=== PATIENT | male | born 1980 | race American Indian/Alaskan Native ===

== ENCOUNTER 2017-04-28 17:48 | Emergency (ER) | payer SELFPAY ==
[2017-04-29] MEDS ORDERED: MOTRIN PO ONE (00:36)
--- NOTE | 2017-04-29 00:39 | Emergency Department Report ---
HPI - General Chief Complaint: Dental/Oral - HPI HPI: 36-year-old -[place] male comes in for complaint of sores in his mouth that his gums are swollen and very painful. He also complains of chills and hot flashes bodyaches. He currently takes no medications he has no known drug allergies has no past medical history. He does report that this is been going on for about a week and he had drunk some orange juice and cranberry juice and the next day he developed sores in his mouth. Patient reports it is difficult for him to eat or drink because of his mouth being so sore. Patient does admit to taking ibuprofen and Tylenol for his pain. ED Past Medical Hx - Past Medical History Previous Medical History?: No - Social History Smoking Status: Never Smoker Substance Use Type: None - Medications Home Medications: Home Medications Medication Instructions Recorded Confirmed Last Taken Type Nystas/Diphen/Xyl Visc/Mylanta 30 ml PO Q6H PRN 4 Days #480 ml 04/29/17 Unknown Rx [Magic Mouthwash] ED Review of Systems ROS: Stated complaint: FLU SX Other details as noted in HPI Constitutional: chills, fever, malaise Eyes: denies: eye pain, eye discharge, vision change ENT: throat pain, other (mouth pain) Respiratory: cough Cardiovascular: denies: chest pain, palpitations Endocrine: no symptoms reported Gastrointestinal: denies: abdominal pain, nausea, diarrhea Genitourinary: denies: urgency, dysuria Musculoskeletal: denies: back pain, joint swelling, arthralgia Skin: denies: rash, lesions Neurological: denies: headache, weakness, paresthesias Psychiatric: denies: anxiety, depression Hematological/Lymphatic: denies: easy bleeding, easy bruising Physical Exam - Physical Exam Vital Signs: Vital Signs 04/28/17 19:20 Temperature 100.6 F H Pulse Rate 96 H Respiratory 18 Rate Blood Pressure 144/99 O2 Sat by Pulse 100 Oximetry Physical Exam: GENERAL: Alert and oriented x3, no apparent distress, Normal Gait, atraumatic. HEAD: Head is normocephalic and a-traumatic. EYES: Extra ocular muscles are intact. Pupils are equal, round, and reactive to light and accommodation. EARS: symetrical, atraumatic, non tender, ear canal clear and moderate cerumen, tympanic membrance non inflamed. gross auditory nml bilaterally. NOSE: Nose symetrical, Nontender,Nares appeared normal. MOUTH:Mouth is well hydrated with lesions and swelling with erythmatous gums. No tonsils, Uvula midline, Tongue not elevated. Mucous membranes are moist. Posterior pharynx clear, no exudate or lesions. Patent airways. NECK: Supple. Non edematous, No carotid bruits. No lymphadenopathy or thyromegaly. LUNGS: Symetrical with respiration, No wheezing, no rales or crackles, CTAB. HEART: S1, S2 present, regular rate and rhythm without murmur, no rubs, no gallops. NEUROLOGIC: No focal Deficit, Cranial nerves II through XII are grossly intact. No loss of sensation, No facial droop, Negative rhomberg. PSYCHIATRIC: Mood is congruent with affect, denies suicidal or homicidal ideations. SKIN: Warm and dry, No lesions, No ulceration or induration present ED Course Vital Signs 04/28/17 19:20 Temperature 100.6 F H Pulse Rate 96 H Respiratory 18 Rate Blood Pressure 144/99 O2 Sat by Pulse 100 Oximetry ED Medical Decision Making - Medical Decision Making Patient has been evaluated by this provider fast track. Patient was ordered ibuprofen 800 mg to take now. I we will send patient home on Magic mouthwash and ibuprofen for pain management. I will refer the patient to a dental clinic. Patient verbalized understanding. Critical care attestation.: If time is entered above; I have spent that time in minutes in the direct care of this critically ill patient, excluding procedure time. ED Disposition Clinical Impression: Gingival swelling Disposition: - TO HOME OR SELFCARE Is pt being admited?: No Does the pt Need Aspirin: No Condition: Stable Instructions: Acetaminophen (By mouth) Additional Instructions: Please take medication as prescribed. If on a when necessary basis. Follow-up with the dentist and her primary care provider in 3-5 days. Prescriptions: Nystas/Diphen/Xyl Visc/Mylanta [Magic Mouthwash] 30 ml PO Q6H PRN 4 Days #480 ml PRN Reason: Pain Referrals: TEJAL ARAGON MD [Primary Care Provider] - 3-5 Days [facility] [Outside] - 3-5 Days [facility] [Outside] - 3-5 Days Forms: Work/School Release Form(ED)
[2017-04-29 01:33] VITALS: BP 143/91
== END 2017-04-29 01:33 | disposition home or self-care (01) ==
LOC: ED 17:48
DX: K08.89 Other specified disorders of teeth and supporting structures (principal)
CPT/HCPCS: 99282

== ENCOUNTER 2020-11-26 09:21 | Inpatient (IN) | payer OTHER, SELFPAY ==
[2020-11-26] MEDS ORDERED: ACETAMINOPHEN 325 MG TAB PO ONE (10:47)
--- NOTE | 2020-11-26 10:49 | Event Note ---
ED Screening Note ED Screening Note: Patient presents for dry cough that began 4 days ago He has associated fever, shortness of breath, chest pain, vomiting He has not been vaccinated for COVID-19 No allergies to medications Patient is hypoxic with low-grade fever Given Tylenol and placed on oxygen ER attending and charge nurse aware of patient This initial assessment/diagnostic orders/clinical plan/treatment(s) is/are subject to change based on patients health status, clinical progression and re- assessment by fellow clinical providers in the ED. Further treatment and workup at subsequent clinical providers discretion. Patient/guardian urged not to elope from the ED as their condition may be serious if not clinically assessed and managed. Initial orders include: Labs, x-ray, EKG
--- NOTE | 2020-11-26 11:11 | XRay Report ---
CHEST 2 VIEWS INDICATION / CLINICAL INFORMATION: SOB, cough, fever. COMPARISON: None available. FINDINGS: SUPPORT DEVICES: None. HEART / MEDIASTINUM: No significant abnormality. LUNGS / PLEURA: Moderate streaky bilateral parenchymal disease likely secondary to Covid pneumonia No pneumothorax. ADDITIONAL FINDINGS: No significant additional findings. IMPRESSION: 1. Probable bilateral Covid pneumonia Signer Name: Raman Arora MD Signed: 11/26/2020 11:06 AM Workstation Name: [id number]
[2020-11-26] MEDS ORDERED: AZITHROMYCIN/NS 500 MG/250 ML 500 MG/250 ML BAG IV ONE (11:20)
[2020-11-26] MEDS ORDERED: cefTRIAXone/NS 2 GM/100 ML 2 GM/100 ML BAG IV ONE (11:20)
[2020-11-26] MEDS ORDERED: ONDANSETRON 4 MG/2 ML INJ IV ONE (11:20)
[2020-11-26] MEDS ORDERED: BENZONATATE 100 MG CAP PO ONE (11:21)
[2020-11-26] MEDS ORDERED: dexAMETHasone 4 MG/ML VIAL IV ONE (11:22)
--- NOTE | 2020-11-26 11:23 | Emergency Department Report ---
ED Shortness of Breath HPI - General Chief Complaint: Dyspnea/Respdistress Stated Complaint: BREATHING ISSUES Time Seen by Provider: 11/26/20 10:47 Source: patient Mode of arrival: Ambulatory Limitations: No Limitations - History of Present Illness Initial Comments: 40-year-old male with no significant past medical history presents to the hospital complaining of shortness of breath and productive cough x1 week. Symptoms worse with exertion and talking. Positive chest pain with cough. Intermittent nausea and vomiting as well as posttussive emesis. Fever and hypoxia noted upon arrival. Not immunized for Covid. Patient still has sense of taste and smell. No known Covid exposure. - Related Data Previous Rx's Medication Instructions Recorded Last Taken Type Nystas/Diphen/Xyl Visc/Mylanta 30 ml PO Q6H PRN 4 Days #480 ml 04/29/17 Unknown Rx [Magic Mouthwash] Allergies Allergy/AdvReac Type Severity Reaction Status Date / Time No Known Allergies Allergy Verified 11/26/20 10:21 ED Review of Systems ROS: Stated complaint: BREATHING ISSUES Other details as noted in HPI Comment: All other systems reviewed and negative ED Past Medical Hx - Past Medical History Previous Medical History?: No - Surgical History Past Surgical History?: No - Social History Smoking Status: Never Smoker Substance Use Type: None - Medications Home Medications: Home Medications Medication Instructions Recorded Confirmed Last Taken Type Nystas/Diphen/Xyl Visc/Mylanta 30 ml PO Q6H PRN 4 Days #480 ml 04/29/17 Unknown Rx [Magic Mouthwash] ED Physical Exam - General Limitations: No Limitations - Other Other exam information: General: No acute distress Head: Atraumatic Eyes: normal appearance Neck: Normal appearance, no midline tenderness Chest: Bilateral crackles, tachypnea, mild accessory muscle use and breathless with speech CV: Regular rate and rhythm Abdomen: Soft, normal bowel sounds, nontender, nondistended, no rebound or guarding Back: Normal inspection Extremity: Normal inspection, full range of motion, no calf tenderness or leg edema Neuro: Alert O x 3, no facial asymmetry, speech clear, no gross motor sensory deficit Psych: Appropriate behavior Skin: No rash ED Course Vital Signs 11/26/20 11/26/20 11/26/20 10:22 13:54 14:00 Temperature 100.1 F H Pulse Rate 90 80 83 Respiratory 20 35 H 42 H Rate Blood Pressure 148/92 144/89 O2 Sat by Pulse 90 96 96 Oximetry 11/26/20 11/26/20 14:16 14:30 Temperature Pulse Rate 82 82 Respiratory 35 H 37 H Rate Blood Pressure 144/89 130/89 O2 Sat by Pulse 97 97 Oximetry - Reevaluation(s) Reevaluation #1: 11/26/20 11:23 Patient provided supplemental oxygen in acute waiting room and labs and meds initiated while awaiting available bed in acute ED 11/26/20 14:31 Patient's respiratory rate increases to the 40s with ambulation while on supplemental oxygen. ED Medical Decision Making - Lab Data Result diagrams: 11/26/20 11:17 11/26/20 11:17 Lab Results 11/26/20 11/26/20 11/26/20 Range/Units 11:17 11:17 11:17 WBC 5.5 (4.5-11.0) K/mm3 RBC 5.28 H (3.65-5.03) M/mm3 Hgb 15.8 H (11.8-15.2) gm/dl Hct 44.8 (35.5-45.6) % MCV 85 (84-94) fl MCH 30 (28-32) pg MCHC 35 H (32-34) % RDW 15.1 (13.2-15.2) % Plt Count 135 L (140-440) K/mm3 Lymph % (Auto) 22.7 (13.4-35.0) % [place] % (Auto) 4.9 (0.0-7.3) % Eos % (Auto) 0.0 (0.0-4.3) % Baso % (Auto) 0.2 (0.0-1.8) % Lymph # (Auto) 1.3 (1.2-5.4) K/mm3 [place] # (Auto) 0.3 (0.0-0.8) K/mm3 Eos # (Auto) 0.0 (0.0-0.4) K/mm3 Baso # (Auto) 0.0 (0.0-0.1) K/mm3 Seg Neutrophils % 72.2 H (40.0-70.0) % Seg Neutrophils # 4.0 (1.8-7.7) K/mm3 D-Dimer 2154.70 H (0-234) ng/mlDDU Sodium 135 L (137-145) mmol/L Potassium 4.2 (3.6-5.0) mmol/L Chloride 96.7 L (98-107) mmol/L Carbon Dioxide 27 (22-30) mmol/L Anion Gap 16 mmol/L BUN 16 (9-20) mg/dL Creatinine 1.3 (0.8-1.3) mg/dL Estimated GFR > 60 ml/min BUN/Creatinine Ratio 12 % Glucose 117 H (75-100) mg/dL Lactic Acid (0.7-2.0) mmol/L Calcium 8.7 (8.4-10.2) mg/dL Ferritin (30.0-300.0) ng/mL Total Bilirubin 0.90 (0.1-1.2) mg/dL AST 68 H (5-40) units/L ALT 44 (7-56) units/L Alkaline Phosphatase 74 (35-129) units/L Lactate Dehydrogenase (91-180) units/L Troponin T < 0.010 (0.00-0.029) ng/mL C-Reactive Protein (0.00-1.30) mg/dL NT-Pro-B Natriuret Pep 18.20 (0-450) pg/mL Total Protein 7.7 (6.3-8.2) g/dL Albumin 4.1 (3.9-5) g/dL Albumin/Globulin Ratio 1.1 % 11/26/20 11/26/20 11/26/20 Range/Units 11:17 11:17 11:42 WBC (4.5-11.0) K/mm3 RBC (3.65-5.03) M/mm3 Hgb (11.8-15.2) gm/dl Hct (35.5-45.6) % MCV (84-94) fl MCH (28-32) pg MCHC (32-34) % RDW (13.2-15.2) % Plt Count (140-440) K/mm3 Lymph % (Auto) (13.4-35.0) % [place] % (Auto) (0.0-7.3) % Eos % (Auto) (0.0-4.3) % Baso % (Auto) (0.0-1.8) % Lymph # (Auto) (1.2-5.4) K/mm3 [place] # (Auto) (0.0-0.8) K/mm3 Eos # (Auto) (0.0-0.4) K/mm3 Baso # (Auto) (0.0-0.1) K/mm3 Seg Neutrophils % (40.0-70.0) % Seg Neutrophils # (1.8-7.7) K/mm3 D-Dimer (0-234) ng/mlDDU Sodium (137-145) mmol/L Potassium (3.6-5.0) mmol/L Chloride (98-107) mmol/L Carbon Dioxide (22-30) mmol/L Anion Gap mmol/L BUN (9-20) mg/dL Creatinine (0.8-1.3) mg/dL Estimated GFR ml/min BUN/Creatinine Ratio % Glucose (75-100) mg/dL Lactic Acid 0.90 (0.7-2.0) mmol/L Calcium (8.4-10.2) mg/dL Ferritin 872.8 H (30.0-300.0) ng/mL Total Bilirubin (0.1-1.2) mg/dL AST (5-40) units/L ALT (7-56) units/L Alkaline Phosphatase (35-129) units/L Lactate Dehydrogenase 642 H (91-180) units/L Troponin T (0.00-0.029) ng/mL C-Reactive Protein 8.50 H (0.00-1.30) mg/dL NT-Pro-B Natriuret Pep (0-450) pg/mL Total Protein (6.3-8.2) g/dL Albumin (3.9-5) g/dL Albumin/Globulin Ratio % - Radiology Data Radiology results: report reviewed CHEST 2 VIEWS INDICATION / CLINICAL INFORMATION: SOB, cough, fever. COMPARISON: None available. FINDINGS: SUPPORT DEVICES: None. HEART / MEDIASTINUM: No significant abnormality. LUNGS / PLEURA: Moderate streaky bilateral parenchymal disease likely secondary to Covid pneumonia No pneumothorax. ADDITIONAL FINDINGS: No significant additional findings. IMPRESSION: 1. Probable bilateral Covid pneumonia - Medical Decision Making 40-year-old male presents to the hospital with likely Covid pneumonia. Patient is unvaccinated patient requires admission to the hospital due to acute hypoxia requiring oxygen supplementation. Patient treated with Rocephin, azithromycin, Tylenol, and IV Decadron. Covid test pending. Patient will require admission to hospital service for further treatment. Critical Care Time: No Critical care attestation.: If time is entered above; I have spent that time in minutes in the direct care of this critically ill patient, excluding procedure time. ED Disposition Clinical Impression: Suspected 2019 novel coronavirus infection, Hypoxia, Pneumonia, 2019 novel coronavirus vaccination not done Disposition: ADMITTED INPATIENT Is pt being admited?: Yes Condition: Stable Time of Disposition: 12:28 (DR Cedeño/hospitalist)
[2020-11-26 11:48] LABS: Basophils % (Auto) 0.2 % (0.0-1.8); Hematocrit 44.8 % (35.5-45.6); Hemoglobin 15.8 gm/dl (11.8-15.2); Lymphocytes # (Auto) 1.3 K/mm3 (1.2-5.4); Lymphocytes % (Auto) 22.7 % (13.4-35.0); Mean Corpuscular HGB Conc 35 % (32-34); Mean Corpuscular Volume 85 fl (84-94); Monocytes # (Auto) 0.3 K/mm3 (0.0-0.8); Monocytes % (Auto) 4.9 % (0.0-7.3); Platelet Count 135 K/mm3 (140-440); Red Blood Count 5.28 M/mm3 (3.65-5.03); Red Cell Distribution Width 15.1 % (13.2-15.2)
[2020-11-26 12:09] LABS: C-Reactive Protein 8.5 mg/dL (0.00-1.30)
[2020-11-26 12:11] LABS: Alanine Aminotransferase 44 units/L (7-56); Albumin 4.1 g/dL (3.9-5); BUN/Creatinine Ratio 12; Blood Urea Nitrogen 16 mg/dL (9-20); Calcium 8.7 mg/dL (8.4-10.2); Hemolysis Index 4
[2020-11-26] MEDS ORDERED: ACETAMINOPHEN 325 MG TAB PO PRN (22:20)
[2020-11-26] MEDS ORDERED: SODIUM CHLORIDE 0.9% 1000 ML 1,000 ML IV SCH (22:30)
[2020-11-27 05:44] LABS: Basophils % (Auto) 0.2 % (0.0-1.8); Hematocrit 44.4 % (35.5-45.6); Hemoglobin 15.3 gm/dl (11.8-15.2); Lymphocytes # (Auto) 1.5 K/mm3 (1.2-5.4); Lymphocytes % (Auto) 25.7 % (13.4-35.0); Mean Corpuscular HGB Conc 35 % (32-34); Mean Corpuscular Volume 86 fl (84-94); Monocytes # (Auto) 0.3 K/mm3 (0.0-0.8); Monocytes % (Auto) 4.5 % (0.0-7.3); Platelet Count 150 K/mm3 (140-440); Red Blood Count 5.14 M/mm3 (3.65-5.03)
[2020-11-27 06:35] LABS: Alanine Aminotransferase 41 units/L (7-56); BUN/Creatinine Ratio 12; Blood Urea Nitrogen 17 mg/dL (9-20); Calcium 8.6 mg/dL (8.4-10.2); Hemolysis Index 13
--- NOTE | 2020-11-27 06:46 | History and Physical Report ---
History of Present Illness Date of examination: 11/26/20 Date of admission: 11/26/20 12:30 Chief complaint: Shortness of breath for 1 week History of present illness: 40-year-old -[place] male with no significant past medical history unvaccinated with Covid comes in for increasing shortness of breath and cough for 2-week escalating for 1 week. Symptoms worse with exertion and talking. Positive chest pain. Episode associated with cough. Intermittent nausea vomiting as well as emesis after coughing. Fever and low oxygen levels noted upon arrival. Sats in the mid 85. No loss of taste or smell. Feels weak. No known Covid exposure. Patient now willing to take vaccine after he gets better. - Past Medical History Previous Medical History?: No - Surgical History Past Surgical History?: No - Social History Smoking Status: Never Smoker Substance Use Type: None -Family history Htn - Medications Home Medications: Home Medications Medication Instructions Recorded Confirmed Last Taken Type Nystas/Diphen/Xyl Visc/Mylanta 30 ml PO Q6H PRN 4 Days #480 ml 04/29/17 Unknown Rx [Magic Mouthwash] Review of Systems ROS: Constitutional intermittent fever and loss of appetite HEENT no sore throat no post nasal drip no diplopia Neck no neck stiffness no lymph gland enlargement Chest and lungs cough and shortness of breath for 1 week CVS no chest pain no diaphoresis no palpitations GI no nausea no vomiting no diarrhea Genitourinary system no dysuria no flank pain Musculoskeletal system no muscle pains no joint pains [employer] no syncope no seizures Skin no rash no itching Psychiatric no depression no homicidal or suicidal tendencies Hematologic no lymphedema or bruising Endocrine no polydipsia no polyuria no cold intolerance no heat intolerance Medications and Allergies Allergies Allergy/AdvReac Type Severity Reaction Status Date / Time No Known Allergies Allergy Verified 11/26/20 10:21 Home Medications Medication Instructions Recorded Confirmed Last Taken Type Nystas/Diphen/Xyl Visc/Mylanta 30 ml PO Q6H PRN 4 Days #480 ml 04/29/17 Unknown Rx [Magic Mouthwash] Active Meds: Active Medications Acetaminophen (Acetaminophen 325 Mg Tab) 650 mg PO Q4H PRN PRN Reason: Pain MILD(1-3)/Fever >100.5/DALY Dexamethasone (Dexamethasone 4 Mg/Ml Vial) 8 mg IV Q24H SANGEETHA Enoxaparin Sodium (Enoxaparin 40 Mg/0.4 Ml Inj) 40 mg SUB-Q QDAY SANGEETHA Famotidine (Famotidine 20 Mg/2 Ml Inj) 20 mg IV BID SANGEETHA Hydromorphone HCl (Hydromorphone 1 Mg/1 Ml Inj) 0.5 mg IV Q3H PRN PRN Reason: Pain , Severe (7-10) Sodium Chloride (Nacl 0.9% 1000 Ml) 1,000 mls @ 100 mls/hr IV DIRECT SANGEETHA Azithromycin (Zithromax/Ns) 500 mg in 250 mls @ 250 mls/hr IV Q24H SANGEETHA Ceftriaxone Sodium (Rocephin/Ns 2 Gm/100 Ml) 2 gm in 100 mls @ 200 mls/hr IV Q24HR SANGEETHA; Protocol Ondansetron HCl (Ondansetron 4 Mg/2 Ml Inj) 4 mg IV Q8H PRN PRN Reason: Nausea And Vomiting Oxycodone/Acetaminophen (Oxycodone /Acetaminophen 5-325mg Tab) 1 tab PO Q6H PRN PRN Reason: Pain, Moderate (4-6) Sodium Chloride (Sodium Chloride 0.9% 10 Ml Flush Syringe) 10 ml IV BID [facility] Last Admin: 11/27/20 00:20 Dose: 10 ml Documented by: Sodium Chloride (Sodium Chloride 0.9% 10 Ml Flush Syringe) 10 ml IV PRN PRN PRN Reason: LINE FLUSH Exam - Constitutional Vitals: Temp Pulse Resp BP Pulse Ox 100.1 F H 91 H 28 H 132/86 90 11/26/20 10:22 11/27/20 06:30 11/27/20 06:30 11/27/20 06:30 11/27/20 06:30 General appearance: Present: mild distress, well-nourished - EENT Eyes: Present: PERRL ENT: hearing intact, clear oral mucosa - Neck Neck: Present: supple, normal ROM - Respiratory Respiratory effort: normal Respiratory: bilateral: CTA - Cardiovascular Heart rate: 78 Rhythm: regular Heart Sounds: Present: S1 & S2. Absent: rub, click - Extremities Extremities: pulses symmetrical, No edema Peripheral Pulses: within normal limits - Abdominal General gastrointestinal: Present: soft, non-tender, non-distended, normal bowel sounds Male genitourinary: Present: normal - Integumentary Integumentary: Present: clear, warm, dry - Musculoskeletal Musculoskeletal: gait normal, strength equal bilaterally - Psychiatric Psychiatric: appropriate mood/affect, intact judgment & insight - Neurologic Neurologic: CNII-XII intact, moves all extremities - Allied Health Allied health notes reviewed: nursing, case management HEART Score - HEART Score Troponin: Troponin T < 0.010 ng/mL (0.00-0.029) 11/26/20 11:17 Results - Labs CBC & Chem 7: 11/27/20 05:15 11/26/20 11:17 Labs: Laboratory Last Values WBC 5.7 K/mm3 (4.5-11.0) 11/27/20 05:15 RBC 5.14 M/mm3 (3.65-5.03) H 11/27/20 05:15 Hgb 15.3 gm/dl (11.8-15.2) H 11/27/20 05:15 Hct 44.4 % (35.5-45.6) 11/27/20 05:15 MCV 86 fl (84-94) 11/27/20 05:15 MCH 30 pg (28-32) 11/27/20 05:15 MCHC 35 % (32-34) H 11/27/20 05:15 RDW 15.0 % (13.2-15.2) 11/27/20 05:15 Plt Count 150 K/mm3 (140-440) 11/27/20 05:15 Lymph % (Auto) 25.7 % (13.4-35.0) 11/27/20 05:15 [place] % (Auto) 4.5 % (0.0-7.3) 11/27/20 05:15 Eos % (Auto) 0.0 % (0.0-4.3) 11/27/20 05:15 Baso % (Auto) 0.2 % (0.0-1.8) 11/27/20 05:15 Lymph # (Auto) 1.5 K/mm3 (1.2-5.4) 11/27/20 05:15 [place] # (Auto) 0.3 K/mm3 (0.0-0.8) 11/27/20 05:15 Eos # (Auto) 0.0 K/mm3 (0.0-0.4) 11/27/20 05:15 Baso # (Auto) 0.0 K/mm3 (0.0-0.1) 11/27/20 05:15 Seg Neutrophils % 69.6 % (40.0-70.0) 11/27/20 05:15 Seg Neutrophils # 4.0 K/mm3 (1.8-7.7) 11/27/20 05:15 D-Dimer 2154.70 ng/mlDDU (0-234) H 11/26/20 11:17 Sodium 135 mmol/L (137-145) L 11/26/20 11:17 Potassium 4.2 mmol/L (3.6-5.0) 11/26/20 11:17 Chloride 96.7 mmol/L (98-107) L 11/26/20 11:17 Carbon Dioxide 27 mmol/L (22-30) 11/26/20 11:17 Anion Gap 16 mmol/L 11/26/20 11:17 BUN 16 mg/dL (9-20) 11/26/20 11:17 Creatinine 1.3 mg/dL (0.8-1.3) 11/26/20 11:17 Estimated GFR > 60 ml/min 11/27/20 05:15 BUN/Creatinine Ratio 12 % 11/27/20 05:15 Glucose 117 mg/dL (75-100) H 11/26/20 11:17 Lactic Acid 1.20 mmol/L (0.7-2.0) 11/26/20 23:28 Calcium 8.7 mg/dL (8.4-10.2) 11/26/20 11:17 Ferritin 872.8 ng/mL (30.0-300.0) H 11/26/20 11:17 Total Bilirubin 0.90 mg/dL (0.1-1.2) 11/26/20 11:17 AST 68 units/L (5-40) H 11/26/20 11:17 ALT 44 units/L (7-56) 11/26/20 11:17 Alkaline Phosphatase 74 units/L (35-129) 11/26/20 11:17 Lactate Dehydrogenase 642 units/L (91-180) H 11/26/20 11:17 Troponin T < 0.010 ng/mL (0.00-0.029) 11/26/20 11:17 C-Reactive Protein 8.50 mg/dL (0.00-1.30) H 11/26/20 11:17 NT-Pro-B Natriuret Pep 18.20 pg/mL (0-450) 11/26/20 11:17 Total Protein 7.7 g/dL (6.3-8.2) 11/26/20 11:17 Albumin 4.1 g/dL (3.9-5) 11/26/20 11:17 Albumin/Globulin Ratio 1.0 % 11/27/20 05:15 Microbiology: Microbiology 11/26/20 11:42 Peripheral/Venous Blood Culture - Preliminary Culture in Progress 11/26/20 11:42 Peripheral/Venous Blood Culture - Preliminary Culture in Progress - Imaging and Cardiology Chest x-ray: report reviewed Imaging and Cardiology: Chest x-ray Probable bilateral COVID-pneumonia Assessment and Plan Advance Directives: Yes (Full code) VTE prophylaxis?: Chemical Plan of care discussed with patient/family: Yes - Patient Problems (1) Acute respiratory failure with hypoxia Current Visit: Yes Status: Acute Plan to address problem: Titrate oxygen levels to keep saturations over 90 Patient now on 4 L nasal cannula oxygen Otherwise comfortable (2) Bilateral pneumonia Current Visit: Yes Status: Acute Plan to address problem: IV Zithromax and IV ceftriaxone for now Discontinue if procalcitonin is normal ID consult requested (3) Suspected 2019 novel coronavirus infection Current Visit: Yes Status: Acute Plan to address problem: Coronavirus PCR in a.m. IV Decadron 8 mg every 24 Zinc sulfate 220 twice daily along with vitamin C and vitamin D (4) Hyponatremia Current Visit: Yes Status: Acute Plan to address problem: Sodium of 135 Normal saline for 12 hours (5) DVT prophylaxis Current Visit: Yes Status: Acute Plan to address problem: On anticoagulation and GI prophylaxis
[2020-11-27] MEDS: oxyCODONE /ACETAMINOPHEN 5-325MG TAB PO PRN (06:48)
--- NOTE | 2020-11-27 08:14 | Progress Note ---
Assessment and Plan Assessment and plan: 40-year-old -Citizen Of [place] male with no significant past medical history unvaccinated with Covid comes in for increasing shortness of breath and cough for 2-week escalating for 1 week. Symptoms worse with exertion and talking. Positive chest pain. Episode associated with cough. Intermittent nausea vomiting as well as emesis after coughing. Fever and low oxygen levels noted upon arrival. Sats in the mid 85. No loss of taste or smell. Feels weak. No known Covid exposure. Patient now willing to take vaccine after he gets better. (1) Acute respiratory failure with hypoxia Current Visit: Yes Status: Acute Plan to address problem: Titrate oxygen levels to keep saturations over 90 Patient now on 4 L nasal cannula oxygen Otherwise comfortable (2) Bilateral pneumonia Current Visit: Yes Status: Acute Plan to address problem: IV Zithromax and IV ceftriaxone for now Discontinue if procalcitonin is normal ID consult requested (3) Suspected 2019 novel coronavirus infection Current Visit: Yes Status: Acute Plan to address problem: Coronavirus PCR in a.m. IV Decadron 8 mg every 24 Zinc sulfate 220 twice daily along with vitamin C and vitamin D (4) Hyponatremia Current Visit: Yes Status: Acute Plan to address problem: Sodium of 135 Normal saline for 12 hours (5) DVT prophylaxis Current Visit: Yes Status: Acute Plan to address problem: On anticoagulation and GI prophylaxis 11/27 -Patient was on 4 L of oxygen. Covid test is pending. Procalcitonin level pending. ID is following. Patient is on Decadron and will add remdesivir if Covid test is positive History Interval history: Patient was seen and evaluated this morning Patient was on 4 L of oxygen Patient was in moderate respiratory distress Hospitalist Physical - Physical exam Narrative exam: Not in cardiopulmonary distress. The patient is obese. Vital signs as documented. Head exam is unremarkable. No scleral icterus . Neck is without jugular venous distension, thyromegaly, or carotid bruits. Lungs are clear to auscultation. Cardiac exam reveals regular rate and Rhythm. Abdominal exam reveals normal bowel sounds, nontender, no organomegaly. Extremities are nonedematous and both femoral and pedal pulses are normal. 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 No focal weakness. - Constitutional Vitals: Temp Pulse Resp BP Pulse Ox 100.1 F H 91 H 20 132/86 90 11/26/20 10:22 11/27/20 06:30 11/27/20 06:48 11/27/20 06:30 11/27/20 06:30 General appearance: Present: mild distress, well-nourished HEART Score - HEART Score Troponin: Troponin T < 0.010 ng/mL (0.00-0.029) 11/26/20 11:17 Results - Labs CBC & Chem 7: 11/27/20 05:15 11/27/20 05:15 Labs: Laboratory Last Values WBC 5.7 K/mm3 (4.5-11.0) 11/27/20 05:15 RBC 5.14 M/mm3 (3.65-5.03) H 11/27/20 05:15 Hgb 15.3 gm/dl (11.8-15.2) H 11/27/20 05:15 Hct 44.4 % (35.5-45.6) 11/27/20 05:15 MCV 86 fl (84-94) 11/27/20 05:15 MCH 30 pg (28-32) 11/27/20 05:15 MCHC 35 % (32-34) H 11/27/20 05:15 RDW 15.0 % (13.2-15.2) 11/27/20 05:15 Plt Count 150 K/mm3 (140-440) 11/27/20 05:15 Lymph % (Auto) 25.7 % (13.4-35.0) 11/27/20 05:15 [place] % (Auto) 4.5 % (0.0-7.3) 11/27/20 05:15 Eos % (Auto) 0.0 % (0.0-4.3) 11/27/20 05:15 Baso % (Auto) 0.2 % (0.0-1.8) 11/27/20 05:15 Lymph # (Auto) 1.5 K/mm3 (1.2-5.4) 11/27/20 05:15 [place] # (Auto) 0.3 K/mm3 (0.0-0.8) 11/27/20 05:15 Eos # (Auto) 0.0 K/mm3 (0.0-0.4) 11/27/20 05:15 Baso # (Auto) 0.0 K/mm3 (0.0-0.1) 11/27/20 05:15 Seg Neutrophils % 69.6 % (40.0-70.0) 11/27/20 05:15 Seg Neutrophils # 4.0 K/mm3 (1.8-7.7) 11/27/20 05:15 D-Dimer 2154.70 ng/mlDDU (0-234) H 11/26/20 11:17 Sodium 137 mmol/L (137-145) 11/27/20 05:15 Potassium 4.5 mmol/L (3.6-5.0) 11/27/20 05:15 Chloride 95.1 mmol/L (98-107) L 11/27/20 05:15 Carbon Dioxide 29 mmol/L (22-30) 11/27/20 05:15 Anion Gap 17 mmol/L 11/27/20 05:15 BUN 17 mg/dL (9-20) 11/27/20 05:15 Creatinine 1.4 mg/dL (0.8-1.3) H 11/27/20 05:15 Estimated GFR > 60 ml/min 11/27/20 05:15 BUN/Creatinine Ratio 12 % 11/27/20 05:15 Glucose 110 mg/dL (75-100) H 11/27/20 05:15 Lactic Acid 1.20 mmol/L (0.7-2.0) 11/26/20 23:28 Calcium 8.6 mg/dL (8.4-10.2) 11/27/20 05:15 Ferritin 872.8 ng/mL (30.0-300.0) H 11/26/20 11:17 Total Bilirubin 0.70 mg/dL (0.1-1.2) 11/27/20 05:15 AST 51 units/L (5-40) H 11/27/20 05:15 ALT 41 units/L (7-56) 11/27/20 05:15 Alkaline Phosphatase 74 units/L (35-129) 11/27/20 05:15 Lactate Dehydrogenase 642 units/L (91-180) H 11/26/20 11:17 Troponin T < 0.010 ng/mL (0.00-0.029) 11/26/20 11:17 C-Reactive Protein 8.50 mg/dL (0.00-1.30) H 11/26/20 11:17 NT-Pro-B Natriuret Pep 18.20 pg/mL (0-450) 11/26/20 11:17 Total Protein 8.1 g/dL (6.3-8.2) 11/27/20 05:15 Albumin 4.0 g/dL (3.9-5) 11/27/20 05:15 Albumin/Globulin Ratio 1.0 % 11/27/20 05:15 Microbiology: Microbiology 11/26/20 11:42 Peripheral/Venous Blood Culture - Preliminary Culture in Progress 11/26/20 11:42 Peripheral/Venous Blood Culture - Preliminary Culture in Progress Active Medications - Current Medications Current Medications: Generic Name Dose Route Start Last Admin Trade Name Freq PRN Reason Stop Dose Admin Acetaminophen 650 mg 11/26/20 22:20 Acetaminophen 325 Mg Tab PO Q4H PRN Pain MILD(1-3)/Fever >100.5/DALY Dexamethasone 8 mg 11/27/20 10:00 Dexamethasone 4 Mg/Ml Vial IV 12/05/20 10:01 DAILY [facility] Enoxaparin Sodium 40 mg 11/27/20 10:00 Enoxaparin 40 Mg/0.4 Ml Inj SUB-Q QDAY [facility] Famotidine 20 mg 11/27/20 10:00 Famotidine 20 Mg/2 Ml Inj IV BID [facility] Hydromorphone HCl 0.5 mg 11/26/20 22:20 Hydromorphone 1 Mg/1 Ml Inj IV Q3H PRN Pain , Severe (7-10) Sodium Chloride 1,000 mls @ 100 mls/hr 11/26/20 22:30 Nacl 0.9% 1000 Ml IV DIRECT [facility] Azithromycin 500 mg in 250 mls @ 250 mls/hr 11/27/20 10:00 Zithromax/Ns IV 11/30/20 10:59 Q24H [facility] Ceftriaxone Sodium 2 gm in 100 mls @ 200 mls/hr 11/27/20 10:00 Rocephin/Ns 2 Gm/100 Ml IV 11/30/20 10:29 Q24HR [facility] Protocol Ondansetron HCl 4 mg 11/26/20 22:20 Ondansetron 4 Mg/2 Ml Inj IV Q8H PRN Nausea And Vomiting Oxycodone/Acetaminophen 1 tab 11/26/20 22:20 08/27/21 06:48 Oxycodone /Acetaminophen 5-325mg Tab PO 1 tab Q6H PRN Administration Pain, Moderate (4-6) Sodium Chloride 10 ml 11/26/20 23:00 11/27/20 00:20 Sodium Chloride 0.9% 10 Ml Flush Syringe IV 10 ml BID [facility] Administration Sodium Chloride 10 ml 11/26/20 22:20 Sodium Chloride 0.9% 10 Ml Flush Syringe IV PRN PRN LINE FLUSH
[2020-11-27] MEDS ORDERED: dexAMETHasone 4 MG/ML VIAL IV SCH ×2 (10:00→16:31)
--- NOTE | 2020-11-27 10:25 | Electrocardiograph Report ---
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
[2020-11-27] MEDS: FAMOTIDINE 20 MG/2 ML INJ IV SCH (11:56)
[2020-11-27] MEDS: ENOXAPARIN 40 MG/0.4 ML INJ SUB-Q SCH (11:56)
[2020-11-27] MEDS: cefTRIAXone/NS 2 GM/100 ML 2 GM/100 ML BAG IV SCH (11:59)
[2020-11-27] MEDS: AZITHROMYCIN/NS 500 MG/250 ML 500 MG/250 ML BAG IV SCH (12:01)
--- NOTE | 2020-11-27 13:50 | Vascular Lab Report ---
DUPLEX DOPPLER LOWER EXTREMITY VEINS, BILATERAL INDICATION / CLINICAL INFORMATION: SOB, elevated d-dimer TECHNIQUE: Duplex doppler imaging was performed through the veins of both lower extremities using cory ous compression and other maneuvers. COMPARISON: None available. FINDINGS: RIGHT COMMON FEMORAL VEIN: Negative. RIGHT FEMORAL VEIN: Negative. RIGHT POPLITEAL VEIN: Negative. RIGHT CALF VEINS: Negative. LEFT COMMON FEMORAL VEIN: Negative. LEFT FEMORAL VEIN: Negative. LEFT POPLITEAL VEIN: Negative. LEFT CALF VEINS: Negative. ADDITIONAL FINDINGS: None. IMPRESSION: No sonographic evidence for DVT in either lower extremity. Signer Name: Emigdio Trammell MD Signed: 11/27/2020 1:45 PM Workstation Name: [id number]
--- NOTE | 2020-11-27 13:55 | Cat Scan Report ---
CTA CHEST WITH IV CONTRAST INDICATION: SOB, elevated d-dimer OMNI 350 100 ML CONTRAST: 100 cc Omnipaque 350 IV COMPARISON: Chest x-ray 11/26/2020 Three-plane MIP reconstructions were produced. All CT scans at this location are performed using CT d ose reduction for ALARA by means of automated exposure control. NOTE: Resolution is decreased and artifact is introduced by the patient's size. FINDINGS: No significant axillary or chest wall lesions are seen. No mediastinal or hilar masses are noted. No pleural effusions are seen. Visualized portions of the upper abdomen show moderate fatty in filtration of the liver. No obvious endobronchial lesions are seen. No pneumothorax or pneumomediasti num are noted. Prominent bilateral patchy interstitial mostly groundglass type pulmonary infiltrates are seen in a p attern highly suggesting viral pneumonitis. Aorta shows no aneurysmal dilatation or evidence of dissection. Borderline opacification of the pulmonary arterial system was achieved. Together with artifact in the patient's size, this makes evaluation of smaller arteries much more difficult. I do not see obvious evidence of pulmonary thromboembolism, particularly in the larger arteries. IMPRESSION: 1. Difficult study but no obvious evidence of pulmonary thromboembolism as above 2. Prominent bilateral pulmonary infiltrates of significant concern for viral pneumonitis Signer Name: Emigdio Trammell MD Signed: 11/27/2020 1:51 PM Workstation Name: [id number]
[2020-11-27] MEDS ORDERED: REMDESIVIR 200 MG in SODIUM CHLORIDE 0.9% 250ML 250 ML IV ONE (16:28)
--- NOTE | 2020-11-27 16:30 | Consultation ---
History of Present Illness - Reason for Consult Consult date: 11/27/20 COVID pneumonia Requesting physician: CHARLOTTE KING - History of Present Illness The patient is a 40-year-old male with no past medical history, Covid unvaccinated admitted with COVID-19 pneumonia, acute hypoxic respiratory failure. Labs revealed normal WBC, D-dimer 2154, ferritin 872, CRP 8.5, mild transaminitis and mild creatinine elevation Review of Systems: reviewed in the chart, unable to obtain, minimize risk of transmission Medications and Allergies Allergies Allergy/AdvReac Type Severity Reaction Status Date / Time No Known Allergies Allergy Verified 11/26/20 10:21 Home Medications Medication Instructions Recorded Confirmed Last Taken Type Nystas/Diphen/Xyl Visc/Mylanta 30 ml PO Q6H PRN 4 Days #480 ml 04/29/17 Unknown Rx [Magic Mouthwash] Active Meds: Active Medications Acetaminophen (Acetaminophen 325 Mg Tab) 650 mg PO Q4H PRN PRN Reason: Pain MILD(1-3)/Fever >100.5/DALY Dexamethasone (Dexamethasone 4 Mg/Ml Vial) 8 mg IV DAILY [facility] Stop: 12/05/20 10:01 Last Admin: 11/27/20 11:55 Dose: 8 mg Documented by: Enoxaparin Sodium (Enoxaparin 40 Mg/0.4 Ml Inj) 40 mg SUB-Q QDAY [facility] Last Admin: 11/27/20 11:56 Dose: 40 mg Documented by: Famotidine (Famotidine 20 Mg/2 Ml Inj) 20 mg IV BID [facility] Last Admin: 11/27/20 11:56 Dose: 20 mg Documented by: Hydromorphone HCl (Hydromorphone 1 Mg/1 Ml Inj) 0.5 mg IV Q3H PRN PRN Reason: Pain , Severe (7-10) Sodium Chloride (Nacl 0.9% 1000 Ml) 1,000 mls @ 100 mls/hr IV DIRECT [facility] Azithromycin (Zithromax/Ns) 500 mg in 250 mls @ 250 mls/hr IV Q24H [facility] Stop: 11/30/20 10:59 Last Admin: 11/27/20 12:01 Dose: 250 mls/hr Documented by: Ceftriaxone Sodium (Rocephin/Ns 2 Gm/100 Ml) 2 gm in 100 mls @ 200 mls/hr IV Q24HR [facility]; Protocol Stop: 11/30/20 10:29 Last Admin: 11/27/20 11:59 Dose: 200 mls/hr Documented by: REMDESIVIR 200 mg/ Sodium (Chloride) 250 mls @ 500 mls/hr IV ONCE ONE Stop: 11/27/20 16:57 REMDESIVIR 100 mg/ Sodium (Chloride) 250 mls @ 500 mls/hr IV Q24HR@2100 [facility] Stop: 12/01/20 21:29 Ondansetron HCl (Ondansetron 4 Mg/2 Ml Inj) 4 mg IV Q8H PRN PRN Reason: Nausea And Vomiting Oxycodone/Acetaminophen (Oxycodone /Acetaminophen 5-325mg Tab) 1 tab PO Q6H PRN PRN Reason: Pain, Moderate (4-6) Last Admin: 11/27/20 06:48 Dose: 1 tab Documented by: Sodium Chloride (Sodium Chloride 0.9% 10 Ml Flush Syringe) 10 ml IV BID [facility] Last Admin: 11/27/20 11:58 Dose: 10 ml Documented by: Sodium Chloride (Sodium Chloride 0.9% 10 Ml Flush Syringe) 10 ml IV PRN PRN PRN Reason: LINE FLUSH Sodium Chloride (Sodium Chloride 0.9% 50 Ml Ivpb) 50 ml IV Q24HR@2100 [facility] Stop: 12/01/20 21:01 Physical Examination - Physical Exam Narrative exam: Physical Exam (reviewed in chart to minimize risk of transmission) Constitutional: deferred Head, Ears, Nose: deferred Eyes: deferred Neck: deferred Oral: deferred Cardiovascular: deferred Respiratory: deferred GI: deferred Musculoskeletal: deferred Skin: deferred Hem/Lymphatic: deferred Psych: deferred Neurological: deferred - Constitutional Vitals: Vital Signs Temp Pulse Resp BP Pulse Ox 100.1 F H 85 36 H 118/75 91 11/26/20 10:22 11/27/20 08:00 11/27/20 08:00 11/27/20 08:00 11/27/20 14:08 Results - Labs CBC & Chem 7: 11/27/20 05:15 11/27/20 05:15 Labs: Abnormal lab results 11/27/20 11/27/20 11/27/20 Range/Units 05:15 05:15 Unknown RBC 5.14 H (3.65-5.03) M/mm3 Hgb 15.3 H (11.8-15.2) gm/dl MCHC 35 H (32-34) % Chloride 95.1 L (98-107) mmol/L Creatinine 1.4 H (0.8-1.3) mg/dL Glucose 110 H (75-100) mg/dL AST 51 H (5-40) units/L Coronavirus (PCR) Positive A (Negative) Assessment and Plan Cultures: SARS CoV2 PCR: Positive 11/26/2020 blood culture no growth A/P: 40-year-old male unvaccinated admitted with: #Bilateral pneumonia: Secondary to COVID-19 #Acute hypoxic respiratory failure: On NRB at 15 L/min. #Morbid obesity Recs: IV/PO Dexamethasone x 10 days ordered IV remdesivir x 5 days if requiring HFNC >30 L/min, since his CRP >7.5, candidate for Actemra (depending on availability) prophylactic anticoagulation based on d-dimer per hospital protocol if procalcitonin is low, abx not needed trend ferritin, d-dimer, CRP every 2-3 days ID will sign off. Please reconsult as needed. Delia Umanzor MD, FACP [facility] ([facility] O: [phone] F: [phone]
[2020-11-27 18:16] LABS: Alanine Aminotransferase 38 units/L (7-56); BUN/Creatinine Ratio 17; Blood Urea Nitrogen 17 mg/dL (9-20); Calcium 8.5 mg/dL (8.4-10.2)
[2020-11-27 18:17] LABS: Albumin 3.4 g/dL (3.9-5)
[2020-11-28] MEDS: FAMOTIDINE 20 MG/2 ML INJ IV SCH ×3 (00:02→21:39)
[2020-11-28] MEDS: HYDROmorphone 1 MG/1 ML INJ IV PRN (00:46)
[2020-11-28] MEDS: SODIUM CHLORIDE 0.9% 50 ML IVPB IV SCH ×2 (00:47→21:53)
--- NOTE | 2020-11-28 07:59 | Progress Note ---
Assessment and Plan Assessment and plan: 40-year-old -[place] male with no significant past medical history unvaccinated with Covid comes in for increasing shortness of breath and cough for 2-week escalating for 1 week. Symptoms worse with exertion and talking. Positive chest pain. Episode associated with cough. Intermittent nausea vomiting as well as emesis after coughing. Fever and low oxygen levels noted upon arrival. Sats in the mid 85. No loss of taste or smell. Feels weak. No known Covid exposure. Patient now willing to take vaccine after he gets better. (1) Acute respiratory failure with hypoxia Current Visit: Yes Status: Acute Plan to address problem: Titrate oxygen levels to keep saturations over 90 Patient now on 4 L nasal cannula oxygen Otherwise comfortable (2) Bilateral pneumonia Current Visit: Yes Status: Acute Plan to address problem: IV Zithromax and IV ceftriaxone for now Discontinue if procalcitonin is normal ID consult requested (3) Suspected 2019 novel coronavirus infection Current Visit: Yes Status: Acute Plan to address problem: Coronavirus PCR in a.m. IV Decadron 8 mg every 24 Zinc sulfate 220 twice daily along with vitamin C and vitamin D (4) Hyponatremia Current Visit: Yes Status: Acute Plan to address problem: Sodium of 135 Normal saline for 12 hours (5) DVT prophylaxis Current Visit: Yes Status: Acute Plan to address problem: On anticoagulation and GI prophylaxis 11/27 -Patient was on 4 L of oxygen. Covid test is pending. Procalcitonin level pending. ID is following. Patient is on Decadron and will add remdesivir if Covid test is positive 11/28 -Covid test was positive. Patient started on Decadron and remdesivir. ID consult appreciated. Patient's oxygen requirement was 30 L yesterday and CRP was 7.5 and ID recommend Actemra based on his availability. Pulmonary consulted. History Interval history: Patient was seen and evaluated this morning Patient was on 15 L of oxygen via high flow intranasal cannula Hospitalist Physical - Physical exam Narrative exam: Not in cardiopulmonary distress. The patient is obese. Vital signs as documented. Head exam is unremarkable. No scleral icterus . Neck is without jugular venous distension, thyromegaly, or carotid bruits. Lungs are clear to auscultation. Cardiac exam reveals regular rate and Rhythm. Abdominal exam reveals normal bowel sounds, nontender, no organomegaly. Extremities are nonedematous and both femoral and pedal pulses are normal. 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 - Constitutional Vitals: Temp Pulse Resp BP Pulse Ox 100.1 F H 79 36 H 103/53 97 11/26/20 10:22 11/28/20 07:01 11/28/20 07:01 11/28/20 07:01 11/28/20 07:01 General appearance: Present: mild distress, well-nourished HEART Score - HEART Score Troponin: Troponin T < 0.010 ng/mL (0.00-0.029) 11/26/20 11:17 Results - Labs CBC & Chem 7: 11/27/20 05:15 11/28/20 07:14 Labs: Laboratory Last Values WBC 5.7 K/mm3 (4.5-11.0) 11/27/20 05:15 RBC 5.14 M/mm3 (3.65-5.03) H 11/27/20 05:15 Hgb 15.3 gm/dl (11.8-15.2) H 11/27/20 05:15 Hct 44.4 % (35.5-45.6) 11/27/20 05:15 MCV 86 fl (84-94) 11/27/20 05:15 MCH 30 pg (28-32) 11/27/20 05:15 MCHC 35 % (32-34) H 11/27/20 05:15 RDW 15.0 % (13.2-15.2) 11/27/20 05:15 Plt Count 150 K/mm3 (140-440) 11/27/20 05:15 Lymph % (Auto) 25.7 % (13.4-35.0) 11/27/20 05:15 [place] % (Auto) 4.5 % (0.0-7.3) 11/27/20 05:15 Eos % (Auto) 0.0 % (0.0-4.3) 11/27/20 05:15 Baso % (Auto) 0.2 % (0.0-1.8) 11/27/20 05:15 Lymph # (Auto) 1.5 K/mm3 (1.2-5.4) 11/27/20 05:15 [place] # (Auto) 0.3 K/mm3 (0.0-0.8) 11/27/20 05:15 Eos # (Auto) 0.0 K/mm3 (0.0-0.4) 11/27/20 05:15 Baso # (Auto) 0.0 K/mm3 (0.0-0.1) 11/27/20 05:15 Seg Neutrophils % 69.6 % (40.0-70.0) 11/27/20 05:15 Seg Neutrophils # 4.0 K/mm3 (1.8-7.7) 11/27/20 05:15 D-Dimer 2154.70 ng/mlDDU (0-234) H 11/26/20 11:17 Sodium 134 mmol/L (137-145) L 11/27/20 17:12 Potassium 5.0 mmol/L (3.6-5.0) 11/27/20 17:12 Chloride 98.6 mmol/L (98-107) 11/27/20 17:12 Carbon Dioxide 24 mmol/L (22-30) 11/27/20 17:12 Anion Gap 16 mmol/L 11/27/20 17:12 BUN 17 mg/dL (9-20) 11/27/20 17:12 Creatinine 1.0 mg/dL (0.8-1.3) 11/27/20 17:12 Estimated GFR > 60 ml/min 11/27/20 17:12 BUN/Creatinine Ratio 17 % 11/27/20 17:12 Glucose 130 mg/dL (75-100) H 11/27/20 17:12 Lactic Acid 1.20 mmol/L (0.7-2.0) 11/26/20 23:28 Calcium 8.5 mg/dL (8.4-10.2) 11/27/20 17:12 Ferritin 872.8 ng/mL (30.0-300.0) H 11/26/20 11:17 Total Bilirubin 0.60 mg/dL (0.1-1.2) 11/27/20 17:12 AST 53 units/L (5-40) H 11/27/20 17:12 ALT 38 units/L (7-56) 11/27/20 17:12 Alkaline Phosphatase 70 units/L (35-129) 11/27/20 17:12 Lactate Dehydrogenase 642 units/L (91-180) H 11/26/20 11:17 Troponin T < 0.010 ng/mL (0.00-0.029) 11/26/20 11:17 C-Reactive Protein 8.50 mg/dL (0.00-1.30) H 11/26/20 11:17 NT-Pro-B Natriuret Pep 18.20 pg/mL (0-450) 11/26/20 11:17 Total Protein 7.8 g/dL (6.3-8.2) 11/27/20 17:12 Albumin 3.4 g/dL (3.9-5) L 11/27/20 17:12 Albumin/Globulin Ratio 0.8 % 11/27/20 17:12 Coronavirus (PCR) Positive (Negative) A 11/27/20 Unknown Microbiology: Microbiology 11/26/20 11:42 Peripheral/Venous Blood Culture - Preliminary NO GROWTH AFTER 24 HOURS 11/26/20 11:42 Peripheral/Venous Blood Culture - Preliminary NO GROWTH AFTER 24 HOURS Active Medications - Current Medications Current Medications: Generic Name Dose Route Start Last Admin Trade Name Freq PRN Reason Stop Dose Admin Acetaminophen 650 mg 11/26/20 22:20 Acetaminophen 325 Mg Tab PO Q4H PRN Pain MILD(1-3)/Fever >100.5/DALY Dexamethasone 10 mg 11/27/20 16:31 Dexamethasone 4 Mg/Ml Vial IV 12/05/20 10:01 DAILY [facility] Enoxaparin Sodium 40 mg 11/27/20 10:00 11/27/20 11:56 Enoxaparin 40 Mg/0.4 Ml Inj SUB-Q 40 mg QDAY [facility] Administration Famotidine 20 mg 11/27/20 10:00 11/28/20 00:02 Famotidine 20 Mg/2 Ml Inj IV 20 mg BID [facility] Administration Hydromorphone HCl 0.5 mg 11/26/20 22:20 11/28/20 00:46 Hydromorphone 1 Mg/1 Ml Inj IV 0.5 mg Q3H PRN Administration Pain , Severe (7-10) Sodium Chloride 1,000 mls @ 100 mls/hr 11/26/20 22:30 Nacl 0.9% 1000 Ml IV DIRECT [facility] Azithromycin 500 mg in 250 mls @ 250 mls/hr 11/27/20 10:00 11/27/20 12:01 Zithromax/Ns IV 11/30/20 10:59 250 mls/hr Q24H [facility] Administration Ceftriaxone Sodium 2 gm in 100 mls @ 200 mls/hr 11/27/20 10:00 11/27/20 11:59 Rocephin/Ns 2 Gm/100 Ml IV 11/30/20 10:29 200 mls/hr Q24HR [facility] Administration Protocol REMDESIVIR 100 mg/ Sodium 250 mls @ 500 mls/hr 11/28/20 21:00 Chloride IV 12/01/20 21:29 Q24HR@2100 [facility] Ondansetron HCl 4 mg 11/26/20 22:20 Ondansetron 4 Mg/2 Ml Inj IV Q8H PRN Nausea And Vomiting Oxycodone/Acetaminophen 1 tab 11/26/20 22:20 11/27/20 06:48 Oxycodone /Acetaminophen 5-325mg Tab PO 1 tab Q6H PRN Administration Pain, Moderate (4-6) Sodium Chloride 10 ml 11/26/20 23:00 11/27/20 22:15 Sodium Chloride 0.9% 10 Ml Flush Syringe IV 10 ml BID [facility] Administration Sodium Chloride 10 ml 11/26/20 22:20 Sodium Chloride 0.9% 10 Ml Flush Syringe IV PRN PRN LINE FLUSH Sodium Chloride 50 ml 11/27/20 21:00 11/28/20 00:47 Sodium Chloride 0.9% 50 Ml Ivpb IV 12/01/20 21:01 Not Given Q24HR@2100 [facility]
[2020-11-28 08:14] LABS: Alanine Aminotransferase 40 units/L (7-56); Albumin 3.6 g/dL (3.9-5); BUN/Creatinine Ratio 16; Blood Urea Nitrogen 18 mg/dL (9-20); Calcium 8.9 mg/dL (8.4-10.2); Hemolysis Index 95
[2020-11-28] MEDS: ENOXAPARIN 40 MG/0.4 ML INJ SUB-Q SCH (10:22)
[2020-11-28] MEDS: cefTRIAXone/NS 2 GM/100 ML 2 GM/100 ML BAG IV SCH (10:22)
[2020-11-28] MEDS: AZITHROMYCIN/NS 500 MG/250 ML 500 MG/250 ML BAG IV SCH (10:23)
--- NOTE | 2020-11-28 12:23 | Progress Note ---
Assessment and Plan 40 y/o obese male with acute respiratory failure secondary to COVID pneumonia. 1. Increase steroids to BID dosing given weight 2. Remdesivir 3. Actemra 4. Proning and net negative fluid balance Guarded prognosis Subjective Date of service: 11/28/20 Interval history: 40 y/o male, unvaccinated admitted with acute respiratory failure secondary to the COVID pneumonia. Patient is also obese. Objective Vital Signs - 12hr 11/28/20 11/28/20 11/28/20 01:00 01:01 02:01 Pulse Rate 76 78 Respiratory 29 H 42 H Rate Blood Pressure 114/68 129/87 O2 Sat by Pulse 92 92 88 Oximetry 11/28/20 11/28/20 11/28/20 03:01 04:01 05:01 Pulse Rate 82 79 81 Respiratory 25 H 42 H Rate Blood Pressure 124/83 110/77 110/18 O2 Sat by Pulse 90 90 93 Oximetry 11/28/20 11/28/20 11/28/20 06:01 07:01 08:04 Pulse Rate 82 79 Respiratory 36 H Rate Blood Pressure 119/54 103/53 O2 Sat by Pulse 96 97 97 Oximetry CBC and BMP: 11/27/20 05:15 11/28/20 07:14 ABG, PT/INR, D-dimer: PT/INR, D-dimer D-Dimer 2154.70 ng/mlDDU (0-234) H 11/26/20 11:17 Abnormal lab findings: Abnormal Labs 11/26/20 11/26/20 11/26/20 11:17 11:17 11:17 RBC 5.28 H Hgb 15.8 H MCHC 35 H Plt Count 135 L Seg Neutrophils % 72.2 H D-Dimer 2154.70 H Sodium 135 L Chloride 96.7 L Creatinine Glucose 117 H Ferritin AST 68 H Lactate Dehydrogenase C-Reactive Protein Albumin Coronavirus (PCR) 11/26/20 11/26/20 11/27/20 11:17 11:17 05:15 RBC 5.14 H Hgb 15.3 H MCHC 35 H Plt Count Seg Neutrophils % D-Dimer Sodium Chloride Creatinine Glucose Ferritin 872.8 H AST Lactate Dehydrogenase 642 H C-Reactive Protein 8.50 H Albumin Coronavirus (PCR) 11/27/20 11/27/20 11/27/20 05:15 17:12 Unknown RBC Hgb MCHC Plt Count Seg Neutrophils % D-Dimer Sodium 134 L Chloride 95.1 L Creatinine 1.4 H Glucose 110 H 130 H Ferritin AST 51 H 53 H Lactate Dehydrogenase C-Reactive Protein Albumin 3.4 L Coronavirus (PCR) Positive A 11/28/20 07:14 RBC Hgb MCHC Plt Count Seg Neutrophils % D-Dimer Sodium Chloride 97.0 L Creatinine Glucose 117 H Ferritin AST 54 H Lactate Dehydrogenase C-Reactive Protein Albumin 3.6 L Coronavirus (PCR)
[2020-11-28] MEDS: dexAMETHasone 20 MG/5 ML VIAL IV SCH (13:10)
[2020-11-28] MEDS: REMDESIVIR 100 MG in SODIUM CHLORIDE 0.9% 250ML 250 ML IV SCH (20:46)
[2020-11-29] MEDS: HYDROmorphone 1 MG/1 ML INJ IV PRN (00:50)
[2020-11-29] MEDS: dexAMETHasone 20 MG/5 ML VIAL IV SCH ×2 (01:56→14:22)
--- NOTE | 2020-11-29 09:57 | Progress Note ---
Assessment and Plan 40 y/o obese male with acute respiratory failure secondary to COVID pneumonia. 11/29/20: No new recs for today. Needs to prone as much as tolerated. i/O not accurate so will hold on lasix for today. 1. Increase steroids to BID dosing given weight 2. Remdesivir 3. Actemra 4. Proning and net negative fluid balance Guarded prognosis Subjective Date of service: 11/29/20 Interval history: Still holding in ED. Objective Vital Signs - 12hr 11/28/20 11/29/20 11/29/20 22:01 00:01 01:01 Pulse Rate Respiratory Rate Blood Pressure 122/37 122/37 122/37 Blood Pressure [Left] O2 Sat by Pulse 92 92 93 Oximetry 11/29/20 11/29/20 11/29/20 02:01 03:01 04:40 Pulse Rate 84 Respiratory 21 Rate Blood Pressure 122/37 122/37 Blood Pressure 122/62 [Left] O2 Sat by Pulse 91 91 94 Oximetry 11/29/20 11/29/20 11/29/20 06:01 07:08 09:30 Pulse Rate 71 Respiratory 20 Rate Blood Pressure 122/37 Blood Pressure 123/71 [Left] O2 Sat by Pulse 95 91 90 Oximetry CBC and BMP: 11/27/20 05:15 11/28/20 07:14 ABG, PT/INR, D-dimer: PT/INR, D-dimer D-Dimer 2154.70 ng/mlDDU (0-234) H 11/26/20 11:17 Abnormal lab findings: Abnormal Labs 11/26/20 11/26/20 11/26/20 11:17 11:17 11:17 RBC 5.28 H Hgb 15.8 H MCHC 35 H Plt Count 135 L Seg Neutrophils % 72.2 H D-Dimer 2154.70 H Sodium 135 L Chloride 96.7 L Creatinine Glucose 117 H Ferritin AST 68 H Lactate Dehydrogenase C-Reactive Protein Albumin Coronavirus (PCR) 11/26/20 11/26/20 11/27/20 11:17 11:17 05:15 RBC 5.14 H Hgb 15.3 H MCHC 35 H Plt Count Seg Neutrophils % D-Dimer Sodium Chloride Creatinine Glucose Ferritin 872.8 H AST Lactate Dehydrogenase 642 H C-Reactive Protein 8.50 H Albumin Coronavirus (PCR) 11/27/20 11/27/20 11/27/20 05:15 17:12 Unknown RBC Hgb MCHC Plt Count Seg Neutrophils % D-Dimer Sodium 134 L Chloride 95.1 L Creatinine 1.4 H Glucose 110 H 130 H Ferritin AST 51 H 53 H Lactate Dehydrogenase C-Reactive Protein Albumin 3.4 L Coronavirus (PCR) Positive A 11/28/20 07:14 RBC Hgb MCHC Plt Count Seg Neutrophils % D-Dimer Sodium Chloride 97.0 L Creatinine Glucose 117 H Ferritin AST 54 H Lactate Dehydrogenase C-Reactive Protein Albumin 3.6 L Coronavirus (PCR)
[2020-11-29] MEDS: cefTRIAXone/NS 2 GM/100 ML 2 GM/100 ML BAG IV SCH (10:23)
[2020-11-29] MEDS: AZITHROMYCIN/NS 500 MG/250 ML 500 MG/250 ML BAG IV SCH (10:23)
[2020-11-29] MEDS: FAMOTIDINE 20 MG TAB PO SCH ×2 (10:23→21:33)
[2020-11-29] MEDS: ENOXAPARIN 40 MG/0.4 ML INJ SUB-Q SCH (10:24)
[2020-11-29 10:59] LABS: Alanine Aminotransferase 46 units/L (7-56); BUN/Creatinine Ratio 23; Blood Urea Nitrogen 23 mg/dL (9-20); Calcium 9.2 mg/dL (8.4-10.2); Hemolysis Index 12
--- NOTE | 2020-11-29 13:58 | Progress Note ---
Subjective Date of service: 11/29/20 Interval history: 40-year-old -[place] male with no significant past medical history unvaccinated with Covid comes in for increasing shortness of breath and cough for 2-week escalating for 1 week. Symptoms worse with exertion and talking. Positive chest pain. Episode associated with cough. Intermittent nausea vomiting as well as emesis after coughing. Fever and low oxygen levels noted upon arrival. Sats in the mid 85. No loss of taste or smell. Feels weak. No known Covid exposure. Patient now willing to take vaccine after he gets better. 11/27 -Patient was on 4 L of oxygen. Covid test is pending. Procalcitonin level pending. ID is following. Patient is on Decadron and will add remdesivir if Covid test is positive 11/28 -Covid test was positive. Patient started on Decadron and remdesivir. ID consult appreciated. Patient's oxygen requirement was 30 L yesterday and CRP was 7.5 and ID recommend Actemra based on his availability. Pulmonary consult ed. 11/29 patient is awake and alert and he is on 100% FiO2 via nonrebreather mask. Complains of cough with mucoid sputum and states chest hurts when he is coughing. He denies any fever or chills. Denies nausea or abdominal pain. Lab results reviewed. ID and pulmonary notes reviewed and appreciated 12 point review of systems essentially unremarkable except as stated above in the history of present illness Assessment and plan Acute hypoxic respiratory failure Secondary to COVID-19 pneumonia Patient is on 100% FiO2 via nonrebreather mask Discussed with RN to monitor him closely as O2 sats sats sometimes are dropping less than 90% Pulmonary note reviewed and appreciated IV Decadron dose increased Actemra if available COVID-19 pneumonia Continue remdesivir day three Continue Decadron day three We will discontinue IV antibiotics as procalcitonin is normal Prognosis guarded due to severe hypoxia Hyponatremia Improved Obesity class II Counseling when he is more stable Hyperglycemia Mild , secondary to steroids Patient denies history of diabetes Objective - Constitutional Vitals: Vital Signs - 12hr 11/29/20 11/29/20 11/29/20 02:01 03:01 04:40 Pulse Rate 84 Respiratory 21 Rate Blood Pressure 122/37 122/37 Blood Pressure 122/62 [Left] O2 Sat by Pulse 91 91 94 Oximetry 11/29/20 11/29/20 11/29/20 06:01 07:08 09:30 Pulse Rate 71 Respiratory 20 Rate Blood Pressure 122/37 Blood Pressure 123/71 [Left] O2 Sat by Pulse 95 91 90 Oximetry 11/29/20 11:17 Pulse Rate 80 Respiratory 16 Rate Blood Pressure Blood Pressure 120/68 [Left] O2 Sat by Pulse 90 Oximetry General appearance: Present: mild distress - EENT Eyes: PERRL, EOM intact ENT: hearing intact - Neck Neck: supple, normal ROM - Respiratory Respiratory effort: normal Respiratory: bilateral: CTA, rhonchi, wheezing - Cardiovascular Rhythm: regular Heart Sounds: Present: S1 & S2 Extremities: No edema - Gastrointestinal General gastrointestinal: Present: soft, non-tender Rectal Exam: deferred - Genitourinary Male genitourinary: deferred - Integumentary Integumentary: clear - Musculoskeletal Musculoskeletal: strength equal bilaterally - Neurologic Neurologic: no focal deficits, moves all extremities - Psychiatric Psychiatric: appropriate mood/affect - Labs CBC & Chem 7: 11/27/20 05:15 11/29/20 10:14 Labs: Abnormal lab results 11/29/20 Range/Units 10:14 Chloride 97.2 L (98-107) mmol/L BUN 23 H (9-20) mg/dL Glucose 140 H (75-100) mg/dL AST 45 H (5-40) units/L HEART Score - HEART Score Troponin: Troponin T < 0.010 ng/mL (0.00-0.029) 11/26/20 11:17
[2020-11-29] MEDS: ENOXAPARIN 60 MG/0.6 ML INJ SUB-Q SCH ×2 (14:22→21:01)
[2020-11-29] MEDS: REMDESIVIR 100 MG in SODIUM CHLORIDE 0.9% 250ML 250 ML IV SCH (21:32)
[2020-11-29] MEDS: SODIUM CHLORIDE 0.9% 50 ML IVPB IV SCH (21:33)
[2020-11-29] MEDS ORDERED: ENOXAPARIN 80 MG/0.8 ML INJ SUB-Q SCH (22:00)
[2020-11-30] MEDS: dexAMETHasone 20 MG/5 ML VIAL IV SCH ×2 (00:17→14:28)
[2020-11-30 04:30] LABS: Alanine Aminotransferase 65 units/L (7-56); Albumin 3.8 g/dL (3.9-5); BUN/Creatinine Ratio 29; Blood Urea Nitrogen 26 mg/dL (9-20); Calcium 9.1 mg/dL (8.4-10.2); Hemolysis Index 1
[2020-11-30] MEDS: FAMOTIDINE 20 MG TAB PO SCH ×2 (09:14→22:08)
[2020-11-30] MEDS: ENOXAPARIN 60 MG/0.6 ML INJ SUB-Q SCH (09:14)
[2020-11-30] MEDS ORDERED: ENOXAPARIN 60 MG/0.6 ML INJ SUB-Q SCH (09:39)
--- NOTE | 2020-11-30 09:50 | Progress Note ---
Subjective Date of service: 11/30/20 Interval history: 40-year-old -[place] male with no significant past medical history unvaccinated with Covid comes in for increasing shortness of breath and cough for 2-week escalating for 1 week. Symptoms worse with exertion and talking. Positive chest pain. Episode associated with cough. Intermittent nausea vomiting as well as emesis after coughing. Fever and low oxygen levels noted upon arrival. Sats in the mid 85. No loss of taste or smell. Feels weak. No known Covid exposure. Patient now willing to take vaccine after he gets better. 11/27 -Patient was on 4 L of oxygen. Covid test is pending. Procalcitonin level pending. ID is following. Patient is on Decadron and will add remdesivir if Covid test is positive 11/28 -Covid test was positive. Patient started on Decadron and remdesivir. ID consult appreciated. Patient's oxygen requirement was 30 L yesterday and CRP was 7.5 and ID recommend Actemra based on his availability. Pulmonary consult ed. 11/29 patient is awake and alert and he is on 100% FiO2 via nonrebreather mask. Complains of cough with mucoid sputum and states chest hurts when he is coughing. He denies any fever or chills. Denies nausea or abdominal pain. Lab results reviewed. ID and pulmonary notes reviewed and appreciated 11/30 NAD, complains of occasional cough with mucoid sputum and feels mildly short of breath, he denies any fever or chills. lab results reviewed pulmonary note reviewed 12 point review of systems essentially unremarkable except as stated above in the history of present illness Assessment and plan Acute hypoxic respiratory failure Secondary to COVID-19 pneumonia Patient is now on high flow at 40 L and 100% FiO2 Pulmonary note reviewed and appreciated IV Decadron dose increased by pulmonary due to worsening hypoxia Actemra if available COVID-19 pneumonia Continue remdesivir day 4 Continue Decadron day 4 IV antibiotics discontinued as procalcitonin is normal Prognosis guarded due to severe hypoxia Inflammatory markers reviewed LFTs mildly increased D-dimer increased to 10,000 from 2154 on 11/27 Lovenox increased to 80 mg every 812 hours subcu CTA chest negative for PE Lower extremity venous Doppler negative for DVT Hyponatremia Improved Obesity class II Counseling when he is more stable Hyperglycemia Mild , secondary to steroids Patient denies history of diabetes Start on Accu-Cheks with insulin sliding scale coverage Objective - Constitutional Vitals: Vital Signs - 12hr 11/29/20 11/29/20 11/30/20 23:00 23:03 00:00 Temperature 98.0 F Pulse Rate 78 Respiratory 18 22 Rate Blood Pressure 124/85 O2 Sat by Pulse 96 89 96 Oximetry 11/30/20 11/30/20 03:49 04:24 Temperature 98.3 F Pulse Rate 62 Respiratory 18 Rate Blood Pressure 126/84 O2 Sat by Pulse 94 93 Oximetry General appearance: Present: mild distress - EENT Eyes: PERRL, EOM intact ENT: hearing intact - Neck Neck: supple, normal ROM - Respiratory Respiratory effort: normal Respiratory: bilateral: CTA, rhonchi, wheezing - Cardiovascular Rhythm: regular Heart Sounds: Present: S1 & S2 Extremities: No edema - Gastrointestinal General gastrointestinal: Present: soft, non-tender Rectal Exam: deferred - Genitourinary Male genitourinary: deferred - Integumentary Integumentary: clear - Musculoskeletal Musculoskeletal: strength equal bilaterally - Neurologic Neurologic: no focal deficits - Psychiatric Psychiatric: appropriate mood/affect - Labs CBC & Chem 7: 11/27/20 05:15 11/30/20 03:21 Labs: Abnormal lab results 11/29/20 11/30/20 11/30/20 Range/Units 10:14 03:21 03:21 D-Dimer > 42769 H (0-234) ng/mlDDU Chloride 97.2 L (98-107) mmol/L BUN 23 H 26 H (9-20) mg/dL Glucose 140 H 158 H (75-100) mg/dL Ferritin (30.0-300.0) ng/mL AST 45 H 50 H (5-40) units/L ALT 65 H (7-56) units/L Lactate Dehydrogenase 739 H (91-180) units/L C-Reactive Protein 8.50 H (0.00-1.30) mg/dL Albumin 3.8 L (3.9-5) g/dL 11/30/20 Range/Units 03:21 D-Dimer (0-234) ng/mlDDU Chloride (98-107) mmol/L BUN (9-20) mg/dL Glucose (75-100) mg/dL Ferritin 1885.0 H (30.0-300.0) ng/mL AST (5-40) units/L ALT (7-56) units/L Lactate Dehydrogenase (91-180) units/L C-Reactive Protein (0.00-1.30) mg/dL Albumin (3.9-5) g/dL HEART Score - HEART Score Troponin: Troponin T < 0.010 ng/mL (0.00-0.029) 11/26/20 11:17
[2020-11-30] MEDS: ENOXAPARIN 100 MG/1 ML INJ SUB-Q SCH ×2 (10:38→23:19)
[2020-11-30] MEDS: INSULIN LISPRO 100 UNIT/ML SUB-Q SCH ×3 (13:19→22:09)
--- NOTE | 2020-11-30 14:11 | Progress Note ---
Assessment and Plan 40 y/o obese male with acute respiratory failure secondary to COVID pneumonia. 11/30/20: Patient is attempting to prone which is good for him. Continue to prone as much as tolerated. Hold on lasix again today. 11/29/20: No new recs for today. Needs to prone as much as tolerated. i/O not accurate so will hold on lasix for today. 1. Increase steroids to BID dosing given weight 2. Remdesivir 3. Actemra 4. Proning and net negative fluid balance Guarded prognosis Subjective Date of service: 11/30/20 Interval history: No acute events. Remains on HFNC. Sats in the 90's. Objective Vital Signs - 12hr 11/30/20 11/30/20 11/30/20 03:49 04:24 11:23 Temperature 98.3 F 99.8 F H Pulse Rate 62 94 H Respiratory 18 36 H Rate Blood Pressure 126/84 128/86 O2 Sat by Pulse 94 93 83 L Oximetry 11/30/20 12:53 Temperature Pulse Rate Respiratory Rate Blood Pressure O2 Sat by Pulse 96 Oximetry CBC and BMP: 11/27/20 05:15 11/30/20 03:21 ABG, PT/INR, D-dimer: PT/INR, D-dimer D-Dimer > 03892 ng/mlDDU (0-234) H 11/30/20 03:21 Abnormal lab findings: Abnormal Labs 11/26/20 11/26/20 11/26/20 11:17 11:17 11:17 RBC 5.28 H Hgb 15.8 H MCHC 35 H Plt Count 135 L Seg Neutrophils % 72.2 H D-Dimer 2154.70 H Sodium 135 L Chloride 96.7 L BUN Creatinine Glucose 117 H POC Glucose Ferritin AST 68 H ALT Lactate Dehydrogenase C-Reactive Protein Albumin Coronavirus (PCR) 11/26/20 11/26/20 11/27/20 11:17 11:17 05:15 RBC 5.14 H Hgb 15.3 H MCHC 35 H Plt Count Seg Neutrophils % D-Dimer Sodium Chloride BUN Creatinine Glucose POC Glucose Ferritin 872.8 H AST ALT Lactate Dehydrogenase 642 H C-Reactive Protein 8.50 H Albumin Coronavirus (PCR) 11/27/20 11/27/20 11/27/20 05:15 17:12 Unknown RBC Hgb MCHC Plt Count Seg Neutrophils % D-Dimer Sodium 134 L Chloride 95.1 L BUN Creatinine 1.4 H Glucose 110 H 130 H POC Glucose Ferritin AST 51 H 53 H ALT Lactate Dehydrogenase C-Reactive Protein Albumin 3.4 L Coronavirus (PCR) Positive A 11/28/20 11/29/20 11/30/20 07:14 10:14 03:21 RBC Hgb MCHC Plt Count Seg Neutrophils % D-Dimer Sodium Chloride 97.0 L 97.2 L BUN 23 H 26 H Creatinine Glucose 117 H 140 H 158 H POC Glucose Ferritin AST 54 H 45 H 50 H ALT 65 H Lactate Dehydrogenase 739 H C-Reactive Protein 8.50 H Albumin 3.6 L 3.8 L Coronavirus (PCR) 11/30/20 11/30/20 11/30/20 03:21 03:21 13:05 RBC Hgb MCHC Plt Count Seg Neutrophils % D-Dimer > 56832 H Sodium Chloride BUN Creatinine Glucose POC Glucose 138 H Ferritin 1885.0 H AST ALT Lactate Dehydrogenase C-Reactive Protein Albumin Coronavirus (PCR)
[2020-11-30 19:53] LABS: Chol/HDL Ratio 7.55 %
[2020-11-30] MEDS: SODIUM CHLORIDE 0.9% 50 ML IVPB IV SCH (22:08)
[2020-11-30] MEDS: REMDESIVIR 100 MG in SODIUM CHLORIDE 0.9% 250ML 250 ML IV SCH (22:08)
[2020-12-01] MEDS: dexAMETHasone 20 MG/5 ML VIAL IV SCH ×2 (00:09→14:00)
--- NOTE | 2020-12-01 06:07 | Consultation ---
DATE OF CONSULTATION: 11/30/2020 HISTORY OF PRESENT ILLNESS: The patient is a 40-year-old male with no significant past medical history, who presented with 1-week history of pulmonary complaints including shortness of breath and cough. He described some chest discomfort. It was associated with coughing. Nausea and vomiting occurred at times. In the Emergency Room, he was noted to have fever and hypoxia. There is no rash, swollen joints, blood loss, sore throat or earache described. There is no sputum or neurologic symptoms described. Laboratories were positive for COVID. Chest x-ray showed bilateral infiltrates. PAST MEDICAL HISTORY: Operations: None. SOCIAL HISTORY: Smoking: None. Alcohol, no heavy use described. FAMILY HISTORY: Positive for hypertension. PREVIOUS HOSPITALIZATIONS: None described. ALLERGIES: None. MEDICATIONS: He was taking Magic mouthwash as needed for 4 days. REVIEW OF SYSTEMS: There was no description of cardiovascular or psychiatric issues. There is no history of hypertension, hyperlipidemia, or diabetes. PHYSICAL EXAMINATION: Physical exam was deferred because of COVID infection. The chart describes increased respiratory rate. Rales on exam. Use of accessory muscles and breathlessness with speaking. IMPRESSION: 1. COVID pneumonia with hypoxia. Pulmonary embolus was ruled out. 2. Hyperlipidemia, with marked elevation of the LDL. 3. History of chest pain, nonspecific ST-T changes on EKG and poor R-wave progression. Troponin was noted to be slightly elevated this evening. Consider underlying coronary artery disease and consider a COVID-related cardiac illness such as cardiomyopathy. PLAN: Consider anticoagulation, low-dose aspirin, statin therapy. An echocardiogram will be performed to check LV function. Would recommend serial troponins. Thank you for this consultation. We will follow the patient. TID: [id number] RECEIPT: [id number] FLAKITA/OPHELIA
[2020-12-01 06:16] LABS: Hematocrit 51.6 % (35.5-45.6); Hemoglobin 17.3 gm/dl (11.8-15.2); Mean Corpuscular HGB Conc 34 % (32-34); Mean Corpuscular Volume 88 fl (84-94); Platelet Count 263 K/mm3 (140-440); Red Blood Count 5.86 M/mm3 (3.65-5.03); Red Cell Distribution Width 15.3 % (13.2-15.2)
[2020-12-01 06:35] LABS: Alanine Aminotransferase 91 units/L (7-56); Albumin 3.5 g/dL (3.9-5); BUN/Creatinine Ratio 28; Blood Urea Nitrogen 28 mg/dL (9-20); Calcium 9.2 mg/dL (8.4-10.2); Hemolysis Index 2
--- NOTE | 2020-12-01 08:57 | Progress Note ---
<VINNY PALOMARES - Last Filed: 12/01/20 11:00> Assessment and Plan COVID 19 pneumonia CTA chest negative for PE Lower extremity venous Doppler negative for DVT Elevated troponin, nonspecific Hyperlipidemia Will order an echocardiogram for LVEF assessment. Subjective Date of service: 12/01/20 Interval history: On high flow oxygen. No cardiac events. Objective Vital Signs Temp Pulse Resp BP Pulse Ox 12/01/20 05:01 99.1 F 83 26 H 114/79 95 12/01/20 04:21 98 11/30/20 20:54 98.8 F 94 H 22 133/91 94 11/30/20 20:43 92 11/30/20 19:37 90 11/30/20 16:28 92 11/30/20 15:06 97.7 F 90 32 H 131/95 96 11/30/20 12:53 96 11/30/20 11:23 99.8 F H 94 H 36 H 128/86 83 L - Physical Examination Narrative exam: Deferred due to isolation protocol. Cardiac: Positive: Reg Rate and Rhythm - Labs and Meds Cardiac Enzymes 12/01/20 Range/Units 05:32 AST 51 H (5-40) units/L Lipids 11/30/20 Range/Units 18:10 Triglycerides 228 H (2-149) mg/dL Cholesterol 287 H (50-199) mg/dL HDL Cholesterol 38 L (40-59) mg/dL Cholesterol/HDL Ratio 7.55 % CBC 12/01/20 Range/Units 05:32 WBC 15.5 H (4.5-11.0) K/mm3 RBC 5.86 H (3.65-5.03) M/mm3 Hgb 17.3 H (11.8-15.2) gm/dl Hct 51.6 H (35.5-45.6) % Plt Count 263 (140-440) K/mm3 Comprehensive Metabolic Panel 12/01/20 Range/Units 05:32 Sodium 139 (137-145) mmol/L Potassium 5.1 H (3.6-5.0) mmol/L Chloride 100.3 (98-107) mmol/L Carbon Dioxide 28 (22-30) mmol/L BUN 28 H (9-20) mg/dL Creatinine 1.0 (0.8-1.3) mg/dL Glucose 147 H (75-100) mg/dL Calcium 9.2 (8.4-10.2) mg/dL AST 51 H (5-40) units/L ALT 91 H (7-56) units/L Alkaline Phosphatase 80 (35-129) units/L Total Protein 7.7 (6.3-8.2) g/dL Albumin 3.5 L (3.9-5) g/dL <ILEANA AYOUB Last Filed: 12/03/20 11:40> Subjective Interval history: I SAW THIS PT & AGREE WITH THE Dx & Tx PLAN. Objective Vital Signs Temp Pulse Resp BP Pulse Ox 12/03/20 09:00 91 12/03/20 04:47 98.0 F 90 26 H 132/63 92 12/03/20 03:00 91 12/03/20 01:37 92 12/02/20 21:26 99.1 F 93 H 28 H 107/70 88 12/02/20 21:00 91 12/02/20 18:00 36 H 95 12/02/20 16:14 98.0 F 93 H 26 H 106/68 92 12/02/20 15:39 92
--- NOTE | 2020-12-01 09:00 | Progress Note ---
Assessment and Plan Assessment and plan: 40-year-old -[place] male with no significant past medical history unvaccinated with Covid comes in for increasing shortness of breath and cough for 2-week escalating for 1 week. Symptoms worse with exertion and talking. Positive chest pain. Episode associated with cough. Intermittent nausea vomiting as well as emesis after coughing. Fever and low oxygen levels noted upon arrival. Sats in the mid 85. No loss of taste or smell. Feels weak. No known Covid exposure. Patient now willing to take vaccine after he gets better. 11/27 -Patient was on 4 L of oxygen. Covid test is pending. Procalcitonin level pending. ID is following. Patient is on Decadron and will add remdesivir if Covid test is positive 11/28 -Covid test was positive. Patient started on Decadron and remdesivir. ID consult appreciated. Patient's oxygen requirement was 30 L yesterday and CRP was 7.5 and ID recommend Actemra based on his availability. Pulmonary consulted. 11/29 patient is awake and alert and he is on 100% FiO2 via nonrebreather mask. Complains of cough with mucoid sputum and states chest hurts when he is coughing. He denies any fever or chills. Denies nausea or abdominal pain. Lab results reviewed. ID and pulmonary notes reviewed and appreciated 11/30 NAD, complains of occasional cough with mucoid sputum and feels mildly short of breath, he denies any fever or chills. lab results reviewed pulmonary note reviewed 12/01: Patient remains on high flow and nonrebreather to maintain a decent saturation. Continue steroids as prescribed by commercial lines manager on high dose. Mild hyperkalemia we will give a dose of Kayexalate and repeat studies in a.m. Lasix per pulm. Monitor renal function Although 12 point system reviewed and otherwise negative except as mentioned in the note 35 minutes critical care time Assessment and plan Acute hypoxic respiratory failure Secondary to COVID-19 pneumonia Patient is now on high flow at 40 L and 100% FiO2 Pulmonary note reviewed and appreciated IV Decadron dose increased by pulmonary due to worsening hypoxia Actemra if available COVID-19 pneumonia Continue remdesivir Continue Decadron IV antibiotics discontinued as procalcitonin is normal Prognosis guarded due to severe hypoxia Inflammatory markers reviewed LFTs mildly increased D-dimer increased to 10,000 from 2154 on 11/27 Lovenox increased to 80 mg every 812 hours subcu CTA chest negative for PE Lower extremity venous Doppler negative for DVT Hyponatremia Improved Obesity class II Counseling when he is more stable Hyperglycemia Mild , secondary to steroids Patient denies history of diabetes Start on Accu-Cheks with insulin sliding scale coverage Hyperkalemia History Interval history: Patient seen and examined, still with shortness of breath on NRB AND High flow. Hospitalist Physical - Physical exam Narrative exam: General appearance: Present: mild distress, on high flow and NRBM - EENT Eyes: PERRL, EOM intact ENT: hearing intact - Neck Neck: supple, normal ROM - Respiratory Respiratory effort: normal Respiratory: bilateral: CTA, rhonchi, wheezing - Cardiovascular Rhythm: regular Heart Sounds: Present: S1 & S2 Extremities: No edema - Gastrointestinal General gastrointestinal: Present: soft, non-tender Rectal Exam: deferred - Genitourinary Male genitourinary: deferred - Integumentary Integumentary: clear - Musculoskeletal Musculoskeletal: strength equal bilaterally - Neurologic Neurologic: no focal deficits - Psychiatric Psychiatric: appropriate mood/affect - Constitutional Vitals: Temp Pulse Resp BP Pulse Ox 99.1 F 83 26 H 114/79 95 12/01/20 05:01 12/01/20 05:01 12/01/20 05:01 12/01/20 05:01 12/01/20 05:01 General appearance: Present: mild distress HEART Score - HEART Score Troponin: Troponin T 0.076 ng/mL (0.00-0.029) H 11/30/20 23:03 Results - Labs CBC & Chem 7: 12/01/20 05:32 12/01/20 05:32 Labs: Laboratory Last Values WBC 15.5 K/mm3 (4.5-11.0) H 12/01/20 05:32 RBC 5.86 M/mm3 (3.65-5.03) H 12/01/20 05:32 Hgb 17.3 gm/dl (11.8-15.2) H 12/01/20 05:32 Hct 51.6 % (35.5-45.6) H 12/01/20 05:32 MCV 88 fl (84-94) 12/01/20 05:32 MCH 29 pg (28-32) 12/01/20 05:32 MCHC 34 % (32-34) 12/01/20 05:32 RDW 15.3 % (13.2-15.2) H 12/01/20 05:32 Plt Count 263 K/mm3 (140-440) 12/01/20 05:32 Lymph % (Auto) 25.7 % (13.4-35.0) 11/27/20 05:15 [place] % (Auto) 4.5 % (0.0-7.3) 11/27/20 05:15 Eos % (Auto) 0.0 % (0.0-4.3) 11/27/20 05:15 Baso % (Auto) 0.2 % (0.0-1.8) 11/27/20 05:15 Lymph # (Auto) 1.5 K/mm3 (1.2-5.4) 11/27/20 05:15 [place] # (Auto) 0.3 K/mm3 (0.0-0.8) 11/27/20 05:15 Eos # (Auto) 0.0 K/mm3 (0.0-0.4) 11/27/20 05:15 Baso # (Auto) 0.0 K/mm3 (0.0-0.1) 11/27/20 05:15 Seg Neutrophils % 69.6 % (40.0-70.0) 11/27/20 05:15 Seg Neutrophils # 4.0 K/mm3 (1.8-7.7) 11/27/20 05:15 D-Dimer > 86645 ng/mlDDU (0-234) H 11/30/20 03:21 Sodium 139 mmol/L (137-145) 12/01/20 05:32 Potassium 5.1 mmol/L (3.6-5.0) H 12/01/20 05:32 Chloride 100.3 mmol/L (98-107) 12/01/20 05:32 Carbon Dioxide 28 mmol/L (22-30) 12/01/20 05:32 Anion Gap 16 mmol/L 12/01/20 05:32 BUN 28 mg/dL (9-20) H 12/01/20 05:32 Creatinine 1.0 mg/dL (0.8-1.3) 12/01/20 05:32 Estimated GFR > 60 ml/min 12/01/20 05:32 BUN/Creatinine Ratio 28 % 12/01/20 05:32 Glucose 147 mg/dL (75-100) H 12/01/20 05:32 POC Glucose 143 mg/dL (70-105) H 12/01/20 08:06 Lactic Acid 1.20 mmol/L (0.7-2.0) 11/26/20 23:28 Calcium 9.2 mg/dL (8.4-10.2) 12/01/20 05:32 Ferritin 1885.0 ng/mL (30.0-300.0) H 11/30/20 03:21 Total Bilirubin 1.20 mg/dL (0.1-1.2) 12/01/20 05:32 AST 51 units/L (5-40) H 12/01/20 05:32 ALT 91 units/L (7-56) H 12/01/20 05:32 Alkaline Phosphatase 80 units/L (35-129) 12/01/20 05:32 Lactate Dehydrogenase 739 units/L (91-180) H 11/30/20 03:21 Troponin T 0.076 ng/mL (0.00-0.029) H 11/30/20 23:03 C-Reactive Protein 8.50 mg/dL (0.00-1.30) H 11/30/20 03:21 NT-Pro-B Natriuret Pep 18.20 pg/mL (0-450) 11/26/20 11:17 Total Protein 7.7 g/dL (6.3-8.2) 12/01/20 05:32 Albumin 3.5 g/dL (3.9-5) L 12/01/20 05:32 Albumin/Globulin Ratio 0.8 % 12/01/20 05:32 Triglycerides 228 mg/dL (2-149) H 11/30/20 18:10 Cholesterol 287 mg/dL (50-199) H 11/30/20 18:10 LDL Cholesterol Direct 210 mg/dL (50-130) H 11/30/20 18:10 HDL Cholesterol 38 mg/dL (40-59) L 11/30/20 18:10 Cholesterol/HDL Ratio 7.55 % 11/30/20 18:10 Procalcitonin 0.23 ng/mL (<0.15) 11/26/20 11:17 Coronavirus (PCR) Positive (Negative) A 11/27/20 Unknown Microbiology: Microbiology 11/26/20 11:42 Peripheral/Venous Blood Culture - Preliminary NO GROWTH AFTER 4 DAYS 11/26/20 11:42 Peripheral/Venous Blood Culture - Preliminary NO GROWTH AFTER 4 DAYS Smith/IV: Voiding Method Urinal Active Medications - Current Medications Current Medications: Generic Name Dose Route Start Last Admin Trade Name Freq PRN Reason Stop Dose Admin Acetaminophen 650 mg 11/26/20 22:20 Acetaminophen 325 Mg Tab PO Q4H PRN Pain MILD(1-3)/Fever >100.5/DALY Dexamethasone 10 mg 11/28/20 13:00 12/01/20 00:09 Dexamethasone 20 Mg/5 Ml Vial IV 12/04/20 01:01 10 mg Q12H SANGEETHA Administration Enoxaparin Sodium 100 mg 11/30/20 10:00 11/30/20 23:19 Enoxaparin 100 Mg/1 Ml Inj SUB-Q 100 mg Q12HR SANGEETHA Administration Famotidine 20 mg 11/29/20 10:00 11/30/20 22:08 Famotidine 20 Mg Tab PO 20 mg BID SANGEETHA Administration Hydromorphone HCl 0.5 mg 11/26/20 22:20 11/29/20 00:50 Hydromorphone 1 Mg/1 Ml Inj IV 0.5 mg Q3H PRN Administration Pain , Severe (7-10) Sodium Chloride 1,000 mls @ 100 mls/hr 11/26/20 22:30 Nacl 0.9% 1000 Ml IV DIRECT SANGEETHA REMDESIVIR 100 mg/ Sodium 250 mls @ 500 mls/hr 11/28/20 21:00 11/30/20 22:08 Chloride IV 12/01/20 21:29 500 mls/hr Q24HR@2100 SANGEETHA Administration Insulin Human Lispro 0 unit 11/30/20 11:30 11/30/20 22:09 Insulin Lispro 100 Unit/Ml SUB-Q 2 unit ACHS SANGEETHA Administration Protocol Ondansetron HCl 4 mg 11/26/20 22:20 Ondansetron 4 Mg/2 Ml Inj IV Q8H PRN Nausea And Vomiting Oxycodone/Acetaminophen 1 tab 11/26/20 22:20 11/27/20 06:48 Oxycodone /Acetaminophen 5-325mg Tab PO 1 tab Q6H PRN Administration Pain, Moderate (4-6) Sodium Chloride 10 ml 11/26/20 23:00 11/30/20 22:09 Sodium Chloride 0.9% 10 Ml Flush Syringe IV 10 ml BID SANGEETHA Administration Sodium Chloride 10 ml 11/26/20 22:20 Sodium Chloride 0.9% 10 Ml Flush Syringe IV PRN PRN LINE FLUSH Sodium Chloride 50 ml 11/27/20 21:00 11/30/20 22:08 Sodium Chloride 0.9% 50 Ml Ivpb IV 12/01/20 21:01 50 ml Q24HR@2100 SANGEETHA Administration
[2020-12-01] MEDS: FAMOTIDINE 20 MG TAB PO SCH ×2 (09:22→23:23)
[2020-12-01] MEDS: INSULIN LISPRO 100 UNIT/ML SUB-Q SCH ×4 (09:23→23:24)
[2020-12-01] MEDS ORDERED: SODIUM POLYSTYRENE 15 GM/60 ML ORAL LIQD PO NR (09:30)
--- NOTE | 2020-12-01 09:44 | Electrocardiograph Report ---
[facility] Test Date: 2020-11-30 Test Time: 13:32:49 Pat Name: DON BAKER Department: Room: A351 1 Gender: M Health Care Specialist: CARINA : 1980 Requested By: WAYLON BYRNE Order Number: [id number] Reading MD: Anderson Alvarado Measurements Intervals [place] Rate: 91 P: 59 WI: 132 QRS: 40 QRSD: 82 T: -22 QT: 347 QTc: 428 Interpretive Statements Sinus rhythm T inversions inferiorly-consider ischemia Compared to ECG 11/26/2020 10:39:36 T-wave abnormality now present Electronically Signed On 12-01-2020 9:43:49 EDT by Anderson Alvarado
--- NOTE | 2020-12-01 10:57 | Progress Note ---
Assessment and Plan 40 y/o obese male with acute respiratory failure secondary to COVID pneumonia. 12/01/20: Wean as tolerated. Proning should continue. Will give 20 of lasix today. 11/30/20: Patient is attempting to prone which is good for him. Continue to prone as much as tolerated. Hold on lasix again today. 11/29/20: No new recs for today. Needs to prone as much as tolerated. i/O not accurate so will hold on lasix for today. 1. Increase steroids to BID dosing given weight 2. Remdesivir 3. Actemra 4. Proning and net negative fluid balance Guarded prognosis Subjective Date of service: 12/01/20 Interval history: Still on combo oxygen therapy. Objective Vital Signs - 12hr 12/01/20 12/01/20 12/01/20 04:21 05:01 10:08 Temperature 99.1 F Pulse Rate 83 Respiratory 26 H Rate Blood Pressure 114/79 O2 Sat by Pulse 98 95 93 Oximetry CBC and BMP: 12/01/20 05:32 12/01/20 05:32 ABG, PT/INR, D-dimer: PT/INR, D-dimer D-Dimer > 93594 ng/mlDDU (0-234) H 11/30/20 03:21 Abnormal lab findings: Abnormal Labs 11/26/20 11/26/20 11/26/20 11:17 11:17 11:17 WBC RBC 5.28 H Hgb 15.8 H Hct MCHC 35 H RDW Plt Count 135 L Seg Neutrophils % 72.2 H D-Dimer 2154.70 H Sodium 135 L Potassium Chloride 96.7 L BUN Creatinine Glucose 117 H POC Glucose Ferritin AST 68 H ALT Lactate Dehydrogenase Troponin T C-Reactive Protein Albumin Triglycerides Cholesterol LDL Cholesterol Direct HDL Cholesterol Coronavirus (PCR) 11/26/20 11/26/20 11/27/20 11:17 11:17 05:15 WBC RBC 5.14 H Hgb 15.3 H Hct MCHC 35 H RDW Plt Count Seg Neutrophils % D-Dimer Sodium Potassium Chloride BUN Creatinine Glucose POC Glucose Ferritin 872.8 H AST ALT Lactate Dehydrogenase 642 H Troponin T C-Reactive Protein 8.50 H Albumin Triglycerides Cholesterol LDL Cholesterol Direct HDL Cholesterol Coronavirus (PCR) 11/27/20 11/27/20 11/27/20 05:15 17:12 Unknown WBC RBC Hgb Hct MCHC RDW Plt Count Seg Neutrophils % D-Dimer Sodium 134 L Potassium Chloride 95.1 L BUN Creatinine 1.4 H Glucose 110 H 130 H POC Glucose Ferritin AST 51 H 53 H ALT Lactate Dehydrogenase Troponin T C-Reactive Protein Albumin 3.4 L Triglycerides Cholesterol LDL Cholesterol Direct HDL Cholesterol Coronavirus (PCR) Positive A 11/28/20 11/29/20 11/30/20 07:14 10:14 03:21 WBC RBC Hgb Hct MCHC RDW Plt Count Seg Neutrophils % D-Dimer Sodium Potassium Chloride 97.0 L 97.2 L BUN 23 H 26 H Creatinine Glucose 117 H 140 H 158 H POC Glucose Ferritin AST 54 H 45 H 50 H ALT 65 H Lactate Dehydrogenase 739 H Troponin T C-Reactive Protein 8.50 H Albumin 3.6 L 3.8 L Triglycerides Cholesterol LDL Cholesterol Direct HDL Cholesterol Coronavirus (PCR) 11/30/20 11/30/20 11/30/20 03:21 03:21 13:05 WBC RBC Hgb Hct MCHC RDW Plt Count Seg Neutrophils % D-Dimer > 16562 H Sodium Potassium Chloride BUN Creatinine Glucose POC Glucose 138 H Ferritin 1885.0 H AST ALT Lactate Dehydrogenase Troponin T C-Reactive Protein Albumin Triglycerides Cholesterol LDL Cholesterol Direct HDL Cholesterol Coronavirus (PCR) 11/30/20 11/30/20 11/30/20 16:41 18:10 21:18 WBC RBC Hgb Hct MCHC RDW Plt Count Seg Neutrophils % D-Dimer Sodium Potassium Chloride BUN Creatinine Glucose POC Glucose 145 H 157 H Ferritin AST ALT Lactate Dehydrogenase Troponin T 0.080 H D C-Reactive Protein Albumin Triglycerides 228 H Cholesterol 287 H LDL Cholesterol Direct 210 H HDL Cholesterol 38 L Coronavirus (PCR) 11/30/20 12/01/20 12/01/20 23:03 05:32 05:32 WBC 15.5 H RBC 5.86 H Hgb 17.3 H Hct 51.6 H MCHC RDW 15.3 H Plt Count Seg Neutrophils % D-Dimer Sodium Potassium 5.1 H Chloride BUN 28 H Creatinine Glucose 147 H POC Glucose Ferritin AST 51 H ALT 91 H Lactate Dehydrogenase Troponin T 0.076 H C-Reactive Protein Albumin 3.5 L Triglycerides Cholesterol LDL Cholesterol Direct HDL Cholesterol Coronavirus (PCR) 12/01/20 08:06 WBC RBC Hgb Hct MCHC RDW Plt Count Seg Neutrophils % D-Dimer Sodium Potassium Chloride BUN Creatinine Glucose POC Glucose 143 H Ferritin AST ALT Lactate Dehydrogenase Troponin T C-Reactive Protein Albumin Triglycerides Cholesterol LDL Cholesterol Direct HDL Cholesterol Coronavirus (PCR)
[2020-12-01] MEDS ORDERED: FUROSEMIDE 20 MG/2 ML INJ IV NR (11:30)
[2020-12-01] MEDS ORDERED: TOCILIZUMAB 810 MG in SODIUM CHLORIDE 0.9% 100 ML IV ONE (12:00)
[2020-12-01] MEDS: oxyCODONE /ACETAMINOPHEN 5-325MG TAB PO PRN (12:04)
[2020-12-01] MEDS: ENOXAPARIN 100 MG/1 ML INJ SUB-Q SCH ×2 (14:01→23:00)
[2020-12-01] MEDS: REMDESIVIR 100 MG in SODIUM CHLORIDE 0.9% 250ML 250 ML IV SCH (23:23)
[2020-12-01] MEDS: SODIUM CHLORIDE 0.9% 50 ML IVPB IV SCH (23:23)
[2020-12-02] MEDS: dexAMETHasone 20 MG/5 ML VIAL IV SCH ×2 (01:50→14:05)
[2020-12-02 05:09] LABS: Hematocrit 54.5 % (35.5-45.6); Hemoglobin 18.5 gm/dl (11.8-15.2); Mean Corpuscular HGB Conc 34 % (32-34); Mean Corpuscular Volume 87 fl (84-94); Platelet Count 285 K/mm3 (140-440); Red Blood Count 6.26 M/mm3 (3.65-5.03); Red Cell Distribution Width 14.9 % (13.2-15.2)
[2020-12-02 05:23] LABS: Alanine Aminotransferase 128 units/L (7-56); Albumin 3.3 g/dL (3.9-5); BUN/Creatinine Ratio 41; Blood Urea Nitrogen 33 mg/dL (9-20); Calcium 8.9 mg/dL (8.4-10.2); Hemolysis Index 49
[2020-12-02] MEDS: INSULIN LISPRO 100 UNIT/ML SUB-Q SCH ×4 (08:16→21:56)
--- NOTE | 2020-12-02 08:52 | Progress Note ---
<VINNY PALOMARES - Last Filed: 12/02/20 08:50> Assessment and Plan COVID 19 pneumonia CTA chest negative for PE Lower extremity venous Doppler negative for DVT Elevated troponin, nonspecific Hyperlipidemia Will order an echocardiogram for LVEF assessment. Subjective Date of service: 12/02/20 Interval history: Patient is short of breath and cough continues. Denies chest pain. No cardiac events. Objective Vital Signs Temp Pulse Resp BP Pulse Ox 12/02/20 04:48 98.4 F 83 24 118/74 93 12/02/20 02:30 91 12/02/20 01:05 92 12/01/20 22:00 94 12/01/20 21:03 98.4 F 88 28 H 93/65 94 12/01/20 17:22 99.0 F 76 22 128/89 93 12/01/20 16:40 97 12/01/20 13:23 94 12/01/20 12:03 98.0 F 103 H 24 129/86 97 12/01/20 10:08 93 - Physical Examination Narrative exam: Deferred due to isolation protocol. General: No Apparent Distress Cardiac: Positive: Reg Rate and Rhythm - Labs and Meds Cardiac Enzymes 12/02/20 Range/Units 03:17 AST 48 H (5-40) units/L CBC 12/02/20 Range/Units 03:17 WBC 17.2 H (4.5-11.0) K/mm3 RBC 6.26 H (3.65-5.03) M/mm3 Hgb 18.5 H (11.8-15.2) gm/dl Hct 54.5 H (35.5-45.6) % Plt Count 285 (140-440) K/mm3 Comprehensive Metabolic Panel 12/02/20 Range/Units 03:17 Sodium 138 (137-145) mmol/L Potassium 4.7 (3.6-5.0) mmol/L Chloride 99.8 (98-107) mmol/L Carbon Dioxide 25 (22-30) mmol/L BUN 33 H (9-20) mg/dL Creatinine 0.8 (0.8-1.3) mg/dL Glucose 131 H (75-100) mg/dL Calcium 8.9 (8.4-10.2) mg/dL AST 48 H (5-40) units/L ALT 128 H (7-56) units/L Alkaline Phosphatase 84 (35-129) units/L Total Protein 7.6 (6.3-8.2) g/dL Albumin 3.3 L (3.9-5) g/dL <ILEANA AYOUB Last Filed: 12/03/20 11:32> Subjective Interval history: I SAW THIS PT & AGREE WITH THE Dx & Tx PLAN. Objective Vital Signs Temp Pulse Resp BP Pulse Ox 12/03/20 09:00 91 12/03/20 04:47 98.0 F 90 26 H 132/63 92 12/03/20 03:00 91 12/03/20 01:37 92 12/02/20 21:26 99.1 F 93 H 28 H 107/70 88 12/02/20 21:00 91 12/02/20 18:00 36 H 95 12/02/20 16:14 98.0 F 93 H 26 H 106/68 92 12/02/20 15:39 92
[2020-12-02] MEDS: FAMOTIDINE 20 MG TAB PO SCH (09:31)
[2020-12-02] MEDS: ENOXAPARIN 100 MG/1 ML INJ SUB-Q SCH (09:31)
[2020-12-02] MEDS: ASPIRIN 81 MG TAB CHEW PO SCH (09:31)
[2020-12-02] MEDS: SUCRALFATE 1 GM TAB PO SCH ×3 (12:00→21:55)
--- NOTE | 2020-12-02 12:24 | Progress Note ---
Assessment and Plan Assessment and plan: 40-year-old -[place]og[place] male with no significant past medical history unvaccinated with Covid comes in for increasing shortness of breath and cough for 2-week escalating for 1 week. Symptoms worse with exertion and talking. Positive chest pain. Episode associated with cough. Intermittent nausea vomiting as well as emesis after coughing. Fever and low oxygen levels noted upon arrival. Sats in the mid 85. No loss of taste or smell. Feels weak. No known Covid exposure. Patient now willing to take vaccine after he gets better. 11/27 -Patient was on 4 L of oxygen. Covid test is pending. Procalcitonin level pending. ID is following. Patient is on Decadron and will add remdesivir if Covid test is positive 11/28 -Covid test was positive. Patient started on Decadron and remdesivir. ID consult appreciated. Patient's oxygen requirement was 30 L yesterday and CRP was 7.5 and ID recommend Actemra based on his availability. Pulmonary consulted. 11/29 patient is awake and alert and he is on 100% FiO2 via nonrebreather mask. Complains of cough with mucoid sputum and states chest hurts when he is coughing. He denies any fever or chills. Denies nausea or abdominal pain. Lab results reviewed. ID and pulmonary notes reviewed and appreciated 11/30 NAD, complains of occasional cough with mucoid sputum and feels mildly short of breath, he denies any fever or chills. lab results reviewed pulmonary note reviewed 12/01: Patient remains on high flow and nonrebreather to maintain a decent saturation. Continue steroids as prescribed by tuyere fitter on high dose. Mild hyperkalemia we will give a dose of Kayexalate and repeat studies in a.m. Lasix per pulm. Monitor renal function 12/02: Patient seen and examined anxious this morning. Complained of discomfort with swallowing burning sensation. Discussed with cardiac team echocardiogram pending. Continue conservative management otherwise patient is on full dose enoxaparin and also high-dose steroids. Encourage prone positioning. Prognosis is guarded. Plan discussed with the patient. Although 12 point system reviewed and otherwise negative except as mentioned in the note 35 minutes critical care time Assessment and plan Acute hypoxic respiratory failure Secondary to COVID-19 pneumonia Patient is now on high flow at 40 L and 100% FiO2 Pulmonary note reviewed and appreciated IV Decadron dose increased by pulmonary due to worsening hypoxia Actemra if available COVID-19 pneumonia Continue remdesivir Continue Decadron IV antibiotics discontinued as procalcitonin is normal Prognosis guarded due to severe hypoxia Inflammatory markers reviewed LFTs mildly increased D-dimer increased to 10,000 from 2154 on 11/27 Lovenox increased to 80 mg every 812 hours subcu CTA chest negative for PE Lower extremity venous Doppler negative for DVT Hyponatremia Improved Obesity class II Counseling when he is more stable Hyperglycemia Mild , secondary to steroids Patient denies history of diabetes Start on Accu-Cheks with insulin sliding scale coverage Hyperkalemia History Interval history: Patient seen and examined, still with shortness of breath on NRB AND High flow. This morning complained of discomfort with cough on the chest area denies chest pain. Also states that he has some burning sensation with food. Hospitalist Physical - Physical exam Narrative exam: General appearance: Present: mild distress, on high flow and NRBM, appears uncomfortable - EENT Eyes: PERRL, EOM intact ENT: hearing intact - Neck Neck: supple, normal ROM - Respiratory Respiratory effort: normal Respiratory: bilateral: CTA, rhonchi, wheezing - Cardiovascular Rhythm: regular Heart Sounds: Present: S1 & S2 Extremities: No edema - Gastrointestinal General gastrointestinal: Present: soft, non-tender Rectal Exam: deferred - Genitourinary Male genitourinary: deferred - Integumentary Integumentary: clear - Musculoskeletal Musculoskeletal: strength equal bilaterally - Neurologic Neurologic: no focal deficits - Psychiatric Psychiatric: Anxious - Constitutional Vitals: Temp Pulse Resp BP Pulse Ox 98.4 F 83 24 118/74 93 12/02/20 04:48 12/02/20 04:48 12/02/20 04:48 12/02/20 04:48 12/02/20 04:48 General appearance: Present: mild distress HEART Score - HEART Score Troponin: Troponin T 0.076 ng/mL (0.00-0.029) H 11/30/20 23:03 Results - Labs CBC & Chem 7: 12/02/20 03:17 12/02/20 03:17 Labs: Laboratory Last Values WBC 17.2 K/mm3 (4.5-11.0) H 12/02/20 03:17 RBC 6.26 M/mm3 (3.65-5.03) H 12/02/20 03:17 Hgb 18.5 gm/dl (11.8-15.2) H 12/02/20 03:17 Hct 54.5 % (35.5-45.6) H 12/02/20 03:17 MCV 87 fl (84-94) 12/02/20 03:17 MCH 30 pg (28-32) 12/02/20 03:17 MCHC 34 % (32-34) 12/02/20 03:17 RDW 14.9 % (13.2-15.2) 12/02/20 03:17 Plt Count 285 K/mm3 (140-440) 12/02/20 03:17 Lymph % (Auto) 25.7 % (13.4-35.0) 11/27/20 05:15 [place] % (Auto) 4.5 % (0.0-7.3) 11/27/20 05:15 Eos % (Auto) 0.0 % (0.0-4.3) 11/27/20 05:15 Baso % (Auto) 0.2 % (0.0-1.8) 11/27/20 05:15 Lymph # (Auto) 1.5 K/mm3 (1.2-5.4) 11/27/20 05:15 [place] # (Auto) 0.3 K/mm3 (0.0-0.8) 11/27/20 05:15 Eos # (Auto) 0.0 K/mm3 (0.0-0.4) 11/27/20 05:15 Baso # (Auto) 0.0 K/mm3 (0.0-0.1) 11/27/20 05:15 Seg Neutrophils % 69.6 % (40.0-70.0) 11/27/20 05:15 Seg Neutrophils # 4.0 K/mm3 (1.8-7.7) 11/27/20 05:15 D-Dimer > 23477 ng/mlDDU (0-234) H 11/30/20 03:21 Sodium 138 mmol/L (137-145) 12/02/20 03:17 Potassium 4.7 mmol/L (3.6-5.0) 12/02/20 03:17 Chloride 99.8 mmol/L (98-107) 12/02/20 03:17 Carbon Dioxide 25 mmol/L (22-30) 12/02/20 03:17 Anion Gap 18 mmol/L 12/02/20 03:17 BUN 33 mg/dL (9-20) H 12/02/20 03:17 Creatinine 0.8 mg/dL (0.8-1.3) 12/02/20 03:17 Estimated GFR > 60 ml/min 12/02/20 03:17 BUN/Creatinine Ratio 41 % 12/02/20 03:17 Glucose 131 mg/dL (75-100) H 12/02/20 03:17 POC Glucose 117 mg/dL (70-105) H 12/02/20 10:58 Lactic Acid 1.20 mmol/L (0.7-2.0) 11/26/20 23:28 Calcium 8.9 mg/dL (8.4-10.2) 12/02/20 03:17 Ferritin 1885.0 ng/mL (30.0-300.0) H 11/30/20 03:21 Total Bilirubin 1.40 mg/dL (0.1-1.2) H 12/02/20 03:17 AST 48 units/L (5-40) H 12/02/20 03:17 ALT 128 units/L (7-56) H 12/02/20 03:17 Alkaline Phosphatase 84 units/L (35-129) 12/02/20 03:17 Lactate Dehydrogenase 739 units/L (91-180) H 11/30/20 03:21 Troponin T 0.076 ng/mL (0.00-0.029) H 11/30/20 23:03 C-Reactive Protein 8.50 mg/dL (0.00-1.30) H 11/30/20 03:21 NT-Pro-B Natriuret Pep 18.20 pg/mL (0-450) 11/26/20 11:17 Total Protein 7.6 g/dL (6.3-8.2) 12/02/20 03:17 Albumin 3.3 g/dL (3.9-5) L 12/02/20 03:17 Albumin/Globulin Ratio 0.8 % 12/02/20 03:17 Triglycerides 228 mg/dL (2-149) H 11/30/20 18:10 Cholesterol 287 mg/dL (50-199) H 11/30/20 18:10 LDL Cholesterol Direct 210 mg/dL (50-130) H 11/30/20 18:10 HDL Cholesterol 38 mg/dL (40-59) L 11/30/20 18:10 Cholesterol/HDL Ratio 7.55 % 11/30/20 18:10 Procalcitonin 0.23 ng/mL (<0.15) 11/26/20 11:17 Coronavirus (PCR) Positive (Negative) A 11/27/20 Unknown Microbiology: Microbiology 11/26/20 11:42 Peripheral/Venous Blood Culture - Final NO GROWTH AFTER 5 DAYS 11/26/20 11:42 Peripheral/Venous Blood Culture - Final NO GROWTH AFTER 5 DAYS Smith/IV: Voiding Method Urinal Active Medications - Current Medications Current Medications: Generic Name Dose Route Start Last Admin Trade Name Freq PRN Reason Stop Dose Admin Acetaminophen 650 mg 11/26/20 22:20 Acetaminophen 325 Mg Tab PO Q4H PRN Pain MILD(1-3)/Fever >100.5/DALY Aspirin 81 mg 12/02/20 10:00 12/02/20 09:31 Aspirin 81 Mg Tab Chew PO 81 mg QDAY SANGEETHA Administration Atorvastatin Calcium 40 mg 12/01/20 22:00 12/01/20 23:23 Atorvastatin 40 Mg Tab PO 40 mg QHS SANGEETHA Administration Dexamethasone 10 mg 11/28/20 13:00 12/02/20 01:50 Dexamethasone 20 Mg/5 Ml Vial IV 12/04/20 01:01 10 mg Q12H SANGEETHA Administration Enoxaparin Sodium 110 mg 12/02/20 22:00 Enoxaparin 120 Mg/0.8 Ml Inj SUB-Q Q12HR SANGEETHA Hydromorphone HCl 0.5 mg 11/26/20 22:20 11/29/20 00:50 Hydromorphone 1 Mg/1 Ml Inj IV 0.5 mg Q3H PRN Administration Pain , Severe (7-10) Sodium Chloride 1,000 mls @ 100 mls/hr 11/26/20 22:30 Nacl 0.9% 1000 Ml IV DIRECT SANGEETHA Insulin Human Lispro 0 unit 11/30/20 11:30 12/02/20 08:16 Insulin Lispro 100 Unit/Ml SUB-Q Not Given ACHS [facility] Protocol Ondansetron HCl 4 mg 11/26/20 22:20 Ondansetron 4 Mg/2 Ml Inj IV Q8H PRN Nausea And Vomiting Oxycodone/Acetaminophen 1 tab 11/26/20 22:20 12/01/20 12:04 Oxycodone /Acetaminophen 5-325mg Tab PO 1 tab Q6H PRN Administration Pain, Moderate (4-6) Pantoprazole Sodium 40 mg 12/02/20 10:00 Pantoprazole 40 Mg Inj IV QDAY SANGEETHA Sodium Chloride 10 ml 11/26/20 23:00 12/02/20 09:32 Sodium Chloride 0.9% 10 Ml Flush Syringe IV 10 ml BID SANGEETHA Administration Sodium Chloride 10 ml 11/26/20 22:20 Sodium Chloride 0.9% 10 Ml Flush Syringe IV PRN PRN LINE FLUSH Sucralfate 1 gm 12/02/20 10:00 Sucralfate 1 Gm Tab PO Q8HR SANGEETHA
[2020-12-02] MEDS: PANTOPRAZOLE 40 MG INJ IV SCH (14:06)
--- NOTE | 2020-12-02 14:34 | Progress Note ---
Assessment and Plan 40 y/o obese male with acute respiratory failure secondary to COVID pneumonia. 12/02/20: Lasix again today (20), continue to prone. continue steroids. Guarded prognosis. 12/01/20: Wean as tolerated. Proning should continue. Will give 20 of lasix today. 11/30/20: Patient is attempting to prone which is good for him. Continue to prone as much as tolerated. Hold on lasix again today. 11/29/20: No new recs for today. Needs to prone as much as tolerated. i/O not accurate so will hold on lasix for today. 1. Increase steroids to BID dosing given weight 2. Remdesivir 3. Actemra 4. Proning and net negative fluid balance Guarded prognosis Subjective Date of service: 12/02/20 Interval history: No acute events. Still on HFNC, but not much improvement. Per charting negative fluid balance on yesterday after lasix given. Labs stable Objective Vital Signs - 12hr 12/02/20 12/02/20 12/02/20 02:30 04:48 11:00 Temperature 98.4 F 97.7 F Pulse Rate 83 82 Respiratory 24 26 H Rate Blood Pressure 118/74 Blood Pressure 105/78 [Left] O2 Sat by Pulse 91 93 92 Oximetry CBC and BMP: 12/02/20 03:17 12/02/20 03:17 ABG, PT/INR, D-dimer: PT/INR, D-dimer D-Dimer > 65689 ng/mlDDU (0-234) H 11/30/20 03:21 Abnormal lab findings: Abnormal Labs 11/26/20 11/26/20 11/26/20 11:17 11:17 11:17 WBC RBC 5.28 H Hgb 15.8 H Hct MCHC 35 H RDW Plt Count 135 L Seg Neutrophils % 72.2 H D-Dimer 2154.70 H Sodium 135 L Potassium Chloride 96.7 L BUN Creatinine Glucose 117 H POC Glucose Ferritin Total Bilirubin AST 68 H ALT Lactate Dehydrogenase Troponin T C-Reactive Protein Albumin Triglycerides Cholesterol LDL Cholesterol Direct HDL Cholesterol Coronavirus (PCR) 11/26/20 11/26/20 11/27/20 11:17 11:17 05:15 WBC RBC 5.14 H Hgb 15.3 H Hct MCHC 35 H RDW Plt Count Seg Neutrophils % D-Dimer Sodium Potassium Chloride BUN Creatinine Glucose POC Glucose Ferritin 872.8 H Total Bilirubin AST ALT Lactate Dehydrogenase 642 H Troponin T C-Reactive Protein 8.50 H Albumin Triglycerides Cholesterol LDL Cholesterol Direct HDL Cholesterol Coronavirus (PCR) 11/27/20 11/27/20 11/27/20 05:15 17:12 Unknown WBC RBC Hgb Hct MCHC RDW Plt Count Seg Neutrophils % D-Dimer Sodium 134 L Potassium Chloride 95.1 L BUN Creatinine 1.4 H Glucose 110 H 130 H POC Glucose Ferritin Total Bilirubin AST 51 H 53 H ALT Lactate Dehydrogenase Troponin T C-Reactive Protein Albumin 3.4 L Triglycerides Cholesterol LDL Cholesterol Direct HDL Cholesterol Coronavirus (PCR) Positive A 11/28/20 11/29/20 11/30/20 07:14 10:14 03:21 WBC RBC Hgb Hct MCHC RDW Plt Count Seg Neutrophils % D-Dimer Sodium Potassium Chloride 97.0 L 97.2 L BUN 23 H 26 H Creatinine Glucose 117 H 140 H 158 H POC Glucose Ferritin Total Bilirubin AST 54 H 45 H 50 H ALT 65 H Lactate Dehydrogenase 739 H Troponin T C-Reactive Protein 8.50 H Albumin 3.6 L 3.8 L Triglycerides Cholesterol LDL Cholesterol Direct HDL Cholesterol Coronavirus (PCR) 11/30/20 11/30/20 11/30/20 03:21 03:21 13:05 WBC RBC Hgb Hct MCHC RDW Plt Count Seg Neutrophils % D-Dimer > 67490 H Sodium Potassium Chloride BUN Creatinine Glucose POC Glucose 138 H Ferritin 1885.0 H Total Bilirubin AST ALT Lactate Dehydrogenase Troponin T C-Reactive Protein Albumin Triglycerides Cholesterol LDL Cholesterol Direct HDL Cholesterol Coronavirus (PCR) 11/30/20 11/30/20 11/30/20 16:41 18:10 21:18 WBC RBC Hgb Hct MCHC RDW Plt Count Seg Neutrophils % D-Dimer Sodium Potassium Chloride BUN Creatinine Glucose POC Glucose 145 H 157 H Ferritin Total Bilirubin AST ALT Lactate Dehydrogenase Troponin T 0.080 H D C-Reactive Protein Albumin Triglycerides 228 H Cholesterol 287 H LDL Cholesterol Direct 210 H HDL Cholesterol 38 L Coronavirus (PCR) 11/30/20 12/01/20 12/01/20 23:03 05:32 05:32 WBC 15.5 H RBC 5.86 H Hgb 17.3 H Hct 51.6 H MCHC RDW 15.3 H Plt Count Seg Neutrophils % D-Dimer Sodium Potassium 5.1 H Chloride BUN 28 H Creatinine Glucose 147 H POC Glucose Ferritin Total Bilirubin AST 51 H ALT 91 H Lactate Dehydrogenase Troponin T 0.076 H C-Reactive Protein Albumin 3.5 L Triglycerides Cholesterol LDL Cholesterol Direct HDL Cholesterol Coronavirus (PCR) 12/01/20 12/01/20 12/01/20 08:06 12:04 16:07 WBC RBC Hgb Hct MCHC RDW Plt Count Seg Neutrophils % D-Dimer Sodium Potassium Chloride BUN Creatinine Glucose POC Glucose 143 H 156 H 196 H Ferritin Total Bilirubin AST ALT Lactate Dehydrogenase Troponin T C-Reactive Protein Albumin Triglycerides Cholesterol LDL Cholesterol Direct HDL Cholesterol Coronavirus (PCR) 12/01/20 12/02/20 12/02/20 21:34 03:17 03:17 WBC 17.2 H RBC 6.26 H Hgb 18.5 H Hct 54.5 H MCHC RDW Plt Count Seg Neutrophils % D-Dimer Sodium Potassium Chloride BUN 33 H Creatinine Glucose 131 H POC Glucose 174 H Ferritin Total Bilirubin 1.40 H AST 48 H ALT 128 H Lactate Dehydrogenase Troponin T C-Reactive Protein Albumin 3.3 L Triglycerides Cholesterol LDL Cholesterol Direct HDL Cholesterol Coronavirus (PCR) 12/02/20 12/02/20 07:50 10:58 WBC RBC Hgb Hct MCHC RDW Plt Count Seg Neutrophils % D-Dimer Sodium Potassium Chloride BUN Creatinine Glucose POC Glucose 127 H 117 H Ferritin Total Bilirubin AST ALT Lactate Dehydrogenase Troponin T C-Reactive Protein Albumin Triglycerides Cholesterol LDL Cholesterol Direct HDL Cholesterol Coronavirus (PCR)
[2020-12-02] MEDS: ENOXAPARIN 120 MG/0.8 ML INJ SUB-Q SCH (21:55)
[2020-12-03] MEDS: dexAMETHasone 20 MG/5 ML VIAL IV SCH (04:00)
[2020-12-03] MEDS: SUCRALFATE 1 GM TAB PO SCH ×3 (06:35→22:38)
--- NOTE | 2020-12-03 08:57 | Progress Note ---
Assessment and Plan 40 y/o obese male with acute respiratory failure secondary to COVID pneumonia. 12/03/20: Hold on lasix today. Encourage to prone. Will increase steroids to 125q8. Guarded prognosis. 12/02/20: Lasix again today (20), continue to prone. continue steroids. Guarded prognosis. 12/01/20: Wean as tolerated. Proning should continue. Will give 20 of lasix today. 11/30/20: Patient is attempting to prone which is good for him. Continue to prone as much as tolerated. Hold on lasix again today. 11/29/20: No new recs for today. Needs to prone as much as tolerated. i/O not accurate so will hold on lasix for today. 1. Increase steroids to BID dosing given weight 2. Remdesivir 3. Actemra 4. Proning and net negative fluid balance Guarded prognosis Subjective Date of service: 12/03/20 Interval history: Sats are holding at 91-92 despite lasix therapy. Still on Combo oxygen therapy. No documentation of proning. Objective Vital Signs - 12hr 12/02/20 12/02/20 12/03/20 21:00 21:26 01:37 Temperature 99.1 F Pulse Rate 93 H Respiratory 28 H Rate Blood Pressure 107/70 O2 Sat by Pulse 91 88 92 Oximetry 12/03/20 12/03/20 03:00 04:47 Temperature 98.0 F Pulse Rate 90 Respiratory 26 H Rate Blood Pressure 132/63 O2 Sat by Pulse 91 92 Oximetry CBC and BMP: 12/02/20 03:17 12/02/20 03:17 ABG, PT/INR, D-dimer: PT/INR, D-dimer D-Dimer > 43009 ng/mlDDU (0-234) H 11/30/20 03:21 Abnormal lab findings: Abnormal Labs 11/26/20 11/26/20 11/26/20 11:17 11:17 11:17 WBC RBC 5.28 H Hgb 15.8 H Hct MCHC 35 H RDW Plt Count 135 L Seg Neutrophils % 72.2 H D-Dimer 2154.70 H Sodium 135 L Potassium Chloride 96.7 L BUN Creatinine Glucose 117 H POC Glucose Ferritin Total Bilirubin AST 68 H ALT Lactate Dehydrogenase Troponin T C-Reactive Protein Albumin Triglycerides Cholesterol LDL Cholesterol Direct HDL Cholesterol Coronavirus (PCR) 11/26/20 11/26/20 11/27/20 11:17 11:17 05:15 WBC RBC 5.14 H Hgb 15.3 H Hct MCHC 35 H RDW Plt Count Seg Neutrophils % D-Dimer Sodium Potassium Chloride BUN Creatinine Glucose POC Glucose Ferritin 872.8 H Total Bilirubin AST ALT Lactate Dehydrogenase 642 H Troponin T C-Reactive Protein 8.50 H Albumin Triglycerides Cholesterol LDL Cholesterol Direct HDL Cholesterol Coronavirus (PCR) 11/27/20 11/27/20 11/27/20 05:15 17:12 Unknown WBC RBC Hgb Hct MCHC RDW Plt Count Seg Neutrophils % D-Dimer Sodium 134 L Potassium Chloride 95.1 L BUN Creatinine 1.4 H Glucose 110 H 130 H POC Glucose Ferritin Total Bilirubin AST 51 H 53 H ALT Lactate Dehydrogenase Troponin T C-Reactive Protein Albumin 3.4 L Triglycerides Cholesterol LDL Cholesterol Direct HDL Cholesterol Coronavirus (PCR) Positive A 11/28/20 11/29/20 11/30/20 07:14 10:14 03:21 WBC RBC Hgb Hct MCHC RDW Plt Count Seg Neutrophils % D-Dimer Sodium Potassium Chloride 97.0 L 97.2 L BUN 23 H 26 H Creatinine Glucose 117 H 140 H 158 H POC Glucose Ferritin Total Bilirubin AST 54 H 45 H 50 H ALT 65 H Lactate Dehydrogenase 739 H Troponin T C-Reactive Protein 8.50 H Albumin 3.6 L 3.8 L Triglycerides Cholesterol LDL Cholesterol Direct HDL Cholesterol Coronavirus (PCR) 11/30/20 11/30/20 11/30/20 03:21 03:21 13:05 WBC RBC Hgb Hct MCHC RDW Plt Count Seg Neutrophils % D-Dimer > 52956 H Sodium Potassium Chloride BUN Creatinine Glucose POC Glucose 138 H Ferritin 1885.0 H Total Bilirubin AST ALT Lactate Dehydrogenase Troponin T C-Reactive Protein Albumin Triglycerides Cholesterol LDL Cholesterol Direct HDL Cholesterol Coronavirus (PCR) 11/30/20 11/30/20 11/30/20 16:41 18:10 21:18 WBC RBC Hgb Hct MCHC RDW Plt Count Seg Neutrophils % D-Dimer Sodium Potassium Chloride BUN Creatinine Glucose POC Glucose 145 H 157 H Ferritin Total Bilirubin AST ALT Lactate Dehydrogenase Troponin T 0.080 H D C-Reactive Protein Albumin Triglycerides 228 H Cholesterol 287 H LDL Cholesterol Direct 210 H HDL Cholesterol 38 L Coronavirus (PCR) 11/30/20 12/01/20 12/01/20 23:03 05:32 05:32 WBC 15.5 H RBC 5.86 H Hgb 17.3 H Hct 51.6 H MCHC RDW 15.3 H Plt Count Seg Neutrophils % D-Dimer Sodium Potassium 5.1 H Chloride BUN 28 H Creatinine Glucose 147 H POC Glucose Ferritin Total Bilirubin AST 51 H ALT 91 H Lactate Dehydrogenase Troponin T 0.076 H C-Reactive Protein Albumin 3.5 L Triglycerides Cholesterol LDL Cholesterol Direct HDL Cholesterol Coronavirus (PCR) 12/01/20 12/01/20 12/01/20 08:06 12:04 16:07 WBC RBC Hgb Hct MCHC RDW Plt Count Seg Neutrophils % D-Dimer Sodium Potassium Chloride BUN Creatinine Glucose POC Glucose 143 H 156 H 196 H Ferritin Total Bilirubin AST ALT Lactate Dehydrogenase Troponin T C-Reactive Protein Albumin Triglycerides Cholesterol LDL Cholesterol Direct HDL Cholesterol Coronavirus (PCR) 12/01/20 12/02/20 12/02/20 21:34 03:17 03:17 WBC 17.2 H RBC 6.26 H Hgb 18.5 H Hct 54.5 H MCHC RDW Plt Count Seg Neutrophils % D-Dimer Sodium Potassium Chloride BUN 33 H Creatinine Glucose 131 H POC Glucose 174 H Ferritin Total Bilirubin 1.40 H AST 48 H ALT 128 H Lactate Dehydrogenase Troponin T C-Reactive Protein Albumin 3.3 L Triglycerides Cholesterol LDL Cholesterol Direct HDL Cholesterol Coronavirus (PCR) 12/02/20 12/02/20 12/02/20 07:50 10:58 16:17 WBC RBC Hgb Hct MCHC RDW Plt Count Seg Neutrophils % D-Dimer Sodium Potassium Chloride BUN Creatinine Glucose POC Glucose 127 H 117 H 138 H Ferritin Total Bilirubin AST ALT Lactate Dehydrogenase Troponin T C-Reactive Protein Albumin Triglycerides Cholesterol LDL Cholesterol Direct HDL Cholesterol Coronavirus (PCR) 12/02/20 12/03/20 21:23 08:13 WBC RBC Hgb Hct MCHC RDW Plt Count Seg Neutrophils % D-Dimer Sodium Potassium Chloride BUN Creatinine Glucose POC Glucose 187 H 160 H Ferritin Total Bilirubin AST ALT Lactate Dehydrogenase Troponin T C-Reactive Protein Albumin Triglycerides Cholesterol LDL Cholesterol Direct HDL Cholesterol Coronavirus (PCR)
[2020-12-03] MEDS ORDERED: methylPREDNISolone Sod Succinate 40 MG/1 ML INJ IV SCH (09:00)
[2020-12-03] MEDS: ASPIRIN 81 MG TAB CHEW PO SCH (09:24)
[2020-12-03] MEDS: ENOXAPARIN 120 MG/0.8 ML INJ SUB-Q SCH ×2 (09:25→22:38)
[2020-12-03] MEDS: PANTOPRAZOLE 40 MG INJ IV SCH (09:25)
[2020-12-03] MEDS: INSULIN LISPRO 100 UNIT/ML SUB-Q SCH ×4 (09:26→22:39)
[2020-12-03] MEDS: methylPREDNISolone Sod Succinate 125 MG/2 ML INJ IV SCH ×2 (09:49→17:44)
--- NOTE | 2020-12-03 09:56 | Progress Note ---
<VINNY PALOMARES - Last Filed: 12/03/20 09:52> Assessment and Plan COVID 19 pneumonia CTA chest negative for PE Lower extremity venous Doppler negative for DVT Elevated troponin, nonspecific Hyperlipidemia An echocardiogram reveals dilated right heart chambers. Normal left ventricular systolic function, EF 55-60%. Conservative cardiac management. Subjective Date of service: 12/03/20 Interval history: No cardiac events reported. Objective Vital Signs Temp Pulse Resp BP BP Pulse Ox 12/03/20 04:47 98.0 F 90 26 H 132/63 92 12/03/20 03:00 91 12/03/20 01:37 92 12/02/20 21:26 99.1 F 93 H 28 H 107/70 88 12/02/20 21:00 91 12/02/20 18:00 36 H 95 12/02/20 16:14 98.0 F 93 H 26 H 106/68 92 12/02/20 15:39 92 12/02/20 11:00 97.7 F 82 26 H 105/78 92 - Physical Examination Narrative exam: Deferred due to isolation protocol. General: No Apparent Distress Cardiac: Positive: Reg Rate and Rhythm <ILEANA AYOUB - Last Filed: 12/03/20 11:24> Subjective Interval history: I SAW THIS PT & AGREE WITH THE Dx & Tx PLAN. Objective Vital Signs Temp Pulse Resp BP Pulse Ox 12/03/20 09:00 91 12/03/20 04:47 98.0 F 90 26 H 132/63 92 12/03/20 03:00 91 12/03/20 01:37 92 12/02/20 21:26 99.1 F 93 H 28 H 107/70 88 12/02/20 21:00 91 12/02/20 18:00 36 H 95 12/02/20 16:14 98.0 F 93 H 26 H 106/68 92 12/02/20 15:39 92
--- NOTE | 2020-12-03 13:58 | Progress Note ---
Assessment and Plan Assessment and plan: 40-year-old -[place] male with no significant past medical history unvaccinated with Covid comes in for increasing shortness of breath and cough for 2-week escalating for 1 week. Symptoms worse with exertion and talking. Positive chest pain. Episode associated with cough. Intermittent nausea vomiting as well as emesis after coughing. Fever and low oxygen levels noted upon arrival. Sats in the mid 85. No loss of taste or smell. Feels weak. No known Covid exposure. Patient now willing to take vaccine after he gets better. 11/27 -Patient was on 4 L of oxygen. Covid test is pending. Procalcitonin level pending. ID is following. Patient is on Decadron and will add remdesivir if Covid test is positive 11/28 -Covid test was positive. Patient started on Decadron and remdesivir. ID consult appreciated. Patient's oxygen requirement was 30 L yesterday and CRP was 7.5 and ID recommend Actemra based on his availability. Pulmonary consulted. 11/29 patient is awake and alert and he is on 100% FiO2 via nonrebreather mask. Complains of cough with mucoid sputum and states chest hurts when he is coughing. He denies any fever or chills. Denies nausea or abdominal pain. Lab results reviewed. ID and pulmonary notes reviewed and appreciated 11/30 NAD, complains of occasional cough with mucoid sputum and feels mildly short of breath, he denies any fever or chills. lab results reviewed pulmonary note reviewed 12/01: Patient remains on high flow and nonrebreather to maintain a decent saturation. Continue steroids as prescribed by intermission coordinator on high dose. Mild hyperkalemia we will give a dose of Kayexalate and repeat studies in a.m. Lasix per pulm. Monitor renal function 12/02: Patient seen and examined anxious this morning. Complained of discomfort with swallowing burning sensation. Discussed with cardiac team echocardiogram pending. Continue conservative management otherwise patient is on full dose enoxaparin and also high-dose steroids. Encourage prone positioning. Prognosis is guarded. Plan discussed with the patient. Although 12 point system reviewed and otherwise negative except as mentioned in the note 12/03: Continue high dose steroids, continue supportive care, proned. Unfortunately not improving. Will continue to monitor. 35 minutes critical care time Assessment and plan Acute hypoxic respiratory failure Secondary to COVID-19 pneumonia Patient is now on high flow at 40 L and 100% FiO2 Pulmonary note reviewed and appreciated IV Decadron dose increased by pulmonary due to worsening hypoxia Actemra if available COVID-19 pneumonia Continue remdesivir Continue Decadron IV antibiotics discontinued as procalcitonin is normal Prognosis guarded due to severe hypoxia Inflammatory markers reviewed LFTs mildly increased D-dimer increased to 10,000 from 2154 on 11/27 Lovenox increased to 80 mg every 812 hours subcu CTA chest negative for PE Lower extremity venous Doppler negative for DVT Hyponatremia Improved Obesity class II Counseling when he is more stable Hyperglycemia Mild , secondary to steroids Patient denies history of diabetes Start on Accu-Cheks with insulin sliding scale coverage Hyperkalemia History Interval history: Patient seen and examined, still with shortness of breath on NRB AND High flow. Proned Hospitalist Physical - Physical exam Narrative exam: General appearance: Present: mild distress, on high flow and NRBM, appears uncomfortable, proned - EENT Eyes: PERRL, EOM intact ENT: hearing intact - Neck Neck: supple, normal ROM - Respiratory Respiratory effort: normal Respiratory: bilateral: CTA, rhonchi, wheezing - Cardiovascular Rhythm: regular Heart Sounds: Present: S1 & S2 Extremities: No edema - Gastrointestinal General gastrointestinal: Present: soft, non-tender Rectal Exam: deferred - Genitourinary Male genitourinary: deferred - Integumentary Integumentary: clear - Musculoskeletal Musculoskeletal: strength equal bilaterally - Neurologic Neurologic: no focal deficits - Psychiatric Psychiatric: Anxious - Constitutional Vitals: Temp Pulse Resp BP Pulse Ox 98.1 F 106 H 26 H 146/107 91 12/03/20 11:35 12/03/20 11:35 12/03/20 11:35 12/03/20 11:35 12/03/20 11:35 General appearance: Present: mild distress HEART Score - HEART Score Troponin: Troponin T 0.076 ng/mL (0.00-0.029) H 11/30/20 23:03 Results - Labs CBC & Chem 7: 12/02/20 03:17 12/02/20 03:17 Labs: Laboratory Last Values WBC 17.2 K/mm3 (4.5-11.0) H 12/02/20 03:17 RBC 6.26 M/mm3 (3.65-5.03) H 12/02/20 03:17 Hgb 18.5 gm/dl (11.8-15.2) H 12/02/20 03:17 Hct 54.5 % (35.5-45.6) H 12/02/20 03:17 MCV 87 fl (84-94) 12/02/20 03:17 MCH 30 pg (28-32) 12/02/20 03:17 MCHC 34 % (32-34) 12/02/20 03:17 RDW 14.9 % (13.2-15.2) 12/02/20 03:17 Plt Count 285 K/mm3 (140-440) 12/02/20 03:17 Lymph % (Auto) 25.7 % (13.4-35.0) 11/27/20 05:15 Divide % (Auto) 4.5 % (0.0-7.3) 11/27/20 05:15 Eos % (Auto) 0.0 % (0.0-4.3) 11/27/20 05:15 Baso % (Auto) 0.2 % (0.0-1.8) 11/27/20 05:15 Lymph # (Auto) 1.5 K/mm3 (1.2-5.4) 11/27/20 05:15 Divide # (Auto) 0.3 K/mm3 (0.0-0.8) 11/27/20 05:15 Eos # (Auto) 0.0 K/mm3 (0.0-0.4) 11/27/20 05:15 Baso # (Auto) 0.0 K/mm3 (0.0-0.1) 11/27/20 05:15 Seg Neutrophils % 69.6 % (40.0-70.0) 11/27/20 05:15 Seg Neutrophils # 4.0 K/mm3 (1.8-7.7) 11/27/20 05:15 D-Dimer > 01647 ng/mlDDU (0-234) H 11/30/20 03:21 Sodium 138 mmol/L (137-145) 12/02/20 03:17 Potassium 4.7 mmol/L (3.6-5.0) 12/02/20 03:17 Chloride 99.8 mmol/L (98-107) 12/02/20 03:17 Carbon Dioxide 25 mmol/L (22-30) 12/02/20 03:17 Anion Gap 18 mmol/L 12/02/20 03:17 BUN 33 mg/dL (9-20) H 12/02/20 03:17 Creatinine 0.8 mg/dL (0.8-1.3) 12/02/20 03:17 Estimated GFR > 60 ml/min 12/02/20 03:17 BUN/Creatinine Ratio 41 % 12/02/20 03:17 Glucose 131 mg/dL (75-100) H 12/02/20 03:17 POC Glucose 154 mg/dL (70-105) H 12/03/20 11:32 Lactic Acid 1.20 mmol/L (0.7-2.0) 11/26/20 23:28 Calcium 8.9 mg/dL (8.4-10.2) 12/02/20 03:17 Ferritin 1885.0 ng/mL (30.0-300.0) H 11/30/20 03:21 Total Bilirubin 1.40 mg/dL (0.1-1.2) H 12/02/20 03:17 AST 48 units/L (5-40) H 12/02/20 03:17 ALT 128 units/L (7-56) H 12/02/20 03:17 Alkaline Phosphatase 84 units/L (35-129) 12/02/20 03:17 Lactate Dehydrogenase 739 units/L (91-180) H 11/30/20 03:21 Troponin T 0.076 ng/mL (0.00-0.029) H 11/30/20 23:03 C-Reactive Protein 8.50 mg/dL (0.00-1.30) H 11/30/20 03:21 NT-Pro-B Natriuret Pep 18.20 pg/mL (0-450) 11/26/20 11:17 Total Protein 7.6 g/dL (6.3-8.2) 12/02/20 03:17 Albumin 3.3 g/dL (3.9-5) L 12/02/20 03:17 Albumin/Globulin Ratio 0.8 % 12/02/20 03:17 Triglycerides 228 mg/dL (2-149) H 11/30/20 18:10 Cholesterol 287 mg/dL (50-199) H 11/30/20 18:10 LDL Cholesterol Direct 210 mg/dL (50-130) H 11/30/20 18:10 HDL Cholesterol 38 mg/dL (40-59) L 11/30/20 18:10 Cholesterol/HDL Ratio 7.55 % 11/30/20 18:10 Procalcitonin 0.23 ng/mL (<0.15) 11/26/20 11:17 Coronavirus (PCR) Positive (Negative) A 11/27/20 Unknown Smith/IV: Voiding Method Urinal Active Medications - Current Medications Current Medications: Generic Name Dose Route Start Last Admin Trade Name Freq PRN Reason Stop Dose Admin Acetaminophen 650 mg 11/26/20 22:20 Acetaminophen 325 Mg Tab PO Q4H PRN Pain MILD(1-3)/Fever >100.5/DALY Aspirin 81 mg 12/02/20 10:00 12/03/20 09:24 Aspirin 81 Mg Tab Chew PO 81 mg QDAY SANGEETHA Administration Atorvastatin Calcium 40 mg 12/01/20 22:00 12/02/20 21:55 Atorvastatin 40 Mg Tab PO 40 mg QHS SANGEETHA Administration Enoxaparin Sodium 110 mg 12/02/20 22:00 12/03/20 09:25 Enoxaparin 120 Mg/0.8 Ml Inj SUB-Q 110 mg Q12HR SANGEETHA Administration Hydromorphone HCl 0.5 mg 11/26/20 22:20 11/29/20 00:50 Hydromorphone 1 Mg/1 Ml Inj IV 0.5 mg Q3H PRN Administration Pain , Severe (7-10) Sodium Chloride 1,000 mls @ 100 mls/hr 11/26/20 22:30 Nacl 0.9% 1000 Ml IV DIRECT SANGEETHA Insulin Human Lispro 0 unit 11/30/20 11:30 12/03/20 13:40 Insulin Lispro 100 Unit/Ml SUB-Q 2 unit ACHS SANGEETHA Administration Protocol Methylprednisolone Sodium Succinate 125 mg 12/03/20 10:00 12/03/20 09:49 Methylprednisolone Sod Succinate 125 Mg/2 Ml Inj IV 125 mg Q8H SANGEETHA Administration Ondansetron HCl 4 mg 11/26/20 22:20 Ondansetron 4 Mg/2 Ml Inj IV Q8H PRN Nausea And Vomiting Oxycodone/Acetaminophen 1 tab 11/26/20 22:20 12/01/20 12:04 Oxycodone /Acetaminophen 5-325mg Tab PO 1 tab Q6H PRN Administration Pain, Moderate (4-6) Pantoprazole Sodium 40 mg 12/04/20 07:30 Pantoprazole 40 Mg Tab PO QDAC SANGEETHA Sodium Chloride 10 ml 11/26/20 23:00 12/03/20 09:25 Sodium Chloride 0.9% 10 Ml Flush Syringe IV 10 ml BID SANGEETHA Administration Sodium Chloride 10 ml 11/26/20 22:20 Sodium Chloride 0.9% 10 Ml Flush Syringe IV PRN PRN LINE FLUSH Sucralfate 1 gm 12/02/20 10:00 12/03/20 13:40 Sucralfate 1 Gm Tab PO 1 gm Q8HR SANGEETHA Administration Nutrition/Malnutrition Assess - Dietary Evaluation Nutrition/Malnutrition Findings: Nutrition Notes Start: 12/03/20 12:47 Freq: Status: Active Protocol: Document 12/03/20 12:47 (Rec: 12/03/20 12:53 [id number]) Nutrition Notes Need for Assessment generated from: LOS Initial or Follow up Assessment Current Diagnosis Respiratory Failure, Hyperlipidemia Other Pertinent Diagnosis COVID-19, pneu Current Diet regular Labs/Tests POC BG 117-187 Pertinent Medications Solu Medrol Humalog Height 5 ft 11 in Weight 109.5 kg Means Body Weight (kg) 78.18 BMI 33.6 Weight Status Obese Subjective/Other Information Screen for LOS. Pt reports eating 0-25% of meals for past few days due to feeling ill. No weight loss. Burn Absent Trauma Absent Current % PO Negligible Minimum of two criteria No #1 Nutrition Diagnosis Inadequate oral intake Etiology COVID-19 As Evidenced by Signs and Symptoms pt eating <25% of meals Is patient on ventilator? No Is Patient Ambulatory and/or Out of Bed No REE-([facility]-confined to bed) 2440.980 Kcal/Kg value to use for calculation 16 Approximate Energy Requirements Using 1752 kcal/Kg Calculation Used for Recommendations Kcal/kg Additional Notes Protein: (0.8-1g/kg AdjBW: 94kg) 75-94g Fluid: 1 ml/kcal or per MD Nutrition Intervention Change Diet Order: add consistent CHO Add Supplement/Snack (indicate name/kcal Glucerna TID /protein ) Provides kCal: 660 Provides Protein (gm) 30 Goal #1 Meet at least 75% of protein and kcal needs via PO and ONS intakes Anticipated Discharge Needs: regular Follow-Up By: 12/08/20 Additional Comments F/u: intakes and ONS tolerance
[2020-12-03] MEDS: ONDANSETRON 4 MG/2 ML INJ IV PRN (20:29)
[2020-12-04] MEDS: methylPREDNISolone Sod Succinate 125 MG/2 ML INJ IV SCH ×3 (01:53→17:08)
[2020-12-04 04:45] LABS: Hematocrit 58.2 % (35.5-45.6); Hemoglobin 19.7 gm/dl (11.8-15.2); Mean Corpuscular HGB Conc 34 % (32-34); Mean Corpuscular Volume 88 fl (84-94); Platelet Count 368 K/mm3 (140-440); Red Blood Count 6.65 M/mm3 (3.65-5.03); Red Cell Distribution Width 14.9 % (13.2-15.2)
[2020-12-04 04:46] LABS: Alanine Aminotransferase 124 units/L (7-56); Albumin 3.7 g/dL (3.9-5); BUN/Creatinine Ratio 36; Blood Urea Nitrogen 36 mg/dL (9-20); Calcium 9.1 mg/dL (8.4-10.2); Hemolysis Index 44
[2020-12-04] MEDS: SUCRALFATE 1 GM TAB PO SCH ×3 (05:32→22:24)
[2020-12-04] MEDS: INSULIN LISPRO 100 UNIT/ML SUB-Q SCH ×5 (09:41→22:25)
[2020-12-04] MEDS: ENOXAPARIN 120 MG/0.8 ML INJ SUB-Q SCH ×2 (09:41→22:25)
[2020-12-04] MEDS: PANTOPRAZOLE 40 MG TAB PO SCH (09:42)
[2020-12-04] MEDS: ASPIRIN 81 MG TAB CHEW PO SCH (09:42)
--- NOTE | 2020-12-04 10:27 | Progress Note ---
<VINNY PALOMARES - Last Filed: 12/04/20 10:27> Assessment and Plan COVID 19 pneumonia CTA chest negative for PE Lower extremity venous Doppler negative for DVT Elevated troponin, nonspecific Hyperlipidemia An echocardiogram reveals dilated right heart chambers. Normal left ventricular systolic function, EF 55-60%. Conservative cardiac management. Will follow intermittently. Subjective Date of service: 12/04/20 Interval history: No cardiac events reported. Objective Vital Signs Temp Pulse Resp BP Pulse Ox 12/04/20 08:00 18 96 12/04/20 07:55 91 12/04/20 05:28 95 12/04/20 04:50 98.6 F 92 H 16 105/62 73 L 12/04/20 03:00 93 12/03/20 22:00 94 12/03/20 21:35 97.7 F 110 H 20 110/80 87 12/03/20 21:00 88 12/03/20 16:53 98.4 F 90 26 H 112/67 91 12/03/20 16:00 30 H 95 12/03/20 15:35 92 12/03/20 11:35 98.1 F 106 H 26 H 146/107 91 - Physical Examination Narrative exam: Deferred due to isolation protocol. General: No Apparent Distress Cardiac: Positive: Reg Rate and Rhythm - Labs and Meds Cardiac Enzymes 12/04/20 Range/Units 03:02 AST 84 H (5-40) units/L CBC 12/04/20 Range/Units 03:02 WBC 25.4 H (4.5-11.0) K/mm3 RBC 6.65 H (3.65-5.03) M/mm3 Hgb 19.7 H (11.8-15.2) gm/dl Hct 58.2 H (35.5-45.6) % Plt Count 368 (140-440) K/mm3 Comprehensive Metabolic Panel 12/04/20 Range/Units 03:02 Sodium 138 (137-145) mmol/L Potassium 5.6 H (3.6-5.0) mmol/L Chloride 98.6 (98-107) mmol/L Carbon Dioxide 29 (22-30) mmol/L BUN 36 H (9-20) mg/dL Creatinine 1.0 (0.8-1.3) mg/dL Glucose 152 H (75-100) mg/dL Calcium 9.1 (8.4-10.2) mg/dL AST 84 H (5-40) units/L ALT 124 H (7-56) units/L Alkaline Phosphatase 126 (35-129) units/L Total Protein 7.6 (6.3-8.2) g/dL Albumin 3.7 L (3.9-5) g/dL <ILEANA AYOUB - Last Filed: 12/12/20 23:10> Assessment and Plan - Patient Problems (1) Bradycardia Status: Acute Subjective Interval history: I SAW THIS PT & AGREE WITH THE Dx & Tx PLAN. Objective Vital Signs Temp Pulse Pulse Resp BP Pulse Ox 12/12/20 10:22 0 L 12/12/20 09:15 65 L 12/12/20 08:30 88 12/12/20 08:00 97.7 F 115 H 115 H 33 H 110/86 88 12/12/20 07:00 112 H 30 H 101/77 90 12/12/20 06:00 108 H 24 119/79 93 12/12/20 05:37 106 H 113/75 12/12/20 05:00 113/75 93 12/12/20 04:00 97.3 F L 114 H 116 H 33 H 107/73 91 12/12/20 03:19 92 12/12/20 03:01 115 H 34 H 117/72 91 12/12/20 02:01 109 H 34 H 89 12/12/20 01:56 88 12/12/20 01:00 104 H 25 H 117/72 86 12/12/20 00:00 97.9 F 106 H 103 H 24 118/74 98 - Labs and Meds Cardiac Enzymes 12/12/20 Range/Units 04:37 Lactate Dehydrogenase 1306 H (91-180) units/L Comprehensive Metabolic Panel 12/12/20 12/12/20 Range/Units 04:38 06:47 Sodium 127 L 128 L (137-145) mmol/L Potassium 4.7 4.7 (3.6-5.0) mmol/L Chloride 87.3 L 88.0 L (98-107) mmol/L Carbon Dioxide 24 23 (22-30) mmol/L BUN 49 H 52 H (9-20) mg/dL Creatinine 1.1 1.2 (0.8-1.3) mg/dL Glucose 194 H 181 H (75-100) mg/dL Calcium 8.2 L 8.2 L (8.4-10.2) mg/dL
--- NOTE | 2020-12-04 11:39 | Progress Note ---
Assessment and Plan 40 y/o obese male with acute respiratory failure secondary to COVID pneumonia. 12/04/20: Steroids at 125 Q8. Prone. Hold on lasix today given marginal blood pressures but please reassess over the weekend, guarded prognosis. 12/03/20: Hold on lasix today. Encourage to prone. Will increase steroids to 125q8. Guarded prognosis. 12/02/20: Lasix again today (20), continue to prone. continue steroids. Guarded prognosis. 12/01/20: Wean as tolerated. Proning should continue. Will give 20 of lasix today. 11/30/20: Patient is attempting to prone which is good for him. Continue to prone as much as tolerated. Hold on lasix again today. 11/29/20: No new recs for today. Needs to prone as much as tolerated. i/O not accurate so will hold on lasix for today. 1. Increase steroids to BID dosing given weight 2. Remdesivir 3. Actemra 4. Proning and net negative fluid balance Guarded prognosis Subjective Date of service: 12/04/20 Interval history: Clinically no change, no improvement. Objective Vital Signs - 12hr 12/04/20 12/04/20 12/04/20 03:00 04:50 05:28 Temperature 98.6 F Pulse Rate 92 H Respiratory 16 Rate Blood Pressure 105/62 O2 Sat by Pulse 93 73 L 95 Oximetry 12/04/20 12/04/20 07:55 08:00 Temperature Pulse Rate Respiratory 18 Rate Blood Pressure O2 Sat by Pulse 91 96 Oximetry CBC and BMP: 12/04/20 03:02 12/04/20 03:02 ABG, PT/INR, D-dimer: PT/INR, D-dimer D-Dimer > 17480 ng/mlDDU (0-234) H 11/30/20 03:21 Abnormal lab findings: Abnormal Labs 11/26/20 11/26/20 11/26/20 11:17 11:17 11:17 WBC RBC 5.28 H Hgb 15.8 H Hct MCHC 35 H RDW Plt Count 135 L Seg Neutrophils % 72.2 H D-Dimer 2154.70 H Sodium 135 L Potassium Chloride 96.7 L BUN Creatinine Glucose 117 H POC Glucose Ferritin Total Bilirubin AST 68 H ALT Lactate Dehydrogenase Troponin T C-Reactive Protein Albumin Triglycerides Cholesterol LDL Cholesterol Direct HDL Cholesterol Coronavirus (PCR) 11/26/20 11/26/20 11/27/20 11:17 11:17 05:15 WBC RBC 5.14 H Hgb 15.3 H Hct MCHC 35 H RDW Plt Count Seg Neutrophils % D-Dimer Sodium Potassium Chloride BUN Creatinine Glucose POC Glucose Ferritin 872.8 H Total Bilirubin AST ALT Lactate Dehydrogenase 642 H Troponin T C-Reactive Protein 8.50 H Albumin Triglycerides Cholesterol LDL Cholesterol Direct HDL Cholesterol Coronavirus (PCR) 11/27/20 11/27/20 11/27/20 05:15 17:12 Unknown WBC RBC Hgb Hct MCHC RDW Plt Count Seg Neutrophils % D-Dimer Sodium 134 L Potassium Chloride 95.1 L BUN Creatinine 1.4 H Glucose 110 H 130 H POC Glucose Ferritin Total Bilirubin AST 51 H 53 H ALT Lactate Dehydrogenase Troponin T C-Reactive Protein Albumin 3.4 L Triglycerides Cholesterol LDL Cholesterol Direct HDL Cholesterol Coronavirus (PCR) Positive A 11/28/20 11/29/20 11/30/20 07:14 10:14 03:21 WBC RBC Hgb Hct MCHC RDW Plt Count Seg Neutrophils % D-Dimer Sodium Potassium Chloride 97.0 L 97.2 L BUN 23 H 26 H Creatinine Glucose 117 H 140 H 158 H POC Glucose Ferritin Total Bilirubin AST 54 H 45 H 50 H ALT 65 H Lactate Dehydrogenase 739 H Troponin T C-Reactive Protein 8.50 H Albumin 3.6 L 3.8 L Triglycerides Cholesterol LDL Cholesterol Direct HDL Cholesterol Coronavirus (PCR) 11/30/20 11/30/20 11/30/20 03:21 03:21 13:05 WBC RBC Hgb Hct MCHC RDW Plt Count Seg Neutrophils % D-Dimer > 42008 H Sodium Potassium Chloride BUN Creatinine Glucose POC Glucose 138 H Ferritin 1885.0 H Total Bilirubin AST ALT Lactate Dehydrogenase Troponin T C-Reactive Protein Albumin Triglycerides Cholesterol LDL Cholesterol Direct HDL Cholesterol Coronavirus (PCR) 11/30/20 11/30/20 11/30/20 16:41 18:10 21:18 WBC RBC Hgb Hct MCHC RDW Plt Count Seg Neutrophils % D-Dimer Sodium Potassium Chloride BUN Creatinine Glucose POC Glucose 145 H 157 H Ferritin Total Bilirubin AST ALT Lactate Dehydrogenase Troponin T 0.080 H D C-Reactive Protein Albumin Triglycerides 228 H Cholesterol 287 H LDL Cholesterol Direct 210 H HDL Cholesterol 38 L Coronavirus (PCR) 0812/01/20 12/01/20 23:03 05:32 05:32 WBC 15.5 H RBC 5.86 H Hgb 17.3 H Hct 51.6 H MCHC RDW 15.3 H Plt Count Seg Neutrophils % D-Dimer Sodium Potassium 5.1 H Chloride BUN 28 H Creatinine Glucose 147 H POC Glucose Ferritin Total Bilirubin AST 51 H ALT 91 H Lactate Dehydrogenase Troponin T 0.076 H C-Reactive Protein Albumin 3.5 L Triglycerides Cholesterol LDL Cholesterol Direct HDL Cholesterol Coronavirus (PCR) 12/01/20 12/01/20 12/01/20 08:06 12:04 16:07 WBC RBC Hgb Hct MCHC RDW Plt Count Seg Neutrophils % D-Dimer Sodium Potassium Chloride BUN Creatinine Glucose POC Glucose 143 H 156 H 196 H Ferritin Total Bilirubin AST ALT Lactate Dehydrogenase Troponin T C-Reactive Protein Albumin Triglycerides Cholesterol LDL Cholesterol Direct HDL Cholesterol Coronavirus (PCR) 12/01/20 12/02/20 12/02/20 21:34 03:17 03:17 WBC 17.2 H RBC 6.26 H Hgb 18.5 H Hct 54.5 H MCHC RDW Plt Count Seg Neutrophils % D-Dimer Sodium Potassium Chloride BUN 33 H Creatinine Glucose 131 H POC Glucose 174 H Ferritin Total Bilirubin 1.40 H AST 48 H ALT 128 H Lactate Dehydrogenase Troponin T C-Reactive Protein Albumin 3.3 L Triglycerides Cholesterol LDL Cholesterol Direct HDL Cholesterol Coronavirus (PCR) 12/02/20 12/02/20 12/02/20 07:50 10:58 16:17 WBC RBC Hgb Hct MCHC RDW Plt Count Seg Neutrophils % D-Dimer Sodium Potassium Chloride BUN Creatinine Glucose POC Glucose 127 H 117 H 138 H Ferritin Total Bilirubin AST ALT Lactate Dehydrogenase Troponin T C-Reactive Protein Albumin Triglycerides Cholesterol LDL Cholesterol Direct HDL Cholesterol Coronavirus (PCR) 12/02/20 12/03/20 12/03/20 21:23 08:13 11:32 WBC RBC Hgb Hct MCHC RDW Plt Count Seg Neutrophils % D-Dimer Sodium Potassium Chloride BUN Creatinine Glucose POC Glucose 187 H 160 H 154 H Ferritin Total Bilirubin AST ALT Lactate Dehydrogenase Troponin T C-Reactive Protein Albumin Triglycerides Cholesterol LDL Cholesterol Direct HDL Cholesterol Coronavirus (PCR) 12/03/20 12/03/20 12/04/20 16:54 21:56 03:02 WBC 25.4 H RBC 6.65 H Hgb 19.7 H Hct 58.2 H MCHC RDW Plt Count Seg Neutrophils % D-Dimer Sodium Potassium Chloride BUN Creatinine Glucose POC Glucose 186 H 156 H Ferritin Total Bilirubin AST ALT Lactate Dehydrogenase Troponin T C-Reactive Protein Albumin Triglycerides Cholesterol LDL Cholesterol Direct HDL Cholesterol Coronavirus (PCR) 12/04/20 12/04/20 12/04/20 03:02 07:35 10:54 WBC RBC Hgb Hct MCHC RDW Plt Count Seg Neutrophils % D-Dimer Sodium Potassium 5.6 H Chloride BUN 36 H Creatinine Glucose 152 H POC Glucose 171 H 256 H Ferritin Total Bilirubin 1.30 H AST 84 H ALT 124 H Lactate Dehydrogenase Troponin T C-Reactive Protein Albumin 3.7 L Triglycerides Cholesterol LDL Cholesterol Direct HDL Cholesterol Coronavirus (PCR)
--- NOTE | 2020-12-04 13:29 | Progress Note ---
Assessment and Plan Assessment and plan: 40-year-old -[place] male with no significant past medical history unvaccinated with Covid comes in for increasing shortness of breath and cough for 2-week escalating for 1 week. Symptoms worse with exertion and talking. Positive chest pain. Episode associated with cough. Intermittent nausea vomiting as well as emesis after coughing. Fever and low oxygen levels noted upon arrival. Sats in the mid 85. No loss of taste or smell. Feels weak. No known Covid exposure. Patient now willing to take vaccine after he gets better. 11/27 -Patient was on 4 L of oxygen. Covid test is pending. Procalcitonin level pending. ID is following. Patient is on Decadron and will add remdesivir if Covid test is positive 11/28 -Covid test was positive. Patient started on Decadron and remdesivir. ID consult appreciated. Patient's oxygen requirement was 30 L yesterday and CRP was 7.5 and ID recommend Actemra based on his availability. Pulmonary consulted. 11/29 patient is awake and alert and he is on 100% FiO2 via nonrebreather mask. Complains of cough with mucoid sputum and states chest hurts when he is coughing. He denies any fever or chills. Denies nausea or abdominal pain. Lab results reviewed. ID and pulmonary notes reviewed and appreciated 11/30 NAD, complains of occasional cough with mucoid sputum and feels mildly short of breath, he denies any fever or chills. lab results reviewed pulmonary note reviewed 12/01: Patient remains on high flow and nonrebreather to maintain a decent saturation. Continue steroids as prescribed by tailercpa on high dose. Mild hyperkalemia we will give a dose of Kayexalate and repeat studies in a.m. Lasix per pulm. Monitor renal function 12/02: Patient seen and examined anxious this morning. Complained of discomfort with swallowing burning sensation. Discussed with cardiac team echocardiogram pending. Continue conservative management otherwise patient is on full dose enoxaparin and also high-dose steroids. Encourage prone positioning. Prognosis is guarded. Plan discussed with the patient. Although 12 point system reviewed and otherwise negative except as mentioned in the note 12/03: Continue high dose steroids, continue supportive care, proned. Unfortunately not improving. Will continue to monitor. 12/04: Patient unfortunately not showing any clinical improvement continues on nonrebreather on high flow. Lasix held today due to marginal blood pressure. Will transfer to [facility] for closer monitoring although he may not be able to go due to staffing shortage which is a national crisis at this time.. Plan discussed with the patient 35 minutes critical care time Assessment and plan Acute hypoxic respiratory failure Secondary to COVID-19 pneumonia Patient is now on high flow at 40 L and 100% FiO2 Pulmonary note reviewed and appreciated IV Decadron dose increased by pulmonary due to worsening hypoxia Actemra if available COVID-19 pneumonia Continue remdesivir Continue Decadron IV antibiotics discontinued as procalcitonin is normal Prognosis guarded due to severe hypoxia Inflammatory markers reviewed LFTs mildly increased D-dimer increased to 10,000 from 2154 on 11/27 Lovenox increased to 80 mg every 812 hours subcu CTA chest negative for PE Lower extremity venous Doppler negative for DVT Hyponatremia Improved Obesity class II Counseling when he is more stable Hyperglycemia Mild , secondary to steroids Patient denies history of diabetes Start on Accu-Cheks with insulin sliding scale coverage Hyperkalemia Gastroenteritis with nausea vomiting History Interval history: Patient seen and examined, still with shortness of breath on NRB AND High flow. Reported nausea with vomiting yesterday now resolved Hospitalist Physical - Physical exam Narrative exam: General appearance: Present: mild distress, on high flow and NRBM, appears uncomfortable, - EENT Eyes: PERRL, EOM intact ENT: hearing intact - Neck Neck: supple, normal ROM - Respiratory Respiratory effort: normal Respiratory: bilateral: CTA, rhonchi, wheezing - Cardiovascular Rhythm: regular Heart Sounds: Present: S1 & S2 Extremities: No edema - Gastrointestinal General gastrointestinal: Present: soft, non-tender Rectal Exam: deferred - Genitourinary Male genitourinary: deferred - Integumentary Integumentary: clear - Musculoskeletal Musculoskeletal: strength equal bilaterally - Neurologic Neurologic: no focal deficits - Psychiatric Psychiatric: Anxious - Constitutional Vitals: Temp Pulse Resp BP Pulse Ox 98.6 F 92 H 18 105/62 96 12/04/20 04:50 12/04/20 04:50 12/04/20 08:00 12/04/20 04:50 12/04/20 08:00 General appearance: Present: mild distress HEART Score - HEART Score Troponin: Troponin T 0.076 ng/mL (0.00-0.029) H 11/30/20 23:03 Results - Labs CBC & Chem 7: 12/04/20 03:02 12/04/20 03:02 Labs: Laboratory Last Values WBC 25.4 K/mm3 (4.5-11.0) H 12/04/20 03:02 RBC 6.65 M/mm3 (3.65-5.03) H 12/04/20 03:02 Hgb 19.7 gm/dl (11.8-15.2) H 12/04/20 03:02 Hct 58.2 % (35.5-45.6) H 12/04/20 03:02 MCV 88 fl (84-94) 12/04/20 03:02 MCH 30 pg (28-32) 12/04/20 03:02 MCHC 34 % (32-34) 12/04/20 03:02 RDW 14.9 % (13.2-15.2) 12/04/20 03:02 Plt Count 368 K/mm3 (140-440) 12/04/20 03:02 Lymph % (Auto) 25.7 % (13.4-35.0) 11/27/20 05:15 [place] % (Auto) 4.5 % (0.0-7.3) 11/27/20 05:15 Eos % (Auto) 0.0 % (0.0-4.3) 11/27/20 05:15 Baso % (Auto) 0.2 % (0.0-1.8) 11/27/20 05:15 Lymph # (Auto) 1.5 K/mm3 (1.2-5.4) 11/27/20 05:15 [place] # (Auto) 0.3 K/mm3 (0.0-0.8) 11/27/20 05:15 Eos # (Auto) 0.0 K/mm3 (0.0-0.4) 11/27/20 05:15 Baso # (Auto) 0.0 K/mm3 (0.0-0.1) 11/27/20 05:15 Seg Neutrophils % 69.6 % (40.0-70.0) 11/27/20 05:15 Seg Neutrophils # 4.0 K/mm3 (1.8-7.7) 11/27/20 05:15 D-Dimer > 55309 ng/mlDDU (0-234) H 11/30/20 03:21 Sodium 138 mmol/L (137-145) 12/04/20 03:02 Potassium 5.6 mmol/L (3.6-5.0) H 12/04/20 03:02 Chloride 98.6 mmol/L (98-107) 12/04/20 03:02 Carbon Dioxide 29 mmol/L (22-30) 12/04/20 03:02 Anion Gap 16 mmol/L 12/04/20 03:02 BUN 36 mg/dL (9-20) H 12/04/20 03:02 Creatinine 1.0 mg/dL (0.8-1.3) 12/04/20 03:02 Estimated GFR > 60 ml/min 12/04/20 03:02 BUN/Creatinine Ratio 36 % 12/04/20 03:02 Glucose 152 mg/dL (75-100) H 12/04/20 03:02 POC Glucose 256 mg/dL (70-105) H 12/04/20 10:54 Lactic Acid 1.20 mmol/L (0.7-2.0) 11/26/20 23:28 Calcium 9.1 mg/dL (8.4-10.2) 12/04/20 03:02 Ferritin 1885.0 ng/mL (30.0-300.0) H 11/30/20 03:21 Total Bilirubin 1.30 mg/dL (0.1-1.2) H 12/04/20 03:02 AST 84 units/L (5-40) H 12/04/20 03:02 ALT 124 units/L (7-56) H 12/04/20 03:02 Alkaline Phosphatase 126 units/L (35-129) 12/04/20 03:02 Lactate Dehydrogenase 739 units/L (91-180) H 11/30/20 03:21 Troponin T 0.076 ng/mL (0.00-0.029) H 11/30/20 23:03 C-Reactive Protein 8.50 mg/dL (0.00-1.30) H 11/30/20 03:21 NT-Pro-B Natriuret Pep 18.20 pg/mL (0-450) 11/26/20 11:17 Total Protein 7.6 g/dL (6.3-8.2) 12/04/20 03:02 Albumin 3.7 g/dL (3.9-5) L 12/04/20 03:02 Albumin/Globulin Ratio 0.9 % 12/04/20 03:02 Triglycerides 228 mg/dL (2-149) H 11/30/20 18:10 Cholesterol 287 mg/dL (50-199) H 11/30/20 18:10 LDL Cholesterol Direct 210 mg/dL (50-130) H 11/30/20 18:10 HDL Cholesterol 38 mg/dL (40-59) L 11/30/20 18:10 Cholesterol/HDL Ratio 7.55 % 11/30/20 18:10 Procalcitonin 0.23 ng/mL (<0.15) 11/26/20 11:17 Coronavirus (PCR) Positive (Negative) A 11/27/20 Unknown Smith/IV: Voiding Method Urinal Active Medications - Current Medications Current Medications: Generic Name Dose Route Start Last Admin Trade Name Freq PRN Reason Stop Dose Admin Acetaminophen 650 mg 11/26/20 22:20 Acetaminophen 325 Mg Tab PO Q4H PRN Pain MILD(1-3)/Fever >100.5/DALY Aspirin 81 mg 12/02/20 10:00 12/04/20 09:42 Aspirin 81 Mg Tab Chew PO 81 mg QDAY SANGEETHA Administration Atorvastatin Calcium 40 mg 12/01/20 22:00 12/03/20 22:38 Atorvastatin 40 Mg Tab PO 40 mg QHS SANGEETHA Administration Enoxaparin Sodium 110 mg 12/02/20 22:00 12/04/20 09:41 Enoxaparin 120 Mg/0.8 Ml Inj SUB-Q 110 mg Q12HR SANGEETHA Administration Hydromorphone HCl 0.5 mg 11/26/20 22:20 11/29/20 00:50 Hydromorphone 1 Mg/1 Ml Inj IV 0.5 mg Q3H PRN Administration Pain , Severe (7-10) Sodium Chloride 1,000 mls @ 100 mls/hr 11/26/20 22:30 Nacl 0.9% 1000 Ml IV DIRECT SANGEETHA Insulin Human Lispro 0 unit 11/30/20 11:30 12/04/20 13:08 Insulin Lispro 100 Unit/Ml SUB-Q 4 unit ACHS SANGEETHA Administration Protocol Methylprednisolone Sodium Succinate 125 mg 12/03/20 10:00 12/04/20 09:43 Methylprednisolone Sod Succinate 125 Mg/2 Ml Inj IV 125 mg Q8H SANGEETHA Administration Ondansetron HCl 4 mg 11/26/20 22:20 12/03/20 20:29 Ondansetron 4 Mg/2 Ml Inj IV 4 mg Q8H PRN Administration Nausea And Vomiting Oxycodone/Acetaminophen 1 tab 11/26/20 22:20 12/01/20 12:04 Oxycodone /Acetaminophen 5-325mg Tab PO 1 tab Q6H PRN Administration Pain, Moderate (4-6) Pantoprazole Sodium 40 mg 12/04/20 07:30 12/04/20 09:42 Pantoprazole 40 Mg Tab PO 40 mg QDAC SANGEETHA Administration Sodium Chloride 10 ml 11/26/20 23:00 12/04/20 09:43 Sodium Chloride 0.9% 10 Ml Flush Syringe IV 10 ml BID SANGEETHA Administration Sodium Chloride 10 ml 11/26/20 22:20 Sodium Chloride 0.9% 10 Ml Flush Syringe IV PRN PRN LINE FLUSH Sucralfate 1 gm 12/02/20 10:00 12/04/20 13:09 Sucralfate 1 Gm Tab PO 1 gm Q8HR SANGEETHA Administration Nutrition/Malnutrition Assess - Dietary Evaluation Nutrition/Malnutrition Findings: Nutrition Notes Start: 12/03/20 12:47 Freq: Status: Active Protocol: Document 12/03/20 12:47 (Rec: 12/03/20 12:53 MK [id number]) Nutrition Notes Need for Assessment generated from: LOS Initial or Follow up Assessment Current Diagnosis Respiratory Failure, Hyperlipidemia Other Pertinent Diagnosis COVID-19, pneu Current Diet regular Labs/Tests POC BG 117-187 Pertinent Medications Solu Medrol Humalog Height 5 ft 11 in Weight 109.5 kg Breeding Body Weight (kg) 78.18 BMI 33.6 Weight Status Obese Subjective/Other Information Screen for LOS. Pt reports eating 0-25% of meals for past few days due to feeling ill. No weight loss. Burn Absent Trauma Absent Current % PO Negligible Minimum of two criteria No #1 Nutrition Diagnosis Inadequate oral intake Etiology COVID-19 As Evidenced by Signs and Symptoms pt eating <25% of meals Is patient on ventilator? No Is Patient Ambulatory and/or Out of Bed No REE-([place]-confined to bed) 2440.980 Kcal/Kg value to use for calculation 16 Approximate Energy Requirements Using 1752 kcal/Kg Calculation Used for Recommendations Kcal/kg Additional Notes Protein: (0.8-1g/kg AdjBW: 94kg) 75-94g Fluid: 1 ml/kcal or per MD Nutrition Intervention Change Diet Order: add consistent CHO Add Supplement/Snack (indicate name/kcal Glucerna TID /protein ) Provides kCal: 660 Provides Protein (gm) 30 Goal #1 Meet at least 75% of protein and kcal needs via PO and ONS intakes Anticipated Discharge Needs: regular Follow-Up By: 12/08/20 Additional Comments F/u: intakes and ONS tolerance
[2020-12-05] MEDS: methylPREDNISolone Sod Succinate 125 MG/2 ML INJ IV SCH ×3 (02:17→17:55)
[2020-12-05] MEDS: SUCRALFATE 1 GM TAB PO SCH ×3 (05:12→21:59)
[2020-12-05 06:31] LABS: Hematocrit 54.4 % (35.5-45.6); Hemoglobin 18.3 gm/dl (11.8-15.2); Mean Corpuscular HGB Conc 34 % (32-34); Mean Corpuscular Volume 86 fl (84-94); Platelet Count 361 K/mm3 (140-440); Red Blood Count 6.29 M/mm3 (3.65-5.03); Red Cell Distribution Width 15.3 % (13.2-15.2)
[2020-12-05 06:49] LABS: BUN/Creatinine Ratio 28; Blood Urea Nitrogen 33 mg/dL (9-20); Calcium 8.5 mg/dL (8.4-10.2); Hemolysis Index 7
[2020-12-05] MEDS: PANTOPRAZOLE 40 MG TAB PO SCH (09:39)
[2020-12-05] MEDS: INSULIN LISPRO 100 UNIT/ML SUB-Q SCH ×4 (09:40→22:01)
[2020-12-05] MEDS: ASPIRIN 81 MG TAB CHEW PO SCH (09:40)
[2020-12-05] MEDS: ENOXAPARIN 120 MG/0.8 ML INJ SUB-Q SCH ×2 (09:40→22:00)
--- NOTE | 2020-12-05 10:48 | Progress Note ---
Assessment and Plan Assessment and plan: 40-year-old -[place] male with no significant past medical history unvaccinated with Covid comes in for increasing shortness of breath and cough for 2-week escalating for 1 week. Symptoms worse with exertion and talking. Positive chest pain. Episode associated with cough. Intermittent nausea vomiting as well as emesis after coughing. Fever and low oxygen levels noted upon arrival. Sats in the mid 85. No loss of taste or smell. Feels weak. No known Covid exposure. Patient now willing to take vaccine after he gets better. 11/27 -Patient was on 4 L of oxygen. Covid test is pending. Procalcitonin level pending. ID is following. Patient is on Decadron and will add remdesivir if Covid test is positive 11/28 -Covid test was positive. Patient started on Decadron and remdesivir. ID consult appreciated. Patient's oxygen requirement was 30 L yesterday and CRP was 7.5 and ID recommend Actemra based on his availability. Pulmonary consulted. 11/29 patient is awake and alert and he is on 100% FiO2 via nonrebreather mask. Complains of cough with mucoid sputum and states chest hurts when he is coughing. He denies any fever or chills. Denies nausea or abdominal pain. Lab results reviewed. ID and pulmonary notes reviewed and appreciated 11/30 NAD, complains of occasional cough with mucoid sputum and feels mildly short of breath, he denies any fever or chills. lab results reviewed pulmonary note reviewed 12/01: Patient remains on high flow and nonrebreather to maintain a decent saturation. Continue steroids as prescribed by envelope addresser on high dose. Mild hyperkalemia we will give a dose of Kayexalate and repeat studies in a.m. Lasix per pulm. Monitor renal function 12/02: Patient seen and examined anxious this morning. Complained of discomfort with swallowing burning sensation. Discussed with cardiac team echocardiogram pending. Continue conservative management otherwise patient is on full dose enoxaparin and also high-dose steroids. Encourage prone positioning. Prognosis is guarded. Plan discussed with the patient. Although 12 point system reviewed and otherwise negative except as mentioned in the note 12/03: Continue high dose steroids, continue supportive care, proned. Unfortunately not improving. Will continue to monitor. 12/04: Patient unfortunately not showing any clinical improvement continues on nonrebreather on high flow. Lasix held today due to marginal blood pressure. Will transfer to [facility] for closer monitoring although he may not be able to go due to staffing shortage which is a national crisis at this time.. Plan discussed with the patient. 12/05: Patient seen and examined, Continue supportive care, wean as tolerated, still poor prognosis due to no significant improvement despite treatment. Encouraged to prone through out the day 35 minutes critical care time Assessment and plan Acute hypoxic respiratory failure Secondary to COVID-19 pneumonia Patient is now on high flow at 40 L and 100% FiO2 Pulmonary note reviewed and appreciated IV Decadron dose increased by pulmonary due to worsening hypoxia Actemra if available COVID-19 pneumonia Continue remdesivir Continue Decadron IV antibiotics discontinued as procalcitonin is normal Prognosis guarded due to severe hypoxia Inflammatory markers reviewed LFTs mildly increased D-dimer increased to 10,000 from 2154 on 11/27 Lovenox increased to 80 mg every 812 hours subcu CTA chest negative for PE Lower extremity venous Doppler negative for DVT Hyponatremia Improved Obesity class II Counseling when he is more stable Hyperglycemia Mild , secondary to steroids Patient denies history of diabetes Start on Accu-Cheks with insulin sliding scale coverage Hyperkalemia Gastroenteritis with nausea vomiting History Interval history: Patient seen and examined, still with shortness of breath on NRB AND High flow. Hospitalist Physical - Physical exam Narrative exam: General appearance: Present: mild distress, on high flow and NRBM, sitting up - EENT Eyes: PERRL, EOM intact ENT: hearing intact - Neck Neck: supple, normal ROM - Respiratory Respiratory effort: normal Respiratory: bilateral: CTA, rhonchi, wheezing - Cardiovascular Rhythm: regular Heart Sounds: Present: S1 & S2 Extremities: No edema - Gastrointestinal General gastrointestinal: Present: soft, non-tender Rectal Exam: deferred - Genitourinary Male genitourinary: deferred - Integumentary Integumentary: clear - Musculoskeletal Musculoskeletal: strength equal bilaterally - Neurologic Neurologic: no focal deficits - Psychiatric Psychiatric: Anxious - Constitutional Vitals: Temp Pulse Resp BP Pulse Ox 98.9 F 92 H 20 114/54 92 12/05/20 05:07 12/05/20 05:07 12/05/20 05:07 12/05/20 05:07 12/05/20 07:50 General appearance: Present: mild distress HEART Score - HEART Score Troponin: Troponin T 0.076 ng/mL (0.00-0.029) H 11/30/20 23:03 Results - Labs CBC & Chem 7: 12/05/20 06:00 12/05/20 06:00 Labs: Laboratory Last Values WBC 26.4 K/mm3 (4.5-11.0) H 12/05/20 06:00 RBC 6.29 M/mm3 (3.65-5.03) H 12/05/20 06:00 Hgb 18.3 gm/dl (11.8-15.2) H 12/05/20 06:00 Hct 54.4 % (35.5-45.6) H 12/05/20 06:00 MCV 86 fl (84-94) 12/05/20 06:00 MCH 29 pg (28-32) 12/05/20 06:00 MCHC 34 % (32-34) 12/05/20 06:00 RDW 15.3 % (13.2-15.2) H 12/05/20 06:00 Plt Count 361 K/mm3 (140-440) 12/05/20 06:00 Lymph % (Auto) 25.7 % (13.4-35.0) 11/27/20 05:15 J[place]uld % (Auto) 4.5 % (0.0-7.3) 11/27/20 05:15 Eos % (Auto) 0.0 % (0.0-4.3) 11/27/20 05:15 Baso % (Auto) 0.2 % (0.0-1.8) 11/27/20 05:15 Lymph # (Auto) 1.5 K/mm3 (1.2-5.4) 11/27/20 05:15 Jerauld # (Auto) 0.3 K/mm3 (0.0-0.8) 11/27/20 05:15 Eos # (Auto) 0.0 K/mm3 (0.0-0.4) 11/27/20 05:15 Baso # (Auto) 0.0 K/mm3 (0.0-0.1) 11/27/20 05:15 Seg Neutrophils % 69.6 % (40.0-70.0) 11/27/20 05:15 Seg Neutrophils # 4.0 K/mm3 (1.8-7.7) 11/27/20 05:15 D-Dimer > 70540 ng/mlDDU (0-234) H 11/30/20 03:21 Sodium 137 mmol/L (137-145) 12/05/20 06:00 Potassium 5.1 mmol/L (3.6-5.0) H 12/05/20 06:00 Chloride 98.4 mmol/L (98-107) 12/05/20 06:00 Carbon Dioxide 27 mmol/L (22-30) 12/05/20 06:00 Anion Gap 17 mmol/L 12/05/20 06:00 BUN 33 mg/dL (9-20) H 12/05/20 06:00 Creatinine 1.2 mg/dL (0.8-1.3) 12/05/20 06:00 Estimated GFR > 60 ml/min 12/05/20 06:00 BUN/Creatinine Ratio 28 % 12/05/20 06:00 Glucose 183 mg/dL (75-100) H 12/05/20 06:00 POC Glucose 182 mg/dL (70-105) H 12/05/20 08:12 Lactic Acid 1.20 mmol/L (0.7-2.0) 11/26/20 23:28 Calcium 8.5 mg/dL (8.4-10.2) 12/05/20 06:00 Ferritin 1885.0 ng/mL (30.0-300.0) H 11/30/20 03:21 Total Bilirubin 1.30 mg/dL (0.1-1.2) H 12/04/20 03:02 AST 84 units/L (5-40) H 12/04/20 03:02 ALT 124 units/L (7-56) H 12/04/20 03:02 Alkaline Phosphatase 126 units/L (35-129) 12/04/20 03:02 Lactate Dehydrogenase 739 units/L (91-180) H 11/30/20 03:21 Troponin T 0.076 ng/mL (0.00-0.029) H 11/30/20 23:03 C-Reactive Protein 8.50 mg/dL (0.00-1.30) H 11/30/20 03:21 NT-Pro-B Natriuret Pep 18.20 pg/mL (0-450) 11/26/20 11:17 Total Protein 7.6 g/dL (6.3-8.2) 12/04/20 03:02 Albumin 3.7 g/dL (3.9-5) L 12/04/20 03:02 Albumin/Globulin Ratio 0.9 % 12/04/20 03:02 Triglycerides 228 mg/dL (2-149) H 11/30/20 18:10 Cholesterol 287 mg/dL (50-199) H 11/30/20 18:10 LDL Cholesterol Direct 210 mg/dL (50-130) H 11/30/20 18:10 HDL Cholesterol 38 mg/dL (40-59) L 11/30/20 18:10 Cholesterol/HDL Ratio 7.55 % 11/30/20 18:10 Procalcitonin 0.23 ng/mL (<0.15) 11/26/20 11:17 Coronavirus (PCR) Positive (Negative) A 11/27/20 Unknown Smith/IV: Voiding Method Urinal Active Medications - Current Medications Current Medications: Generic Name Dose Route Start Last Admin Trade Name Freq PRN Reason Stop Dose Admin Acetaminophen 650 mg 11/26/20 22:20 Acetaminophen 325 Mg Tab PO Q4H PRN Pain MILD(1-3)/Fever >100.5/DALY Aspirin 81 mg 12/02/20 10:00 12/05/20 09:40 Aspirin 81 Mg Tab Chew PO 81 mg QDAY SANGEETHA Administration Atorvastatin Calcium 40 mg 12/01/20 22:00 12/04/20 22:24 Atorvastatin 40 Mg Tab PO 40 mg QHS SANGEETHA Administration Enoxaparin Sodium 110 mg 12/02/20 22:00 12/05/20 09:40 Enoxaparin 120 Mg/0.8 Ml Inj SUB-Q 110 mg Q12HR SANGEETHA Administration Hydromorphone HCl 0.5 mg 11/26/20 22:20 11/29/20 00:50 Hydromorphone 1 Mg/1 Ml Inj IV 0.5 mg Q3H PRN Administration Pain , Severe (7-10) Sodium Chloride 1,000 mls @ 100 mls/hr 11/26/20 22:30 Nacl 0.9% 1000 Ml IV DIRECT REPLACED BY [facility] Insulin Human Lispro 0 unit 11/30/20 11:30 12/05/20 09:40 Insulin Lispro 100 Unit/Ml SUB-Q 2 unit ACHS SANGEETHA Administration Protocol Methylprednisolone Sodium Succinate 125 mg 12/03/20 10:00 12/05/20 09:40 Methylprednisolone Sod Succinate 125 Mg/2 Ml Inj IV 125 mg Q8H SANGEETHA Administration Ondansetron HCl 4 mg 11/26/20 22:20 12/03/20 20:29 Ondansetron 4 Mg/2 Ml Inj IV 4 mg Q8H PRN Administration Nausea And Vomiting Oxycodone/Acetaminophen 1 tab 11/26/20 22:20 12/01/20 12:04 Oxycodone /Acetaminophen 5-325mg Tab PO 1 tab Q6H PRN Administration Pain, Moderate (4-6) Pantoprazole Sodium 40 mg 12/04/20 07:30 12/05/20 09:39 Pantoprazole 40 Mg Tab PO 40 mg QDAC SANGEETHA Administration Sodium Chloride 10 ml 11/26/20 23:00 12/05/20 09:41 Sodium Chloride 0.9% 10 Ml Flush Syringe IV 10 ml BID SANGEETHA Administration Sodium Chloride 10 ml 11/26/20 22:20 Sodium Chloride 0.9% 10 Ml Flush Syringe IV PRN PRN LINE FLUSH Sucralfate 1 gm 12/02/20 10:00 12/05/20 05:12 Sucralfate 1 Gm Tab PO 1 gm Q8HR SANGEETHA Administration Nutrition/Malnutrition Assess - Dietary Evaluation Nutrition/Malnutrition Findings: Nutrition Notes Start: 12/03/20 12:47 Freq: Status: Active Protocol: Document 12/03/20 12:47 (Rec: 12/03/20 12:53 [email or web address]) Nutrition Notes Need for Assessment generated from: LOS Initial or Follow up Assessment Current Diagnosis Respiratory Failure, Hyperlipidemia Other Pertinent Diagnosis COVID-19, pneu Current Diet regular Labs/Tests POC BG 117-187 Pertinent Medications Solu Medrol Humalog Height 5 ft 11 in Weight 109.5 kg Pierz Body Weight (kg) 78.18 BMI 33.6 Weight Status Obese Subjective/Other Information Screen for LOS. Pt reports eating 0-25% of meals for past few days due to feeling ill. No weight loss. Burn Absent Trauma Absent Current % PO Negligible Minimum of two criteria No #1 Nutrition Diagnosis Inadequate oral intake Etiology COVID-19 As Evidenced by Signs and Symptoms pt eating <25% of meals Is patient on ventilator? No Is Patient Ambulatory and/or Out of Bed No REE-([place]-confined to bed) 2440.980 Kcal/Kg value to use for calculation 16 Approximate Energy Requirements Using 1752 kcal/Kg Calculation Used for Recommendations Kcal/kg Additional Notes Protein: (0.8-1g/kg AdjBW: 94kg) 75-94g Fluid: 1 ml/kcal or per MD Nutrition Intervention Change Diet Order: add consistent CHO Add Supplement/Snack (indicate name/kcal Glucerna TID /protein ) Provides kCal: 660 Provides Protein (gm) 30 Goal #1 Meet at least 75% of protein and kcal needs via PO and ONS intakes Anticipated Discharge Needs: regular Follow-Up By: 12/08/20 Additional Comments F/u: intakes and ONS tolerance
--- NOTE | 2020-12-05 12:58 | Progress Note ---
Assessment and Plan 40 y/o obese male with acute respiratory failure secondary to COVID pneumonia. 12/05/2020: Continue with current therapy. Wean FiO2 as tolerated currently on 100% 12/04/20: Steroids at 125 Q8. Prone. Hold on lasix today given marginal blood pressures but please reassess over the weekend, guarded prognosis. 12/03/20: Hold on lasix today. Encourage to prone. Will increase steroids to 125q8. Guarded prognosis. 12/02/20: Lasix again today (20), continue to prone. continue steroids. Guarded prognosis. 12/01/20: Wean as tolerated. Proning should continue. Will give 20 of lasix today. 11/30/20: Patient is attempting to prone which is good for him. Continue to prone as much as tolerated. Hold on lasix again today. 11/29/20: No new recs for today. Needs to prone as much as tolerated. i/O not accurate so will hold on lasix for today. 1. Increase steroids to BID dosing given weight 2. Remdesivir 3. Actemra 4. Proning and net negative fluid balance Guarded prognosis Subjective Date of service: 12/05/20 Interval history: No new complaints remains short of breath on high flow nasal cannula at 100% Objective - Exam Narrative Exam: General appearance: Present: mild distress, on high flow and NRBM, sitting up - EENT Eyes: PERRL, EOM intact ENT: hearing intact - Neck Neck: supple, normal ROM - Respiratory Respiratory effort: normal Respiratory: bilateral: CTA, rhonchi, wheezing - Cardiovascular Rhythm: regular Heart Sounds: Present: S1 & S2 Extremities: No edema - Gastrointestinal General gastrointestinal: Present: soft, non-tender Rectal Exam: deferred - Genitourinary Male genitourinary: deferred - Integumentary Integumentary: clear - Musculoskeletal Musculoskeletal: strength equal bilaterally - Neurologic Neurologic: no focal deficits - Psychiatric Psychiatric: Anxious Vital Signs - 12hr 12/05/20 12/05/20 12/05/20 04:00 04:11 05:07 Temperature 98.9 F Pulse Rate 92 H Respiratory 18 20 Rate Blood Pressure 114/54 O2 Sat by Pulse 89 90 87 Oximetry 12/05/20 07:50 Temperature Pulse Rate Respiratory Rate Blood Pressure O2 Sat by Pulse 92 Oximetry CBC and BMP: 12/05/20 06:00 12/05/20 06:00 ABG, PT/INR, D-dimer: PT/INR, D-dimer D-Dimer > 06607 ng/mlDDU (0-234) H 11/30/20 03:21 Abnormal lab findings: Abnormal Labs 11/26/20 11/26/20 11/26/20 11:17 11:17 11:17 WBC RBC 5.28 H Hgb 15.8 H Hct MCHC 35 H RDW Plt Count 135 L Seg Neutrophils % 72.2 H D-Dimer 2154.70 H Sodium 135 L Potassium Chloride 96.7 L BUN Creatinine Glucose 117 H POC Glucose Ferritin Total Bilirubin AST 68 H ALT Lactate Dehydrogenase Troponin T C-Reactive Protein Albumin Triglycerides Cholesterol LDL Cholesterol Direct HDL Cholesterol Coronavirus (PCR) 11/26/20 11/26/20 11/27/20 11:17 11:17 05:15 WBC RBC 5.14 H Hgb 15.3 H Hct MCHC 35 H RDW Plt Count Seg Neutrophils % D-Dimer Sodium Potassium Chloride BUN Creatinine Glucose POC Glucose Ferritin 872.8 H Total Bilirubin AST ALT Lactate Dehydrogenase 642 H Troponin T C-Reactive Protein 8.50 H Albumin Triglycerides Cholesterol LDL Cholesterol Direct HDL Cholesterol Coronavirus (PCR) 11/27/20 11/27/20 11/27/20 05:15 17:12 Unknown WBC RBC Hgb Hct MCHC RDW Plt Count Seg Neutrophils % D-Dimer Sodium 134 L Potassium Chloride 95.1 L BUN Creatinine 1.4 H Glucose 110 H 130 H POC Glucose Ferritin Total Bilirubin AST 51 H 53 H ALT Lactate Dehydrogenase Troponin T C-Reactive Protein Albumin 3.4 L Triglycerides Cholesterol LDL Cholesterol Direct HDL Cholesterol Coronavirus (PCR) Positive A 11/28/20 11/29/20 11/30/20 07:14 10:14 03:21 WBC RBC Hgb Hct MCHC RDW Plt Count Seg Neutrophils % D-Dimer Sodium Potassium Chloride 97.0 L 97.2 L BUN 23 H 26 H Creatinine Glucose 117 H 140 H 158 H POC Glucose Ferritin Total Bilirubin AST 54 H 45 H 50 H ALT 65 H Lactate Dehydrogenase 739 H Troponin T C-Reactive Protein 8.50 H Albumin 3.6 L 3.8 L Triglycerides Cholesterol LDL Cholesterol Direct HDL Cholesterol Coronavirus (PCR) 11/30/20 11/30/20 11/30/20 03:21 03:21 13:05 WBC RBC Hgb Hct MCHC RDW Plt Count Seg Neutrophils % D-Dimer > 28456 H Sodium Potassium Chloride BUN Creatinine Glucose POC Glucose 138 H Ferritin 1885.0 H Total Bilirubin AST ALT Lactate Dehydrogenase Troponin T C-Reactive Protein Albumin Triglycerides Cholesterol LDL Cholesterol Direct HDL Cholesterol Coronavirus (PCR) 11/30/20 11/30/20 11/30/20 16:41 18:10 21:18 WBC RBC Hgb Hct MCHC RDW Plt Count Seg Neutrophils % D-Dimer Sodium Potassium Chloride BUN Creatinine Glucose POC Glucose 145 H 157 H Ferritin Total Bilirubin AST ALT Lactate Dehydrogenase Troponin T 0.080 H D C-Reactive Protein Albumin Triglycerides 228 H Cholesterol 287 H LDL Cholesterol Direct 210 H HDL Cholesterol 38 L Coronavirus (PCR) 11/30/20 12/01/20 12/01/20 23:03 05:32 05:32 WBC 15.5 H RBC 5.86 H Hgb 17.3 H Hct 51.6 H MCHC RDW 15.3 H Plt Count Seg Neutrophils % D-Dimer Sodium Potassium 5.1 H Chloride BUN 28 H Creatinine Glucose 147 H POC Glucose Ferritin Total Bilirubin AST 51 H ALT 91 H Lactate Dehydrogenase Troponin T 0.076 H C-Reactive Protein Albumin 3.5 L Triglycerides Cholesterol LDL Cholesterol Direct HDL Cholesterol Coronavirus (PCR) 12/01/20 12/01/20 12/01/20 08:06 12:04 16:07 WBC RBC Hgb Hct MCHC RDW Plt Count Seg Neutrophils % D-Dimer Sodium Potassium Chloride BUN Creatinine Glucose POC Glucose 143 H 156 H 196 H Ferritin Total Bilirubin AST ALT Lactate Dehydrogenase Troponin T C-Reactive Protein Albumin Triglycerides Cholesterol LDL Cholesterol Direct HDL Cholesterol Coronavirus (PCR) 12/01/20 12/02/20 12/02/20 21:34 03:17 03:17 WBC 17.2 H RBC 6.26 H Hgb 18.5 H Hct 54.5 H MCHC RDW Plt Count Seg Neutrophils % D-Dimer Sodium Potassium Chloride BUN 33 H Creatinine Glucose 131 H POC Glucose 174 H Ferritin Total Bilirubin 1.40 H AST 48 H ALT 128 H Lactate Dehydrogenase Troponin T C-Reactive Protein Albumin 3.3 L Triglycerides Cholesterol LDL Cholesterol Direct HDL Cholesterol Coronavirus (PCR) 12/02/20 12/02/20 12/02/20 07:50 10:58 16:17 WBC RBC Hgb Hct MCHC RDW Plt Count Seg Neutrophils % D-Dimer Sodium Potassium Chloride BUN Creatinine Glucose POC Glucose 127 H 117 H 138 H Ferritin Total Bilirubin AST ALT Lactate Dehydrogenase Troponin T C-Reactive Protein Albumin Triglycerides Cholesterol LDL Cholesterol Direct HDL Cholesterol Coronavirus (PCR) 12/02/20 12/03/20 12/03/20 21:23 08:13 11:32 WBC RBC Hgb Hct MCHC RDW Plt Count Seg Neutrophils % D-Dimer Sodium Potassium Chloride BUN Creatinine Glucose POC Glucose 187 H 160 H 154 H Ferritin Total Bilirubin AST ALT Lactate Dehydrogenase Troponin T C-Reactive Protein Albumin Triglycerides Cholesterol LDL Cholesterol Direct HDL Cholesterol Coronavirus (PCR) 12/03/20 12/03/20 12/04/20 16:54 21:56 03:02 WBC 25.4 H RBC 6.65 H Hgb 19.7 H Hct 58.2 H MCHC RDW Plt Count Seg Neutrophils % D-Dimer Sodium Potassium Chloride BUN Creatinine Glucose POC Glucose 186 H 156 H Ferritin Total Bilirubin AST ALT Lactate Dehydrogenase Troponin T C-Reactive Protein Albumin Triglycerides Cholesterol LDL Cholesterol Direct HDL Cholesterol Coronavirus (PCR) 12/04/20 12/04/20 12/04/20 03:02 07:35 10:54 WBC RBC Hgb Hct MCHC RDW Plt Count Seg Neutrophils % D-Dimer Sodium Potassium 5.6 H Chloride BUN 36 H Creatinine Glucose 152 H POC Glucose 171 H 256 H Ferritin Total Bilirubin 1.30 H AST 84 H ALT 124 H Lactate Dehydrogenase Troponin T C-Reactive Protein Albumin 3.7 L Triglycerides Cholesterol LDL Cholesterol Direct HDL Cholesterol Coronavirus (PCR) 12/04/20 12/04/20 12/05/20 16:43 21:40 06:00 WBC 26.4 H RBC 6.29 H Hgb 18.3 H Hct 54.4 H MCHC RDW 15.3 H Plt Count Seg Neutrophils % D-Dimer Sodium Potassium Chloride BUN Creatinine Glucose POC Glucose 175 H 193 H Ferritin Total Bilirubin AST ALT Lactate Dehydrogenase Troponin T C-Reactive Protein Albumin Triglycerides Cholesterol LDL Cholesterol Direct HDL Cholesterol Coronavirus (PCR) 12/05/20 12/05/20 12/05/20 06:00 08:12 12:09 WBC RBC Hgb Hct MCHC RDW Plt Count Seg Neutrophils % D-Dimer Sodium Potassium 5.1 H Chloride BUN 33 H Creatinine Glucose 183 H POC Glucose 182 H 185 H Ferritin Total Bilirubin AST ALT Lactate Dehydrogenase Troponin T C-Reactive Protein Albumin Triglycerides Cholesterol LDL Cholesterol Direct HDL Cholesterol Coronavirus (PCR)
[2020-12-05] MEDS: hydrALAZINE 25 MG TAB PO SCH ×2 (17:54→21:59)
[2020-12-06] MEDS: methylPREDNISolone Sod Succinate 125 MG/2 ML INJ IV SCH ×4 (02:13→21:08)
[2020-12-06] MEDS: hydrALAZINE 25 MG TAB PO SCH ×3 (05:04→21:13)
[2020-12-06] MEDS: SUCRALFATE 1 GM TAB PO SCH ×3 (05:05→21:08)
[2020-12-06] MEDS: ENOXAPARIN 120 MG/0.8 ML INJ SUB-Q SCH ×2 (09:24→21:07)
[2020-12-06] MEDS: ASPIRIN 81 MG TAB CHEW PO SCH (09:24)
[2020-12-06] MEDS: PANTOPRAZOLE 40 MG TAB PO SCH (09:24)
[2020-12-06] MEDS: INSULIN LISPRO 100 UNIT/ML SUB-Q SCH ×4 (09:25→21:21)
--- NOTE | 2020-12-06 10:13 | Progress Note ---
Assessment and Plan Assessment and plan: 40-year-old -[place] male with no significant past medical history unvaccinated with Covid comes in for increasing shortness of breath and cough for 2-week escalating for 1 week. Symptoms worse with exertion and talking. Positive chest pain. Episode associated with cough. Intermittent nausea vomiting as well as emesis after coughing. Fever and low oxygen levels noted upon arrival. Sats in the mid 85. No loss of taste or smell. Feels weak. No known Covid exposure. Patient now willing to take vaccine after he gets better. 11/27 -Patient was on 4 L of oxygen. Covid test is pending. Procalcitonin level pending. ID is following. Patient is on Decadron and will add remdesivir if Covid test is positive 11/28 -Covid test was positive. Patient started on Decadron and remdesivir. ID consult appreciated. Patient's oxygen requirement was 30 L yesterday and CRP was 7.5 and ID recommend Actemra based on his availability. Pulmonary consulted. 11/29 patient is awake and alert and he is on 100% FiO2 via nonrebreather mask. Complains of cough with mucoid sputum and states chest hurts when he is coughing. He denies any fever or chills. Denies nausea or abdominal pain. Lab results reviewed. ID and pulmonary notes reviewed and appreciated 11/30 NAD, complains of occasional cough with mucoid sputum and feels mildly short of breath, he denies any fever or chills. lab results reviewed pulmonary note reviewed 12/01: Patient remains on high flow and nonrebreather to maintain a decent saturation. Continue steroids as prescribed by web content editor on high dose. Mild hyperkalemia we will give a dose of Kayexalate and repeat studies in a.m. Lasix per pulm. Monitor renal function 12/02: Patient seen and examined anxious this morning. Complained of discomfort with swallowing burning sensation. Discussed with cardiac team echocardiogram pending. Continue conservative management otherwise patient is on full dose enoxaparin and also high-dose steroids. Encourage prone positioning. Prognosis is guarded. Plan discussed with the patient. Although 12 point system reviewed and otherwise negative except as mentioned in the note 12/03: Continue high dose steroids, continue supportive care, proned. Unfortunately not improving. Will continue to monitor. 12/04: Patient unfortunately not showing any clinical improvement continues on nonrebreather on high flow. Lasix held today due to marginal blood pressure. Will transfer to [facility] for closer monitoring although he may not be able to go due to staffing shortage which is a national crisis at this time.. Plan discussed with the patient. 12/05: Patient seen and examined, Continue supportive care, wean as tolerated, still poor prognosis due to no significant improvement despite treatment. Encouraged to prone through out the day. 12/06: Patient seen and examined remains significantly hypoxic. Encourage prone positioning. We will trial a dose of Lasix today. We will taper steroids slightly due to markedly inflammation noted leukocytosis. Will check renal function test in a.m. Guarded prognosis discussed with the patient still awaiting [facility] bed 35 minutes critical care time Assessment and plan Acute hypoxic respiratory failure Secondary to COVID-19 pneumonia Patient is now on high flow at 40 L and 100% FiO2 Pulmonary note reviewed and appreciated IV Decadron dose increased by pulmonary due to worsening hypoxia Actemra if available COVID-19 pneumonia Continue remdesivir Continue Decadron IV antibiotics discontinued as procalcitonin is normal Prognosis guarded due to severe hypoxia Inflammatory markers reviewed LFTs mildly increased D-dimer increased to 10,000 from 2154 on 11/27 Lovenox increased to 80 mg every 812 hours subcu CTA chest negative for PE Lower extremity venous Doppler negative for DVT Hyponatremia Improved Obesity class II Counseling when he is more stable Hyperglycemia Mild , secondary to steroids Patient denies history of diabetes Start on Accu-Cheks with insulin sliding scale coverage Hyperkalemia Gastroenteritis with nausea vomiting History Interval history: Patient seen and examined, still with shortness of breath on NRB AND High flow. Still lethargic despite high flow and nonrebreather saturations of 89 to 92% Hospitalist Physical - Physical exam Narrative exam: General appearance: Present: mild distress, on high flow and NRBM, sitting up - EENT Eyes: PERRL, EOM intact ENT: hearing intact - Neck Neck: supple, normal ROM - Respiratory Respiratory effort: normal Respiratory: bilateral: CTA, rhonchi, wheezing - Cardiovascular Rhythm: regular Heart Sounds: Present: S1 & S2 Extremities: No edema - Gastrointestinal General gastrointestinal: Present: soft, non-tender Rectal Exam: deferred - Genitourinary Male genitourinary: deferred - Integumentary Integumentary: clear - Musculoskeletal Musculoskeletal: strength equal bilaterally - Neurologic Neurologic: no focal deficits - Psychiatric Psychiatric: Anxious - Constitutional Vitals: Temp Pulse Resp BP Pulse Ox 97.6 F 80 20 147/87 92 12/06/20 04:36 12/06/20 05:04 12/06/20 04:36 12/06/20 05:04 12/06/20 08:00 General appearance: Present: mild distress HEART Score - HEART Score Troponin: Troponin T 0.076 ng/mL (0.00-0.029) H 11/30/20 23:03 Results - Labs CBC & Chem 7: 12/05/20 06:00 12/05/20 06:00 Labs: Laboratory Last Values WBC 26.4 K/mm3 (4.5-11.0) H 12/05/20 06:00 RBC 6.29 M/mm3 (3.65-5.03) H 12/05/20 06:00 Hgb 18.3 gm/dl (11.8-15.2) H 12/05/20 06:00 Hct 54.4 % (35.5-45.6) H 12/05/20 06:00 MCV 86 fl (84-94) 12/05/20 06:00 MCH 29 pg (28-32) 12/05/20 06:00 MCHC 34 % (32-34) 12/05/20 06:00 RDW 15.3 % (13.2-15.2) H 12/05/20 06:00 Plt Count 361 K/mm3 (140-440) 12/05/20 06:00 Lymph % (Auto) 25.7 % (13.4-35.0) 11/27/20 05:15 Hardee % (Auto) 4.5 % (0.0-7.3) 11/27/20 05:15 Eos % (Auto) 0.0 % (0.0-4.3) 11/27/20 05:15 Baso % (Auto) 0.2 % (0.0-1.8) 11/27/20 05:15 Lymph # (Auto) 1.5 K/mm3 (1.2-5.4) 11/27/20 05:15 Hardee # (Auto) 0.3 K/mm3 (0.0-0.8) 11/27/20 05:15 Eos # (Auto) 0.0 K/mm3 (0.0-0.4) 11/27/20 05:15 Baso # (Auto) 0.0 K/mm3 (0.0-0.1) 11/27/20 05:15 Seg Neutrophils % 69.6 % (40.0-70.0) 11/27/20 05:15 Seg Neutrophils # 4.0 K/mm3 (1.8-7.7) 11/27/20 05:15 D-Dimer > 60293 ng/mlDDU (0-234) H 11/30/20 03:21 Sodium 137 mmol/L (137-145) 12/05/20 06:00 Potassium 5.1 mmol/L (3.6-5.0) H 12/05/20 06:00 Chloride 98.4 mmol/L (98-107) 12/05/20 06:00 Carbon Dioxide 27 mmol/L (22-30) 12/05/20 06:00 Anion Gap 17 mmol/L 12/05/20 06:00 BUN 33 mg/dL (9-20) H 12/05/20 06:00 Creatinine 1.2 mg/dL (0.8-1.3) 12/05/20 06:00 Estimated GFR > 60 ml/min 12/05/20 06:00 BUN/Creatinine Ratio 28 % 12/05/20 06:00 Glucose 183 mg/dL (75-100) H 12/05/20 06:00 POC Glucose 169 mg/dL (70-105) H 12/06/20 08:28 Lactic Acid 1.20 mmol/L (0.7-2.0) 11/26/20 23:28 Calcium 8.5 mg/dL (8.4-10.2) 12/05/20 06:00 Ferritin 1885.0 ng/mL (30.0-300.0) H 11/30/20 03:21 Total Bilirubin 1.30 mg/dL (0.1-1.2) H 12/04/20 03:02 AST 84 units/L (5-40) H 12/04/20 03:02 ALT 124 units/L (7-56) H 12/04/20 03:02 Alkaline Phosphatase 126 units/L (35-129) 12/04/20 03:02 Lactate Dehydrogenase 739 units/L (91-180) H 11/30/20 03:21 Troponin T 0.076 ng/mL (0.00-0.029) H 11/30/20 23:03 C-Reactive Protein 8.50 mg/dL (0.00-1.30) H 11/30/20 03:21 NT-Pro-B Natriuret Pep 18.20 pg/mL (0-450) 11/26/20 11:17 Total Protein 7.6 g/dL (6.3-8.2) 12/04/20 03:02 Albumin 3.7 g/dL (3.9-5) L 12/04/20 03:02 Albumin/Globulin Ratio 0.9 % 12/04/20 03:02 Triglycerides 228 mg/dL (2-149) H 11/30/20 18:10 Cholesterol 287 mg/dL (50-199) H 11/30/20 18:10 LDL Cholesterol Direct 210 mg/dL (50-130) H 11/30/20 18:10 HDL Cholesterol 38 mg/dL (40-59) L 11/30/20 18:10 Cholesterol/HDL Ratio 7.55 % 11/30/20 18:10 Procalcitonin 0.23 ng/mL (<0.15) 11/26/20 11:17 Coronavirus (PCR) Positive (Negative) A 11/27/20 Unknown Smith/IV: Voiding Method Urinal Active Medications - Current Medications Current Medications: Generic Name Dose Route Start Last Admin Trade Name Freq PRN Reason Stop Dose Admin Acetaminophen 650 mg 11/26/20 22:20 Acetaminophen 325 Mg Tab PO Q4H PRN Pain MILD(1-3)/Fever >100.5/DALY Aspirin 81 mg 12/02/20 10:00 12/06/20 09:24 Aspirin 81 Mg Tab Chew PO 81 mg QDAY SANGEETHA Administration Atorvastatin Calcium 40 mg 12/01/20 22:00 12/05/20 22:01 Atorvastatin 40 Mg Tab PO 40 mg QHS SANGEETHA Administration Enoxaparin Sodium 110 mg 12/02/20 22:00 12/06/20 09:24 Enoxaparin 120 Mg/0.8 Ml Inj SUB-Q 110 mg Q12HR SANGEETHA Administration Hydralazine HCl 50 mg 12/05/20 16:00 12/06/20 05:04 Hydralazine 25 Mg Tab PO 50 mg Q8HR SANGEETHA Administration Hydromorphone HCl 0.5 mg 11/26/20 22:20 11/29/20 00:50 Hydromorphone 1 Mg/1 Ml Inj IV 0.5 mg Q3H PRN Administration Pain , Severe (7-10) Insulin Human Lispro 0 unit 11/30/20 11:30 12/06/20 09:25 Insulin Lispro 100 Unit/Ml SUB-Q 2 unit ACHS SANGEETHA Administration Protocol Methylprednisolone Sodium Succinate 80 mg 12/06/20 14:00 Methylprednisolone Sod Succinate 125 Mg/2 Ml Inj IV Q8HR SANGEETHA Ondansetron HCl 4 mg 11/26/20 22:20 12/03/20 20:29 Ondansetron 4 Mg/2 Ml Inj IV 4 mg Q8H PRN Administration Nausea And Vomiting Oxycodone/Acetaminophen 1 tab 11/26/20 22:20 12/01/20 12:04 Oxycodone /Acetaminophen 5-325mg Tab PO 1 tab Q6H PRN Administration Pain, Moderate (4-6) Pantoprazole Sodium 40 mg 12/04/20 07:30 12/06/20 09:24 Pantoprazole 40 Mg Tab PO 40 mg QDAC SANGEETHA Administration Sodium Chloride 10 ml 11/26/20 23:00 12/06/20 09:25 Sodium Chloride 0.9% 10 Ml Flush Syringe IV 10 ml BID SANGEETHA Administration Sodium Chloride 10 ml 11/26/20 22:20 Sodium Chloride 0.9% 10 Ml Flush Syringe IV PRN PRN LINE FLUSH Sucralfate 1 gm 12/02/20 10:00 12/06/20 05:05 Sucralfate 1 Gm Tab PO 1 gm Q8HR SANGEETHA Administration Nutrition/Malnutrition Assess - Dietary Evaluation Nutrition/Malnutrition Findings: Nutrition Notes Start: 12/03/20 12:47 Freq: Status: Active Protocol: Document 12/03/20 12:47 KALYN (Rec: 12/03/20 12:53 KALYN [id number]) Nutrition Notes Need for Assessment generated from: LOS Initial or Follow up Assessment Current Diagnosis Respiratory Failure, Hyperlipidemia Other Pertinent Diagnosis COVID-19, pneu Current Diet regular Labs/Tests POC BG 117-187 Pertinent Medications Solu Medrol Humalog Height 5 ft 11 in Weight 109.5 kg Trosper Body Weight (kg) 78.18 BMI 33.6 Weight Status Obese Subjective/Other Information Screen for LOS. Pt reports eating 0-25% of meals for past few days due to feeling ill. No weight loss. Burn Absent Trauma Absent Current % PO Negligible Minimum of two criteria No #1 Nutrition Diagnosis Inadequate oral intake Etiology COVID-19 As Evidenced by Signs and Symptoms pt eating <25% of meals Is patient on ventilator? No Is Patient Ambulatory and/or Out of Bed No REE-([facility]-confined to bed) 2440.980 Kcal/Kg value to use for calculation 16 Approximate Energy Requirements Using 1752 kcal/Kg Calculation Used for Recommendations Kcal/kg Additional Notes Protein: (0.8-1g/kg AdjBW: 94kg) 75-94g Fluid: 1 ml/kcal or per MD Nutrition Intervention Change Diet Order: add consistent CHO Add Supplement/Snack (indicate name/kcal Glucerna TID /protein ) Provides kCal: 660 Provides Protein (gm) 30 Goal #1 Meet at least 75% of protein and kcal needs via PO and ONS intakes Anticipated Discharge Needs: regular Follow-Up By: 12/08/20 Additional Comments F/u: intakes and ONS tolerance
[2020-12-06 16:22] LABS: C-Reactive Protein 0.3 mg/dL (0.00-1.30)
[2020-12-07] MEDS ORDERED: FUROSEMIDE 40 MG/4 ML INJ IV ONE (01:23)
[2020-12-07] MEDS ORDERED: SODIUM POLYSTYRENE 15 GM/60 ML ORAL LIQD PO ONE (01:23)
[2020-12-07] MEDS: ONDANSETRON 4 MG/2 ML INJ IV PRN (04:44)
[2020-12-07] MEDS: HYDROmorphone 1 MG/1 ML INJ IV PRN (04:47)
[2020-12-07] MEDS: methylPREDNISolone Sod Succinate 125 MG/2 ML INJ IV SCH ×3 (05:04→22:12)
[2020-12-07 06:01] LABS: Hematocrit 38.3 % (35.5-45.6); Hemoglobin 12.2 gm/dl (11.8-15.2); Mean Corpuscular HGB Conc 32 % (32-34); Mean Corpuscular Volume 91 fl (84-94); Platelet Count 255 K/mm3 (140-440); Red Cell Distribution Width 14.9 % (13.2-15.2)
[2020-12-07 06:36] LABS: Alanine Aminotransferase 27 units/L (7-56); Albumin 2.7 g/dL (3.9-5); BUN/Creatinine Ratio 52; Blood Urea Nitrogen 78 mg/dL (9-20); Calcium 7.9 mg/dL (8.4-10.2); Hemolysis Index 60
[2020-12-07] MEDS: SUCRALFATE 1 GM TAB PO SCH ×3 (06:58→22:09)
[2020-12-07] MEDS: PANTOPRAZOLE 40 MG TAB PO SCH (06:58)
[2020-12-07] MEDS: hydrALAZINE 25 MG TAB PO SCH ×3 (06:58→22:08)
[2020-12-07] MEDS: INSULIN LISPRO 100 UNIT/ML SUB-Q SCH ×4 (08:34→22:10)
--- NOTE | 2020-12-07 09:29 | Progress Note ---
Assessment and Plan COVID 19 pneumonia CTA chest negative for PE Lower extremity venous Doppler negative for DVT Elevated troponin, nonspecific Hyperlipidemia An echocardiogram reveals dilated right heart chambers. Normal left ventricular systolic function, EF 55-60%. Telemetry reviewed - I was not able to locate any cardiac pauses or evidence of high degree AV block Continue to monitor on tele No new cardiac recommendations Subjective Date of service: 12/07/20 Principal diagnosis: Covid pneumonia Interval history: Patient is lying in bed, no distress. Patient is sleeping with very loud snoring. Patient denies chest pain. Objective Vital Signs Temp Pulse Pulse Pulse Resp BP Pulse Ox 12/07/20 08:31 106 H 22 129/99 91 12/07/20 08:00 98.4 F 94 H 21 129/99 12/07/20 07:31 94 H 21 140/107 91 12/07/20 07:01 96 H 9 L 131/96 90 12/07/20 06:58 96 H 131/96 12/07/20 06:31 100 H 30 H 134/84 92 12/07/20 06:00 107 H 13 131/96 93 12/07/20 05:35 112 H 19 134/84 92 12/07/20 05:31 104 H 26 H 134/84 80 L 12/07/20 05:00 110 H 134/84 89 12/07/20 04:47 36 H 12/07/20 04:31 104 H 16 125/91 89 12/07/20 04:00 98.8 F 113 H 33 H 125/91 88 12/07/20 03:31 109 H 35 H 131/95 12/07/20 03:00 92 H 25 H 145/102 12/07/20 02:31 102 H 34 H 131/95 93 12/07/20 02:30 102 H 34 H 93 12/07/20 02:00 81 32 H 131/95 89 12/07/20 01:50 88 37 H 88 12/07/20 00:30 91 12/07/20 00:00 97.9 F 12/06/20 23:00 91 H 35 H 136/91 91 12/06/20 22:37 91 12/06/20 22:30 95 H 12/06/20 22:10 93 H 32 H 131/92 82 L 12/06/20 21:13 97.9 F 107 H 24 150/100 89 12/06/20 16:44 98.9 F 89 26 H 139/79 90 12/06/20 14:00 90 12/06/20 13:57 22 90 12/06/20 12:07 97.9 F 72 26 H 137/92 89 - Physical Examination General: No Apparent Distress Cardiac: Positive: Reg Rate and Rhythm Lungs: Positive: Decreased Breath Sounds - Labs and Meds Cardiac Enzymes 12/06/20 12/07/20 Range/Units 14:58 05:30 AST 29 (5-40) units/L Lactate Dehydrogenase 1421 H (91-180) units/L CBC 12/07/20 Range/Units 05:30 WBC 23.5 H (4.5-11.0) K/mm3 RBC 4.20 (3.65-5.03) M/mm3 Hgb 12.2 D (11.8-15.2) gm/dl Hct 38.3 D (35.5-45.6) % Plt Count 255 (140-440) K/mm3 Comprehensive Metabolic Panel 12/06/20 12/07/20 Range/Units 14:58 05:30 Sodium 146 H D (137-145) mmol/L Potassium 5.1 H (3.6-5.0) mmol/L Chloride 113.3 H (98-107) mmol/L Carbon Dioxide 23 (22-30) mmol/L BUN 78 H (9-20) mg/dL Creatinine 1.5 H (0.8-1.3) mg/dL Glucose 151 H 109 H (75-100) mg/dL Calcium 7.9 L (8.4-10.2) mg/dL AST 29 (5-40) units/L ALT 27 (7-56) units/L Alkaline Phosphatase 103 (35-129) units/L Total Protein 5.4 L D (6.3-8.2) g/dL Albumin 2.7 L (3.9-5) g/dL
[2020-12-07] MEDS: ENOXAPARIN 120 MG/0.8 ML INJ SUB-Q SCH ×2 (10:22→22:20)
[2020-12-07] MEDS: ASPIRIN 81 MG TAB CHEW PO SCH (10:24)
--- NOTE | 2020-12-07 10:33 | Progress Note ---
Assessment and Plan 40 y/o obese male with acute respiratory failure secondary to COVID pneumonia. 12/07/20: Steroids at 80q8, changed over the weekend. Lasix given today. Prone as tolerated. IMS spoke with father over the phone. Guarded prognosis. 12/04/20: Steroids at 125 Q8. Prone. Hold on lasix today given marginal blood pressures but please reassess over the weekend, guarded prognosis. 12/03/20: Hold on lasix today. Encourage to prone. Will increase steroids to 125q8. Guarded prognosis. 12/02/20: Lasix again today (20), continue to prone. continue steroids. Guarded prognosis. 12/01/20: Wean as tolerated. Proning should continue. Will give 20 of lasix today. 11/30/20: Patient is attempting to prone which is good for him. Continue to prone as much as tolerated. Hold on lasix again today. 11/29/20: No new recs for today. Needs to prone as much as tolerated. i/O not accurate so will hold on lasix for today. 1. Increase steroids to BID dosing given weight 2. Remdesivir 3. Actemra 4. Proning and net negative fluid balance Guarded prognosis Subjective Date of service: 12/07/20 Principal diagnosis: Covid pneumonia Interval history: Transferred to [facility] last night. Now on bipap lying on side, sat is 97% Objective Vital Signs - 12hr 12/06/20 12/06/20 12/07/20 22:37 23:00 00:00 Temperature 97.9 F Pulse Rate Pulse Rate [ From Monitor] Pulse Rate [ 91 H Right] Respiratory 35 H Rate Blood Pressure 136/91 O2 Sat by Pulse 91 91 Oximetry 12/07/20 12/07/20 12/07/20 00:30 01:50 02:00 Temperature Pulse Rate 88 81 Pulse Rate [ From Monitor] Pulse Rate [ Right] Respiratory 37 H 32 H Rate Blood Pressure 131/95 O2 Sat by Pulse 91 88 89 Oximetry 12/07/20 12/07/20 12/07/20 02:30 02:31 03:00 Temperature Pulse Rate 102 H 92 H Pulse Rate [ 102 H From Monitor] Pulse Rate [ Right] Respiratory 34 H 34 H 25 H Rate Blood Pressure 131/95 145/102 O2 Sat by Pulse 93 93 Oximetry 0912/07/20 12/07/20 03:31 04:00 04:31 Temperature 98.8 F Pulse Rate 109 H 113 H 104 H Pulse Rate [ From Monitor] Pulse Rate [ Right] Respiratory 35 H 33 H 16 Rate Blood Pressure 131/95 125/91 125/91 O2 Sat by Pulse 88 89 Oximetry 12/07/20 12/07/20 12/07/20 04:47 05:00 05:31 Temperature Pulse Rate 110 H 104 H Pulse Rate [ From Monitor] Pulse Rate [ Right] Respiratory 36 H 26 H Rate Blood Pressure 134/84 134/84 O2 Sat by Pulse 89 80 L Oximetry 12/07/20 12/07/20 12/07/20 05:35 06:00 06:31 Temperature Pulse Rate 112 H 107 H 100 H Pulse Rate [ From Monitor] Pulse Rate [ Right] Respiratory 19 13 30 H Rate Blood Pressure 134/84 131/96 134/84 O2 Sat by Pulse 92 93 92 Oximetry 12/07/20 12/07/20 12/07/20 06:58 07:01 07:31 Temperature Pulse Rate 96 H 96 H 94 H Pulse Rate [ From Monitor] Pulse Rate [ Right] Respiratory 9 L 21 Rate Blood Pressure 131/96 131/96 140/107 O2 Sat by Pulse 90 91 Oximetry 12/07/20 12/07/20 12/07/20 08:00 08:31 09:47 Temperature 98.4 F Pulse Rate 94 H 106 H 94 H Pulse Rate [ From Monitor] Pulse Rate [ Right] Respiratory 21 22 42 H Rate Blood Pressure 129/99 129/99 120/83 O2 Sat by Pulse 96 91 96 Oximetry CBC and BMP: 12/07/20 05:30 12/07/20 05:30 ABG, PT/INR, D-dimer: ABG ABG pH 7.414 (7.320-7.450) 12/07/20 05:24 POC ABG pCO2 38.9 mmHg (32.0-48.0) 12/07/20 05:24 POC ABG pO2 46.8 mmHg (83-108) L 12/07/20 05:24 POC ABG HCO3 24.3 12/07/20 05:24 ABG O2 Saturation 77.8 (0-100) 12/07/20 05:24 PT/INR, D-dimer D-Dimer 6110.26 ng/mlDDU (0-234) H 12/06/20 14:58 Abnormal lab findings: Abnormal Labs 11/26/20 11/26/20 11/26/20 11:17 11:17 11:17 WBC RBC 5.28 H Hgb 15.8 H Hct MCHC 35 H RDW Plt Count 135 L Seg Neutrophils % 72.2 H D-Dimer 2154.70 H POC ABG pO2 ABG Hemoglobin ABG Oxyhemoglobin ABG Sodium ABG Chloride ABG Glucose Sodium 135 L Potassium Chloride 96.7 L BUN Creatinine Glucose 117 H POC Glucose Calcium Ferritin Total Bilirubin AST 68 H ALT Lactate Dehydrogenase Troponin T C-Reactive Protein Total Protein Albumin Triglycerides Cholesterol LDL Cholesterol Direct HDL Cholesterol Arterial Blood Glucose Arterial Blood Ionized Calcium Coronavirus (PCR) 11/26/20 11/26/20 11/27/20 11:17 11:17 05:15 WBC RBC 5.14 H Hgb 15.3 H Hct MCHC 35 H RDW Plt Count Seg Neutrophils % D-Dimer POC ABG pO2 ABG Hemoglobin ABG Oxyhemoglobin ABG Sodium ABG Chloride ABG Glucose Sodium Potassium Chloride BUN Creatinine Glucose POC Glucose Calcium Ferritin 872.8 H Total Bilirubin AST ALT Lactate Dehydrogenase 642 H Troponin T C-Reactive Protein 8.50 H Total Protein Albumin Triglycerides Cholesterol LDL Cholesterol Direct HDL Cholesterol Arterial Blood Glucose Arterial Blood Ionized Calcium Coronavirus (PCR) 11/27/20 11/27/20 11/27/20 05:15 17:12 Unknown WBC RBC Hgb Hct MCHC RDW Plt Count Seg Neutrophils % D-Dimer POC ABG pO2 ABG Hemoglobin ABG Oxyhemoglobin ABG Sodium ABG Chloride ABG Glucose Sodium 134 L Potassium Chloride 95.1 L BUN Creatinine 1.4 H Glucose 110 H 130 H POC Glucose Calcium Ferritin Total Bilirubin AST 51 H 53 H ALT Lactate Dehydrogenase Troponin T C-Reactive Protein Total Protein Albumin 3.4 L Triglycerides Cholesterol LDL Cholesterol Direct HDL Cholesterol Arterial Blood Glucose Arterial Blood Ionized Calcium Coronavirus (PCR) Positive A 11/28/20 11/29/20 11/30/20 07:14 10:14 03:21 WBC RBC Hgb Hct MCHC RDW Plt Count Seg Neutrophils % D-Dimer POC ABG pO2 ABG Hemoglobin ABG Oxyhemoglobin ABG Sodium ABG Chloride ABG Glucose Sodium Potassium Chloride 97.0 L 97.2 L BUN 23 H 26 H Creatinine Glucose 117 H 140 H 158 H POC Glucose Calcium Ferritin Total Bilirubin AST 54 H 45 H 50 H ALT 65 H Lactate Dehydrogenase 739 H Troponin T C-Reactive Protein 8.50 H Total Protein Albumin 3.6 L 3.8 L Triglycerides Cholesterol LDL Cholesterol Direct HDL Cholesterol Arterial Blood Glucose Arterial Blood Ionized Calcium Coronavirus (PCR) 11/30/20 11/30/20 11/30/20 03:21 03:21 13:05 WBC RBC Hgb Hct MCHC RDW Plt Count Seg Neutrophils % D-Dimer > 49791 H POC ABG pO2 ABG Hemoglobin ABG Oxyhemoglobin ABG Sodium ABG Chloride ABG Glucose Sodium Potassium Chloride BUN Creatinine Glucose POC Glucose 138 H Calcium Ferritin 1885.0 H Total Bilirubin AST ALT Lactate Dehydrogenase Troponin T C-Reactive Protein Total Protein Albumin Triglycerides Cholesterol LDL Cholesterol Direct HDL Cholesterol Arterial Blood Glucose Arterial Blood Ionized Calcium Coronavirus (PCR) 11/30/20 11/30/20 11/30/20 16:41 18:10 21:18 WBC RBC Hgb Hct MCHC RDW Plt Count Seg Neutrophils % D-Dimer POC ABG pO2 ABG Hemoglobin ABG Oxyhemoglobin ABG Sodium ABG Chloride ABG Glucose Sodium Potassium Chloride BUN Creatinine Glucose POC Glucose 145 H 157 H Calcium Ferritin Total Bilirubin AST ALT Lactate Dehydrogenase Troponin T 0.080 H D C-Reactive Protein Total Protein Albumin Triglycerides 228 H Cholesterol 287 H LDL Cholesterol Direct 210 H HDL Cholesterol 38 L Arterial Blood Glucose Arterial Blood Ionized Calcium Coronavirus (PCR) 11/30/20 12/01/20 12/01/20 23:03 05:32 05:32 WBC 15.5 H RBC 5.86 H Hgb 17.3 H Hct 51.6 H MCHC RDW 15.3 H Plt Count Seg Neutrophils % D-Dimer POC ABG pO2 ABG Hemoglobin ABG Oxyhemoglobin ABG Sodium ABG Chloride ABG Glucose Sodium Potassium 5.1 H Chloride BUN 28 H Creatinine Glucose 147 H POC Glucose Calcium Ferritin Total Bilirubin AST 51 H ALT 91 H Lactate Dehydrogenase Troponin T 0.076 H C-Reactive Protein Total Protein Albumin 3.5 L Triglycerides Cholesterol LDL Cholesterol Direct HDL Cholesterol Arterial Blood Glucose Arterial Blood Ionized Calcium Coronavirus (PCR) 12/01/20 12/01/20 12/01/20 08:06 12:04 16:07 WBC RBC Hgb Hct MCHC RDW Plt Count Seg Neutrophils % D-Dimer POC ABG pO2 ABG Hemoglobin ABG Oxyhemoglobin ABG Sodium ABG Chloride ABG Glucose Sodium Potassium Chloride BUN Creatinine Glucose POC Glucose 143 H 156 H 196 H Calcium Ferritin Total Bilirubin AST ALT Lactate Dehydrogenase Troponin T C-Reactive Protein Total Protein Albumin Triglycerides Cholesterol LDL Cholesterol Direct HDL Cholesterol Arterial Blood Glucose Arterial Blood Ionized Calcium Coronavirus (PCR) 12/01/20 12/02/20 12/02/20 21:34 03:17 03:17 WBC 17.2 H RBC 6.26 H Hgb 18.5 H Hct 54.5 H MCHC RDW Plt Count Seg Neutrophils % D-Dimer POC ABG pO2 ABG Hemoglobin ABG Oxyhemoglobin ABG Sodium ABG Chloride ABG Glucose Sodium Potassium Chloride BUN 33 H Creatinine Glucose 131 H POC Glucose 174 H Calcium Ferritin Total Bilirubin 1.40 H AST 48 H ALT 128 H Lactate Dehydrogenase Troponin T C-Reactive Protein Total Protein Albumin 3.3 L Triglycerides Cholesterol LDL Cholesterol Direct HDL Cholesterol Arterial Blood Glucose Arterial Blood Ionized Calcium Coronavirus (PCR) 12/02/20 12/02/20 12/02/20 07:50 10:58 16:17 WBC RBC Hgb Hct MCHC RDW Plt Count Seg Neutrophils % D-Dimer POC ABG pO2 ABG Hemoglobin ABG Oxyhemoglobin ABG Sodium ABG Chloride ABG Glucose Sodium Potassium Chloride BUN Creatinine Glucose POC Glucose 127 H 117 H 138 H Calcium Ferritin Total Bilirubin AST ALT Lactate Dehydrogenase Troponin T C-Reactive Protein Total Protein Albumin Triglycerides Cholesterol LDL Cholesterol Direct HDL Cholesterol Arterial Blood Glucose Arterial Blood Ionized Calcium Coronavirus (PCR) 12/02/20 12/03/20 12/03/20 21:23 08:13 11:32 WBC RBC Hgb Hct MCHC RDW Plt Count Seg Neutrophils % D-Dimer POC ABG pO2 ABG Hemoglobin ABG Oxyhemoglobin ABG Sodium ABG Chloride ABG Glucose Sodium Potassium Chloride BUN Creatinine Glucose POC Glucose 187 H 160 H 154 H Calcium Ferritin Total Bilirubin AST ALT Lactate Dehydrogenase Troponin T C-Reactive Protein Total Protein Albumin Triglycerides Cholesterol LDL Cholesterol Direct HDL Cholesterol Arterial Blood Glucose Arterial Blood Ionized Calcium Coronavirus (PCR) 12/03/20 12/03/20 12/04/20 16:54 21:56 03:02 WBC 25.4 H RBC 6.65 H Hgb 19.7 H Hct 58.2 H MCHC RDW Plt Count Seg Neutrophils % D-Dimer POC ABG pO2 ABG Hemoglobin ABG Oxyhemoglobin ABG Sodium ABG Chloride ABG Glucose Sodium Potassium Chloride BUN Creatinine Glucose POC Glucose 186 H 156 H Calcium Ferritin Total Bilirubin AST ALT Lactate Dehydrogenase Troponin T C-Reactive Protein Total Protein Albumin Triglycerides Cholesterol LDL Cholesterol Direct HDL Cholesterol Arterial Blood Glucose Arterial Blood Ionized Calcium Coronavirus (PCR) 12/04/20 12/04/20 12/04/20 03:02 07:35 10:54 WBC RBC Hgb Hct MCHC RDW Plt Count Seg Neutrophils % D-Dimer POC ABG pO2 ABG Hemoglobin ABG Oxyhemoglobin ABG Sodium ABG Chloride ABG Glucose Sodium Potassium 5.6 H Chloride BUN 36 H Creatinine Glucose 152 H POC Glucose 171 H 256 H Calcium Ferritin Total Bilirubin 1.30 H AST 84 H ALT 124 H Lactate Dehydrogenase Troponin T C-Reactive Protein Total Protein Albumin 3.7 L Triglycerides Cholesterol LDL Cholesterol Direct HDL Cholesterol Arterial Blood Glucose Arterial Blood Ionized Calcium Coronavirus (PCR) 12/04/20 12/04/20 12/05/20 16:43 21:40 06:00 WBC 26.4 H RBC 6.29 H Hgb 18.3 H Hct 54.4 H MCHC RDW 15.3 H Plt Count Seg Neutrophils % D-Dimer POC ABG pO2 ABG Hemoglobin ABG Oxyhemoglobin ABG Sodium ABG Chloride ABG Glucose Sodium Potassium Chloride BUN Creatinine Glucose POC Glucose 175 H 193 H Calcium Ferritin Total Bilirubin AST ALT Lactate Dehydrogenase Troponin T C-Reactive Protein Total Protein Albumin Triglycerides Cholesterol LDL Cholesterol Direct HDL Cholesterol Arterial Blood Glucose Arterial Blood Ionized Calcium Coronavirus (PCR) 12/05/20 12/05/20 12/05/20 06:00 08:12 12:09 WBC RBC Hgb Hct MCHC RDW Plt Count Seg Neutrophils % D-Dimer POC ABG pO2 ABG Hemoglobin ABG Oxyhemoglobin ABG Sodium ABG Chloride ABG Glucose Sodium Potassium 5.1 H Chloride BUN 33 H Creatinine Glucose 183 H POC Glucose 182 H 185 H Calcium Ferritin Total Bilirubin AST ALT Lactate Dehydrogenase Troponin T C-Reactive Protein Total Protein Albumin Triglycerides Cholesterol LDL Cholesterol Direct HDL Cholesterol Arterial Blood Glucose Arterial Blood Ionized Calcium Coronavirus (PCR) 12/05/20 12/05/20 12/06/20 17:10 21:27 08:28 WBC RBC Hgb Hct MCHC RDW Plt Count Seg Neutrophils % D-Dimer POC ABG pO2 ABG Hemoglobin ABG Oxyhemoglobin ABG Sodium ABG Chloride ABG Glucose Sodium Potassium Chloride BUN Creatinine Glucose POC Glucose 173 H 165 H 169 H Calcium Ferritin Total Bilirubin AST ALT Lactate Dehydrogenase Troponin T C-Reactive Protein Total Protein Albumin Triglycerides Cholesterol LDL Cholesterol Direct HDL Cholesterol Arterial Blood Glucose Arterial Blood Ionized Calcium Coronavirus (PCR) 12/06/20 12/06/20 12/06/20 12:04 14:58 14:58 WBC RBC Hgb Hct MCHC RDW Plt Count Seg Neutrophils % D-Dimer 6110.26 H POC ABG pO2 ABG Hemoglobin ABG Oxyhemoglobin ABG Sodium ABG Chloride ABG Glucose Sodium Potassium Chloride BUN Creatinine Glucose 151 H POC Glucose 172 H Calcium Ferritin Total Bilirubin AST ALT Lactate Dehydrogenase 1421 H Troponin T C-Reactive Protein Total Protein Albumin Triglycerides Cholesterol LDL Cholesterol Direct HDL Cholesterol Arterial Blood Glucose Arterial Blood Ionized Calcium Coronavirus (PCR) 12/06/20 12/06/20 12/06/20 14:58 16:42 21:13 WBC RBC Hgb Hct MCHC RDW Plt Count Seg Neutrophils % D-Dimer POC ABG pO2 ABG Hemoglobin ABG Oxyhemoglobin ABG Sodium ABG Chloride ABG Glucose Sodium Potassium Chloride BUN Creatinine Glucose POC Glucose 165 H 229 H Calcium Ferritin 1785.0 H Total Bilirubin AST ALT Lactate Dehydrogenase Troponin T C-Reactive Protein Total Protein Albumin Triglycerides Cholesterol LDL Cholesterol Direct HDL Cholesterol Arterial Blood Glucose Arterial Blood Ionized Calcium Coronavirus (PCR) 12/07/20 12/07/20 12/07/20 05:24 05:30 05:30 WBC 23.5 H RBC Hgb Hct MCHC RDW Plt Count Seg Neutrophils % D-Dimer POC ABG pO2 46.8 L ABG Hemoglobin 22.0 H ABG Oxyhemoglobin 77.2 L ABG Sodium 133.9 L ABG Chloride 97.0 L ABG Glucose 186 H Sodium 146 H D Potassium 5.1 H Chloride 113.3 H BUN 78 H Creatinine 1.5 H Glucose 109 H POC Glucose Calcium 7.9 L Ferritin Total Bilirubin AST ALT Lactate Dehydrogenase Troponin T C-Reactive Protein Total Protein 5.4 L D Albumin 2.7 L Triglycerides Cholesterol LDL Cholesterol Direct HDL Cholesterol Arterial Blood Glucose 186 H Arterial Blood Ionized Calcium 4.5 L Coronavirus (PCR) 12/07/20 08:06 WBC RBC Hgb Hct MCHC RDW Plt Count Seg Neutrophils % D-Dimer POC ABG pO2 ABG Hemoglobin ABG Oxyhemoglobin ABG Sodium ABG Chloride ABG Glucose Sodium Potassium Chloride BUN Creatinine Glucose POC Glucose 219 H Calcium Ferritin Total Bilirubin AST ALT Lactate Dehydrogenase Troponin T C-Reactive Protein Total Protein Albumin Triglycerides Cholesterol LDL Cholesterol Direct HDL Cholesterol Arterial Blood Glucose Arterial Blood Ionized Calcium Coronavirus (PCR)
--- NOTE | 2020-12-07 13:47 | Progress Note ---
Assessment and Plan Assessment and plan: 40-year-old -[place]i male with no significant past medical history unvaccinated with Covid comes in for increasing shortness of breath and cough for 2-week escalating for 1 week. Symptoms worse with exertion and talking. Positive chest pain. Episode associated with cough. Intermittent nausea vomiting as well as emesis after coughing. Fever and low oxygen levels noted upon arrival. Sats in the mid 85. No loss of taste or smell. Feels weak. No known Covid exposure. Patient now willing to take vaccine after he gets better. 11/27 -Patient was on 4 L of oxygen. Covid test is pending. Procalcitonin level pending. ID is following. Patient is on Decadron and will add remdesivir if Covid test is positive 11/28 -Covid test was positive. Patient started on Decadron and remdesivir. ID consult appreciated. Patient's oxygen requirement was 30 L yesterday and CRP was 7.5 and ID recommend Actemra based on his availability. Pulmonary consulted. 11/29 patient is awake and alert and he is on 100% FiO2 via nonrebreather mask. Complains of cough with mucoid sputum and states chest hurts when he is coughing. He denies any fever or chills. Denies nausea or abdominal pain. Lab results reviewed. ID and pulmonary notes reviewed and appreciated 11/30 NAD, complains of occasional cough with mucoid sputum and feels mildly short of breath, he denies any fever or chills. lab results reviewed pulmonary note reviewed 12/01: Patient remains on high flow and nonrebreather to maintain a decent saturation. Continue steroids as prescribed by career consultant on high dose. Mild hyperkalemia we will give a dose of Kayexalate and repeat studies in a.m. Lasix per pulm. Monitor renal function 12/02: Patient seen and examined anxious this morning. Complained of discomfort with swallowing burning sensation. Discussed with cardiac team echocardiogram pending. Continue conservative management otherwise patient is on full dose enoxaparin and also high-dose steroids. Encourage prone positioning. Prognosis is guarded. Plan discussed with the patient. Although 12 point system reviewed and otherwise negative except as mentioned in the note 12/03: Continue high dose steroids, continue supportive care, proned. Unfortunately not improving. Will continue to monitor. 12/04: Patient unfortunately not showing any clinical improvement continues on nonrebreather on high flow. Lasix held today due to marginal blood pressure. Will transfer to [facility] for closer monitoring although he may not be able to go due to staffing shortage which is a national crisis at this time.. Plan discussed with the patient. 12/05: Patient seen and examined, Continue supportive care, wean as tolerated, still poor prognosis due to no significant improvement despite treatment. Encouraged to prone through out the day. 12/06: Patient seen and examined remains significantly hypoxic. Encourage prone positioning. We will trial a dose of Lasix today. We will taper steroids slightly due to markedly inflammation noted leukocytosis. Will check renal function test in a.m. Guarded prognosis discussed with the patient still awaiting IMCU bed 12/07: Continue supportive care continue BiPAP encourage prone position continue steroids. I did speak with the father his phone number is [phone] his name is Chan Grimaldo and updated him on the clinical condition. He verbalized understanding. Recommend that we give him updates periodically. Pulmonary input is appreciated. Continue to wean oxygen as tolerated. Continue Lovenox at this time. Case discussed with career consultant 35 minutes critical care time Assessment and plan Acute hypoxic respiratory failure Secondary to COVID-19 pneumonia Patient is now on high flow at 40 L and 100% FiO2 Pulmonary note reviewed and appreciated IV Decadron dose increased by pulmonary due to worsening hypoxia Actemra if available COVID-19 pneumonia Continue remdesivir Continue Decadron IV antibiotics discontinued as procalcitonin is normal Prognosis guarded due to severe hypoxia Inflammatory markers reviewed LFTs mildly increased D-dimer increased to 10,000 from 2154 on 11/27 Lovenox increased to 80 mg every 12 hours subcu CTA chest negative for PE Lower extremity venous Doppler negative for DVT Hyponatremia Improved Obesity class II Counseling when he is more stable Hyperglycemia Mild , secondary to steroids Patient denies history of diabetes Start on Accu-Cheks with insulin sliding scale coverage Hyperkalemia Gastroenteritis with nausea vomiting History Interval history: Patient seen and examined, still with shortness of breath on NRB AND High flow. Was transferred to the [facility] due to severe hypoxia. Placed on BiPAP Hospitalist Physical - Physical exam Narrative exam: General appearance: Present: mild distress, on BiPAP - EENT Eyes: PERRL, EOM intact ENT: hearing intact - Neck Neck: supple, normal ROM - Respiratory Respiratory effort: normal Respiratory: bilateral: CTA, rhonchi, wheezing - Cardiovascular Rhythm: regular Heart Sounds: Present: S1 & S2 Extremities: No edema - Gastrointestinal General gastrointestinal: Present: soft, non-tender Rectal Exam: deferred - Genitourinary Male genitourinary: deferred - Integumentary Integumentary: clear - Musculoskeletal Musculoskeletal: strength equal bilaterally - Neurologic Neurologic: no focal deficits - Psychiatric Psychiatric: Anxious - Constitutional Vitals: Temp Pulse Resp BP Pulse Ox 98.5 F 111 H 30 H 118/82 92 12/07/20 12:00 12/07/20 10:31 12/07/20 10:31 12/07/20 10:31 12/07/20 10:31 General appearance: Present: mild distress HEART Score - HEART Score Troponin: Troponin T 0.076 ng/mL (0.00-0.029) H 11/30/20 23:03 Results - Labs CBC & Chem 7: 12/07/20 05:30 12/07/20 05:30 Labs: Laboratory Last Values WBC 23.5 K/mm3 (4.5-11.0) H 12/07/20 05:30 RBC 4.20 M/mm3 (3.65-5.03) 12/07/20 05:30 Hgb 12.2 gm/dl (11.8-15.2) D 12/07/20 05:30 Hct 38.3 % (35.5-45.6) D 12/07/20 05:30 MCV 91 fl (84-94) 12/07/20 05:30 MCH 29 pg (28-32) 12/07/20 05:30 MCHC 32 % (32-34) 12/07/20 05:30 RDW 14.9 % (13.2-15.2) 12/07/20 05:30 Plt Count 255 K/mm3 (140-440) 12/07/20 05:30 Lymph % (Auto) 25.7 % (13.4-35.0) 11/27/20 05:15 Rowan % (Auto) 4.5 % (0.0-7.3) 11/27/20 05:15 Eos % (Auto) 0.0 % (0.0-4.3) 11/27/20 05:15 Baso % (Auto) 0.2 % (0.0-1.8) 11/27/20 05:15 Lymph # (Auto) 1.5 K/mm3 (1.2-5.4) 11/27/20 05:15 Rowan # (Auto) 0.3 K/mm3 (0.0-0.8) 11/27/20 05:15 Eos # (Auto) 0.0 K/mm3 (0.0-0.4) 11/27/20 05:15 Baso # (Auto) 0.0 K/mm3 (0.0-0.1) 11/27/20 05:15 Seg Neutrophils % 69.6 % (40.0-70.0) 11/27/20 05:15 Seg Neutrophils # 4.0 K/mm3 (1.8-7.7) 11/27/20 05:15 D-Dimer 6110.26 ng/mlDDU (0-234) H 12/06/20 14:58 ABG pH 7.414 (7.320-7.450) 12/07/20 05:24 POC ABG pCO2 38.9 mmHg (32.0-48.0) 12/07/20 05:24 POC ABG pO2 46.8 mmHg (83-108) L 12/07/20 05:24 POC ABG HCO3 24.3 12/07/20 05:24 ABG O2 Saturation 77.8 (0-100) 12/07/20 05:24 POC ABG Base Excess 0.1 12/07/20 05:24 ABG Hemoglobin 22.0 (12.0-17.5) H 12/07/20 05:24 ABG Oxyhemoglobin 77.2 (94-98) L 12/07/20 05:24 ABG Methemoglobin 0.3 (0.0-1.5) 12/07/20 05:24 ABG Sodium 133.9 mmol/L (136.0-145.0) L 12/07/20 05:24 ABG Potassium 4.4 mmol/L (3.40-4.50) 12/07/20 05:24 ABG Chloride 97.0 mmol/L (98-107) L 12/07/20 05:24 ABG Glucose 186 mg/dL (65-95) H 12/07/20 05:24 Carboxyhemoglobin 0.5 (0.5-1.5) 12/07/20 05:24 FiO2 % 100.0 12/07/20 05:24 Sodium 146 mmol/L (137-145) H D 12/07/20 05:30 Potassium 5.1 mmol/L (3.6-5.0) H 12/07/20 05:30 Chloride 113.3 mmol/L (98-107) H 12/07/20 05:30 Carbon Dioxide 23 mmol/L (22-30) 12/07/20 05:30 Anion Gap 15 mmol/L 12/07/20 05:30 BUN 78 mg/dL (9-20) H 12/07/20 05:30 Creatinine 1.5 mg/dL (0.8-1.3) H 12/07/20 05:30 Estimated GFR > 60 ml/min 12/07/20 05:30 BUN/Creatinine Ratio 52 % 12/07/20 05:30 Glucose 109 mg/dL (75-100) H 12/07/20 05:30 POC Glucose 159 mg/dL (70-105) H 12/07/20 11:52 Lactic Acid 1.20 mmol/L (0.7-2.0) 11/26/20 23:28 Calcium 7.9 mg/dL (8.4-10.2) L 12/07/20 05:30 Ferritin 1785.0 ng/mL (30.0-300.0) H 12/06/20 14:58 Total Bilirubin 0.20 mg/dL (0.1-1.2) 12/07/20 05:30 AST 29 units/L (5-40) 12/07/20 05:30 ALT 27 units/L (7-56) 12/07/20 05:30 Alkaline Phosphatase 103 units/L (35-129) 12/07/20 05:30 Lactate Dehydrogenase 1421 units/L (91-180) H 12/06/20 14:58 Troponin T 0.076 ng/mL (0.00-0.029) H 11/30/20 23:03 C-Reactive Protein 0.30 mg/dL (0.00-1.30) 12/06/20 14:58 NT-Pro-B Natriuret Pep 18.20 pg/mL (0-450) 11/26/20 11:17 Total Protein 5.4 g/dL (6.3-8.2) L D 12/07/20 05:30 Albumin 2.7 g/dL (3.9-5) L 12/07/20 05:30 Albumin/Globulin Ratio 1.0 % 12/07/20 05:30 Triglycerides 228 mg/dL (2-149) H 11/30/20 18:10 Cholesterol 287 mg/dL (50-199) H 11/30/20 18:10 LDL Cholesterol Direct 210 mg/dL (50-130) H 11/30/20 18:10 HDL Cholesterol 38 mg/dL (40-59) L 11/30/20 18:10 Cholesterol/HDL Ratio 7.55 % 11/30/20 18:10 Procalcitonin 0.23 ng/mL (<0.15) 11/26/20 11:17 Arterial Blood Glucose 186 mg/dL (65-95) H 12/07/20 05:24 Arterial Blood Ionized Calcium 4.5 mg/dL (4.6-5.3) L 12/07/20 05:24 Coronavirus (PCR) Positive (Negative) A 11/27/20 Unknown Smith/IV: Voiding Method Urinal Active Medications - Current Medications Current Medications: Generic Name Dose Route Start Last Admin Trade Name Freq PRN Reason Stop Dose Admin Acetaminophen 650 mg 11/26/20 22:20 Acetaminophen 325 Mg Tab PO Q4H PRN Pain MILD(1-3)/Fever >100.5/DALY Aspirin 81 mg 12/02/20 10:00 12/07/20 10:24 Aspirin 81 Mg Tab Chew PO 81 mg QDAY SANGEETHA Administration Atorvastatin Calcium 40 mg 12/01/20 22:00 12/06/20 21:07 Atorvastatin 40 Mg Tab PO 40 mg QHS SANGEETHA Administration Enoxaparin Sodium 110 mg 12/02/20 22:00 12/07/20 10:22 Enoxaparin 120 Mg/0.8 Ml Inj SUB-Q 110 mg Q12HR SANGEETHA Administration Hydralazine HCl 50 mg 12/05/20 16:00 12/07/20 06:58 Hydralazine 25 Mg Tab PO 50 mg Q8HR SANGEETHA Administration Hydromorphone HCl 0.5 mg 11/26/20 22:20 12/07/20 04:47 Hydromorphone 1 Mg/1 Ml Inj IV 0.5 mg Q3H PRN Administration Pain , Severe (7-10) Insulin Human Lispro 0 unit 11/30/20 11:30 12/07/20 08:34 Insulin Lispro 100 Unit/Ml SUB-Q 3 unit ACHS SANGEETHA Administration Protocol Methylprednisolone Sodium Succinate 80 mg 12/06/20 14:00 12/07/20 05:04 Methylprednisolone Sod Succinate 125 Mg/2 Ml Inj IV 80 mg Q8HR SANGEETHA Administration Ondansetron HCl 4 mg 11/26/20 22:20 12/07/20 04:44 Ondansetron 4 Mg/2 Ml Inj IV 4 mg Q8H PRN Administration Nausea And Vomiting Oxycodone/Acetaminophen 1 tab 11/26/20 22:20 12/01/20 12:04 Oxycodone /Acetaminophen 5-325mg Tab PO 1 tab Q6H PRN Administration Pain, Moderate (4-6) Pantoprazole Sodium 40 mg 12/04/20 07:30 12/07/20 06:58 Pantoprazole 40 Mg Tab PO 40 mg QDAC SANGEETHA Administration Sodium Chloride 10 ml 11/26/20 23:00 12/07/20 10:22 Sodium Chloride 0.9% 10 Ml Flush Syringe IV 10 ml BID SANGEETHA Administration Sodium Chloride 10 ml 11/26/20 22:20 Sodium Chloride 0.9% 10 Ml Flush Syringe IV PRN PRN LINE FLUSH Sucralfate 1 gm 12/02/20 10:00 12/07/20 06:58 Sucralfate 1 Gm Tab PO 1 gm Q8HR SANGEETHA Administration Nutrition/Malnutrition Assess - Dietary Evaluation Nutrition/Malnutrition Findings: Nutrition Notes Start: 12/03/20 12:47 Freq: Status: Active Protocol: Document 12/03/20 12:47 (Rec: 12/03/20 12:53 [id number]) Nutrition Notes Need for Assessment generated from: LOS Initial or Follow up Assessment Current Diagnosis Respiratory Failure, Hyperlipidemia Other Pertinent Diagnosis COVID-19, pneu Current Diet regular Labs/Tests POC BG 117-187 Pertinent Medications Solu Medrol Humalog Height 5 ft 11 in Weight 109.5 kg [place] Body Weight (kg) 78.18 BMI 33.6 Weight Status Obese Subjective/Other Information Screen for LOS. Pt reports eating 0-25% of meals for past few days due to feeling ill. No weight loss. Burn Absent Trauma Absent Current % PO Negligible Minimum of two criteria No #1 Nutrition Diagnosis Inadequate oral intake Etiology COVID-19 As Evidenced by Signs and Symptoms pt eating <25% of meals Is patient on ventilator? No Is Patient Ambulatory and/or Out of Bed No REE-([facility]-confined to bed) 2440.980 Kcal/Kg value to use for calculation 16 Approximate Energy Requirements Using 1752 kcal/Kg Calculation Used for Recommendations Kcal/kg Additional Notes Protein: (0.8-1g/kg AdjBW: 94kg) 75-94g Fluid: 1 ml/kcal or per MD Nutrition Intervention Change Diet Order: add consistent CHO Add Supplement/Snack (indicate name/kcal Glucerna TID /protein ) Provides kCal: 660 Provides Protein (gm) 30 Goal #1 Meet at least 75% of protein and kcal needs via PO and ONS intakes Anticipated Discharge Needs: regular Follow-Up By: 12/08/20 Additional Comments F/u: intakes and ONS tolerance
[2020-12-08 06:04] LABS: BUN/Creatinine Ratio 36; Blood Urea Nitrogen 40 mg/dL (9-20); Calcium 8.1 mg/dL (8.4-10.2); Hemolysis Index 105
[2020-12-08] MEDS: SUCRALFATE 1 GM TAB PO SCH ×3 (06:36→22:17)
[2020-12-08] MEDS: hydrALAZINE 25 MG TAB PO SCH ×3 (06:36→22:18)
[2020-12-08] MEDS: methylPREDNISolone Sod Succinate 125 MG/2 ML INJ IV SCH ×3 (06:36→22:20)
[2020-12-08] MEDS: INSULIN LISPRO 100 UNIT/ML SUB-Q SCH ×4 (08:00→22:17)
[2020-12-08] MEDS: PANTOPRAZOLE 40 MG TAB PO SCH (09:49)
[2020-12-08] MEDS: ASPIRIN 81 MG TAB CHEW PO SCH (09:49)
[2020-12-08] MEDS: ENOXAPARIN 120 MG/0.8 ML INJ SUB-Q SCH ×2 (09:50→22:22)
--- NOTE | 2020-12-08 10:32 | Progress Note ---
Assessment and Plan - Patient Problems (1) Bradycardia Current Visit: Yes Status: Acute Plan to address problem: Patient developed transient, marked sinus bradycardia associated with acute respiratory distress in the setting of Covid pneumonia. Bradycardia is likely due to a transient vasodepressive reaction, continue telemetry monitoring and avoid AV sadie blocking agents. (2) Right heart enlargement Current Visit: Yes Status: Acute Plan to address problem: Right heart dilatation and hypocontractility, suggests concern for acute pulmonary embolism, but patient's CT angiogram was negative. Patient is on high-dose enoxaparin under protocol for acute Covid pneumonia. Subjective Date of service: 12/08/20 Principal diagnosis: Covid pneumonia Interval history: The patient is a 40-year-old man admitted a week ago with acute Covid pneumonia. He has been hospitalized on the medical unit, on remote telemetry. Yesterday, he developed worsening shortness of breath, hypoxemia and increased oxygen requirement, eventually transferred to the stepdown unit for aggressive pulmonary management. Cardiology consultation was requested for the finding of transient bradycardia. After additional interrogation with the telemetry monitoring unit, we have recovered strips from 5 AM on 12/06/2020 that showed transient, marked sinus bradycardia. This was presumably associated with the patient's worsening respiratory status. An echocardiogram during this hospitalization shows a marked dilatation and hypocontractility of the right heart, associated with mild to moderate pulmonary hypertension. But a CT angiogram of the chest was negative for pulmonary embol ism. The patient is on high-dose enoxaparin anticoagulation as part of the treatment protocol for his acute Covid pneumonia. Objective Vital Signs Temp Pulse Pulse Resp BP Pulse Ox 12/08/20 09:31 136/92 89 12/08/20 09:00 89 136/92 12/08/20 08:30 134/100 98 12/08/20 08:00 97.4 F L 86 23 134/100 97 12/08/20 07:30 96 H 16 145/104 98 12/08/20 07:00 91 H 20 145/104 93 12/08/20 06:36 91 H 126/91 12/08/20 06:30 94 H 20 126/91 99 12/08/20 06:00 94 H 21 126/91 99 12/08/20 05:30 94 H 19 121/94 100 12/08/20 05:00 98 H 22 121/94 100 12/08/20 04:55 96 H 25 H 129/91 99 12/08/20 04:30 95 H 24 129/91 99 12/08/20 04:00 99 H 30 H 129/91 12/08/20 03:55 97.5 F L 12/08/20 03:30 98 H 21 119/89 99 12/08/20 03:00 95 H 28 H 119/89 12/08/20 02:30 93 H 20 128/88 98 12/08/20 02:00 100 H 98 H 21 128/88 100 12/08/20 01:30 94 H 22 133/93 100 12/08/20 01:00 101 H 22 133/88 99 12/08/20 00:31 103 H 21 133/93 94 12/08/20 00:27 99 H 29 H 133/93 93 12/08/20 00:00 97.8 F 95 H 11 L 133/93 90 12/07/20 23:31 102 H 16 117/66 87 12/07/20 23:01 91 H 29 H 117/66 87 12/07/20 22:31 85 25 H 124/88 89 12/07/20 22:08 89 139/97 12/07/20 22:00 87 15 139/97 12/07/20 21:34 69 19 126/100 99 12/07/20 21:31 104 H 21 124/88 99 12/07/20 21:10 90 12/07/20 21:00 99 H 13 124/88 99 12/07/20 20:31 99 H 21 126/100 98 12/07/20 20:00 97.6 F 94 H 20 126/100 96 12/07/20 19:31 124/82 95 12/07/20 19:00 124/82 96 12/07/20 18:30 134/87 98 12/07/20 18:00 134/87 94 12/07/20 17:31 97 H 24 126/85 96 12/07/20 17:00 96 H 16 126/85 97 12/07/20 16:31 95 H 23 120/83 96 12/07/20 16:06 102 H 120/83 12/07/20 16:00 97.5 F L 99 H 20 120/83 97 12/07/20 15:31 99 H 19 140/80 98 12/07/20 15:00 101 H 22 140/80 99 12/07/20 14:31 100 H 22 135/107 97 12/07/20 14:00 95 H 98 H 20 135/107 96 12/07/20 13:31 101 H 26 H 140/92 96 12/07/20 13:08 98 H 12/07/20 13:01 105 H 25 H 140/92 93 12/07/20 12:31 100 H 16 140/99 97 12/07/20 12:01 99 H 18 140/99 97 12/07/20 12:00 98.5 F 12/07/20 11:31 105 H 25 H 136/100 96 12/07/20 11:00 105 H 19 136/100 94 12/07/20 10:31 111 H 30 H 118/82 92 - Physical Examination Narrative exam: Patient appears mildly dyspneic on BiPAP, otherwise hemodynamically stable, full physical exam is deferred due to the presence of an acute Covid pneumonia. - Labs and Meds Comprehensive Metabolic Panel 12/08/20 Range/Units 04:20 Sodium 137 D (137-145) mmol/L Potassium 5.0 (3.6-5.0) mmol/L Chloride 95.3 L (98-107) mmol/L Carbon Dioxide 29 (22-30) mmol/L BUN 40 H (9-20) mg/dL Creatinine 1.1 (0.8-1.3) mg/dL Glucose 153 H (75-100) mg/dL Calcium 8.1 L (8.4-10.2) mg/dL
--- NOTE | 2020-12-08 12:25 | Progress Note ---
Assessment and Plan 40 y/o obese male with acute respiratory failure secondary to COVID pneumonia. 12/08/20: Will do lasix again today. IMS spoke with father on yesterday. Prone if able. GUarded prognosis. 12/07/20: Steroids at 80q8, changed over the weekend. Lasix given today. Prone as tolerated. IMS spoke with father over the phone. Guarded prognosis. 12/04/20: Steroids at 125 Q8. Prone. Hold on lasix today given marginal blood pressures but please reassess over the weekend, guarded prognosis. 12/03/20: Hold on lasix today. Encourage to prone. Will increase steroids to 125q8. Guarded prognosis. 12/02/20: Lasix again today (20), continue to prone. continue steroids. Guarded prognosis. 12/01/20: Wean as tolerated. Proning should continue. Will give 20 of lasix today. 11/30/20: Patient is attempting to prone which is good for him. Continue to prone as much as tolerated. Hold on lasix again today. 11/29/20: No new recs for today. Needs to prone as much as tolerated. i/O not accurate so will hold on lasix for today. 1. Increase steroids to BID dosing given weight 2. Remdesivir 3. Actemra 4. Proning and net negative fluid balance Guarded prognosis Subjective Date of service: 12/08/20 Principal diagnosis: Covid pneumonia Interval history: No acute events. Objective Vital Signs - 12hr 12/08/20 12/08/20 12/08/20 00:27 00:31 01:00 Temperature Pulse Rate 99 H 103 H 101 H Pulse Rate [ From Monitor] Respiratory 29 H 21 22 Rate Blood Pressure 133/93 133/93 133/88 O2 Sat by Pulse 93 94 99 Oximetry 12/08/20 12/08/20 12/08/20 01:30 02:00 02:30 Temperature Pulse Rate 94 H 100 H 93 H Pulse Rate [ 98 H From Monitor] Respiratory 22 21 20 Rate Blood Pressure 133/93 128/88 128/88 O2 Sat by Pulse 100 100 98 Oximetry 12/08/20 12/08/20 12/08/20 03:00 03:30 03:55 Temperature 97.5 F L Pulse Rate 95 H 98 H Pulse Rate [ From Monitor] Respiratory 28 H 21 Rate Blood Pressure 119/89 119/89 O2 Sat by Pulse 99 Oximetry 12/08/20 12/08/20 12/08/20 04:00 04:30 04:55 Temperature Pulse Rate 99 H 95 H 96 H Pulse Rate [ From Monitor] Respiratory 30 H 24 25 H Rate Blood Pressure 129/91 129/91 129/91 O2 Sat by Pulse 99 99 Oximetry 12/08/20 12/08/20 12/08/20 05:00 05:30 06:00 Temperature Pulse Rate 98 H 94 H 94 H Pulse Rate [ From Monitor] Respiratory 22 19 21 Rate Blood Pressure 121/94 121/94 126/91 O2 Sat by Pulse 100 100 99 Oximetry 12/08/20 12/08/20 12/08/20 06:30 06:36 07:00 Temperature Pulse Rate 94 H 91 H 91 H Pulse Rate [ From Monitor] Respiratory 20 20 Rate Blood Pressure 126/91 126/91 145/104 O2 Sat by Pulse 99 93 Oximetry 12/08/20 12/08/20 12/08/20 07:30 08:00 08:30 Temperature 97.4 F L Pulse Rate 96 H 86 Pulse Rate [ From Monitor] Respiratory 16 23 Rate Blood Pressure 145/104 134/100 134/100 O2 Sat by Pulse 98 97 98 Oximetry 12/08/20 12/08/20 12/08/20 09:00 09:31 10:00 Temperature Pulse Rate 89 87 Pulse Rate [ From Monitor] Respiratory 29 H Rate Blood Pressure 136/92 136/92 135/91 O2 Sat by Pulse 89 89 Oximetry 12/08/20 12/08/20 12/08/20 10:31 11:00 11:31 Temperature Pulse Rate 98 H 99 H 101 H Pulse Rate [ From Monitor] Respiratory 39 H 31 H 31 H Rate Blood Pressure 135/91 123/82 123/82 O2 Sat by Pulse 89 85 93 Oximetry 12/08/20 12:00 Temperature Pulse Rate 94 H Pulse Rate [ From Monitor] Respiratory 35 H Rate Blood Pressure 128/90 O2 Sat by Pulse 93 Oximetry CBC and BMP: 12/07/20 05:30 12/08/20 04:20 ABG, PT/INR, D-dimer: ABG ABG pH 7.414 (7.320-7.450) 12/07/20 05:24 POC ABG pCO2 38.9 mmHg (32.0-48.0) 12/07/20 05:24 POC ABG pO2 46.8 mmHg (83-108) L 12/07/20 05:24 POC ABG HCO3 24.3 12/07/20 05:24 ABG O2 Saturation 77.8 (0-100) 12/07/20 05:24 PT/INR, D-dimer D-Dimer 6110.26 ng/mlDDU (0-234) H 12/06/20 14:58 Abnormal lab findings: Abnormal Labs 11/26/20 11/26/20 11/26/20 11:17 11:17 11:17 WBC RBC 5.28 H Hgb 15.8 H Hct MCHC 35 H RDW Plt Count 135 L Seg Neutrophils % 72.2 H D-Dimer 2154.70 H POC ABG pO2 ABG Hemoglobin ABG Oxyhemoglobin ABG Sodium ABG Chloride ABG Glucose Sodium 135 L Potassium Chloride 96.7 L BUN Creatinine Glucose 117 H POC Glucose Calcium Ferritin Total Bilirubin AST 68 H ALT Lactate Dehydrogenase Troponin T C-Reactive Protein Total Protein Albumin Triglycerides Cholesterol LDL Cholesterol Direct HDL Cholesterol Arterial Blood Glucose Arterial Blood Ionized Calcium Coronavirus (PCR) 11/26/20 11/26/20 11/27/20 11:17 11:17 05:15 WBC RBC 5.14 H Hgb 15.3 H Hct MCHC 35 H RDW Plt Count Seg Neutrophils % D-Dimer POC ABG pO2 ABG Hemoglobin ABG Oxyhemoglobin ABG Sodium ABG Chloride ABG Glucose Sodium Potassium Chloride BUN Creatinine Glucose POC Glucose Calcium Ferritin 872.8 H Total Bilirubin AST ALT Lactate Dehydrogenase 642 H Troponin T C-Reactive Protein 8.50 H Total Protein Albumin Triglycerides Cholesterol LDL Cholesterol Direct HDL Cholesterol Arterial Blood Glucose Arterial Blood Ionized Calcium Coronavirus (PCR) 11/27/20 11/27/20 11/27/20 05:15 17:12 Unknown WBC RBC Hgb Hct MCHC RDW Plt Count Seg Neutrophils % D-Dimer POC ABG pO2 ABG Hemoglobin ABG Oxyhemoglobin ABG Sodium ABG Chloride ABG Glucose Sodium 134 L Potassium Chloride 95.1 L BUN Creatinine 1.4 H Glucose 110 H 130 H POC Glucose Calcium Ferritin Total Bilirubin AST 51 H 53 H ALT Lactate Dehydrogenase Troponin T C-Reactive Protein Total Protein Albumin 3.4 L Triglycerides Cholesterol LDL Cholesterol Direct HDL Cholesterol Arterial Blood Glucose Arterial Blood Ionized Calcium Coronavirus (PCR) Positive A 11/28/20 11/29/20 11/30/20 07:14 10:14 03:21 WBC RBC Hgb Hct MCHC RDW Plt Count Seg Neutrophils % D-Dimer POC ABG pO2 ABG Hemoglobin ABG Oxyhemoglobin ABG Sodium ABG Chloride ABG Glucose Sodium Potassium Chloride 97.0 L 97.2 L BUN 23 H 26 H Creatinine Glucose 117 H 140 H 158 H POC Glucose Calcium Ferritin Total Bilirubin AST 54 H 45 H 50 H ALT 65 H Lactate Dehydrogenase 739 H Troponin T C-Reactive Protein 8.50 H Total Protein Albumin 3.6 L 3.8 L Triglycerides Cholesterol LDL Cholesterol Direct HDL Cholesterol Arterial Blood Glucose Arterial Blood Ionized Calcium Coronavirus (PCR) 11/30/20 11/30/20 11/30/20 03:21 03:21 13:05 WBC RBC Hgb Hct MCHC RDW Plt Count Seg Neutrophils % D-Dimer > 06714 H POC ABG pO2 ABG Hemoglobin ABG Oxyhemoglobin ABG Sodium ABG Chloride ABG Glucose Sodium Potassium Chloride BUN Creatinine Glucose POC Glucose 138 H Calcium Ferritin 1885.0 H Total Bilirubin AST ALT Lactate Dehydrogenase Troponin T C-Reactive Protein Total Protein Albumin Triglycerides Cholesterol LDL Cholesterol Direct HDL Cholesterol Arterial Blood Glucose Arterial Blood Ionized Calcium Coronavirus (PCR) 11/30/20 11/30/20 11/30/20 16:41 18:10 21:18 WBC RBC Hgb Hct MCHC RDW Plt Count Seg Neutrophils % D-Dimer POC ABG pO2 ABG Hemoglobin ABG Oxyhemoglobin ABG Sodium ABG Chloride ABG Glucose Sodium Potassium Chloride BUN Creatinine Glucose POC Glucose 145 H 157 H Calcium Ferritin Total Bilirubin AST ALT Lactate Dehydrogenase Troponin T 0.080 H D C-Reactive Protein Total Protein Albumin Triglycerides 228 H Cholesterol 287 H LDL Cholesterol Direct 210 H HDL Cholesterol 38 L Arterial Blood Glucose Arterial Blood Ionized Calcium Coronavirus (PCR) 11/30/20 12/01/20 12/01/20 23:03 05:32 05:32 WBC 15.5 H RBC 5.86 H Hgb 17.3 H Hct 51.6 H MCHC RDW 15.3 H Plt Count Seg Neutrophils % D-Dimer POC ABG pO2 ABG Hemoglobin ABG Oxyhemoglobin ABG Sodium ABG Chloride ABG Glucose Sodium Potassium 5.1 H Chloride BUN 28 H Creatinine Glucose 147 H POC Glucose Calcium Ferritin Total Bilirubin AST 51 H ALT 91 H Lactate Dehydrogenase Troponin T 0.076 H C-Reactive Protein Total Protein Albumin 3.5 L Triglycerides Cholesterol LDL Cholesterol Direct HDL Cholesterol Arterial Blood Glucose Arterial Blood Ionized Calcium Coronavirus (PCR) 12/01/20 12/01/20 12/01/20 08:06 12:04 16:07 WBC RBC Hgb Hct MCHC RDW Plt Count Seg Neutrophils % D-Dimer POC ABG pO2 ABG Hemoglobin ABG Oxyhemoglobin ABG Sodium ABG Chloride ABG Glucose Sodium Potassium Chloride BUN Creatinine Glucose POC Glucose 143 H 156 H 196 H Calcium Ferritin Total Bilirubin AST ALT Lactate Dehydrogenase Troponin T C-Reactive Protein Total Protein Albumin Triglycerides Cholesterol LDL Cholesterol Direct HDL Cholesterol Arterial Blood Glucose Arterial Blood Ionized Calcium Coronavirus (PCR) 12/01/20 12/02/20 12/02/20 21:34 03:17 03:17 WBC 17.2 H RBC 6.26 H Hgb 18.5 H Hct 54.5 H MCHC RDW Plt Count Seg Neutrophils % D-Dimer POC ABG pO2 ABG Hemoglobin ABG Oxyhemoglobin ABG Sodium ABG Chloride ABG Glucose Sodium Potassium Chloride BUN 33 H Creatinine Glucose 131 H POC Glucose 174 H Calcium Ferritin Total Bilirubin 1.40 H AST 48 H ALT 128 H Lactate Dehydrogenase Troponin T C-Reactive Protein Total Protein Albumin 3.3 L Triglycerides Cholesterol LDL Cholesterol Direct HDL Cholesterol Arterial Blood Glucose Arterial Blood Ionized Calcium Coronavirus (PCR) 12/02/20 12/02/20 12/02/20 07:50 10:58 16:17 WBC RBC Hgb Hct MCHC RDW Plt Count Seg Neutrophils % D-Dimer POC ABG pO2 ABG Hemoglobin ABG Oxyhemoglobin ABG Sodium ABG Chloride ABG Glucose Sodium Potassium Chloride BUN Creatinine Glucose POC Glucose 127 H 117 H 138 H Calcium Ferritin Total Bilirubin AST ALT Lactate Dehydrogenase Troponin T C-Reactive Protein Total Protein Albumin Triglycerides Cholesterol LDL Cholesterol Direct HDL Cholesterol Arterial Blood Glucose Arterial Blood Ionized Calcium Coronavirus (PCR) 12/02/20 12/03/20 12/03/20 21:23 08:13 11:32 WBC RBC Hgb Hct MCHC RDW Plt Count Seg Neutrophils % D-Dimer POC ABG pO2 ABG Hemoglobin ABG Oxyhemoglobin ABG Sodium ABG Chloride ABG Glucose Sodium Potassium Chloride BUN Creatinine Glucose POC Glucose 187 H 160 H 154 H Calcium Ferritin Total Bilirubin AST ALT Lactate Dehydrogenase Troponin T C-Reactive Protein Total Protein Albumin Triglycerides Cholesterol LDL Cholesterol Direct HDL Cholesterol Arterial Blood Glucose Arterial Blood Ionized Calcium Coronavirus (PCR) 12/03/20 12/03/20 12/04/20 16:54 21:56 03:02 WBC 25.4 H RBC 6.65 H Hgb 19.7 H Hct 58.2 H MCHC RDW Plt Count Seg Neutrophils % D-Dimer POC ABG pO2 ABG Hemoglobin ABG Oxyhemoglobin ABG Sodium ABG Chloride ABG Glucose Sodium Potassium Chloride BUN Creatinine Glucose POC Glucose 186 H 156 H Calcium Ferritin Total Bilirubin AST ALT Lactate Dehydrogenase Troponin T C-Reactive Protein Total Protein Albumin Triglycerides Cholesterol LDL Cholesterol Direct HDL Cholesterol Arterial Blood Glucose Arterial Blood Ionized Calcium Coronavirus (PCR) 12/04/20 12/04/20 12/04/20 03:02 07:35 10:54 WBC RBC Hgb Hct MCHC RDW Plt Count Seg Neutrophils % D-Dimer POC ABG pO2 ABG Hemoglobin ABG Oxyhemoglobin ABG Sodium ABG Chloride ABG Glucose Sodium Potassium 5.6 H Chloride BUN 36 H Creatinine Glucose 152 H POC Glucose 171 H 256 H Calcium Ferritin Total Bilirubin 1.30 H AST 84 H ALT 124 H Lactate Dehydrogenase Troponin T C-Reactive Protein Total Protein Albumin 3.7 L Triglycerides Cholesterol LDL Cholesterol Direct HDL Cholesterol Arterial Blood Glucose Arterial Blood Ionized Calcium Coronavirus (PCR) 12/04/20 12/04/20 12/05/20 16:43 21:40 06:00 WBC 26.4 H RBC 6.29 H Hgb 18.3 H Hct 54.4 H MCHC RDW 15.3 H Plt Count Seg Neutrophils % D-Dimer POC ABG pO2 ABG Hemoglobin ABG Oxyhemoglobin ABG Sodium ABG Chloride ABG Glucose Sodium Potassium Chloride BUN Creatinine Glucose POC Glucose 175 H 193 H Calcium Ferritin Total Bilirubin AST ALT Lactate Dehydrogenase Troponin T C-Reactive Protein Total Protein Albumin Triglycerides Cholesterol LDL Cholesterol Direct HDL Cholesterol Arterial Blood Glucose Arterial Blood Ionized Calcium Coronavirus (PCR) 12/05/20 12/05/20 12/05/20 06:00 08:12 12:09 WBC RBC Hgb Hct MCHC RDW Plt Count Seg Neutrophils % D-Dimer POC ABG pO2 ABG Hemoglobin ABG Oxyhemoglobin ABG Sodium ABG Chloride ABG Glucose Sodium Potassium 5.1 H Chloride BUN 33 H Creatinine Glucose 183 H POC Glucose 182 H 185 H Calcium Ferritin Total Bilirubin AST ALT Lactate Dehydrogenase Troponin T C-Reactive Protein Total Protein Albumin Triglycerides Cholesterol LDL Cholesterol Direct HDL Cholesterol Arterial Blood Glucose Arterial Blood Ionized Calcium Coronavirus (PCR) 12/05/20 12/05/20 12/06/20 17:10 21:27 08:28 WBC RBC Hgb Hct MCHC RDW Plt Count Seg Neutrophils % D-Dimer POC ABG pO2 ABG Hemoglobin ABG Oxyhemoglobin ABG Sodium ABG Chloride ABG Glucose Sodium Potassium Chloride BUN Creatinine Glucose POC Glucose 173 H 165 H 169 H Calcium Ferritin Total Bilirubin AST ALT Lactate Dehydrogenase Troponin T C-Reactive Protein Total Protein Albumin Triglycerides Cholesterol LDL Cholesterol Direct HDL Cholesterol Arterial Blood Glucose Arterial Blood Ionized Calcium Coronavirus (PCR) 12/06/20 12/06/20 12/06/20 12:04 14:58 14:58 WBC RBC Hgb Hct MCHC RDW Plt Count Seg Neutrophils % D-Dimer 6110.26 H POC ABG pO2 ABG Hemoglobin ABG Oxyhemoglobin ABG Sodium ABG Chloride ABG Glucose Sodium Potassium Chloride BUN Creatinine Glucose 151 H POC Glucose 172 H Calcium Ferritin Total Bilirubin AST ALT Lactate Dehydrogenase 1421 H Troponin T C-Reactive Protein Total Protein Albumin Triglycerides Cholesterol LDL Cholesterol Direct HDL Cholesterol Arterial Blood Glucose Arterial Blood Ionized Calcium Coronavirus (PCR) 12/06/20 12/06/20 12/06/20 14:58 16:42 21:13 WBC RBC Hgb Hct MCHC RDW Plt Count Seg Neutrophils % D-Dimer POC ABG pO2 ABG Hemoglobin ABG Oxyhemoglobin ABG Sodium ABG Chloride ABG Glucose Sodium Potassium Chloride BUN Creatinine Glucose POC Glucose 165 H 229 H Calcium Ferritin 1785.0 H Total Bilirubin AST ALT Lactate Dehydrogenase Troponin T C-Reactive Protein Total Protein Albumin Triglycerides Cholesterol LDL Cholesterol Direct HDL Cholesterol Arterial Blood Glucose Arterial Blood Ionized Calcium Coronavirus (PCR) 12/07/20 12/07/20 12/07/20 05:24 05:30 05:30 WBC 23.5 H RBC Hgb Hct MCHC RDW Plt Count Seg Neutrophils % D-Dimer POC ABG pO2 46.8 L ABG Hemoglobin 22.0 H ABG Oxyhemoglobin 77.2 L ABG Sodium 133.9 L ABG Chloride 97.0 L ABG Glucose 186 H Sodium 146 H D Potassium 5.1 H Chloride 113.3 H BUN 78 H Creatinine 1.5 H Glucose 109 H POC Glucose Calcium 7.9 L Ferritin Total Bilirubin AST ALT Lactate Dehydrogenase Troponin T C-Reactive Protein Total Protein 5.4 L D Albumin 2.7 L Triglycerides Cholesterol LDL Cholesterol Direct HDL Cholesterol Arterial Blood Glucose 186 H Arterial Blood Ionized Calcium 4.5 L Coronavirus (PCR) 12/07/20 12/07/20 12/07/20 08:06 11:52 15:51 WBC RBC Hgb Hct MCHC RDW Plt Count Seg Neutrophils % D-Dimer POC ABG pO2 ABG Hemoglobin ABG Oxyhemoglobin ABG Sodium ABG Chloride ABG Glucose Sodium Potassium Chloride BUN Creatinine Glucose POC Glucose 219 H 159 H 149 H Calcium Ferritin Total Bilirubin AST ALT Lactate Dehydrogenase Troponin T C-Reactive Protein Total Protein Albumin Triglycerides Cholesterol LDL Cholesterol Direct HDL Cholesterol Arterial Blood Glucose Arterial Blood Ionized Calcium Coronavirus (PCR) 12/07/20 12/08/20 12/08/20 21:28 04:20 07:39 WBC RBC Hgb Hct MCHC RDW Plt Count Seg Neutrophils % D-Dimer POC ABG pO2 ABG Hemoglobin ABG Oxyhemoglobin ABG Sodium ABG Chloride ABG Glucose Sodium Potassium Chloride 95.3 L BUN 40 H Creatinine Glucose 153 H POC Glucose 167 H 143 H Calcium 8.1 L Ferritin Total Bilirubin AST ALT Lactate Dehydrogenase Troponin T C-Reactive Protein Total Protein Albumin Triglycerides Cholesterol LDL Cholesterol Direct HDL Cholesterol Arterial Blood Glucose Arterial Blood Ionized Calcium Coronavirus (PCR) 12/08/20 11:29 WBC RBC Hgb Hct MCHC RDW Plt Count Seg Neutrophils % D-Dimer POC ABG pO2 ABG Hemoglobin ABG Oxyhemoglobin ABG Sodium ABG Chloride ABG Glucose Sodium Potassium Chloride BUN Creatinine Glucose POC Glucose 209 H Calcium Ferritin Total Bilirubin AST ALT Lactate Dehydrogenase Troponin T C-Reactive Protein Total Protein Albumin Triglycerides Cholesterol LDL Cholesterol Direct HDL Cholesterol Arterial Blood Glucose Arterial Blood Ionized Calcium Coronavirus (PCR)
[2020-12-08] MEDS ORDERED: FUROSEMIDE 20 MG/2 ML INJ IV SCH (13:00)
--- NOTE | 2020-12-08 15:11 | Progress Note ---
Assessment and Plan Assessment and plan: Assessment and plan --Acute hypoxic respiratory failure Secondary to COVID-19 pneumonia Patient is now on high flow at 40 L and 100% FiO2 Pulmonary note reviewed and appreciated IV Decadron dose increased by pulmonary due to worsening hypoxia Actemra if available --COVID-19 pneumonia Continue remdesivir Continue Decadron IV antibiotics discontinued as procalcitonin is normal Prognosis guarded due to severe hypoxia Inflammatory markers reviewed LFTs mildly increased --Elevated D-dimer increased to 10,000 from 2154 on 11/27 Lovenox increased to 80 mg every 12 hours subcu CTA chest negative for PE Lower extremity venous Doppler negative for DVT --Hyponatremia Improved --Obesity class II Counseling when he is more stable --Hyperglycemia Mild , secondary to steroids Patient denies history of diabetes Start on Accu-Cheks with insulin sliding scale coverage --Hyperkalemia --Gastroenteritis with nausea vomiting --DVT prophylaxis Full dose anticoagulation; Patient is critically ill continues to be on high flow oxygen Poor prognosis, family obese We will closely monitor the patient and adjust management as needed Plan of care reviewed with the patient and his nurse Brief history and daily hospital course: 40-year-old -[place] male with no significant past medical history unvaccinated with Covid comes in for increasing shortness of breath and cough for 2-week escalating for 1 week. Symptoms worse with exertion and talking. Positive chest pain. Episode associated with cough. Intermittent nausea vomiting as well as emesis after coughing. Fever and low oxygen levels noted upon arrival. Sats in the mid 85. No loss of taste or smell. Feels weak. No known Covid exposure. Patient now willing to take vaccine after he gets better. 11/27 -Patient was on 4 L of oxygen. Covid test is pending. Procalcitonin level pending. ID is following. Patient is on Decadron and will add remdesivir if Covid test is positive 11/28 -Covid test was positive. Patient started on Decadron and remdesivir. ID consult appreciated. Patient's oxygen requirement was 30 L yesterday and CRP was 7.5 and ID recommend Actemra based on his availability. Pulmonary consulted. 11/29 patient is awake and alert and he is on 100% FiO2 via nonrebreather mask. Complains of cough with mucoid sputum and states chest hurts when he is coughing. He denies any fever or chills. Denies nausea or abdominal pain. Lab results reviewed. ID and pulmonary notes reviewed and appreciated 11/30 NAD, complains of occasional cough with mucoid sputum and feels mildly short of breath, he denies any fever or chills. lab results reviewed pulmonary note reviewed 12/01: Patient remains on high flow and nonrebreather to maintain a decent saturation. Continue steroids as prescribed by electroencephalogram technologist on high dose. Mild hyperkalemia we will give a dose of Kayexalate and repeat studies in a.m. Lasix per pulm. Monitor renal function 12/02: Patient seen and examined anxious this morning. Complained of discomfort with swallowing burning sensation. Discussed with cardiac team echocardiogram pending. Continue conservative management otherwise patient is on full dose enoxaparin and also high-dose steroids. Encourage prone positioning. Prognosis is guarded. Plan discussed with the patient. Although 12 point system reviewed and otherwise negative except as mentioned in the note 12/03: Continue high dose steroids, continue supportive care, proned. Unfortunately not improving. Will continue to monitor. 12/04: Patient unfortunately not showing any clinical improvement continues on nonrebreather on high flow. Lasix held today due to marginal blood pressure. Will transfer to IMCU for closer monitoring although he may not be able to go due to staffing shortage which is a national crisis at this time.. Plan discussed with the patient. 12/05: Patient seen and examined, Continue supportive care, wean as tolerated, still poor prognosis due to no significant improvement despite treatment. E ncouraged to prone through out the day. 12/06: Patient seen and examined remains significantly hypoxic. Encourage prone positioning. We will trial a dose of Lasix today. We will taper steroids sligh tly due to markedly inflammation noted leukocytosis. Will check renal function test in a.m. Guarded prognosis discussed with the patient still awaiting IMCU bed 12/07: Continue supportive care continue BiPAP encourage prone position continue steroids. I did speak with the father his phone number is [phone] his name is Chan Grimaldo and updated him on the clinical condition. He verbalized understanding. Recommend that we give him updates periodically. Pulmonary inp ut is appreciated. Continue to wean oxygen as tolerated. Continue Lovenox at this time. Case discussed with electroencephalogram technologist 12/08/2020; continues to be high flow nasal cannula oxygen intermittent BiPAP Wean as tolerated, on therapeutic anticoagulation due to elevated D-dimers CTA chest, lower extremity Doppler negative 12/09/2020; patient remains on continuous BiPAP and nasal cannula high flow oxygen Complains of shortness of breath and fatigue, multiple risk factors poor prognosis Continue current management 35 minutes critical care time History Interval history: I have seen and examined the patient at the bedside Patient's chart and medications reviewed Patient remains on 40 L high flow nasal cannula oxygen intermittent BiPAP Mild distress Hospitalist Physical - Constitutional Vitals: Temp Pulse Resp BP Pulse Ox 98.2 F 94 H 29 H 132/92 91 12/08/20 12:00 12/08/20 15:00 12/08/20 15:00 12/08/20 15:00 12/08/20 15:00 General appearance: Present: mild distress, well-nourished, obese - EENT Eyes: Present: PERRL, EOM intact - Neck Neck: Present: supple, normal ROM - Respiratory Respiratory effort: normal Respiratory: bilateral: diminished, rhonchi, negative: rales, wheezing - Cardiovascular Rhythm: regular Heart Sounds: Present: S1 & S2 - Extremities Extremities: no ischemia, No edema - Abdominal General gastrointestinal: soft, non-tender, non-distended, normal bowel sounds - Integumentary Integumentary: Present: clear, warm - Psychiatric Psychiatric: appropriate mood/affect, cooperative - Neurologic Neurologic: moves all extremities HEART Score - HEART Score Troponin: Troponin T 0.076 ng/mL (0.00-0.029) H 11/30/20 23:03 Results - Labs CBC & Chem 7: 12/07/20 05:30 12/08/20 04:20 Labs: Laboratory Last Values WBC 23.5 K/mm3 (4.5-11.0) H 12/07/20 05:30 RBC 4.20 M/mm3 (3.65-5.03) 12/07/20 05:30 Hgb 12.2 gm/dl (11.8-15.2) D 12/07/20 05:30 Hct 38.3 % (35.5-45.6) D 12/07/20 05:30 MCV 91 fl (84-94) 12/07/20 05:30 MCH 29 pg (28-32) 12/07/20 05:30 MCHC 32 % (32-34) 12/07/20 05:30 RDW 14.9 % (13.2-15.2) 12/07/20 05:30 Plt Count 255 K/mm3 (140-440) 12/07/20 05:30 Lymph % (Auto) 25.7 % (13.4-35.0) 11/27/20 05:15 [place] % (Auto) 4.5 % (0.0-7.3) 11/27/20 05:15 Eos % (Auto) 0.0 % (0.0-4.3) 11/27/20 05:15 Baso % (Auto) 0.2 % (0.0-1.8) 11/27/20 05:15 Lymph # (Auto) 1.5 K/mm3 (1.2-5.4) 11/27/20 05:15 [place] # (Auto) 0.3 K/mm3 (0.0-0.8) 11/27/20 05:15 Eos # (Auto) 0.0 K/mm3 (0.0-0.4) 11/27/20 05:15 Baso # (Auto) 0.0 K/mm3 (0.0-0.1) 11/27/20 05:15 Seg Neutrophils % 69.6 % (40.0-70.0) 11/27/20 05:15 Seg Neutrophils # 4.0 K/mm3 (1.8-7.7) 11/27/20 05:15 D-Dimer 6110.26 ng/mlDDU (0-234) H 12/06/20 14:58 ABG pH 7.414 (7.320-7.450) 12/07/20 05:24 POC ABG pCO2 38.9 mmHg (32.0-48.0) 12/07/20 05:24 POC ABG pO2 46.8 mmHg (83-108) L 12/07/20 05:24 POC ABG HCO3 24.3 12/07/20 05:24 ABG O2 Saturation 77.8 (0-100) 12/07/20 05:24 POC ABG Base Excess 0.1 12/07/20 05:24 ABG Hemoglobin 22.0 (12.0-17.5) H 12/07/20 05:24 ABG Oxyhemoglobin 77.2 (94-98) L 12/07/20 05:24 ABG Methemoglobin 0.3 (0.0-1.5) 12/07/20 05:24 ABG Sodium 133.9 mmol/L (136.0-145.0) L 12/07/20 05:24 ABG Potassium 4.4 mmol/L (3.40-4.50) 12/07/20 05:24 ABG Chloride 97.0 mmol/L (98-107) L 12/07/20 05:24 ABG Glucose 186 mg/dL (65-95) H 12/07/20 05:24 Carboxyhemoglobin 0.5 (0.5-1.5) 12/07/20 05:24 FiO2 % 100.0 12/07/20 05:24 Sodium 137 mmol/L (137-145) D 12/08/20 04:20 Potassium 5.0 mmol/L (3.6-5.0) 12/08/20 04:20 Chloride 95.3 mmol/L (98-107) L 12/08/20 04:20 Carbon Dioxide 29 mmol/L (22-30) 12/08/20 04:20 Anion Gap 18 mmol/L 12/08/20 04:20 BUN 40 mg/dL (9-20) H 12/08/20 04:20 Creatinine 1.1 mg/dL (0.8-1.3) 12/08/20 04:20 Estimated GFR > 60 ml/min 12/08/20 04:20 BUN/Creatinine Ratio 36 % 12/08/20 04:20 Glucose 153 mg/dL (75-100) H 12/08/20 04:20 POC Glucose 209 mg/dL (70-105) H 12/08/20 11:29 Lactic Acid 1.20 mmol/L (0.7-2.0) 11/26/20 23:28 Calcium 8.1 mg/dL (8.4-10.2) L 12/08/20 04:20 Ferritin 1785.0 ng/mL (30.0-300.0) H 12/06/20 14:58 Total Bilirubin 0.20 mg/dL (0.1-1.2) 12/07/20 05:30 AST 29 units/L (5-40) 12/07/20 05:30 ALT 27 units/L (7-56) 12/07/20 05:30 Alkaline Phosphatase 103 units/L (35-129) 12/07/20 05:30 Lactate Dehydrogenase 1421 units/L (91-180) H 12/06/20 14:58 Troponin T 0.076 ng/mL (0.00-0.029) H 11/30/20 23:03 C-Reactive Protein 0.30 mg/dL (0.00-1.30) 12/06/20 14:58 NT-Pro-B Natriuret Pep 18.20 pg/mL (0-450) 11/26/20 11:17 Total Protein 5.4 g/dL (6.3-8.2) L D 12/07/20 05:30 Albumin 2.7 g/dL (3.9-5) L 12/07/20 05:30 Albumin/Globulin Ratio 1.0 % 12/07/20 05:30 Triglycerides 228 mg/dL (2-149) H 11/30/20 18:10 Cholesterol 287 mg/dL (50-199) H 11/30/20 18:10 LDL Cholesterol Direct 210 mg/dL (50-130) H 11/30/20 18:10 HDL Cholesterol 38 mg/dL (40-59) L 11/30/20 18:10 Cholesterol/HDL Ratio 7.55 % 11/30/20 18:10 Procalcitonin 0.23 ng/mL (<0.15) 11/26/20 11:17 Arterial Blood Glucose 186 mg/dL (65-95) H 12/07/20 05:24 Arterial Blood Ionized Calcium 4.5 mg/dL (4.6-5.3) L 12/07/20 05:24 Coronavirus (PCR) Positive (Negative) A 11/27/20 Unknown Smith/IV: Voiding Method Urinal Active Medications - Current Medications Current Medications: Generic Name Dose Route Start Last Admin Trade Name Freq PRN Reason Stop Dose Admin Acetaminophen 650 mg 11/26/20 22:20 Acetaminophen 325 Mg Tab PO Q4H PRN Pain MILD(1-3)/Fever >100.5/DALY Aspirin 81 mg 12/02/20 10:00 12/08/20 09:49 Aspirin 81 Mg Tab Chew PO 81 mg QDAY SANGEETHA Administration Atorvastatin Calcium 40 mg 12/01/20 22:00 12/07/20 22:11 Atorvastatin 40 Mg Tab PO 40 mg QHS SANGEETHA Administration Enoxaparin Sodium 110 mg 12/02/20 22:00 12/08/20 09:50 Enoxaparin 120 Mg/0.8 Ml Inj SUB-Q 110 mg Q12HR SANGEETHA Administration Furosemide 20 mg 12/08/20 13:00 12/08/20 13:48 Furosemide 20 Mg/2 Ml Inj IV 12/08/20 16:00 20 mg ONCE SANGEETHA Administration Hydralazine HCl 50 mg 12/05/20 16:00 12/08/20 13:48 Hydralazine 25 Mg Tab PO 50 mg Q8HR SANGEETHA Administration Hydromorphone HCl 0.5 mg 11/26/20 22:20 12/07/20 04:47 Hydromorphone 1 Mg/1 Ml Inj IV 0.5 mg Q3H PRN Administration Pain , Severe (7-10) Insulin Human Lispro 0 unit 11/30/20 11:30 12/08/20 12:14 Insulin Lispro 100 Unit/Ml SUB-Q 3 unit ACHS SANGEETHA Administration Protocol Methylprednisolone Sodium Succinate 80 mg 12/06/20 14:00 12/08/20 13:48 Methylprednisolone Sod Succinate 125 Mg/2 Ml Inj IV 80 mg Q8HR SANGEETHA Administration Ondansetron HCl 4 mg 11/26/20 22:20 12/07/20 04:44 Ondansetron 4 Mg/2 Ml Inj IV 4 mg Q8H PRN Administration Nausea And Vomiting Oxycodone/Acetaminophen 1 tab 11/26/20 22:20 12/01/20 12:04 Oxycodone /Acetaminophen 5-325mg Tab PO 1 tab Q6H PRN Administration Pain, Moderate (4-6) Pantoprazole Sodium 40 mg 12/04/20 07:30 12/08/20 09:49 Pantoprazole 40 Mg Tab PO 40 mg QDAC SANGEETHA Administration Sodium Chloride 10 ml 11/26/20 23:00 12/08/20 09:57 Sodium Chloride 0.9% 10 Ml Flush Syringe IV 10 ml BID SANGEETHA Administration Sodium Chloride 10 ml 11/26/20 22:20 Sodium Chloride 0.9% 10 Ml Flush Syringe IV PRN PRN LINE FLUSH Sucralfate 1 gm 12/02/20 10:00 12/08/20 13:48 Sucralfate 1 Gm Tab PO 1 gm Q8HR SANGEETHA Administration Nutrition/Malnutrition Assess - Dietary Evaluation Nutrition/Malnutrition Findings: Nutrition Notes Start: 12/03/20 12:47 Freq: Status: Active Protocol: Document 12/08/20 11:21 KALYN (Rec: 12/08/20 11:26 KALYN [id number]) Nutrition Notes Initial or Follow up Reassessment Current Diagnosis Respiratory Failure, Hyperlipidemia Other Pertinent Diagnosis COVID-19, pneu Current Diet renal, consistent CHO Labs/Tests BUN 40 BG 153 9/6: K 5.1 Pertinent Medications Kionex Solu Medrol Height 5 ft 11 in Weight 109.5 kg [place] Body Weight (kg) 78.18 BMI 33.6 Weight Status Obese Subjective/Other Information RN reports pt continues to eat 0-25% of meals and is not drinking ONS provided. He has some ONS from home but unsure what kind. Food prefrences noted. Per chart, pt with N/V. Percent of energy/protein needs met: Negligible Burn Absent Trauma Absent GI Symptoms Nausea,Vomiting Current % PO Negligible Minimum of two criteria No Energy Intake (severe) < or equal to 50% Estimated Energy Requirement > or equal to 5 days #1 Nutrition Diagnosis Inadequate oral intake Diagnosis Progress(for reassessment Continues documentation) Is patient on ventilator? No Is Patient Ambulatory and/or Out of Bed No REE-([facility]-confined to bed) 2440.980 Kcal/Kg value to use for calculation 16 Approximate Energy Requirements Using 1752 kcal/Kg Calculation Used for Recommendations Kcal/kg Additional Notes Protein: (0.8-1g/kg AdjBW: 94kg) 75-94g Fluid: 1 ml/kcal or per MD Nutrition Intervention Change Diet Order: continue Add Supplement/Snack (indicate name/kcal D/c /protein ) Goal #1 Meet at least 75% of protein and kcal needs via PO intakes Anticipated Discharge Needs: regular Follow-Up By: 12/10/20 Additional Comments F/u: intakes
[2020-12-09] MEDS: hydrALAZINE 25 MG TAB PO SCH ×3 (06:42→21:25)
[2020-12-09] MEDS: SUCRALFATE 1 GM TAB PO SCH ×3 (06:43→21:26)
[2020-12-09] MEDS: methylPREDNISolone Sod Succinate 125 MG/2 ML INJ IV SCH ×3 (06:43→21:26)
--- NOTE | 2020-12-09 09:01 | Progress Note ---
Assessment and Plan Transient, marked sinus bradycardia associated with acute respiratory distress in the setting of COVID 19 pneumonia COVID 19 pneumonia An echocardiogram reveals dilated right heart chambers. Normal left ventricular systolic function, EF 55-60%. CTA chest negative for PE Lower extremity venous Doppler negative for DVT Elevated troponin, nonspecific Hyperlipidemia Recommendations: Continue telemetry monitoring. Avoid AV sadie blocking agents. Subjective Date of service: 12/09/20 Principal diagnosis: Covid pneumonia Interval history: No cardiac events reported. Stable sinus rhythm on telemetry. Objective Vital Signs Temp Pulse Pulse Resp BP Pulse Ox 12/09/20 07:00 87 28 H 154/99 90 12/09/20 06:42 90 134/92 12/09/20 06:31 93 H 25 H 134/92 92 12/09/20 06:00 93 H 23 134/92 94 12/09/20 05:31 108 H 22 115/74 95 12/09/20 05:20 92 H 20 98 12/09/20 05:00 93 H 25 H 115/74 93 12/09/20 04:31 102 H 19 114/81 97 12/09/20 04:01 98 H 28 H 114/81 96 12/09/20 04:00 103 H 26 H 95 12/09/20 03:58 97.7 F 12/09/20 03:31 76 41 H 137/86 69 L 12/09/20 03:00 97 H 20 137/86 98 12/09/20 02:31 96 H 15 142/89 92 12/09/20 02:01 99 H 18 142/89 98 12/09/20 01:31 94 H 24 133/80 94 12/09/20 01:00 100 H 21 134/91 95 12/09/20 00:31 94 H 23 134/91 98 12/09/20 00:00 109 H 112 H 31 H 134/91 94 12/08/20 23:43 98.4 F 12/08/20 23:31 96 H 10 L 139/88 87 12/08/20 23:00 93 H 33 H 139/88 12/08/20 22:31 93 H 31 H 129/87 90 12/08/20 22:18 95 H 129/87 12/08/20 22:00 95 H 35 H 129/87 90 12/08/20 21:31 95 H 33 H 122/86 91 12/08/20 21:09 97 H 31 H 122/86 92 12/08/20 21:00 94 H 33 H 122/86 90 12/08/20 20:31 104 H 35 H 135/87 89 12/08/20 20:00 98.9 F 95 H 94 H 30 H 135/87 96 12/08/20 19:31 96 H 7 L 138/78 91 12/08/20 19:00 90 33 H 138/78 12/08/20 18:31 93 H 34 H 127/84 89 12/08/20 18:00 95 H 37 H 127/84 91 12/08/20 17:31 96 H 35 H 138/90 91 12/08/20 17:00 88 34 H 138/90 12/08/20 16:31 95 H 33 H 122/87 92 12/08/20 16:18 90 30 H 96 12/08/20 16:00 98.6 F 94 H 26 H 122/87 87 12/08/20 15:31 107 H 18 132/92 90 12/08/20 15:00 94 H 29 H 132/92 91 12/08/20 14:31 97 H 30 H 129/94 94 12/08/20 14:00 93 H 29 H 129/94 12/08/20 13:31 130/82 96 12/08/20 13:00 90 130/82 12/08/20 12:31 96 H 29 H 128/90 89 12/08/20 12:18 97 H 33 H 97 12/08/20 12:00 98.2 F 94 H 35 H 128/90 93 12/08/20 11:31 101 H 31 H 123/82 93 12/08/20 11:00 99 H 31 H 123/82 85 12/08/20 10:31 98 H 39 H 135/91 89 12/08/20 10:00 87 29 H 135/91 89 12/08/20 09:31 136/92 89 12/08/20 09:00 89 136/92 - Physical Examination Narrative exam: Deferred due to isolation protocol. General: Other (on Bipap therapy) Cardiac: Positive: Reg Rate and Rhythm
[2020-12-09] MEDS: PANTOPRAZOLE 40 MG TAB PO SCH (09:53)
[2020-12-09] MEDS: ASPIRIN 81 MG TAB CHEW PO SCH (09:53)
[2020-12-09] MEDS: ENOXAPARIN 120 MG/0.8 ML INJ SUB-Q SCH ×2 (09:54→21:27)
[2020-12-09] MEDS: INSULIN LISPRO 100 UNIT/ML SUB-Q SCH ×4 (09:54→23:18)
--- NOTE | 2020-12-09 11:53 | Progress Note ---
Assessment and Plan Assessment and plan: Assessment and plan --Acute hypoxic respiratory failure Secondary to COVID-19 pneumonia Patient is now on high flow at 40 L and 100% FiO2 Pulmonary note reviewed and appreciated IV Decadron dose increased by pulmonary due to worsening hypoxia Actemra if available --COVID-19 pneumonia Continue remdesivir Continue Decadron IV antibiotics discontinued as procalcitonin is normal Prognosis guarded due to severe hypoxia Inflammatory markers reviewed LFTs mildly increased --Elevated D-dimer increased to 10,000 from 2154 on 11/27 Lovenox increased to 80 mg every 12 hours subcu CTA chest negative for PE Lower extremity venous Doppler negative for DVT --Hyponatremia Improved --Obesity class II Counseling when he is more stable --Hyperglycemia Mild , secondary to steroids Patient denies history of diabetes Start on Accu-Cheks with insulin sliding scale coverage --Hyperkalemia --Gastroenteritis with nausea vomiting --DVT prophylaxis Full dose anticoagulation; Patient is critically ill continues to be on high flow oxygen Poor prognosis, family obese We will closely monitor the patient and adjust management as needed Plan of care reviewed with the patient and his nurse 40-year-old -Malian male with no significant past medical history unvaccinated with Covid comes in for increasing shortness of breath and cough for 2-week escalating for 1 week. Symptoms worse with exertion and talking. Positive chest pain. Episode associated with cough. Intermittent nausea vomiting as well as emesis after coughing. Fever and low oxygen levels noted upon arrival. Sats in the mid 85. No loss of taste or smell. Feels weak. No known Covid exposure. Patient now willing to take vaccine after he gets better. 11/27 -Patient was on 4 L of oxygen. Covid test is pending. Procalcitonin level pending. ID is following. Patient is on Decadron and will add remdesivir if Covid test is positive 11/28 -Covid test was positive. Patient started on Decadron and remdesivir. ID consult appreciated. Patient's oxygen requirement was 30 L yesterday and CRP was 7.5 and ID recommend Actemra based on his availability. Pulmonary consulted. 11/29 patient is awake and alert and he is on 100% FiO2 via nonrebreather mask. Complains of cough with mucoid sputum and states chest hurts when he is coughing. He denies any fever or chills. Denies nausea or abdominal pain. Lab results reviewed. ID and pulmonary notes reviewed and appreciated 11/30 NAD, complains of occasional cough with mucoid sputum and feels mildly short of breath, he denies any fever or chills. lab results reviewed pulmonary note reviewed 12/01: Patient remains on high flow and nonrebreather to maintain a decent s aturation. Continue steroids as prescribed by coagulator on high dose. Mild hyperkalemia we will give a dose of Kayexalate and repeat studies in a.m. Lasix per pulm. Monitor renal function 12/02: Patient seen and examined anxious this morning. Complained of discomfort with swallowing burning sensation. Discussed with cardiac team echocardiogram pending. Continue conservative management otherwise patient is on full dose enoxaparin and also high-dose steroids. Encourage prone positioning. Prognosis is guarded. Plan discussed with the patient. Although 12 point system reviewed and otherwise negative except as mentioned in the note 12/03: Continue high dose steroids, continue supportive care, proned. Unfortunately not improving. Will continue to monitor. 12/04: Patient unfortunately not showing any clinical improvement continues on nonrebreather on high flow. Lasix held today due to marginal blood pressure. Will transfer to [facility] for closer monitoring although he may not be able to go due to staffing shortage which is a national crisis at this time.. Plan discussed with the patient. 12/05: Patient seen and examined, Continue supportive care, wean as tolerated, still poor prognosis due to no significant improvement despite treatment. Encouraged to prone through out the day. 12/06: Patient seen and examined remains significantly hypoxic. Encourage prone positioning. We will trial a dose of Lasix today. We will taper steroids slightly due to markedly inflammation noted leukocytosis. Will check renal function test in a.m. Guarded prognosis discussed with the patient still awaiting IMCU bed 12/07: Continue supportive care continue BiPAP encourage prone position continue steroids. I did speak with the father his phone number is [phone] his name is Chan Grimaldo and updated him on the clinical condition. He verbalized understanding. Recommend that we give him updates periodically. Pulmonary input is appreciated. Continue to wean oxygen as tolerated. Continue Lovenox at this time. Case discussed with coagulator 12/08/2020; continues to be high flow nasal cannula oxygen intermittent BiPAP Wean as tolerated, on therapeutic anticoagulation due to elevated D-dimers CTA chest, lower extremity Doppler negative 12/09/2020; patient continues to be on high flow nasal cannula oxygen 40 L with intermittent BiPAP Patient prefers BiPAP all the time , wean as tolerated patient with multiple risk factors critically ill Poor prognosis History Interval history: I have seen and examined the patient and IMCU this morning Isolation precautions PPE protocols observed Patient is refusing high flow oxygen, and is comfortable on BiPAP Mild shortness of breath Complains of generalized weakness Hospitalist Physical - Constitutional Vitals: Temp Pulse Resp BP Pulse Ox 98.7 F 100 H 23 142/89 98 12/09/20 08:00 12/09/20 11:31 12/09/20 11:31 12/09/20 11:31 12/09/20 11:31 General appearance: Present: mild distress, well-nourished, obese - EENT Eyes: Present: PERRL - Neck Neck: Present: supple, normal ROM - Respiratory Respiratory effort: normal Respiratory: bilateral: diminished, rhonchi, negative: rales, wheezing - Cardiovascular Rhythm: regular Heart Sounds: Present: S1 & S2 - Extremities Extremities: no ischemia, No edema - Abdominal General gastrointestinal: soft, non-tender, non-distended, normal bowel sounds - Integumentary Integumentary: Present: clear, warm - Psychiatric Psychiatric: appropriate mood/affect, cooperative - Neurologic Neurologic: CNII-XII intact, moves all extremities HEART Score - HEART Score Troponin: Troponin T 0.076 ng/mL (0.00-0.029) H 11/30/20 23:03 Results - Labs CBC & Chem 7: 12/07/20 05:30 12/08/20 04:20 Labs: Laboratory Last Values WBC 23.5 K/mm3 (4.5-11.0) H 12/07/20 05:30 RBC 4.20 M/mm3 (3.65-5.03) 12/07/20 05:30 Hgb 12.2 gm/dl (11.8-15.2) D 12/07/20 05:30 Hct 38.3 % (35.5-45.6) D 12/07/20 05:30 MCV 91 fl (84-94) 12/07/20 05:30 MCH 29 pg (28-32) 12/07/20 05:30 MCHC 32 % (32-34) 12/07/20 05:30 RDW 14.9 % (13.2-15.2) 12/07/20 05:30 Plt Count 255 K/mm3 (140-440) 12/07/20 05:30 Lymph % (Auto) 25.7 % (13.4-35.0) 11/27/20 05:15 [place] % (Auto) 4.5 % (0.0-7.3) 11/27/20 05:15 Eos % (Auto) 0.0 % (0.0-4.3) 11/27/20 05:15 Baso % (Auto) 0.2 % (0.0-1.8) 11/27/20 05:15 Lymph # (Auto) 1.5 K/mm3 (1.2-5.4) 11/27/20 05:15 [place] # (Auto) 0.3 K/mm3 (0.0-0.8) 11/27/20 05:15 Eos # (Auto) 0.0 K/mm3 (0.0-0.4) 11/27/20 05:15 Baso # (Auto) 0.0 K/mm3 (0.0-0.1) 11/27/20 05:15 Seg Neutrophils % 69.6 % (40.0-70.0) 11/27/20 05:15 Seg Neutrophils # 4.0 K/mm3 (1.8-7.7) 11/27/20 05:15 D-Dimer 6110.26 ng/mlDDU (0-234) H 12/06/20 14:58 ABG pH 7.414 (7.320-7.450) 12/07/20 05:24 POC ABG pCO2 38.9 mmHg (32.0-48.0) 12/07/20 05:24 POC ABG pO2 46.8 mmHg (83-108) L 12/07/20 05:24 POC ABG HCO3 24.3 12/07/20 05:24 ABG O2 Saturation 77.8 (0-100) 12/07/20 05:24 POC ABG Base Excess 0.1 12/07/20 05:24 ABG Hemoglobin 22.0 (12.0-17.5) H 12/07/20 05:24 ABG Oxyhemoglobin 77.2 (94-98) L 12/07/20 05:24 ABG Methemoglobin 0.3 (0.0-1.5) 12/07/20 05:24 ABG Sodium 133.9 mmol/L (136.0-145.0) L 12/07/20 05:24 ABG Potassium 4.4 mmol/L (3.40-4.50) 12/07/20 05:24 ABG Chloride 97.0 mmol/L (98-107) L 12/07/20 05:24 ABG Glucose 186 mg/dL (65-95) H 12/07/20 05:24 Carboxyhemoglobin 0.5 (0.5-1.5) 12/07/20 05:24 FiO2 % 100.0 12/07/20 05:24 Sodium 137 mmol/L (137-145) D 12/08/20 04:20 Potassium 5.0 mmol/L (3.6-5.0) 12/08/20 04:20 Chloride 95.3 mmol/L (98-107) L 12/08/20 04:20 Carbon Dioxide 29 mmol/L (22-30) 12/08/20 04:20 Anion Gap 18 mmol/L 12/08/20 04:20 BUN 40 mg/dL (9-20) H 12/08/20 04:20 Creatinine 1.1 mg/dL (0.8-1.3) 12/08/20 04:20 Estimated GFR > 60 ml/min 12/08/20 04:20 BUN/Creatinine Ratio 36 % 12/08/20 04:20 Glucose 153 mg/dL (75-100) H 12/08/20 04:20 POC Glucose 184 mg/dL (70-105) H 12/09/20 07:40 Lactic Acid 1.20 mmol/L (0.7-2.0) 11/26/20 23:28 Calcium 8.1 mg/dL (8.4-10.2) L 12/08/20 04:20 Ferritin 1785.0 ng/mL (30.0-300.0) H 12/06/20 14:58 Total Bilirubin 0.20 mg/dL (0.1-1.2) 12/07/20 05:30 AST 29 units/L (5-40) 12/07/20 05:30 ALT 27 units/L (7-56) 12/07/20 05:30 Alkaline Phosphatase 103 units/L (35-129) 12/07/20 05:30 Lactate Dehydrogenase 1421 units/L (91-180) H 12/06/20 14:58 Troponin T 0.076 ng/mL (0.00-0.029) H 11/30/20 23:03 C-Reactive Protein 0.30 mg/dL (0.00-1.30) 12/06/20 14:58 NT-Pro-B Natriuret Pep 18.20 pg/mL (0-450) 11/26/20 11:17 Total Protein 5.4 g/dL (6.3-8.2) L D 12/07/20 05:30 Albumin 2.7 g/dL (3.9-5) L 12/07/20 05:30 Albumin/Globulin Ratio 1.0 % 12/07/20 05:30 Triglycerides 228 mg/dL (2-149) H 11/30/20 18:10 Cholesterol 287 mg/dL (50-199) H 11/30/20 18:10 LDL Cholesterol Direct 210 mg/dL (50-130) H 11/30/20 18:10 HDL Cholesterol 38 mg/dL (40-59) L 11/30/20 18:10 Cholesterol/HDL Ratio 7.55 % 11/30/20 18:10 Procalcitonin 0.23 ng/mL (<0.15) 11/26/20 11:17 Arterial Blood Glucose 186 mg/dL (65-95) H 12/07/20 05:24 Arterial Blood Ionized Calcium 4.5 mg/dL (4.6-5.3) L 12/07/20 05:24 Coronavirus (PCR) Positive (Negative) A 11/27/20 Unknown Smith/IV: Voiding Method Urinal Active Medications - Current Medications Current Medications: Generic Name Dose Route Start Last Admin Trade Name Freq PRN Reason Stop Dose Admin Acetaminophen 650 mg 11/26/20 22:20 Acetaminophen 325 Mg Tab PO Q4H PRN Pain MILD(1-3)/Fever >100.5/DALY Aspirin 81 mg 12/02/20 10:00 12/09/20 09:53 Aspirin 81 Mg Tab Chew PO 81 mg QDAY SANGEETHA Administration Atorvastatin Calcium 40 mg 12/01/20 22:00 12/08/20 22:17 Atorvastatin 40 Mg Tab PO 40 mg QHS SANGEETHA Administration Enoxaparin Sodium 110 mg 12/02/20 22:00 12/09/20 09:54 Enoxaparin 120 Mg/0.8 Ml Inj SUB-Q 110 mg Q12HR SANGEETHA Administration Hydralazine HCl 50 mg 12/05/20 16:00 12/09/20 06:42 Hydralazine 25 Mg Tab PO 50 mg Q8HR SANGEETHA Administration Hydromorphone HCl 0.5 mg 11/26/20 22:20 12/07/20 04:47 Hydromorphone 1 Mg/1 Ml Inj IV 0.5 mg Q3H PRN Administration Pain , Severe (7-10) Insulin Human Lispro 0 unit 11/30/20 11:30 12/09/20 09:54 Insulin Lispro 100 Unit/Ml SUB-Q 2 unit ACHS SANGEETHA Administration Protocol Methylprednisolone Sodium Succinate 80 mg 12/06/20 14:00 12/09/20 06:43 Methylprednisolone Sod Succinate 125 Mg/2 Ml Inj IV 80 mg Q8HR SANGEETHA Administration Ondansetron HCl 4 mg 11/26/20 22:20 12/07/20 04:44 Ondansetron 4 Mg/2 Ml Inj IV 4 mg Q8H PRN Administration Nausea And Vomiting Oxycodone/Acetaminophen 1 tab 11/26/20 22:20 12/01/20 12:04 Oxycodone /Acetaminophen 5-325mg Tab PO 1 tab Q6H PRN Administration Pain, Moderate (4-6) Pantoprazole Sodium 40 mg 12/04/20 07:30 12/09/20 09:53 Pantoprazole 40 Mg Tab PO 40 mg QDAC SANGEETHA Administration Sodium Chloride 10 ml 11/26/20 23:00 12/09/20 09:54 Sodium Chloride 0.9% 10 Ml Flush Syringe IV 10 ml BID SANGEETHA Administration Sodium Chloride 10 ml 11/26/20 22:20 Sodium Chloride 0.9% 10 Ml Flush Syringe IV PRN PRN LINE FLUSH Sucralfate 1 gm 12/02/20 10:00 12/09/20 06:43 Sucralfate 1 Gm Tab PO 1 gm Q8HR SANGEETHA Administration Nutrition/Malnutrition Assess - Dietary Evaluation Nutrition/Malnutrition Findings: Nutrition Notes Start: 12/03/20 12:47 Freq: Status: Active Protocol: Document 12/08/20 11:21 KALYN (Rec: 12/08/20 11:26 KALYN [id number]) Nutrition Notes Initial or Follow up Reassessment Current Diagnosis Respiratory Failure, Hyperlipidemia Other Pertinent Diagnosis COVID-19, pneu Current Diet renal, consistent CHO Labs/Tests BUN 40 BG 153 9/6: K 5.1 Pertinent Medications Kionex Solu Medrol Height 5 ft 11 in Weight 109.5 kg [place] Body Weight (kg) 78.18 BMI 33.6 Weight Status Obese Subjective/Other Information RN reports pt continues to eat 0-25% of meals and is not drinking ONS provided. He has some ONS from home but unsure what kind. Food prefrences noted. Per chart, pt with N/V. Percent of energy/protein needs met: Negligible Burn Absent Trauma Absent GI Symptoms Nausea,Vomiting Current % PO Negligible Minimum of two criteria No Energy Intake (severe) < or equal to 50% Estimated Energy Requirement > or equal to 5 days #1 Nutrition Diagnosis Inadequate oral intake Diagnosis Progress(for reassessment Continues documentation) Is patient on ventilator? No Is Patient Ambulatory and/or Out of Bed No REE-([place]-St. Jeor-confined to bed) 2440.980 Kcal/Kg value to use for calculation 16 Approximate Energy Requirements Using 1752 kcal/Kg Calculation Used for Recommendations Kcal/kg Additional Notes Protein: (0.8-1g/kg AdjBW: 94kg) 75-94g Fluid: 1 ml/kcal or per MD Nutrition Intervention Change Diet Order: continue Add Supplement/Snack (indicate name/kcal D/c /protein ) Goal #1 Meet at least 75% of protein and kcal needs via PO intakes Anticipated Discharge Needs: regular Follow-Up By: 12/10/20 Additional Comments F/u: intakes
[2020-12-09] MEDS ORDERED: FUROSEMIDE 40 MG/4 ML INJ IV NR (15:41)
--- NOTE | 2020-12-09 15:42 | Progress Note ---
Assessment and Plan 40 y/o obese male with acute respiratory failure secondary to COVID pneumonia. 12/09/20: Lasix again today. Will order labs for AM. Continue to prone. Guarded prognosis. 12/08/20: Will do lasix again today. IMS spoke with father on yesterday. Prone if able. GUarded prognosis. 12/07/20: Steroids at 80q8, changed over the weekend. Lasix given today. Prone as tolerated. IMS spoke with father over the phone. Guarded prognosis. 12/04/20: Steroids at 125 Q8. Prone. Hold on lasix today given marginal blood pressures but please reassess over the weekend, guarded prognosis. 12/03/20: Hold on lasix today. Encourage to prone. Will increase steroids to 125q8. Guarded prognosis. 12/02/20: Lasix again today (20), continue to prone. continue steroids. Guarded prognosis. 12/01/20: Wean as tolerated. Proning should continue. Will give 20 of lasix today. 11/30/20: Patient is attempting to prone which is good for him. Continue to prone as much as tolerated. Hold on lasix again today. 11/29/20: No new recs for today. Needs to prone as much as tolerated. i/O not accurate so will hold on lasix for today. 1. Increase steroids to BID dosing given weight 2. Remdesivir 3. Actemra 4. Proning and net negative fluid balance Guarded prognosis Subjective Date of service: 12/09/20 Principal diagnosis: Covid pneumonia Interval history: Proned on bipap. Stable. Objective Vital Signs - 12hr 12/09/20 12/09/20 12/09/20 03:58 04:00 04:01 Temperature 97.7 F Pulse Rate 98 H Pulse Rate [ 103 H From Monitor] Respiratory 26 H 28 H Rate Blood Pressure 114/81 O2 Sat by Pulse 95 96 Oximetry 12/09/20 12/09/20 12/09/20 04:31 05:00 05:20 Temperature Pulse Rate 102 H 93 H 92 H Pulse Rate [ From Monitor] Respiratory 19 25 H 20 Rate Blood Pressure 114/81 115/74 O2 Sat by Pulse 97 93 98 Oximetry 12/09/20 12/09/20 12/09/20 05:31 06:00 06:31 Temperature Pulse Rate 108 H 93 H 93 H Pulse Rate [ From Monitor] Respiratory 22 23 25 H Rate Blood Pressure 115/74 134/92 134/92 O2 Sat by Pulse 95 94 92 Oximetry 12/09/20 12/09/20 12/09/20 06:42 07:00 07:31 Temperature Pulse Rate 90 87 93 H Pulse Rate [ From Monitor] Respiratory 28 H 22 Rate Blood Pressure 134/92 154/99 154/99 O2 Sat by Pulse 90 96 Oximetry 12/09/20 12/09/20 12/09/20 08:00 08:31 09:00 Temperature 98.7 F Pulse Rate 97 H 92 H 90 Pulse Rate [ 89 From Monitor] Respiratory 21 24 22 Rate Blood Pressure 123/96 123/96 134/98 O2 Sat by Pulse 96 94 94 Oximetry 12/09/20 12/09/20 12/09/20 09:31 09:40 10:00 Temperature Pulse Rate 95 H 95 H 94 H Pulse Rate [ From Monitor] Respiratory 23 22 22 Rate Blood Pressure 134/98 134/98 150/75 O2 Sat by Pulse 96 97 95 Oximetry 12/09/20 12/09/20 12/09/20 10:31 11:00 11:31 Temperature Pulse Rate 110 H 100 H 100 H Pulse Rate [ From Monitor] Respiratory 24 23 23 Rate Blood Pressure 150/75 142/89 142/89 O2 Sat by Pulse 84 96 98 Oximetry 12/09/20 12/09/20 12/09/20 12:00 12:31 12:43 Temperature Pulse Rate 96 H 91 H 97 H Pulse Rate [ 90 From Monitor] Respiratory 24 22 33 H Rate Blood Pressure 152/108 152/108 152/108 O2 Sat by Pulse 98 96 96 Oximetry 12/09/20 12/09/20 12/09/20 13:00 13:01 13:27 Temperature Pulse Rate 110 H 98 H 92 H Pulse Rate [ From Monitor] Respiratory 23 Rate Blood Pressure 188/61 188/61 O2 Sat by Pulse 96 Oximetry 12/09/20 12/09/20 13:31 14:01 Temperature Pulse Rate 95 H 95 H Pulse Rate [ From Monitor] Respiratory 24 25 H Rate Blood Pressure 188/61 128/104 O2 Sat by Pulse 97 98 Oximetry CBC and BMP: 12/07/20 05:30 12/08/20 04:20 ABG, PT/INR, D-dimer: ABG ABG pH 7.414 (7.320-7.450) 12/07/20 05:24 POC ABG pCO2 38.9 mmHg (32.0-48.0) 12/07/20 05:24 POC ABG pO2 46.8 mmHg (83-108) L 12/07/20 05:24 POC ABG HCO3 24.3 12/07/20 05:24 ABG O2 Saturation 77.8 (0-100) 12/07/20 05:24 PT/INR, D-dimer D-Dimer 6110.26 ng/mlDDU (0-234) H 12/06/20 14:58 Abnormal lab findings: Abnormal Labs 11/26/20 11/26/20 11/26/20 11:17 11:17 11:17 WBC RBC 5.28 H Hgb 15.8 H Hct MCHC 35 H RDW Plt Count 135 L Seg Neutrophils % 72.2 H D-Dimer 2154.70 H POC ABG pO2 ABG Hemoglobin ABG Oxyhemoglobin ABG Sodium ABG Chloride ABG Glucose Sodium 135 L Potassium Chloride 96.7 L BUN Creatinine Glucose 117 H POC Glucose Calcium Ferritin Total Bilirubin AST 68 H ALT Lactate Dehydrogenase Troponin T C-Reactive Protein Total Protein Albumin Triglycerides Cholesterol LDL Cholesterol Direct HDL Cholesterol Arterial Blood Glucose Arterial Blood Ionized Calcium Coronavirus (PCR) 11/26/20 11/26/20 11/27/20 11:17 11:17 05:15 WBC RBC 5.14 H Hgb 15.3 H Hct MCHC 35 H RDW Plt Count Seg Neutrophils % D-Dimer POC ABG pO2 ABG Hemoglobin ABG Oxyhemoglobin ABG Sodium ABG Chloride ABG Glucose Sodium Potassium Chloride BUN Creatinine Glucose POC Glucose Calcium Ferritin 872.8 H Total Bilirubin AST ALT Lactate Dehydrogenase 642 H Troponin T C-Reactive Protein 8.50 H Total Protein Albumin Triglycerides Cholesterol LDL Cholesterol Direct HDL Cholesterol Arterial Blood Glucose Arterial Blood Ionized Calcium Coronavirus (PCR) 11/27/20 11/27/20 11/27/20 05:15 17:12 Unknown WBC RBC Hgb Hct MCHC RDW Plt Count Seg Neutrophils % D-Dimer POC ABG pO2 ABG Hemoglobin ABG Oxyhemoglobin ABG Sodium ABG Chloride ABG Glucose Sodium 134 L Potassium Chloride 95.1 L BUN Creatinine 1.4 H Glucose 110 H 130 H POC Glucose Calcium Ferritin Total Bilirubin AST 51 H 53 H ALT Lactate Dehydrogenase Troponin T C-Reactive Protein Total Protein Albumin 3.4 L Triglycerides Cholesterol LDL Cholesterol Direct HDL Cholesterol Arterial Blood Glucose Arterial Blood Ionized Calcium Coronavirus (PCR) Positive A 11/28/20 11/29/20 11/30/20 07:14 10:14 03:21 WBC RBC Hgb Hct MCHC RDW Plt Count Seg Neutrophils % D-Dimer POC ABG pO2 ABG Hemoglobin ABG Oxyhemoglobin ABG Sodium ABG Chloride ABG Glucose Sodium Potassium Chloride 97.0 L 97.2 L BUN 23 H 26 H Creatinine Glucose 117 H 140 H 158 H POC Glucose Calcium Ferritin Total Bilirubin AST 54 H 45 H 50 H ALT 65 H Lactate Dehydrogenase 739 H Troponin T C-Reactive Protein 8.50 H Total Protein Albumin 3.6 L 3.8 L Triglycerides Cholesterol LDL Cholesterol Direct HDL Cholesterol Arterial Blood Glucose Arterial Blood Ionized Calcium Coronavirus (PCR) 11/30/20 11/30/20 11/30/20 03:21 03:21 13:05 WBC RBC Hgb Hct MCHC RDW Plt Count Seg Neutrophils % D-Dimer > 16468 H POC ABG pO2 ABG Hemoglobin ABG Oxyhemoglobin ABG Sodium ABG Chloride ABG Glucose Sodium Potassium Chloride BUN Creatinine Glucose POC Glucose 138 H Calcium Ferritin 1885.0 H Total Bilirubin AST ALT Lactate Dehydrogenase Troponin T C-Reactive Protein Total Protein Albumin Triglycerides Cholesterol LDL Cholesterol Direct HDL Cholesterol Arterial Blood Glucose Arterial Blood Ionized Calcium Coronavirus (PCR) 11/30/20 11/30/20 11/30/20 16:41 18:10 21:18 WBC RBC Hgb Hct MCHC RDW Plt Count Seg Neutrophils % D-Dimer POC ABG pO2 ABG Hemoglobin ABG Oxyhemoglobin ABG Sodium ABG Chloride ABG Glucose Sodium Potassium Chloride BUN Creatinine Glucose POC Glucose 145 H 157 H Calcium Ferritin Total Bilirubin AST ALT Lactate Dehydrogenase Troponin T 0.080 H D C-Reactive Protein Total Protein Albumin Triglycerides 228 H Cholesterol 287 H LDL Cholesterol Direct 210 H HDL Cholesterol 38 L Arterial Blood Glucose Arterial Blood Ionized Calcium Coronavirus (PCR) 11/30/20 12/01/20 12/01/20 23:03 05:32 05:32 WBC 15.5 H RBC 5.86 H Hgb 17.3 H Hct 51.6 H MCHC RDW 15.3 H Plt Count Seg Neutrophils % D-Dimer POC ABG pO2 ABG Hemoglobin ABG Oxyhemoglobin ABG Sodium ABG Chloride ABG Glucose Sodium Potassium 5.1 H Chloride BUN 28 H Creatinine Glucose 147 H POC Glucose Calcium Ferritin Total Bilirubin AST 51 H ALT 91 H Lactate Dehydrogenase Troponin T 0.076 H C-Reactive Protein Total Protein Albumin 3.5 L Triglycerides Cholesterol LDL Cholesterol Direct HDL Cholesterol Arterial Blood Glucose Arterial Blood Ionized Calcium Coronavirus (PCR) 12/01/20 12/01/20 12/01/20 08:06 12:04 16:07 WBC RBC Hgb Hct MCHC RDW Plt Count Seg Neutrophils % D-Dimer POC ABG pO2 ABG Hemoglobin ABG Oxyhemoglobin ABG Sodium ABG Chloride ABG Glucose Sodium Potassium Chloride BUN Creatinine Glucose POC Glucose 143 H 156 H 196 H Calcium Ferritin Total Bilirubin AST ALT Lactate Dehydrogenase Troponin T C-Reactive Protein Total Protein Albumin Triglycerides Cholesterol LDL Cholesterol Direct HDL Cholesterol Arterial Blood Glucose Arterial Blood Ionized Calcium Coronavirus (PCR) 12/01/20 12/02/20 12/02/20 21:34 03:17 03:17 WBC 17.2 H RBC 6.26 H Hgb 18.5 H Hct 54.5 H MCHC RDW Plt Count Seg Neutrophils % D-Dimer POC ABG pO2 ABG Hemoglobin ABG Oxyhemoglobin ABG Sodium ABG Chloride ABG Glucose Sodium Potassium Chloride BUN 33 H Creatinine Glucose 131 H POC Glucose 174 H Calcium Ferritin Total Bilirubin 1.40 H AST 48 H ALT 128 H Lactate Dehydrogenase Troponin T C-Reactive Protein Total Protein Albumin 3.3 L Triglycerides Cholesterol LDL Cholesterol Direct HDL Cholesterol Arterial Blood Glucose Arterial Blood Ionized Calcium Coronavirus (PCR) 12/02/20 12/02/20 12/02/20 07:50 10:58 16:17 WBC RBC Hgb Hct MCHC RDW Plt Count Seg Neutrophils % D-Dimer POC ABG pO2 ABG Hemoglobin ABG Oxyhemoglobin ABG Sodium ABG Chloride ABG Glucose Sodium Potassium Chloride BUN Creatinine Glucose POC Glucose 127 H 117 H 138 H Calcium Ferritin Total Bilirubin AST ALT Lactate Dehydrogenase Troponin T C-Reactive Protein Total Protein Albumin Triglycerides Cholesterol LDL Cholesterol Direct HDL Cholesterol Arterial Blood Glucose Arterial Blood Ionized Calcium Coronavirus (PCR) 12/02/20 12/03/20 12/03/20 21:23 08:13 11:32 WBC RBC Hgb Hct MCHC RDW Plt Count Seg Neutrophils % D-Dimer POC ABG pO2 ABG Hemoglobin ABG Oxyhemoglobin ABG Sodium ABG Chloride ABG Glucose Sodium Potassium Chloride BUN Creatinine Glucose POC Glucose 187 H 160 H 154 H Calcium Ferritin Total Bilirubin AST ALT Lactate Dehydrogenase Troponin T C-Reactive Protein Total Protein Albumin Triglycerides Cholesterol LDL Cholesterol Direct HDL Cholesterol Arterial Blood Glucose Arterial Blood Ionized Calcium Coronavirus (PCR) 12/03/20 12/03/20 12/04/20 16:54 21:56 03:02 WBC 25.4 H RBC 6.65 H Hgb 19.7 H Hct 58.2 H MCHC RDW Plt Count Seg Neutrophils % D-Dimer POC ABG pO2 ABG Hemoglobin ABG Oxyhemoglobin ABG Sodium ABG Chloride ABG Glucose Sodium Potassium Chloride BUN Creatinine Glucose POC Glucose 186 H 156 H Calcium Ferritin Total Bilirubin AST ALT Lactate Dehydrogenase Troponin T C-Reactive Protein Total Protein Albumin Triglycerides Cholesterol LDL Cholesterol Direct HDL Cholesterol Arterial Blood Glucose Arterial Blood Ionized Calcium Coronavirus (PCR) 12/04/20 12/04/20 12/04/20 03:02 07:35 10:54 WBC RBC Hgb Hct MCHC RDW Plt Count Seg Neutrophils % D-Dimer POC ABG pO2 ABG Hemoglobin ABG Oxyhemoglobin ABG Sodium ABG Chloride ABG Glucose Sodium Potassium 5.6 H Chloride BUN 36 H Creatinine Glucose 152 H POC Glucose 171 H 256 H Calcium Ferritin Total Bilirubin 1.30 H AST 84 H ALT 124 H Lactate Dehydrogenase Troponin T C-Reactive Protein Total Protein Albumin 3.7 L Triglycerides Cholesterol LDL Cholesterol Direct HDL Cholesterol Arterial Blood Glucose Arterial Blood Ionized Calcium Coronavirus (PCR) 12/04/20 12/04/20 12/05/20 16:43 21:40 06:00 WBC 26.4 H RBC 6.29 H Hgb 18.3 H Hct 54.4 H MCHC RDW 15.3 H Plt Count Seg Neutrophils % D-Dimer POC ABG pO2 ABG Hemoglobin ABG Oxyhemoglobin ABG Sodium ABG Chloride ABG Glucose Sodium Potassium Chloride BUN Creatinine Glucose POC Glucose 175 H 193 H Calcium Ferritin Total Bilirubin AST ALT Lactate Dehydrogenase Troponin T C-Reactive Protein Total Protein Albumin Triglycerides Cholesterol LDL Cholesterol Direct HDL Cholesterol Arterial Blood Glucose Arterial Blood Ionized Calcium Coronavirus (PCR) 12/05/20 12/05/20 12/05/20 06:00 08:12 12:09 WBC RBC Hgb Hct MCHC RDW Plt Count Seg Neutrophils % D-Dimer POC ABG pO2 ABG Hemoglobin ABG Oxyhemoglobin ABG Sodium ABG Chloride ABG Glucose Sodium Potassium 5.1 H Chloride BUN 33 H Creatinine Glucose 183 H POC Glucose 182 H 185 H Calcium Ferritin Total Bilirubin AST ALT Lactate Dehydrogenase Troponin T C-Reactive Protein Total Protein Albumin Triglycerides Cholesterol LDL Cholesterol Direct HDL Cholesterol Arterial Blood Glucose Arterial Blood Ionized Calcium Coronavirus (PCR) 12/05/20 12/05/20 12/06/20 17:10 21:27 08:28 WBC RBC Hgb Hct MCHC RDW Plt Count Seg Neutrophils % D-Dimer POC ABG pO2 ABG Hemoglobin ABG Oxyhemoglobin ABG Sodium ABG Chloride ABG Glucose Sodium Potassium Chloride BUN Creatinine Glucose POC Glucose 173 H 165 H 169 H Calcium Ferritin Total Bilirubin AST ALT Lactate Dehydrogenase Troponin T C-Reactive Protein Total Protein Albumin Triglycerides Cholesterol LDL Cholesterol Direct HDL Cholesterol Arterial Blood Glucose Arterial Blood Ionized Calcium Coronavirus (PCR) 12/06/20 12/06/20 12/06/20 12:04 14:58 14:58 WBC RBC Hgb Hct MCHC RDW Plt Count Seg Neutrophils % D-Dimer 6110.26 H POC ABG pO2 ABG Hemoglobin ABG Oxyhemoglobin ABG Sodium ABG Chloride ABG Glucose Sodium Potassium Chloride BUN Creatinine Glucose 151 H POC Glucose 172 H Calcium Ferritin Total Bilirubin AST ALT Lactate Dehydrogenase 1421 H Troponin T C-Reactive Protein Total Protein Albumin Triglycerides Cholesterol LDL Cholesterol Direct HDL Cholesterol Arterial Blood Glucose Arterial Blood Ionized Calcium Coronavirus (PCR) 12/06/20 12/06/20 12/06/20 14:58 16:42 21:13 WBC RBC Hgb Hct MCHC RDW Plt Count Seg Neutrophils % D-Dimer POC ABG pO2 ABG Hemoglobin ABG Oxyhemoglobin ABG Sodium ABG Chloride ABG Glucose Sodium Potassium Chloride BUN Creatinine Glucose POC Glucose 165 H 229 H Calcium Ferritin 1785.0 H Total Bilirubin AST ALT Lactate Dehydrogenase Troponin T C-Reactive Protein Total Protein Albumin Triglycerides Cholesterol LDL Cholesterol Direct HDL Cholesterol Arterial Blood Glucose Arterial Blood Ionized Calcium Coronavirus (PCR) 12/07/20 12/07/20 12/07/20 05:24 05:30 05:30 WBC 23.5 H RBC Hgb Hct MCHC RDW Plt Count Seg Neutrophils % D-Dimer POC ABG pO2 46.8 L ABG Hemoglobin 22.0 H ABG Oxyhemoglobin 77.2 L ABG Sodium 133.9 L ABG Chloride 97.0 L ABG Glucose 186 H Sodium 146 H D Potassium 5.1 H Chloride 113.3 H BUN 78 H Creatinine 1.5 H Glucose 109 H POC Glucose Calcium 7.9 L Ferritin Total Bilirubin AST ALT Lactate Dehydrogenase Troponin T C-Reactive Protein Total Protein 5.4 L D Albumin 2.7 L Triglycerides Cholesterol LDL Cholesterol Direct HDL Cholesterol Arterial Blood Glucose 186 H Arterial Blood Ionized Calcium 4.5 L Coronavirus (PCR) 12/07/20 12/07/20 12/07/20 08:06 11:52 15:51 WBC RBC Hgb Hct MCHC RDW Plt Count Seg Neutrophils % D-Dimer POC ABG pO2 ABG Hemoglobin ABG Oxyhemoglobin ABG Sodium ABG Chloride ABG Glucose Sodium Potassium Chloride BUN Creatinine Glucose POC Glucose 219 H 159 H 149 H Calcium Ferritin Total Bilirubin AST ALT Lactate Dehydrogenase Troponin T C-Reactive Protein Total Protein Albumin Triglycerides Cholesterol LDL Cholesterol Direct HDL Cholesterol Arterial Blood Glucose Arterial Blood Ionized Calcium Coronavirus (PCR) 12/07/20 12/08/20 12/08/20 21:28 04:20 07:39 WBC RBC Hgb Hct MCHC RDW Plt Count Seg Neutrophils % D-Dimer POC ABG pO2 ABG Hemoglobin ABG Oxyhemoglobin ABG Sodium ABG Chloride ABG Glucose Sodium Potassium Chloride 95.3 L BUN 40 H Creatinine Glucose 153 H POC Glucose 167 H 143 H Calcium 8.1 L Ferritin Total Bilirubin AST ALT Lactate Dehydrogenase Troponin T C-Reactive Protein Total Protein Albumin Triglycerides Cholesterol LDL Cholesterol Direct HDL Cholesterol Arterial Blood Glucose Arterial Blood Ionized Calcium Coronavirus (PCR) 12/08/20 12/08/20 12/08/20 11:29 16:27 21:28 WBC RBC Hgb Hct MCHC RDW Plt Count Seg Neutrophils % D-Dimer POC ABG pO2 ABG Hemoglobin ABG Oxyhemoglobin ABG Sodium ABG Chloride ABG Glucose Sodium Potassium Chloride BUN Creatinine Glucose POC Glucose 209 H 157 H 155 H Calcium Ferritin Total Bilirubin AST ALT Lactate Dehydrogenase Troponin T C-Reactive Protein Total Protein Albumin Triglycerides Cholesterol LDL Cholesterol Direct HDL Cholesterol Arterial Blood Glucose Arterial Blood Ionized Calcium Coronavirus (PCR) 12/09/20 12/09/20 07:40 11:52 WBC RBC Hgb Hct MCHC RDW Plt Count Seg Neutrophils % D-Dimer POC ABG pO2 ABG Hemoglobin ABG Oxyhemoglobin ABG Sodium ABG Chloride ABG Glucose Sodium Potassium Chloride BUN Creatinine Glucose POC Glucose 184 H 221 H Calcium Ferritin Total Bilirubin AST ALT Lactate Dehydrogenase Troponin T C-Reactive Protein Total Protein Albumin Triglycerides Cholesterol LDL Cholesterol Direct HDL Cholesterol Arterial Blood Glucose Arterial Blood Ionized Calcium Coronavirus (PCR)
[2020-12-09] MEDS ORDERED: ZOLPIDEM 5 MG TAB PO ONE (21:00)
[2020-12-09] MEDS: ONDANSETRON 4 MG/2 ML INJ IV PRN (21:26)
[2020-12-10 05:16] LABS: BUN/Creatinine Ratio 39; Blood Urea Nitrogen 47 mg/dL (9-20); Calcium 9.2 mg/dL (8.4-10.2); Hemolysis Index 68
[2020-12-10] MEDS: methylPREDNISolone Sod Succinate 125 MG/2 ML INJ IV SCH ×3 (07:34→22:02)
[2020-12-10] MEDS: PANTOPRAZOLE 40 MG TAB PO SCH (07:34)
[2020-12-10] MEDS: hydrALAZINE 25 MG TAB PO SCH ×3 (07:34→22:05)
[2020-12-10] MEDS: SUCRALFATE 1 GM TAB PO SCH ×3 (07:34→22:05)
[2020-12-10] MEDS: INSULIN LISPRO 100 UNIT/ML SUB-Q SCH ×4 (07:41→22:19)
[2020-12-10] MEDS: ASPIRIN 81 MG TAB CHEW PO SCH (10:07)
[2020-12-10] MEDS: ENOXAPARIN 120 MG/0.8 ML INJ SUB-Q SCH ×2 (10:07→22:06)
[2020-12-10] MEDS: oxyCODONE /ACETAMINOPHEN 5-325MG TAB PO PRN (10:10)
--- NOTE | 2020-12-10 11:50 | Progress Note ---
Assessment and Plan Transient, marked sinus bradycardia associated with acute respiratory distress in the setting of COVID 19 pneumonia COVID 19 pneumonia An echocardiogram reveals dilated right heart chambers. Normal left ventricular systolic function, EF 55-60%. CTA chest negative for PE Lower extremity venous Doppler negative for DVT Elevated troponin, nonspecific Hyperlipidemia Recommendations: Continue telemetry monitoring. Avoid AV sadie blocking agents. Otherwise, conservative cardiac management. Subjective Date of service: 12/10/20 Principal diagnosis: Covid pneumonia Interval history: No cardiac events reported. Stable sinus rhythm on telemetry. Objective Vital Signs Temp Pulse Pulse Resp BP Pulse Ox 12/10/20 11:00 97 H 25 H 119/76 90 12/10/20 10:01 96 H 11 L 128/87 84 12/10/20 09:26 86 12/10/20 09:00 93 H 22 121/83 88 12/10/20 08:00 97.5 F L 85 100 H 22 119/86 95 12/10/20 07:34 94 H 137/94 12/10/20 07:00 94 H 20 137/94 96 12/10/20 06:00 96.3 F L 94 H 18 140/94 98 12/10/20 05:00 100 H 19 124/95 95 12/10/20 04:01 97 H 19 131/94 98 12/10/20 04:00 97 H 19 98 12/10/20 03:50 100 H 12/10/20 03:00 98 H 21 126/92 96 12/10/20 02:00 102 H 14 122/87 94 12/10/20 01:00 108 H 20 127/89 97 12/10/20 00:23 106 H 22 139/84 93 12/10/20 00:00 98.3 F 105 H 105 H 20 130/83 93 12/09/20 23:00 108 H 17 139/84 96 12/09/20 22:01 108 H 22 137/87 98 12/09/20 21:25 98 H 127/92 12/09/20 21:00 97 H 23 127/92 97 12/09/20 20:35 99 H 24 135/84 96 12/09/20 20:00 98.3 F 86 27 H 133/84 97 12/09/20 19:15 104 H 12/09/20 19:01 96 H 19 126/88 93 12/09/20 18:23 102 H 23 117/85 92 12/09/20 18:00 97 H 25 H 117/85 94 12/09/20 17:31 105 H 22 120/87 97 12/09/20 17:01 102 H 35 H 120/87 96 12/09/20 17:00 90 23 117/85 94 12/09/20 16:31 79 34 H 107/74 95 12/09/20 16:01 109 H 29 H 107/74 97 12/09/20 16:00 98.4 F 89 20 98 12/09/20 15:31 105 H 16 90/67 97 12/09/20 15:01 105 H 14 90/67 96 12/09/20 14:31 97 H 25 H 128/104 97 12/09/20 14:01 95 H 25 H 128/104 98 12/09/20 14:00 94 12/09/20 13:31 95 H 24 188/61 97 12/09/20 13:27 92 H 188/61 12/09/20 13:01 98 H 23 188/61 96 12/09/20 13:00 110 H 12/09/20 12:43 97 H 33 H 152/108 96 12/09/20 12:31 91 H 22 152/108 96 12/09/20 12:00 98.5 F 96 H 90 24 152/108 98 - Physical Examination Narrative exam: Deferred due to isolation protocol. General: No Apparent Distress (on high flow oxygen) Cardiac: Positive: Reg Rate and Rhythm - Labs and Meds Comprehensive Metabolic Panel 12/10/20 Range/Units 04:15 Sodium 137 (137-145) mmol/L Potassium 5.9 H (3.6-5.0) mmol/L Chloride 92.6 L (98-107) mmol/L Carbon Dioxide 31 H (22-30) mmol/L BUN 47 H (9-20) mg/dL Creatinine 1.2 (0.8-1.3) mg/dL Glucose 155 H (75-100) mg/dL Calcium 9.2 (8.4-10.2) mg/dL
--- NOTE | 2020-12-10 12:51 | Progress Note ---
Assessment and Plan Assessment and plan: --Acute hypoxic respiratory failure Secondary to COVID-19 pneumonia Patient is now on high flow at 40 L and 100% FiO2 Pulmonary note reviewed and appreciated IV Decadron dose increased by pulmonary due to worsening hypoxia Actemra if available --Hyperkalemia; potassium 5.9 Kayexalate, IV calcium gluconate Closely monitor electrolytes check magnesium, --COVID-19 pneumonia Completed remdesivir Continue Solu-Medrol IV antibiotics discontinued as procalcitonin is normal Prognosis guarded due to severe hypoxia Inflammatory markers reviewed LFTs mildly increased --Elevated D-dimer increased to 10,000 from 2154 on 11/27 Empiric therapeutic Lovenox every 12 hours subcu CTA chest negative for PE Lower extremity venous Doppler negative for DVT --Hyponatremia: Improved --Obesity; BMI 33.7 advised dietary modification, exercise as tolerated and weight reduction when medically stable --Hyperglycemia Mild , secondary to steroids Patient denies history of diabetes Start on Accu-Cheks with insulin sliding scale coverage --Gastroenteritis with nausea vomiting/ --DVT prophylaxis Full dose anticoagulation; Patient is critically ill continues to be on high flow oxygen Poor prognosis, family aware We will closely monitor the patient and adjust management as needed Plan of care reviewed with the patient and his nurse 40-year-old -[place] male with no significant past medical history unvaccinated with Covid comes in for increasing shortness of breath and cough for 2-week escalating for 1 week. Symptoms worse with exertion and talking. Positive chest pain. Episode associated with cough. Intermittent nausea vomiting as well as emesis after coughing. Fever and low oxygen levels noted upon arrival. Sats in the mid 85. No loss of taste or smell. Feels weak. No known Covid exposure. Patient now willing to take vaccine after he gets better. 11/27; Patient was on 4 L of oxygen. Covid test is pending. Procalcitonin level pending. ID is following. Patient is on Decadron and will add remdesivir if Covid test is positive 11/28 ;-Covid test was positive. Patient started on Decadron and remdesivir. ID consult appreciated. Patient's oxygen requirement was 30 L yesterday and CRP was 7.5 and ID recommend Actemra based on his availability. Pulmonary consulted. 11/29 patient is awake and alert and he is on 100% FiO2 via nonrebreather mask. Complains of cough with mucoid sputum and states chest hurts when he is coughing. He denies any fever or chills. Denies nausea or abdominal pain. Lab results reviewed. ID and pulmonary notes reviewed and appreciated 11/30 NAD, complains of occasional cough with mucoid sputum and feels mildly short of breath, he denies any fever or chills. lab results reviewed pulmonary note reviewed 12/01: Patient remains on high flow and nonrebreather to maintain a decent saturation. Continue steroids as prescribed by marine electronics repairer on high dose. Mild hyperkalemia we will give a dose of Kayexalate and repeat studies in a.m. Lasix per pulm. Monitor renal function 12/02: Patient seen and examined anxious this morning. Complained of discomfort with swallowing burning sensation. Discussed with cardiac team echocardiogram pending. Continue conservative management otherwise patient is on full dose enoxaparin and also high-dose steroids. Encourage prone positioning. Prognosis is guarded. Plan discussed with the patient. Although 12 point system reviewed and otherwise negative except as mentioned in the note 12/03: Continue high dose steroids, continue supportive care, proned. Unfortunately not improving. Will continue to monitor. 12/04: Patient unfortunately not showing any clinical improvement continues on nonrebreather on high flow. Lasix held today due to marginal blood pressure. Will transfer to [facility] for closer monitoring although he may not be able to go due to staffing shortage which is a national crisis at this time.. Plan discussed with the patient. 12/05: Patient seen and examined, Continue supportive care, wean as tolerated, still poor prognosis due to no significant improvement despite treatment. Encouraged to prone through out the day. 12/06: Patient seen and examined remains significantly hypoxic. Encourage prone positioning. We will trial a dose of Lasix today. We will taper steroids sli ghtly due to markedly inflammation noted leukocytosis. Will check renal function test in a.m. Guarded prognosis discussed with the patient still awaiting IMCU bed 12/07: Continue supportive care continue BiPAP encourage prone position continue steroids. I did speak with the father his phone number is [phone] his name is Chan Grimaldo and updated him on the clinical condition. He verbalized understanding. Recommend that we give him updates periodically. Pulmonary i nput is appreciated. Continue to wean oxygen as tolerated. Continue Lovenox at this time. Case discussed with marine electronics repairer 12/08/2020; continues to be high flow nasal cannula oxygen intermittent BiPAP Wean as tolerated, on therapeutic anticoagulation due to elevated D-dimers CTA chest, lower extremity Doppler negative 12/09/2020; patient continues to be on high flow nasal cannula oxygen 40 L with intermittent BiPAP Patient prefers BiPAP all the time , wean as tolerated patient with multiple ri sk factors critically ill Poor prognosis 12/10/2020; patient continues to be on high flow nasal cannula oxygen 40 L/100% nonrebreather/BiPAP. Encouraged proning, home O2 evaluation prior to discharge Consultants recommendations noted and appreciated History Interval history: Patient remains on 40 L high flow nasal cannula oxygen nonrebreather with BiPAP Patient is severely hypoxemic, in moderate distress, today he is in prone position Complains of shortness of breath and generalized weakness Hospitalist Physical - Constitutional Vitals: Temp Pulse Resp BP Pulse Ox 97.2 F L 101 H 21 122/69 86 12/10/20 12:00 12/10/20 12:00 12/10/20 12:00 12/10/20 12:00 12/10/20 12:00 General appearance: Present: mild distress, well-nourished, obese - EENT Eyes: Present: PERRL, EOM intact - Neck Neck: Present: supple, normal ROM - Respiratory Respiratory effort: normal Respiratory: bilateral: diminished, rhonchi, negative: rales, wheezing - Cardiovascular Rhythm: regular Heart Sounds: Present: S1 & S2 - Extremities Extremities: no ischemia, No edema - Abdominal General gastrointestinal: soft, non-tender, non-distended, normal bowel sounds - Integumentary Integumentary: Present: clear, warm - Psychiatric Psychiatric: appropriate mood/affect, cooperative - Neurologic Neurologic: CNII-XII intact, moves all extremities HEART Score - HEART Score Troponin: Troponin T 0.076 ng/mL (0.00-0.029) H 11/30/20 23:03 Results - Labs CBC & Chem 7: 12/07/20 05:30 12/10/20 04:15 Labs: Laboratory Last Values WBC 23.5 K/mm3 (4.5-11.0) H 12/07/20 05:30 RBC 4.20 M/mm3 (3.65-5.03) 12/07/20 05:30 Hgb 12.2 gm/dl (11.8-15.2) D 12/07/20 05:30 Hct 38.3 % (35.5-45.6) D 12/07/20 05:30 MCV 91 fl (84-94) 12/07/20 05:30 MCH 29 pg (28-32) 12/07/20 05:30 MCHC 32 % (32-34) 12/07/20 05:30 RDW 14.9 % (13.2-15.2) 12/07/20 05:30 Plt Count 255 K/mm3 (140-440) 12/07/20 05:30 Lymph % (Auto) 25.7 % (13.4-35.0) 11/27/20 05:15 Delta % (Auto) 4.5 % (0.0-7.3) 11/27/20 05:15 Eos % (Auto) 0.0 % (0.0-4.3) 11/27/20 05:15 Baso % (Auto) 0.2 % (0.0-1.8) 11/27/20 05:15 Lymph # (Auto) 1.5 K/mm3 (1.2-5.4) 11/27/20 05:15 Delta # (Auto) 0.3 K/mm3 (0.0-0.8) 11/27/20 05:15 Eos # (Auto) 0.0 K/mm3 (0.0-0.4) 11/27/20 05:15 Baso # (Auto) 0.0 K/mm3 (0.0-0.1) 11/27/20 05:15 Seg Neutrophils % 69.6 % (40.0-70.0) 11/27/20 05:15 Seg Neutrophils # 4.0 K/mm3 (1.8-7.7) 11/27/20 05:15 D-Dimer 6110.26 ng/mlDDU (0-234) H 12/06/20 14:58 ABG pH 7.414 (7.320-7.450) 12/07/20 05:24 POC ABG pCO2 38.9 mmHg (32.0-48.0) 12/07/20 05:24 POC ABG pO2 46.8 mmHg (83-108) L 12/07/20 05:24 POC ABG HCO3 24.3 12/07/20 05:24 ABG O2 Saturation 77.8 (0-100) 12/07/20 05:24 POC ABG Base Excess 0.1 12/07/20 05:24 ABG Hemoglobin 22.0 (12.0-17.5) H 12/07/20 05:24 ABG Oxyhemoglobin 77.2 (94-98) L 12/07/20 05:24 ABG Methemoglobin 0.3 (0.0-1.5) 12/07/20 05:24 ABG Sodium 133.9 mmol/L (136.0-145.0) L 12/07/20 05:24 ABG Potassium 4.4 mmol/L (3.40-4.50) 12/07/20 05:24 ABG Chloride 97.0 mmol/L (98-107) L 12/07/20 05:24 ABG Glucose 186 mg/dL (65-95) H 12/07/20 05:24 Carboxyhemoglobin 0.5 (0.5-1.5) 12/07/20 05:24 FiO2 % 100.0 12/07/20 05:24 Sodium 137 mmol/L (137-145) 12/10/20 04:15 Potassium 5.9 mmol/L (3.6-5.0) H 12/10/20 04:15 Chloride 92.6 mmol/L (98-107) L 12/10/20 04:15 Carbon Dioxide 31 mmol/L (22-30) H 12/10/20 04:15 Anion Gap 19 mmol/L 12/10/20 04:15 BUN 47 mg/dL (9-20) H 12/10/20 04:15 Creatinine 1.2 mg/dL (0.8-1.3) 12/10/20 04:15 Estimated GFR > 60 ml/min 12/10/20 04:15 BUN/Creatinine Ratio 39 % 12/10/20 04:15 Glucose 155 mg/dL (75-100) H 12/10/20 04:15 POC Glucose 187 mg/dL (70-105) H 12/10/20 11:25 Lactic Acid 1.20 mmol/L (0.7-2.0) 11/26/20 23:28 Calcium 9.2 mg/dL (8.4-10.2) 12/10/20 04:15 Ferritin 1785.0 ng/mL (30.0-300.0) H 12/06/20 14:58 Total Bilirubin 0.20 mg/dL (0.1-1.2) 12/07/20 05:30 AST 29 units/L (5-40) 12/07/20 05:30 ALT 27 units/L (7-56) 12/07/20 05:30 Alkaline Phosphatase 103 units/L (35-129) 12/07/20 05:30 Lactate Dehydrogenase 1421 units/L (91-180) H 12/06/20 14:58 Troponin T 0.076 ng/mL (0.00-0.029) H 11/30/20 23:03 C-Reactive Protein 0.30 mg/dL (0.00-1.30) 12/06/20 14:58 NT-Pro-B Natriuret Pep 18.20 pg/mL (0-450) 11/26/20 11:17 Total Protein 5.4 g/dL (6.3-8.2) L D 12/07/20 05:30 Albumin 2.7 g/dL (3.9-5) L 12/07/20 05:30 Albumin/Globulin Ratio 1.0 % 12/07/20 05:30 Triglycerides 228 mg/dL (2-149) H 11/30/20 18:10 Cholesterol 287 mg/dL (50-199) H 11/30/20 18:10 LDL Cholesterol Direct 210 mg/dL (50-130) H 11/30/20 18:10 HDL Cholesterol 38 mg/dL (40-59) L 11/30/20 18:10 Cholesterol/HDL Ratio 7.55 % 11/30/20 18:10 Procalcitonin 0.23 ng/mL (<0.15) 11/26/20 11:17 Arterial Blood Glucose 186 mg/dL (65-95) H 12/07/20 05:24 Arterial Blood Ionized Calcium 4.5 mg/dL (4.6-5.3) L 12/07/20 05:24 Coronavirus (PCR) Positive (Negative) A 11/27/20 Unknown Smith/IV: Voiding Method Urinal Active Medications - Current Medications Current Medications: Generic Name Dose Route Start Last Admin Trade Name Freq PRN Reason Stop Dose Admin Acetaminophen 650 mg 11/26/20 22:20 Acetaminophen 325 Mg Tab PO Q4H PRN Pain MILD(1-3)/Fever >100.5/DALY Aspirin 81 mg 12/02/20 10:00 12/10/20 10:07 Aspirin 81 Mg Tab Chew PO 81 mg QDAY SANGEETHA Administration Atorvastatin Calcium 40 mg 12/01/20 22:00 12/09/20 21:25 Atorvastatin 40 Mg Tab PO 40 mg QHS SANGEETHA Administration Enoxaparin Sodium 110 mg 12/02/20 22:00 12/10/20 10:07 Enoxaparin 120 Mg/0.8 Ml Inj SUB-Q 110 mg Q12HR SANGEETHA Administration Hydralazine HCl 50 mg 12/05/20 16:00 12/10/20 07:34 Hydralazine 25 Mg Tab PO 50 mg Q8HR SANGEETHA Administration Hydromorphone HCl 0.5 mg 11/26/20 22:20 12/07/20 04:47 Hydromorphone 1 Mg/1 Ml Inj IV 0.5 mg Q3H PRN Administration Pain , Severe (7-10) Insulin Human Lispro 0 unit 11/30/20 11:30 12/10/20 12:12 Insulin Lispro 100 Unit/Ml SUB-Q 2 unit ACHS SANGEETHA Administration Protocol Methylprednisolone Sodium Succinate 80 mg 12/06/20 14:00 12/10/20 07:34 Methylprednisolone Sod Succinate 125 Mg/2 Ml Inj IV 80 mg Q8HR SANGEETHA Administration Ondansetron HCl 4 mg 11/26/20 22:20 12/09/20 21:26 Ondansetron 4 Mg/2 Ml Inj IV 4 mg Q8H PRN Administration Nausea And Vomiting Oxycodone/Acetaminophen 1 tab 11/26/20 22:20 12/10/20 10:10 Oxycodone /Acetaminophen 5-325mg Tab PO 1 tab Q6H PRN Administration Pain, Moderate (4-6) Pantoprazole Sodium 40 mg 12/04/20 07:30 12/10/20 07:34 Pantoprazole 40 Mg Tab PO 40 mg QDAC SANGEETHA Administration Sodium Chloride 10 ml 11/26/20 23:00 12/10/20 10:07 Sodium Chloride 0.9% 10 Ml Flush Syringe IV 10 ml BID SANGEETHA Administration Sodium Chloride 10 ml 11/26/20 22:20 Sodium Chloride 0.9% 10 Ml Flush Syringe IV PRN PRN LINE FLUSH Sucralfate 1 gm 12/02/20 10:00 12/10/20 07:34 Sucralfate 1 Gm Tab PO 1 gm Q8HR SANGEETHA Administration Nutrition/Malnutrition Assess - Dietary Evaluation Nutrition/Malnutrition Findings: Nutrition Notes Start: 12/03/20 12:47 Freq: Status: Active Protocol: Document 12/10/20 12:45 MK (Rec: 12/10/20 12:48 MK [id number]) Nutrition Notes Initial or Follow up Reassessment Current Diagnosis Respiratory Failure, Hyperlipidemia Other Pertinent Diagnosis COVID-19, pneu Current Diet renal, consistent CHO Labs/Tests K 5.9 BUN 47 BG 155 Pertinent Medications Insulin Solu Medrol Height 5 ft 11 in Weight 109.5 kg [place] Body Weight (kg) 78.18 BMI 33.6 Weight Status Obese Subjective/Other Information RN reports not eating breakfast due to being on bipap at night and AM. She states if bipap is of during lunch/dinner he will eat some of the meal, <25%. Burn Absent Trauma Absent GI Symptoms None Current % PO Negligible Minimum of two criteria No Energy Intake (severe) < or equal to 50% Estimated Energy Requirement > or equal to 5 days #1 Nutrition Diagnosis Inadequate oral intake Diagnosis Progress(for reassessment Continues documentation) Is patient on ventilator? No Is Patient Ambulatory and/or Out of Bed No REE-([facility]-confined to bed) 2440.980 Kcal/Kg value to use for calculation 16 Approximate Energy Requirements Using 1752 kcal/Kg Calculation Used for Recommendations Kcal/kg Additional Notes Protein: (0.8-1g/kg AdjBW: 94kg) 75-94g Fluid: 1 ml/kcal or per MD Nutrition Intervention Change Diet Order: continue Goal #1 Meet at least 75% of protein and kcal needs via PO intakes Anticipated Discharge Needs: regular Follow-Up By: 12/14/20 Additional Comments F/u: intakes, food prefrences
--- NOTE | 2020-12-10 15:32 | Progress Note ---
Assessment and Plan 40 y/o obese male with acute respiratory failure secondary to COVID pneumonia. 12/09/20: Lasix again today. Hyperkalemic on labs, will treat with PO kayexalate. Guarded prognosis. Continue to prone. 12/09/20: Lasix again today. Will order labs for AM. Continue to prone. Guarded prognosis. 12/08/20: Will do lasix again today. IMS spoke with father on yesterday. Prone if able. GUarded prognosis. 12/07/20: Steroids at 80q8, changed over the weekend. Lasix given today. Prone as tolerated. IMS spoke with father over the phone. Guarded prognosis. 12/04/20: Steroids at 125 Q8. Prone. Hold on lasix today given marginal blood pressures but please reassess over the weekend, guarded prognosis. 12/03/20: Hold on lasix today. Encourage to prone. Will increase steroids to 125q8. Guarded prognosis. 12/02/20: Lasix again today (20), continue to prone. continue steroids. Guarded prognosis. 12/01/20: Wean as tolerated. Proning should continue. Will give 20 of lasix today. 11/30/20: Patient is attempting to prone which is good for him. Continue to prone as much as tolerated. Hold on lasix again today. 11/29/20: No new recs for today. Needs to prone as much as tolerated. i/O not accurate so will hold on lasix for today. 1. Increase steroids to BID dosing given weight 2. Remdesivir 3. Actemra 4. Proning and net negative fluid balance Guarded prognosis Subjective Date of service: 12/10/20 Principal diagnosis: Covid pneumonia Interval history: No acute events. Now on HFNC 40 and 100 Objective Vital Signs - 12hr 12/10/20 12/10/20 12/10/20 03:50 04:00 04:01 Temperature Pulse Rate 100 H 97 H Pulse Rate [ 97 H From Monitor] Respiratory 19 19 Rate Blood Pressure 131/94 O2 Sat by Pulse 98 98 Oximetry 12/10/20 12/10/20 12/10/20 05:00 06:00 07:00 Temperature 96.3 F L Pulse Rate 100 H 94 H 94 H Pulse Rate [ From Monitor] Respiratory 19 18 20 Rate Blood Pressure 124/95 140/94 137/94 O2 Sat by Pulse 95 98 96 Oximetry 12/10/20 12/10/20 12/10/20 07:34 08:00 09:00 Temperature 97.5 F L Pulse Rate 94 H 85 93 H Pulse Rate [ 100 H From Monitor] Respiratory 22 22 Rate Blood Pressure 137/94 119/86 121/83 O2 Sat by Pulse 95 88 Oximetry 12/10/20 12/10/20 12/10/20 09:26 10:01 11:00 Temperature Pulse Rate 96 H 97 H Pulse Rate [ From Monitor] Respiratory 11 L 25 H Rate Blood Pressure 128/87 119/76 O2 Sat by Pulse 86 84 90 Oximetry 12/10/20 12/10/20 12/10/20 12:00 13:25 14:50 Temperature 97.2 F L Pulse Rate 105 H Pulse Rate [ 101 H From Monitor] Respiratory 29 H Rate Blood Pressure 122/69 123/83 O2 Sat by Pulse 85 86 Oximetry CBC and BMP: 12/07/20 05:30 12/10/20 04:15 ABG, PT/INR, D-dimer: ABG ABG pH 7.414 (7.320-7.450) 12/07/20 05:24 POC ABG pCO2 38.9 mmHg (32.0-48.0) 12/07/20 05:24 POC ABG pO2 46.8 mmHg (83-108) L 12/07/20 05:24 POC ABG HCO3 24.3 12/07/20 05:24 ABG O2 Saturation 77.8 (0-100) 12/07/20 05:24 PT/INR, D-dimer D-Dimer 6110.26 ng/mlDDU (0-234) H 12/06/20 14:58 Abnormal lab findings: Abnormal Labs 11/26/20 11/26/20 11/26/20 11:17 11:17 11:17 WBC RBC 5.28 H Hgb 15.8 H Hct MCHC 35 H RDW Plt Count 135 L Seg Neutrophils % 72.2 H D-Dimer 2154.70 H POC ABG pO2 ABG Hemoglobin ABG Oxyhemoglobin ABG Sodium ABG Chloride ABG Glucose Sodium 135 L Potassium Chloride 96.7 L Carbon Dioxide BUN Creatinine Glucose 117 H POC Glucose Calcium Ferritin Total Bilirubin AST 68 H ALT Lactate Dehydrogenase Troponin T C-Reactive Protein Total Protein Albumin Triglycerides Cholesterol LDL Cholesterol Direct HDL Cholesterol Arterial Blood Glucose Arterial Blood Ionized Calcium Coronavirus (PCR) 11/26/20 11/26/20 11/27/20 11:17 11:17 05:15 WBC RBC 5.14 H Hgb 15.3 H Hct MCHC 35 H RDW Plt Count Seg Neutrophils % D-Dimer POC ABG pO2 ABG Hemoglobin ABG Oxyhemoglobin ABG Sodium ABG Chloride ABG Glucose Sodium Potassium Chloride Carbon Dioxide BUN Creatinine Glucose POC Glucose Calcium Ferritin 872.8 H Total Bilirubin AST ALT Lactate Dehydrogenase 642 H Troponin T C-Reactive Protein 8.50 H Total Protein Albumin Triglycerides Cholesterol LDL Cholesterol Direct HDL Cholesterol Arterial Blood Glucose Arterial Blood Ionized Calcium Coronavirus (PCR) 11/27/20 11/27/20 11/27/20 05:15 17:12 Unknown WBC RBC Hgb Hct MCHC RDW Plt Count Seg Neutrophils % D-Dimer POC ABG pO2 ABG Hemoglobin ABG Oxyhemoglobin ABG Sodium ABG Chloride ABG Glucose Sodium 134 L Potassium Chloride 95.1 L Carbon Dioxide BUN Creatinine 1.4 H Glucose 110 H 130 H POC Glucose Calcium Ferritin Total Bilirubin AST 51 H 53 H ALT Lactate Dehydrogenase Troponin T C-Reactive Protein Total Protein Albumin 3.4 L Triglycerides Cholesterol LDL Cholesterol Direct HDL Cholesterol Arterial Blood Glucose Arterial Blood Ionized Calcium Coronavirus (PCR) Positive A 11/28/20 11/29/20 11/30/20 07:14 10:14 03:21 WBC RBC Hgb Hct MCHC RDW Plt Count Seg Neutrophils % D-Dimer POC ABG pO2 ABG Hemoglobin ABG Oxyhemoglobin ABG Sodium ABG Chloride ABG Glucose Sodium Potassium Chloride 97.0 L 97.2 L Carbon Dioxide BUN 23 H 26 H Creatinine Glucose 117 H 140 H 158 H POC Glucose Calcium Ferritin Total Bilirubin AST 54 H 45 H 50 H ALT 65 H Lactate Dehydrogenase 739 H Troponin T C-Reactive Protein 8.50 H Total Protein Albumin 3.6 L 3.8 L Triglycerides Cholesterol LDL Cholesterol Direct HDL Cholesterol Arterial Blood Glucose Arterial Blood Ionized Calcium Coronavirus (PCR) 11/30/20 11/30/20 11/30/20 03:21 03:21 13:05 WBC RBC Hgb Hct MCHC RDW Plt Count Seg Neutrophils % D-Dimer > 94310 H POC ABG pO2 ABG Hemoglobin ABG Oxyhemoglobin ABG Sodium ABG Chloride ABG Glucose Sodium Potassium Chloride Carbon Dioxide BUN Creatinine Glucose POC Glucose 138 H Calcium Ferritin 1885.0 H Total Bilirubin AST ALT Lactate Dehydrogenase Troponin T C-Reactive Protein Total Protein Albumin Triglycerides Cholesterol LDL Cholesterol Direct HDL Cholesterol Arterial Blood Glucose Arterial Blood Ionized Calcium Coronavirus (PCR) 11/30/20 11/30/20 11/30/20 16:41 18:10 21:18 WBC RBC Hgb Hct MCHC RDW Plt Count Seg Neutrophils % D-Dimer POC ABG pO2 ABG Hemoglobin ABG Oxyhemoglobin ABG Sodium ABG Chloride ABG Glucose Sodium Potassium Chloride Carbon Dioxide BUN Creatinine Glucose POC Glucose 145 H 157 H Calcium Ferritin Total Bilirubin AST ALT Lactate Dehydrogenase Troponin T 0.080 H D C-Reactive Protein Total Protein Albumin Triglycerides 228 H Cholesterol 287 H LDL Cholesterol Direct 210 H HDL Cholesterol 38 L Arterial Blood Glucose Arterial Blood Ionized Calcium Coronavirus (PCR) 11/30/20 12/01/20 12/01/20 23:03 05:32 05:32 WBC 15.5 H RBC 5.86 H Hgb 17.3 H Hct 51.6 H MCHC RDW 15.3 H Plt Count Seg Neutrophils % D-Dimer POC ABG pO2 ABG Hemoglobin ABG Oxyhemoglobin ABG Sodium ABG Chloride ABG Glucose Sodium Potassium 5.1 H Chloride Carbon Dioxide BUN 28 H Creatinine Glucose 147 H POC Glucose Calcium Ferritin Total Bilirubin AST 51 H ALT 91 H Lactate Dehydrogenase Troponin T 0.076 H C-Reactive Protein Total Protein Albumin 3.5 L Triglycerides Cholesterol LDL Cholesterol Direct HDL Cholesterol Arterial Blood Glucose Arterial Blood Ionized Calcium Coronavirus (PCR) 12/01/20 12/01/20 12/01/20 08:06 12:04 16:07 WBC RBC Hgb Hct MCHC RDW Plt Count Seg Neutrophils % D-Dimer POC ABG pO2 ABG Hemoglobin ABG Oxyhemoglobin ABG Sodium ABG Chloride ABG Glucose Sodium Potassium Chloride Carbon Dioxide BUN Creatinine Glucose POC Glucose 143 H 156 H 196 H Calcium Ferritin Total Bilirubin AST ALT Lactate Dehydrogenase Troponin T C-Reactive Protein Total Protein Albumin Triglycerides Cholesterol LDL Cholesterol Direct HDL Cholesterol Arterial Blood Glucose Arterial Blood Ionized Calcium Coronavirus (PCR) 12/01/20 12/02/20 12/02/20 21:34 03:17 03:17 WBC 17.2 H RBC 6.26 H Hgb 18.5 H Hct 54.5 H MCHC RDW Plt Count Seg Neutrophils % D-Dimer POC ABG pO2 ABG Hemoglobin ABG Oxyhemoglobin ABG Sodium ABG Chloride ABG Glucose Sodium Potassium Chloride Carbon Dioxide BUN 33 H Creatinine Glucose 131 H POC Glucose 174 H Calcium Ferritin Total Bilirubin 1.40 H AST 48 H ALT 128 H Lactate Dehydrogenase Troponin T C-Reactive Protein Total Protein Albumin 3.3 L Triglycerides Cholesterol LDL Cholesterol Direct HDL Cholesterol Arterial Blood Glucose Arterial Blood Ionized Calcium Coronavirus (PCR) 12/02/20 12/02/20 12/02/20 07:50 10:58 16:17 WBC RBC Hgb Hct MCHC RDW Plt Count Seg Neutrophils % D-Dimer POC ABG pO2 ABG Hemoglobin ABG Oxyhemoglobin ABG Sodium ABG Chloride ABG Glucose Sodium Potassium Chloride Carbon Dioxide BUN Creatinine Glucose POC Glucose 127 H 117 H 138 H Calcium Ferritin Total Bilirubin AST ALT Lactate Dehydrogenase Troponin T C-Reactive Protein Total Protein Albumin Triglycerides Cholesterol LDL Cholesterol Direct HDL Cholesterol Arterial Blood Glucose Arterial Blood Ionized Calcium Coronavirus (PCR) 12/02/20 12/03/20 12/03/20 21:23 08:13 11:32 WBC RBC Hgb Hct MCHC RDW Plt Count Seg Neutrophils % D-Dimer POC ABG pO2 ABG Hemoglobin ABG Oxyhemoglobin ABG Sodium ABG Chloride ABG Glucose Sodium Potassium Chloride Carbon Dioxide BUN Creatinine Glucose POC Glucose 187 H 160 H 154 H Calcium Ferritin Total Bilirubin AST ALT Lactate Dehydrogenase Troponin T C-Reactive Protein Total Protein Albumin Triglycerides Cholesterol LDL Cholesterol Direct HDL Cholesterol Arterial Blood Glucose Arterial Blood Ionized Calcium Coronavirus (PCR) 12/03/20 12/03/20 12/04/20 16:54 21:56 03:02 WBC 25.4 H RBC 6.65 H Hgb 19.7 H Hct 58.2 H MCHC RDW Plt Count Seg Neutrophils % D-Dimer POC ABG pO2 ABG Hemoglobin ABG Oxyhemoglobin ABG Sodium ABG Chloride ABG Glucose Sodium Potassium Chloride Carbon Dioxide BUN Creatinine Glucose POC Glucose 186 H 156 H Calcium Ferritin Total Bilirubin AST ALT Lactate Dehydrogenase Troponin T C-Reactive Protein Total Protein Albumin Triglycerides Cholesterol LDL Cholesterol Direct HDL Cholesterol Arterial Blood Glucose Arterial Blood Ionized Calcium Coronavirus (PCR) 12/04/20 12/04/20 12/04/20 03:02 07:35 10:54 WBC RBC Hgb Hct MCHC RDW Plt Count Seg Neutrophils % D-Dimer POC ABG pO2 ABG Hemoglobin ABG Oxyhemoglobin ABG Sodium ABG Chloride ABG Glucose Sodium Potassium 5.6 H Chloride Carbon Dioxide BUN 36 H Creatinine Glucose 152 H POC Glucose 171 H 256 H Calcium Ferritin Total Bilirubin 1.30 H AST 84 H ALT 124 H Lactate Dehydrogenase Troponin T C-Reactive Protein Total Protein Albumin 3.7 L Triglycerides Cholesterol LDL Cholesterol Direct HDL Cholesterol Arterial Blood Glucose Arterial Blood Ionized Calcium Coronavirus (PCR) 12/04/20 12/04/20 12/05/20 16:43 21:40 06:00 WBC 26.4 H RBC 6.29 H Hgb 18.3 H Hct 54.4 H MCHC RDW 15.3 H Plt Count Seg Neutrophils % D-Dimer POC ABG pO2 ABG Hemoglobin ABG Oxyhemoglobin ABG Sodium ABG Chloride ABG Glucose Sodium Potassium Chloride Carbon Dioxide BUN Creatinine Glucose POC Glucose 175 H 193 H Calcium Ferritin Total Bilirubin AST ALT Lactate Dehydrogenase Troponin T C-Reactive Protein Total Protein Albumin Triglycerides Cholesterol LDL Cholesterol Direct HDL Cholesterol Arterial Blood Glucose Arterial Blood Ionized Calcium Coronavirus (PCR) 12/05/20 12/05/20 12/05/20 06:00 08:12 12:09 WBC RBC Hgb Hct MCHC RDW Plt Count Seg Neutrophils % D-Dimer POC ABG pO2 ABG Hemoglobin ABG Oxyhemoglobin ABG Sodium ABG Chloride ABG Glucose Sodium Potassium 5.1 H Chloride Carbon Dioxide BUN 33 H Creatinine Glucose 183 H POC Glucose 182 H 185 H Calcium Ferritin Total Bilirubin AST ALT Lactate Dehydrogenase Troponin T C-Reactive Protein Total Protein Albumin Triglycerides Cholesterol LDL Cholesterol Direct HDL Cholesterol Arterial Blood Glucose Arterial Blood Ionized Calcium Coronavirus (PCR) 12/05/20 12/05/20 12/06/20 17:10 21:27 08:28 WBC RBC Hgb Hct MCHC RDW Plt Count Seg Neutrophils % D-Dimer POC ABG pO2 ABG Hemoglobin ABG Oxyhemoglobin ABG Sodium ABG Chloride ABG Glucose Sodium Potassium Chloride Carbon Dioxide BUN Creatinine Glucose POC Glucose 173 H 165 H 169 H Calcium Ferritin Total Bilirubin AST ALT Lactate Dehydrogenase Troponin T C-Reactive Protein Total Protein Albumin Triglycerides Cholesterol LDL Cholesterol Direct HDL Cholesterol Arterial Blood Glucose Arterial Blood Ionized Calcium Coronavirus (PCR) 12/06/20 12/06/20 12/06/20 12:04 14:58 14:58 WBC RBC Hgb Hct MCHC RDW Plt Count Seg Neutrophils % D-Dimer 6110.26 H POC ABG pO2 ABG Hemoglobin ABG Oxyhemoglobin ABG Sodium ABG Chloride ABG Glucose Sodium Potassium Chloride Carbon Dioxide BUN Creatinine Glucose 151 H POC Glucose 172 H Calcium Ferritin Total Bilirubin AST ALT Lactate Dehydrogenase 1421 H Troponin T C-Reactive Protein Total Protein Albumin Triglycerides Cholesterol LDL Cholesterol Direct HDL Cholesterol Arterial Blood Glucose Arterial Blood Ionized Calcium Coronavirus (PCR) 12/06/20 12/06/20 12/06/20 14:58 16:42 21:13 WBC RBC Hgb Hct MCHC RDW Plt Count Seg Neutrophils % D-Dimer POC ABG pO2 ABG Hemoglobin ABG Oxyhemoglobin ABG Sodium ABG Chloride ABG Glucose Sodium Potassium Chloride Carbon Dioxide BUN Creatinine Glucose POC Glucose 165 H 229 H Calcium Ferritin 1785.0 H Total Bilirubin AST ALT Lactate Dehydrogenase Troponin T C-Reactive Protein Total Protein Albumin Triglycerides Cholesterol LDL Cholesterol Direct HDL Cholesterol Arterial Blood Glucose Arterial Blood Ionized Calcium Coronavirus (PCR) 12/07/20 12/07/20 12/07/20 05:24 05:30 05:30 WBC 23.5 H RBC Hgb Hct MCHC RDW Plt Count Seg Neutrophils % D-Dimer POC ABG pO2 46.8 L ABG Hemoglobin 22.0 H ABG Oxyhemoglobin 77.2 L ABG Sodium 133.9 L ABG Chloride 97.0 L ABG Glucose 186 H Sodium 146 H D Potassium 5.1 H Chloride 113.3 H Carbon Dioxide BUN 78 H Creatinine 1.5 H Glucose 109 H POC Glucose Calcium 7.9 L Ferritin Total Bilirubin AST ALT Lactate Dehydrogenase Troponin T C-Reactive Protein Total Protein 5.4 L D Albumin 2.7 L Triglycerides Cholesterol LDL Cholesterol Direct HDL Cholesterol Arterial Blood Glucose 186 H Arterial Blood Ionized Calcium 4.5 L Coronavirus (PCR) 12/07/20 12/07/20 12/07/20 08:06 11:52 15:51 WBC RBC Hgb Hct MCHC RDW Plt Count Seg Neutrophils % D-Dimer POC ABG pO2 ABG Hemoglobin ABG Oxyhemoglobin ABG Sodium ABG Chloride ABG Glucose Sodium Potassium Chloride Carbon Dioxide BUN Creatinine Glucose POC Glucose 219 H 159 H 149 H Calcium Ferritin Total Bilirubin AST ALT Lactate Dehydrogenase Troponin T C-Reactive Protein Total Protein Albumin Triglycerides Cholesterol LDL Cholesterol Direct HDL Cholesterol Arterial Blood Glucose Arterial Blood Ionized Calcium Coronavirus (PCR) 12/07/20 12/08/20 12/08/20 21:28 04:20 07:39 WBC RBC Hgb Hct MCHC RDW Plt Count Seg Neutrophils % D-Dimer POC ABG pO2 ABG Hemoglobin ABG Oxyhemoglobin ABG Sodium ABG Chloride ABG Glucose Sodium Potassium Chloride 95.3 L Carbon Dioxide BUN 40 H Creatinine Glucose 153 H POC Glucose 167 H 143 H Calcium 8.1 L Ferritin Total Bilirubin AST ALT Lactate Dehydrogenase Troponin T C-Reactive Protein Total Protein Albumin Triglycerides Cholesterol LDL Cholesterol Direct HDL Cholesterol Arterial Blood Glucose Arterial Blood Ionized Calcium Coronavirus (PCR) 12/08/20 12/08/20 12/08/20 11:29 16:27 21:28 WBC RBC Hgb Hct MCHC RDW Plt Count Seg Neutrophils % D-Dimer POC ABG pO2 ABG Hemoglobin ABG Oxyhemoglobin ABG Sodium ABG Chloride ABG Glucose Sodium Potassium Chloride Carbon Dioxide BUN Creatinine Glucose POC Glucose 209 H 157 H 155 H Calcium Ferritin Total Bilirubin AST ALT Lactate Dehydrogenase Troponin T C-Reactive Protein Total Protein Albumin Triglycerides Cholesterol LDL Cholesterol Direct HDL Cholesterol Arterial Blood Glucose Arterial Blood Ionized Calcium Coronavirus (PCR) 12/09/20 12/09/20 12/09/20 07:40 11:52 16:41 WBC RBC Hgb Hct MCHC RDW Plt Count Seg Neutrophils % D-Dimer POC ABG pO2 ABG Hemoglobin ABG Oxyhemoglobin ABG Sodium ABG Chloride ABG Glucose Sodium Potassium Chloride Carbon Dioxide BUN Creatinine Glucose POC Glucose 184 H 221 H 197 H Calcium Ferritin Total Bilirubin AST ALT Lactate Dehydrogenase Troponin T C-Reactive Protein Total Protein Albumin Triglycerides Cholesterol LDL Cholesterol Direct HDL Cholesterol Arterial Blood Glucose Arterial Blood Ionized Calcium Coronavirus (PCR) 12/09/20 12/10/20 12/10/20 21:34 04:15 07:34 WBC RBC Hgb Hct MCHC RDW Plt Count Seg Neutrophils % D-Dimer POC ABG pO2 ABG Hemoglobin ABG Oxyhemoglobin ABG Sodium ABG Chloride ABG Glucose Sodium Potassium 5.9 H Chloride 92.6 L Carbon Dioxide 31 H BUN 47 H Creatinine Glucose 155 H POC Glucose 158 H 143 H Calcium Ferritin Total Bilirubin AST ALT Lactate Dehydrogenase Troponin T C-Reactive Protein Total Protein Albumin Triglycerides Cholesterol LDL Cholesterol Direct HDL Cholesterol Arterial Blood Glucose Arterial Blood Ionized Calcium Coronavirus (PCR) 12/10/20 11:25 WBC RBC Hgb Hct MCHC RDW Plt Count Seg Neutrophils % D-Dimer POC ABG pO2 ABG Hemoglobin ABG Oxyhemoglobin ABG Sodium ABG Chloride ABG Glucose Sodium Potassium Chloride Carbon Dioxide BUN Creatinine Glucose POC Glucose 187 H Calcium Ferritin Total Bilirubin AST ALT Lactate Dehydrogenase Troponin T C-Reactive Protein Total Protein Albumin Triglycerides Cholesterol LDL Cholesterol Direct HDL Cholesterol Arterial Blood Glucose Arterial Blood Ionized Calcium Coronavirus (PCR)
[2020-12-10] MEDS ORDERED: FUROSEMIDE 20 MG/2 ML INJ IV SCH (16:00)
[2020-12-10] MEDS ORDERED: SODIUM POLYSTYRENE 15 GM/60 ML ORAL LIQD PO SCH (16:00)
--- NOTE | 2020-12-10 16:07 | Vascular Lab Report ---
DUPLEX DOPPLER UPPER EXTREMITY VENOUS, LEFT INDICATION / CLINICAL INFORMATION: r/o DVT. Obesity, hyperlipidemia TECHNIQUE: Duplex doppler imaging was performed through the veins of the left upper extremity using venous compr ession and other maneuvers. COMPARISON: None available. FINDINGS: LEFT INTERNAL JUGULAR VEIN: Negative. LEFT SUBCLAVIAN VEIN: Negative. LEFT AXILLARY VEIN: Negative. LEFT BRACHIAL VEIN: Negative. LEFT FOREARM VEINS: Negative. LEFT BASILIC VEIN (SUPERFICIAL): Negative. ADDITIONAL FINDINGS: None. IMPRESSION: 1. No sonographic evidence for DVT. Signer Name: Rhys Pierce MD Signed: 12/10/2020 4:03 PM Workstation Name: [id number]
[2020-12-10] MEDS ORDERED: CALCIUM GLUCONATE 1,000 MG in SODIUM CHLORIDE 0.9% 100 ML IV ONE (19:00)
[2020-12-10 21:06] LABS: BUN/Creatinine Ratio 36; Blood Urea Nitrogen 40 mg/dL (9-20); Calcium 8.5 mg/dL (8.4-10.2); Hemolysis Index 12
[2020-12-10] MEDS: HYDROmorphone 1 MG/1 ML INJ IV PRN (22:03)
[2020-12-10] MEDS: ONDANSETRON 4 MG/2 ML INJ IV PRN (22:04)
[2020-12-11] MEDS: HYDROmorphone 1 MG/1 ML INJ IV PRN ×2 (04:03→12:08)
[2020-12-11 05:54] LABS: C-Reactive Protein 0.1 mg/dL (0.00-1.30)
[2020-12-11] MEDS: SUCRALFATE 1 GM TAB PO SCH ×3 (05:59→21:52)
[2020-12-11] MEDS: methylPREDNISolone Sod Succinate 125 MG/2 ML INJ IV SCH ×3 (05:59→21:53)
[2020-12-11] MEDS: hydrALAZINE 25 MG TAB PO SCH ×3 (05:59→21:50)
[2020-12-11] MEDS: INSULIN LISPRO 100 UNIT/ML SUB-Q SCH ×4 (09:11→21:47)
[2020-12-11] MEDS: ASPIRIN 81 MG TAB CHEW PO SCH (09:12)
[2020-12-11] MEDS: PANTOPRAZOLE 40 MG TAB PO SCH (09:12)
[2020-12-11] MEDS: QUEtiapine 25 MG TAB PO SCH ×2 (09:12→21:51)
[2020-12-11] MEDS: ENOXAPARIN 120 MG/0.8 ML INJ SUB-Q SCH ×2 (09:13→21:48)
[2020-12-11 10:50] LABS: BUN/Creatinine Ratio 50; Blood Urea Nitrogen 40 mg/dL (9-20); Calcium 8.1 mg/dL (8.4-10.2); Hemolysis Index 18
--- NOTE | 2020-12-11 13:01 | Progress Note ---
Assessment and Plan 40 y/o obese male with acute respiratory failure secondary to COVID pneumonia. 12/11/20: Hold on lasix today. Continue to prone. Repeat labs in AM. Prognosis remains guarded. 12/09/20: Lasix again today. Hyperkalemic on labs, will treat with PO kayexalate. Guarded prognosis. Continue to prone. 12/09/20: Lasix again today. Will order labs for AM. Continue to prone. Guarded prognosis. 12/08/20: Will do lasix again today. IMS spoke with father on yesterday. Prone if able. GUarded prognosis. 12/07/20: Steroids at 80q8, changed over the weekend. Lasix given today. Prone as tolerated. IMS spoke with father over the phone. Guarded prognosis. 12/04/20: Steroids at 125 Q8. Prone. Hold on lasix today given marginal blood pressures but please reassess over the weekend, guarded prognosis. 12/03/20: Hold on lasix today. Encourage to prone. Will increase steroids to 125q8. Guarded prognosis. 12/02/20: Lasix again today (20), continue to prone. continue steroids. Guarded prognosis. 12/01/20: Wean as tolerated. Proning should continue. Will give 20 of lasix today. 11/30/20: Patient is attempting to prone which is good for him. Continue to prone as much as tolerated. Hold on lasix again today. 11/29/20: No new recs for today. Needs to prone as much as tolerated. i/O not accurate so will hold on lasix for today. 1. Increase steroids to BID dosing given weight 2. Remdesivir 3. Actemra 4. Proning and net negative fluid balance Guarded prognosis Subjective Date of service: 12/11/20 Principal diagnosis: Covid pneumonia Interval history: No acute events. Back on bipap. Good UOP with lasix but Na is 125 today. Normal renal function. Objective Vital Signs - 12hr 12/11/20 12/11/20 12/11/20 01:00 02:00 02:01 Temperature Pulse Rate 95 H 95 H Pulse Rate [ From Monitor] Respiratory 19 20 Rate Blood Pressure 122/79 122/76 O2 Sat by Pulse 94 94 95 Oximetry 12/11/20 12/11/20 12/11/20 03:00 04:00 04:03 Temperature 97.9 F Pulse Rate 96 H 94 H Pulse Rate [ 90 From Monitor] Respiratory 21 33 H 24 Rate Blood Pressure 127/80 121/80 O2 Sat by Pulse 92 94 Oximetry 12/11/20 12/11/20 12/11/20 04:33 04:41 05:00 Temperature Pulse Rate 90 92 H Pulse Rate [ From Monitor] Respiratory 20 33 H 11 L Rate Blood Pressure 121/80 124/81 O2 Sat by Pulse 94 93 Oximetry 12/11/20 12/11/20 12/11/20 05:59 06:00 07:00 Temperature Pulse Rate 88 89 89 Pulse Rate [ From Monitor] Respiratory 28 H 16 Rate Blood Pressure 124/81 129/84 132/84 O2 Sat by Pulse 95 96 Oximetry 12/11/20 12/11/20 12/11/20 08:00 08:41 09:00 Temperature 97.9 F Pulse Rate 90 88 90 Pulse Rate [ 88 From Monitor] Respiratory 24 20 13 Rate Blood Pressure 124/82 124/82 111/78 O2 Sat by Pulse 95 99 96 Oximetry 12/11/20 12/11/20 12/11/20 10:00 11:00 11:51 Temperature Pulse Rate 97 H 100 H 96 H Pulse Rate [ From Monitor] Respiratory 18 22 23 Rate Blood Pressure 113/85 121/77 121/77 O2 Sat by Pulse 95 94 95 Oximetry 12/11/20 12:00 Temperature 98 F Pulse Rate 94 H Pulse Rate [ 93 H From Monitor] Respiratory 19 Rate Blood Pressure 126/89 O2 Sat by Pulse 97 Oximetry CBC and BMP: 12/07/20 05:30 12/11/20 09:58 ABG, PT/INR, D-dimer: ABG ABG pH 7.414 (7.320-7.450) 12/07/20 05:24 POC ABG pCO2 38.9 mmHg (32.0-48.0) 12/07/20 05:24 POC ABG pO2 46.8 mmHg (83-108) L 12/07/20 05:24 POC ABG HCO3 24.3 12/07/20 05:24 ABG O2 Saturation 77.8 (0-100) 12/07/20 05:24 PT/INR, D-dimer D-Dimer > 14999 ng/mlDDU (0-234) H 12/11/20 04:19 Abnormal lab findings: Abnormal Labs 11/26/20 11/26/20 11/26/20 11:17 11:17 11:17 WBC RBC 5.28 H Hgb 15.8 H Hct MCHC 35 H RDW Plt Count 135 L Seg Neutrophils % 72.2 H D-Dimer 2154.70 H POC ABG pO2 ABG Hemoglobin ABG Oxyhemoglobin ABG Sodium ABG Chloride ABG Glucose Sodium 135 L Potassium Chloride 96.7 L Carbon Dioxide BUN Creatinine Glucose 117 H POC Glucose Calcium Ferritin Total Bilirubin AST 68 H ALT Lactate Dehydrogenase Troponin T C-Reactive Protein Total Protein Albumin Triglycerides Cholesterol LDL Cholesterol Direct HDL Cholesterol Arterial Blood Glucose Arterial Blood Ionized Calcium Coronavirus (PCR) 11/26/20 11/26/20 11/27/20 11:17 11:17 05:15 WBC RBC 5.14 H Hgb 15.3 H Hct MCHC 35 H RDW Plt Count Seg Neutrophils % D-Dimer POC ABG pO2 ABG Hemoglobin ABG Oxyhemoglobin ABG Sodium ABG Chloride ABG Glucose Sodium Potassium Chloride Carbon Dioxide BUN Creatinine Glucose POC Glucose Calcium Ferritin 872.8 H Total Bilirubin AST ALT Lactate Dehydrogenase 642 H Troponin T C-Reactive Protein 8.50 H Total Protein Albumin Triglycerides Cholesterol LDL Cholesterol Direct HDL Cholesterol Arterial Blood Glucose Arterial Blood Ionized Calcium Coronavirus (PCR) 11/27/20 11/27/20 11/27/20 05:15 17:12 Unknown WBC RBC Hgb Hct MCHC RDW Plt Count Seg Neutrophils % D-Dimer POC ABG pO2 ABG Hemoglobin ABG Oxyhemoglobin ABG Sodium ABG Chloride ABG Glucose Sodium 134 L Potassium Chloride 95.1 L Carbon Dioxide BUN Creatinine 1.4 H Glucose 110 H 130 H POC Glucose Calcium Ferritin Total Bilirubin AST 51 H 53 H ALT Lactate Dehydrogenase Troponin T C-Reactive Protein Total Protein Albumin 3.4 L Triglycerides Cholesterol LDL Cholesterol Direct HDL Cholesterol Arterial Blood Glucose Arterial Blood Ionized Calcium Coronavirus (PCR) Positive A 11/28/20 11/29/20 11/30/20 07:14 10:14 03:21 WBC RBC Hgb Hct MCHC RDW Plt Count Seg Neutrophils % D-Dimer POC ABG pO2 ABG Hemoglobin ABG Oxyhemoglobin ABG Sodium ABG Chloride ABG Glucose Sodium Potassium Chloride 97.0 L 97.2 L Carbon Dioxide BUN 23 H 26 H Creatinine Glucose 117 H 140 H 158 H POC Glucose Calcium Ferritin Total Bilirubin AST 54 H 45 H 50 H ALT 65 H Lactate Dehydrogenase 739 H Troponin T C-Reactive Protein 8.50 H Total Protein Albumin 3.6 L 3.8 L Triglycerides Cholesterol LDL Cholesterol Direct HDL Cholesterol Arterial Blood Glucose Arterial Blood Ionized Calcium Coronavirus (PCR) 11/30/20 11/30/20 11/30/20 03:21 03:21 13:05 WBC RBC Hgb Hct MCHC RDW Plt Count Seg Neutrophils % D-Dimer > 62496 H POC ABG pO2 ABG Hemoglobin ABG Oxyhemoglobin ABG Sodium ABG Chloride ABG Glucose Sodium Potassium Chloride Carbon Dioxide BUN Creatinine Glucose POC Glucose 138 H Calcium Ferritin 1885.0 H Total Bilirubin AST ALT Lactate Dehydrogenase Troponin T C-Reactive Protein Total Protein Albumin Triglycerides Cholesterol LDL Cholesterol Direct HDL Cholesterol Arterial Blood Glucose Arterial Blood Ionized Calcium Coronavirus (PCR) 11/30/20 11/30/20 11/30/20 16:41 18:10 21:18 WBC RBC Hgb Hct MCHC RDW Plt Count Seg Neutrophils % D-Dimer POC ABG pO2 ABG Hemoglobin ABG Oxyhemoglobin ABG Sodium ABG Chloride ABG Glucose Sodium Potassium Chloride Carbon Dioxide BUN Creatinine Glucose POC Glucose 145 H 157 H Calcium Ferritin Total Bilirubin AST ALT Lactate Dehydrogenase Troponin T 0.080 H D C-Reactive Protein Total Protein Albumin Triglycerides 228 H Cholesterol 287 H LDL Cholesterol Direct 210 H HDL Cholesterol 38 L Arterial Blood Glucose Arterial Blood Ionized Calcium Coronavirus (PCR) 11/30/20 12/01/20 12/01/20 23:03 05:32 05:32 WBC 15.5 H RBC 5.86 H Hgb 17.3 H Hct 51.6 H MCHC RDW 15.3 H Plt Count Seg Neutrophils % D-Dimer POC ABG pO2 ABG Hemoglobin ABG Oxyhemoglobin ABG Sodium ABG Chloride ABG Glucose Sodium Potassium 5.1 H Chloride Carbon Dioxide BUN 28 H Creatinine Glucose 147 H POC Glucose Calcium Ferritin Total Bilirubin AST 51 H ALT 91 H Lactate Dehydrogenase Troponin T 0.076 H C-Reactive Protein Total Protein Albumin 3.5 L Triglycerides Cholesterol LDL Cholesterol Direct HDL Cholesterol Arterial Blood Glucose Arterial Blood Ionized Calcium Coronavirus (PCR) 12/01/20 12/01/20 12/01/20 08:06 12:04 16:07 WBC RBC Hgb Hct MCHC RDW Plt Count Seg Neutrophils % D-Dimer POC ABG pO2 ABG Hemoglobin ABG Oxyhemoglobin ABG Sodium ABG Chloride ABG Glucose Sodium Potassium Chloride Carbon Dioxide BUN Creatinine Glucose POC Glucose 143 H 156 H 196 H Calcium Ferritin Total Bilirubin AST ALT Lactate Dehydrogenase Troponin T C-Reactive Protein Total Protein Albumin Triglycerides Cholesterol LDL Cholesterol Direct HDL Cholesterol Arterial Blood Glucose Arterial Blood Ionized Calcium Coronavirus (PCR) 12/01/20 12/02/20 12/02/20 21:34 03:17 03:17 WBC 17.2 H RBC 6.26 H Hgb 18.5 H Hct 54.5 H MCHC RDW Plt Count Seg Neutrophils % D-Dimer POC ABG pO2 ABG Hemoglobin ABG Oxyhemoglobin ABG Sodium ABG Chloride ABG Glucose Sodium Potassium Chloride Carbon Dioxide BUN 33 H Creatinine Glucose 131 H POC Glucose 174 H Calcium Ferritin Total Bilirubin 1.40 H AST 48 H ALT 128 H Lactate Dehydrogenase Troponin T C-Reactive Protein Total Protein Albumin 3.3 L Triglycerides Cholesterol LDL Cholesterol Direct HDL Cholesterol Arterial Blood Glucose Arterial Blood Ionized Calcium Coronavirus (PCR) 12/02/20 12/02/20 12/02/20 07:50 10:58 16:17 WBC RBC Hgb Hct MCHC RDW Plt Count Seg Neutrophils % D-Dimer POC ABG pO2 ABG Hemoglobin ABG Oxyhemoglobin ABG Sodium ABG Chloride ABG Glucose Sodium Potassium Chloride Carbon Dioxide BUN Creatinine Glucose POC Glucose 127 H 117 H 138 H Calcium Ferritin Total Bilirubin AST ALT Lactate Dehydrogenase Troponin T C-Reactive Protein Total Protein Albumin Triglycerides Cholesterol LDL Cholesterol Direct HDL Cholesterol Arterial Blood Glucose Arterial Blood Ionized Calcium Coronavirus (PCR) 12/02/20 12/03/20 12/03/20 21:23 08:13 11:32 WBC RBC Hgb Hct MCHC RDW Plt Count Seg Neutrophils % D-Dimer POC ABG pO2 ABG Hemoglobin ABG Oxyhemoglobin ABG Sodium ABG Chloride ABG Glucose Sodium Potassium Chloride Carbon Dioxide BUN Creatinine Glucose POC Glucose 187 H 160 H 154 H Calcium Ferritin Total Bilirubin AST ALT Lactate Dehydrogenase Troponin T C-Reactive Protein Total Protein Albumin Triglycerides Cholesterol LDL Cholesterol Direct HDL Cholesterol Arterial Blood Glucose Arterial Blood Ionized Calcium Coronavirus (PCR) 12/03/20 12/03/20 12/04/20 16:54 21:56 03:02 WBC 25.4 H RBC 6.65 H Hgb 19.7 H Hct 58.2 H MCHC RDW Plt Count Seg Neutrophils % D-Dimer POC ABG pO2 ABG Hemoglobin ABG Oxyhemoglobin ABG Sodium ABG Chloride ABG Glucose Sodium Potassium Chloride Carbon Dioxide BUN Creatinine Glucose POC Glucose 186 H 156 H Calcium Ferritin Total Bilirubin AST ALT Lactate Dehydrogenase Troponin T C-Reactive Protein Total Protein Albumin Triglycerides Cholesterol LDL Cholesterol Direct HDL Cholesterol Arterial Blood Glucose Arterial Blood Ionized Calcium Coronavirus (PCR) 12/04/20 12/04/20 12/04/20 03:02 07:35 10:54 WBC RBC Hgb Hct MCHC RDW Plt Count Seg Neutrophils % D-Dimer POC ABG pO2 ABG Hemoglobin ABG Oxyhemoglobin ABG Sodium ABG Chloride ABG Glucose Sodium Potassium 5.6 H Chloride Carbon Dioxide BUN 36 H Creatinine Glucose 152 H POC Glucose 171 H 256 H Calcium Ferritin Total Bilirubin 1.30 H AST 84 H ALT 124 H Lactate Dehydrogenase Troponin T C-Reactive Protein Total Protein Albumin 3.7 L Triglycerides Cholesterol LDL Cholesterol Direct HDL Cholesterol Arterial Blood Glucose Arterial Blood Ionized Calcium Coronavirus (PCR) 12/04/20 12/04/20 12/05/20 16:43 21:40 06:00 WBC 26.4 H RBC 6.29 H Hgb 18.3 H Hct 54.4 H MCHC RDW 15.3 H Plt Count Seg Neutrophils % D-Dimer POC ABG pO2 ABG Hemoglobin ABG Oxyhemoglobin ABG Sodium ABG Chloride ABG Glucose Sodium Potassium Chloride Carbon Dioxide BUN Creatinine Glucose POC Glucose 175 H 193 H Calcium Ferritin Total Bilirubin AST ALT Lactate Dehydrogenase Troponin T C-Reactive Protein Total Protein Albumin Triglycerides Cholesterol LDL Cholesterol Direct HDL Cholesterol Arterial Blood Glucose Arterial Blood Ionized Calcium Coronavirus (PCR) 12/05/20 12/05/20 12/05/20 06:00 08:12 12:09 WBC RBC Hgb Hct MCHC RDW Plt Count Seg Neutrophils % D-Dimer POC ABG pO2 ABG Hemoglobin ABG Oxyhemoglobin ABG Sodium ABG Chloride ABG Glucose Sodium Potassium 5.1 H Chloride Carbon Dioxide BUN 33 H Creatinine Glucose 183 H POC Glucose 182 H 185 H Calcium Ferritin Total Bilirubin AST ALT Lactate Dehydrogenase Troponin T C-Reactive Protein Total Protein Albumin Triglycerides Cholesterol LDL Cholesterol Direct HDL Cholesterol Arterial Blood Glucose Arterial Blood Ionized Calcium Coronavirus (PCR) 12/05/20 12/05/20 12/06/20 17:10 21:27 08:28 WBC RBC Hgb Hct MCHC RDW Plt Count Seg Neutrophils % D-Dimer POC ABG pO2 ABG Hemoglobin ABG Oxyhemoglobin ABG Sodium ABG Chloride ABG Glucose Sodium Potassium Chloride Carbon Dioxide BUN Creatinine Glucose POC Glucose 173 H 165 H 169 H Calcium Ferritin Total Bilirubin AST ALT Lactate Dehydrogenase Troponin T C-Reactive Protein Total Protein Albumin Triglycerides Cholesterol LDL Cholesterol Direct HDL Cholesterol Arterial Blood Glucose Arterial Blood Ionized Calcium Coronavirus (PCR) 12/06/20 12/06/20 12/06/20 12:04 14:58 14:58 WBC RBC Hgb Hct MCHC RDW Plt Count Seg Neutrophils % D-Dimer 6110.26 H POC ABG pO2 ABG Hemoglobin ABG Oxyhemoglobin ABG Sodium ABG Chloride ABG Glucose Sodium Potassium Chloride Carbon Dioxide BUN Creatinine Glucose 151 H POC Glucose 172 H Calcium Ferritin Total Bilirubin AST ALT Lactate Dehydrogenase 1421 H Troponin T C-Reactive Protein Total Protein Albumin Triglycerides Cholesterol LDL Cholesterol Direct HDL Cholesterol Arterial Blood Glucose Arterial Blood Ionized Calcium Coronavirus (PCR) 12/06/20 12/06/20 12/06/20 14:58 16:42 21:13 WBC RBC Hgb Hct MCHC RDW Plt Count Seg Neutrophils % D-Dimer POC ABG pO2 ABG Hemoglobin ABG Oxyhemoglobin ABG Sodium ABG Chloride ABG Glucose Sodium Potassium Chloride Carbon Dioxide BUN Creatinine Glucose POC Glucose 165 H 229 H Calcium Ferritin 1785.0 H Total Bilirubin AST ALT Lactate Dehydrogenase Troponin T C-Reactive Protein Total Protein Albumin Triglycerides Cholesterol LDL Cholesterol Direct HDL Cholesterol Arterial Blood Glucose Arterial Blood Ionized Calcium Coronavirus (PCR) 12/07/20 12/07/20 12/07/20 05:24 05:30 05:30 WBC 23.5 H RBC Hgb Hct MCHC RDW Plt Count Seg Neutrophils % D-Dimer POC ABG pO2 46.8 L ABG Hemoglobin 22.0 H ABG Oxyhemoglobin 77.2 L ABG Sodium 133.9 L ABG Chloride 97.0 L ABG Glucose 186 H Sodium 146 H D Potassium 5.1 H Chloride 113.3 H Carbon Dioxide BUN 78 H Creatinine 1.5 H Glucose 109 H POC Glucose Calcium 7.9 L Ferritin Total Bilirubin AST ALT Lactate Dehydrogenase Troponin T C-Reactive Protein Total Protein 5.4 L D Albumin 2.7 L Triglycerides Cholesterol LDL Cholesterol Direct HDL Cholesterol Arterial Blood Glucose 186 H Arterial Blood Ionized Calcium 4.5 L Coronavirus (PCR) 12/07/20 12/07/20 12/07/20 08:06 11:52 15:51 WBC RBC Hgb Hct MCHC RDW Plt Count Seg Neutrophils % D-Dimer POC ABG pO2 ABG Hemoglobin ABG Oxyhemoglobin ABG Sodium ABG Chloride ABG Glucose Sodium Potassium Chloride Carbon Dioxide BUN Creatinine Glucose POC Glucose 219 H 159 H 149 H Calcium Ferritin Total Bilirubin AST ALT Lactate Dehydrogenase Troponin T C-Reactive Protein Total Protein Albumin Triglycerides Cholesterol LDL Cholesterol Direct HDL Cholesterol Arterial Blood Glucose Arterial Blood Ionized Calcium Coronavirus (PCR) 12/07/20 12/08/20 12/08/20 21:28 04:20 07:39 WBC RBC Hgb Hct MCHC RDW Plt Count Seg Neutrophils % D-Dimer POC ABG pO2 ABG Hemoglobin ABG Oxyhemoglobin ABG Sodium ABG Chloride ABG Glucose Sodium Potassium Chloride 95.3 L Carbon Dioxide BUN 40 H Creatinine Glucose 153 H POC Glucose 167 H 143 H Calcium 8.1 L Ferritin Total Bilirubin AST ALT Lactate Dehydrogenase Troponin T C-Reactive Protein Total Protein Albumin Triglycerides Cholesterol LDL Cholesterol Direct HDL Cholesterol Arterial Blood Glucose Arterial Blood Ionized Calcium Coronavirus (PCR) 12/08/20 12/08/20 12/08/20 11:29 16:27 21:28 WBC RBC Hgb Hct MCHC RDW Plt Count Seg Neutrophils % D-Dimer POC ABG pO2 ABG Hemoglobin ABG Oxyhemoglobin ABG Sodium ABG Chloride ABG Glucose Sodium Potassium Chloride Carbon Dioxide BUN Creatinine Glucose POC Glucose 209 H 157 H 155 H Calcium Ferritin Total Bilirubin AST ALT Lactate Dehydrogenase Troponin T C-Reactive Protein Total Protein Albumin Triglycerides Cholesterol LDL Cholesterol Direct HDL Cholesterol Arterial Blood Glucose Arterial Blood Ionized Calcium Coronavirus (PCR) 12/09/20 12/09/20 12/09/20 07:40 11:52 16:41 WBC RBC Hgb Hct MCHC RDW Plt Count Seg Neutrophils % D-Dimer POC ABG pO2 ABG Hemoglobin ABG Oxyhemoglobin ABG Sodium ABG Chloride ABG Glucose Sodium Potassium Chloride Carbon Dioxide BUN Creatinine Glucose POC Glucose 184 H 221 H 197 H Calcium Ferritin Total Bilirubin AST ALT Lactate Dehydrogenase Troponin T C-Reactive Protein Total Protein Albumin Triglycerides Cholesterol LDL Cholesterol Direct HDL Cholesterol Arterial Blood Glucose Arterial Blood Ionized Calcium Coronavirus (PCR) 12/09/20 12/10/20 12/10/20 21:34 04:15 07:34 WBC RBC Hgb Hct MCHC RDW Plt Count Seg Neutrophils % D-Dimer POC ABG pO2 ABG Hemoglobin ABG Oxyhemoglobin ABG Sodium ABG Chloride ABG Glucose Sodium Potassium 5.9 H Chloride 92.6 L Carbon Dioxide 31 H BUN 47 H Creatinine Glucose 155 H POC Glucose 158 H 143 H Calcium Ferritin Total Bilirubin AST ALT Lactate Dehydrogenase Troponin T C-Reactive Protein Total Protein Albumin Triglycerides Cholesterol LDL Cholesterol Direct HDL Cholesterol Arterial Blood Glucose Arterial Blood Ionized Calcium Coronavirus (PCR) 12/10/20 12/10/20 12/10/20 11:25 16:25 20:32 WBC RBC Hgb Hct MCHC RDW Plt Count Seg Neutrophils % D-Dimer POC ABG pO2 ABG Hemoglobin ABG Oxyhemoglobin ABG Sodium ABG Chloride ABG Glucose Sodium 133 L Potassium Chloride 89.7 L Carbon Dioxide 31 H BUN 40 H Creatinine Glucose 189 H POC Glucose 187 H 166 H Calcium Ferritin Total Bilirubin AST ALT Lactate Dehydrogenase Troponin T C-Reactive Protein Total Protein Albumin Triglycerides Cholesterol LDL Cholesterol Direct HDL Cholesterol Arterial Blood Glucose Arterial Blood Ionized Calcium Coronavirus (PCR) 12/10/20 12/11/20 12/11/20 21:40 04:19 04:19 WBC RBC Hgb Hct MCHC RDW Plt Count Seg Neutrophils % D-Dimer > 16398 H POC ABG pO2 ABG Hemoglobin ABG Oxyhemoglobin ABG Sodium ABG Chloride ABG Glucose Sodium Potassium Chloride Carbon Dioxide BUN Creatinine Glucose POC Glucose 220 H Calcium Ferritin 2328.0 H Total Bilirubin AST ALT Lactate Dehydrogenase Troponin T C-Reactive Protein Total Protein Albumin Triglycerides Cholesterol LDL Cholesterol Direct HDL Cholesterol Arterial Blood Glucose Arterial Blood Ionized Calcium Coronavirus (PCR) 12/11/20 12/11/20 12/11/20 04:19 07:37 09:58 WBC RBC Hgb Hct MCHC RDW Plt Count Seg Neutrophils % D-Dimer POC ABG pO2 ABG Hemoglobin ABG Oxyhemoglobin ABG Sodium ABG Chloride ABG Glucose Sodium 125 L D Potassium Chloride 87.3 L Carbon Dioxide BUN 40 H Creatinine Glucose 175 H POC Glucose 212 H Calcium 8.1 L Ferritin Total Bilirubin AST ALT Lactate Dehydrogenase 1303 H Troponin T C-Reactive Protein Total Protein Albumin Triglycerides Cholesterol LDL Cholesterol Direct HDL Cholesterol Arterial Blood Glucose Arterial Blood Ionized Calcium Coronavirus (PCR) 12/11/20 11:48 WBC RBC Hgb Hct MCHC RDW Plt Count Seg Neutrophils % D-Dimer POC ABG pO2 ABG Hemoglobin ABG Oxyhemoglobin ABG Sodium ABG Chloride ABG Glucose Sodium Potassium Chloride Carbon Dioxide BUN Creatinine Glucose POC Glucose 210 H Calcium Ferritin Total Bilirubin AST ALT Lactate Dehydrogenase Troponin T C-Reactive Protein Total Protein Albumin Triglycerides Cholesterol LDL Cholesterol Direct HDL Cholesterol Arterial Blood Glucose Arterial Blood Ionized Calcium Coronavirus (PCR)
--- NOTE | 2020-12-11 13:32 | Progress Note ---
Assessment and Plan - Patient Problems (1) Bradycardia Current Visit: Yes Status: Acute Plan to address problem: Patient developed transient, marked sinus bradycardia associated with acute respiratory distress in the setting of Covid pneumonia. Bradycardia was likely due to a transient vasodepressor reaction, continue telemetry monitoring and avoid AV sadie blocking agents. (2) Right heart enlargement Current Visit: Yes Status: Acute Plan to address problem: Right heart dilatation and hypocontractility, suggested concern for acute pulmonary embolism, but patient's CT angiogram was negative. Patient is on high-dose enoxaparin under protocol for acute Covid pneumonia. Subjective Date of service: 12/11/20 Principal diagnosis: Covid pneumonia Interval history: Patient is comfortable, no cardiac complaints have been reported. Stable sinus rhythm on color television console monitor. Objective Vital Signs Temp Pulse Pulse Resp BP Pulse Ox 12/11/20 12:00 98 F 94 H 93 H 19 126/89 97 12/11/20 11:51 96 H 23 121/77 95 12/11/20 11:00 100 H 22 121/77 94 12/11/20 10:00 97 H 18 113/85 95 12/11/20 09:00 90 13 111/78 96 12/11/20 08:41 88 20 124/82 99 12/11/20 08:00 97.9 F 90 88 24 124/82 95 12/11/20 07:00 89 16 132/84 96 12/11/20 06:00 89 28 H 129/84 95 12/11/20 05:59 88 124/81 12/11/20 05:00 92 H 11 L 124/81 93 12/11/20 04:41 90 33 H 121/80 94 12/11/20 04:33 20 12/11/20 04:03 24 12/11/20 04:00 97.9 F 94 H 90 33 H 121/80 94 12/11/20 03:00 96 H 21 127/80 92 12/11/20 02:01 95 H 20 122/76 95 12/11/20 02:00 94 12/11/20 01:00 95 H 19 122/79 94 12/11/20 00:53 97.2 F L 12/11/20 00:35 92 H 12/11/20 00:00 97.2 F L 92 H 9 L 130/80 94 12/10/20 23:59 92 H 18 137/81 94 12/10/20 23:00 95 H 17 137/81 94 12/10/20 22:05 100 H 120/93 12/10/20 22:03 22 12/10/20 22:00 103 H 23 120/93 91 12/10/20 21:53 96.8 F L 12/10/20 21:00 105 H 32 H 134/89 93 12/10/20 20:00 105 H 22 125/85 93 12/10/20 19:29 95 12/10/20 19:25 104 H 26 H 74/20 95 12/10/20 19:01 110 H 26 H 74/20 93 12/10/20 18:29 102 H 28 H 129/105 95 12/10/20 18:00 101 H 29 H 129/105 93 12/10/20 17:00 101 H 32 H 138/100 94 12/10/20 16:01 105 H 31 H 131/91 92 12/10/20 16:00 97.0 F L 101 H 101 H 28 H 95 12/10/20 15:58 106 H 28 H 108/77 92 12/10/20 15:01 101 H 35 H 134/81 80 L 12/10/20 14:50 123/83 12/10/20 14:00 103 H 23 91 - Physical Examination Narrative exam: Full physical exam is deferred due to acute COVID-19 status. General: No Apparent Distress (on high flow oxygen) - Labs and Meds Cardiac Enzymes 12/11/20 Range/Units 04:19 Lactate Dehydrogenase 1303 H (91-180) units/L Comprehensive Metabolic Panel 12/10/20 12/11/20 Range/Units 20:32 09:58 Sodium 133 L 125 L D (137-145) mmol/L Potassium 4.6 D 4.8 (3.6-5.0) mmol/L Chloride 89.7 L 87.3 L (98-107) mmol/L Carbon Dioxide 31 H 28 (22-30) mmol/L BUN 40 H 40 H (9-20) mg/dL Creatinine 1.1 0.8 (0.8-1.3) mg/dL Glucose 189 H 175 H (75-100) mg/dL Calcium 8.5 8.1 L (8.4-10.2) mg/dL
[2020-12-11] MEDS: oxyCODONE /ACETAMINOPHEN 5-325MG TAB PO PRN (16:23)
--- NOTE | 2020-12-11 20:49 | Progress Note ---
Assessment and Plan Assessment and plan: --Acute hypoxic respiratory failure Secondary to COVID-19 pneumonia Patient prefers continuous BiPAP /nonrebreather refuses high flow nasal cannula oxygen IV Decadron dose increased by pulmonary due to worsening hypoxia Currently Solu-Medrol at 80 mg every 8 hours Actemra if available --Hyperkalemia; resolved Monitor electrolytes --COVID-19 pneumonia Completed remdesivir Continue Solu-Medrol IV antibiotics discontinued as procalcitonin is normal Prognosis guarded due to severe hypoxia Inflammatory markers reviewed LFTs mildly increased --Elevated D-dimer increased to 10,000 from 2154 on 11/27 Empiric therapeutic Lovenox every 12 hours subcu Transition to Eliquis when patient is more stable CTA chest negative for PE Lower extremity venous Doppler negative for DVT --Left upper extremity swelling; IV stopped, left upper extremity Doppler Negative for DVT, supportive care, elevate the limb Pain medications --Hyponatremia: Improved --Obesity; BMI 33.7 advised dietary modification, exercise as tolerated and weight reduction when medically stable --Hyperglycemia Mild , secondary to steroids Patient denies history of diabetes Start on Accu-Cheks with insulin sliding scale coverage --Gastroenteritis with nausea vomiting/resolved --DVT prophylaxis Full dose anticoagulation; Patient is critically ill continues to be on high flow oxygen/BiPAP Poor prognosis, family aware We will closely monitor the patient and adjust management as needed Plan of care reviewed with the patient and his nurse 40-year-old -[place] male with no significant past medical history unvaccinated with Covid comes in for increasing shortness of breath and cough for 2-week escalating for 1 week. Symptoms worse with exertion and talking. Positive chest pain. Episode associated with cough. Intermittent nausea vomiting as well as emesis after coughing. Fever and low oxygen levels noted up on arrival. Sats in the mid 85. No loss of taste or smell. Feels weak. No known Covid exposure. Patient now willing to take vaccine after he gets better. 11/27; Patient was on 4 L of oxygen. Covid test is pending. Procalcitonin level pending. ID is following. Patient is on Decadron and will add remdesivir if Covid test is positive 11/28 ;-Covid test was positive. Patient started on Decadron and remdesivir. ID consult appreciated. Patient's oxygen requirement was 30 L yesterday and CRP was 7.5 and ID recommend Actemra based on his availability. Pulmonary consulted. 11/29 patient is awake and alert and he is on 100% FiO2 via nonrebreather mask. Complains of cough with mucoid sputum and states chest hurts when he is coughing. He denies any fever or chills. Denies nausea or abdominal pain. Lab results reviewed. ID and pulmonary notes reviewed and appreciated 11/30 NAD, complains of occasional cough with mucoid sputum and feels mildly short of breath, he denies any fever or chills. lab results reviewed pulmonary note reviewed 12/01: Patient remains on high flow and nonrebreather to maintain a decent saturation. Continue steroids as prescribed by commercial loan administrator on high dose. Mild hyperkalemia we will give a dose of Kayexalate and repeat studies in a.m. Lasix per pulm. Monitor renal function 12/02: Patient seen and examined anxious this morning. Complained of discomfort with swallowing burning sensation. Discussed with cardiac team echocardiogram pending. Continue conservative management otherwise patient is on full dose enoxaparin and also high-dose steroids. Encourage prone positioning. Prognosis is guarded. Plan discussed with the patient. Although 12 point system reviewed and otherwise negative except as mentioned in the note 12/03: Continue high dose steroids, continue supportive care, proned. Unfortunately not improving. Will continue to monitor. 12/04: Patient unfortunately not showing any clinical improvement continues on nonrebreather on high flow. Lasix held today due to marginal blood pressure. Will transfer to [facility] for closer monitoring although he may not be able to go due to staffing shortage which is a national crisis at this time.. Plan discussed with the patient. 12/05: Patient seen and examined, Continue supportive care, wean as tolerated, still poor prognosis due to no significant improvement despite treatment. Encouraged to prone through out the day. 12/06: Patient seen and examined remains significantly hypoxic. Encourage prone positioning. We will trial a dose of Lasix today. We will taper steroids slightly due to markedly inflammation noted leukocytosis. Will check renal function test in a.m. Guarded prognosis discussed with the patient still awaiting IMCU bed 12/07: Continue supportive care continue BiPAP encourage prone position continue steroids. I did speak with the father his phone number is [phone] his name is Chan Grimaldo and updated him on the clinical condition. He verbalized understanding. Recommend that we give him updates periodically. Pulmonary input is appreciated. Continue to wean oxygen as tolerated. Continue Lovenox at this time. Case discussed with commercial loan administrator 12/08/2020; continues to be high flow nasal cannula oxygen intermittent BiPAP Wean as tolerated, on therapeutic anticoagulation due to elevated D-dimers CTA chest, lower extremity Doppler negative 12/09/2020; patient continues to be on high flow nasal cannula oxygen 40 L with intermittent BiPAP Patient prefers BiPAP all the time , wean as tolerated patient with multiple risk factors critically ill Poor prognosis 12/10/2020; patient continues to be on high flow nasal cannula oxygen 40 L/100% nonrebreather/BiPAP. Encouraged proning, home O2 evaluation prior to discharge Consultants recommendations noted and appreciated 12/11/2020; patient on continuous BiPAP; nonrebreather Wean as tolerated, patient has multiple medical problems Critically ill poor prognosis Caustic Operator recommendations noted and appreciated History Interval history: I have seen and examined the patient in IMCU at the bedside this afternoon Isolation precautions, PPE protocols strictly observed Patient severely hypoxemic requiring continuous BiPAP, In mild distress Patient complains of shortness of breath and generalized weakness Vital signs noted Hospitalist Physical - Constitutional Vitals: Temp Pulse Resp BP Pulse Ox 98.3 F 96 H 25 H 112/85 92 12/11/20 20:00 12/11/20 18:01 12/11/20 18:01 12/11/20 18:01 12/11/20 18:01 General appearance: Present: mild distress, well-nourished, obese, other (On continuous BiPAP) - EENT Eyes: Present: PERRL, EOM intact - Neck Neck: Present: supple, normal ROM - Respiratory Respiratory effort: normal Respiratory: bilateral: diminished, rhonchi, negative: rales, wheezing - Cardiovascular Rhythm: regular Heart Sounds: Present: S1 & S2 - Extremities Extremities: no ischemia, No edema - Abdominal General gastrointestinal: soft, non-tender, non-distended, normal bowel sounds - Integumentary Integumentary: Present: clear, warm - Psychiatric Psychiatric: appropriate mood/affect, cooperative - Neurologic Neurologic: CNII-XII intact, moves all extremities HEART Score - HEART Score Troponin: Troponin T 0.076 ng/mL (0.00-0.029) H 11/30/20 23:03 Results - Labs CBC & Chem 7: 12/07/20 05:30 12/11/20 09:58 Labs: Laboratory Last Values WBC 23.5 K/mm3 (4.5-11.0) H 12/07/20 05:30 RBC 4.20 M/mm3 (3.65-5.03) 12/07/20 05:30 Hgb 12.2 gm/dl (11.8-15.2) D 12/07/20 05:30 Hct 38.3 % (35.5-45.6) D 12/07/20 05:30 MCV 91 fl (84-94) 12/07/20 05:30 MCH 29 pg (28-32) 12/07/20 05:30 MCHC 32 % (32-34) 12/07/20 05:30 RDW 14.9 % (13.2-15.2) 12/07/20 05:30 Plt Count 255 K/mm3 (140-440) 12/07/20 05:30 Lymph % (Auto) 25.7 % (13.4-35.0) 11/27/20 05:15 [place] % (Auto) 4.5 % (0.0-7.3) 11/27/20 05:15 Eos % (Auto) 0.0 % (0.0-4.3) 11/27/20 05:15 Baso % (Auto) 0.2 % (0.0-1.8) 11/27/20 05:15 Lymph # (Auto) 1.5 K/mm3 (1.2-5.4) 11/27/20 05:15 [place] # (Auto) 0.3 K/mm3 (0.0-0.8) 11/27/20 05:15 Eos # (Auto) 0.0 K/mm3 (0.0-0.4) 11/27/20 05:15 Baso # (Auto) 0.0 K/mm3 (0.0-0.1) 11/27/20 05:15 Seg Neutrophils % 69.6 % (40.0-70.0) 11/27/20 05:15 Seg Neutrophils # 4.0 K/mm3 (1.8-7.7) 11/27/20 05:15 D-Dimer > 77760 ng/mlDDU (0-234) H 12/11/20 04:19 ABG pH 7.414 (7.320-7.450) 12/07/20 05:24 POC ABG pCO2 38.9 mmHg (32.0-48.0) 12/07/20 05:24 POC ABG pO2 46.8 mmHg (83-108) L 12/07/20 05:24 POC ABG HCO3 24.3 12/07/20 05:24 ABG O2 Saturation 77.8 (0-100) 12/07/20 05:24 POC ABG Base Excess 0.1 12/07/20 05:24 ABG Hemoglobin 22.0 (12.0-17.5) H 12/07/20 05:24 ABG Oxyhemoglobin 77.2 (94-98) L 12/07/20 05:24 ABG Methemoglobin 0.3 (0.0-1.5) 12/07/20 05:24 ABG Sodium 133.9 mmol/L (136.0-145.0) L 12/07/20 05:24 ABG Potassium 4.4 mmol/L (3.40-4.50) 12/07/20 05:24 ABG Chloride 97.0 mmol/L (98-107) L 12/07/20 05:24 ABG Glucose 186 mg/dL (65-95) H 12/07/20 05:24 Carboxyhemoglobin 0.5 (0.5-1.5) 12/07/20 05:24 FiO2 % 100.0 12/07/20 05:24 Sodium 125 mmol/L (137-145) L D 12/11/20 09:58 Potassium 4.8 mmol/L (3.6-5.0) 12/11/20 09:58 Chloride 87.3 mmol/L (98-107) L 12/11/20 09:58 Carbon Dioxide 28 mmol/L (22-30) 12/11/20 09:58 Anion Gap 15 mmol/L 12/11/20 09:58 BUN 40 mg/dL (9-20) H 12/11/20 09:58 Creatinine 0.8 mg/dL (0.8-1.3) 12/11/20 09:58 Estimated GFR > 60 ml/min 12/11/20 09:58 BUN/Creatinine Ratio 50 % 12/11/20 09:58 Glucose 175 mg/dL (75-100) H 12/11/20 09:58 POC Glucose 189 mg/dL (70-105) H 12/11/20 15:23 Lactic Acid 1.20 mmol/L (0.7-2.0) 11/26/20 23:28 Calcium 8.1 mg/dL (8.4-10.2) L 12/11/20 09:58 Ferritin 2328.0 ng/mL (30.0-300.0) H 12/11/20 04:19 Total Bilirubin 0.20 mg/dL (0.1-1.2) 12/07/20 05:30 AST 29 units/L (5-40) 12/07/20 05:30 ALT 27 units/L (7-56) 12/07/20 05:30 Alkaline Phosphatase 103 units/L (35-129) 12/07/20 05:30 Lactate Dehydrogenase 1303 units/L (91-180) H 12/11/20 04:19 Troponin T 0.076 ng/mL (0.00-0.029) H 11/30/20 23:03 C-Reactive Protein 0.10 mg/dL (0.00-1.30) 12/11/20 04:19 NT-Pro-B Natriuret Pep 18.20 pg/mL (0-450) 11/26/20 11:17 Total Protein 5.4 g/dL (6.3-8.2) L D 12/07/20 05:30 Albumin 2.7 g/dL (3.9-5) L 12/07/20 05:30 Albumin/Globulin Ratio 1.0 % 12/07/20 05:30 Triglycerides 228 mg/dL (2-149) H 11/30/20 18:10 Cholesterol 287 mg/dL (50-199) H 11/30/20 18:10 LDL Cholesterol Direct 210 mg/dL (50-130) H 11/30/20 18:10 HDL Cholesterol 38 mg/dL (40-59) L 11/30/20 18:10 Cholesterol/HDL Ratio 7.55 % 11/30/20 18:10 Procalcitonin 0.23 ng/mL (<0.15) 11/26/20 11:17 Arterial Blood Glucose 186 mg/dL (65-95) H 12/07/20 05:24 Arterial Blood Ionized Calcium 4.5 mg/dL (4.6-5.3) L 12/07/20 05:24 Coronavirus (PCR) Positive (Negative) A 11/27/20 Unknown Smith/IV: Voiding Method Urinal Active Medications - Current Medications Current Medications: Generic Name Dose Route Start Last Admin Trade Name Freq PRN Reason Stop Dose Admin Acetaminophen 650 mg 11/26/20 22:20 Acetaminophen 325 Mg Tab PO Q4H PRN Pain MILD(1-3)/Fever >100.5/DALY Aspirin 81 mg 12/02/20 10:00 12/11/20 09:12 Aspirin 81 Mg Tab Chew PO 81 mg QDAY SANGEETHA Administration Atorvastatin Calcium 40 mg 12/01/20 22:00 12/10/20 22:05 Atorvastatin 40 Mg Tab PO 40 mg QHS SANGEETHA Administration Enoxaparin Sodium 110 mg 12/02/20 22:00 12/11/20 09:13 Enoxaparin 120 Mg/0.8 Ml Inj SUB-Q 110 mg Q12HR SANGEETHA Administration Hydralazine HCl 50 mg 12/05/20 16:00 12/11/20 15:02 Hydralazine 25 Mg Tab PO 50 mg Q8HR SANGEETHA Administration Hydromorphone HCl 0.5 mg 11/26/20 22:20 12/11/20 12:08 Hydromorphone 1 Mg/1 Ml Inj IV 0.5 mg Q3H PRN Administration Pain , Severe (7-10) Insulin Human Lispro 0 unit 11/30/20 11:30 12/11/20 16:23 Insulin Lispro 100 Unit/Ml SUB-Q 2 unit ACHS SANGEETHA Administration Protocol Methylprednisolone Sodium Succinate 80 mg 12/06/20 14:00 12/11/20 15:02 Methylprednisolone Sod Succinate 125 Mg/2 Ml Inj IV 80 mg Q8HR SANGEETHA Administration Ondansetron HCl 4 mg 11/26/20 22:20 12/10/20 22:04 Ondansetron 4 Mg/2 Ml Inj IV 4 mg Q8H PRN Administration Nausea And Vomiting Oxycodone/Acetaminophen 1 tab 11/26/20 22:20 12/11/20 16:23 Oxycodone /Acetaminophen 5-325mg Tab PO 1 tab Q6H PRN Administration Pain, Moderate (4-6) Pantoprazole Sodium 40 mg 12/04/20 07:30 12/11/20 09:12 Pantoprazole 40 Mg Tab PO 40 mg QDAC SANGEETHA Administration Quetiapine Fumarate 50 mg 12/11/20 10:00 12/11/20 09:12 Quetiapine 25 Mg Tab PO 50 mg BID SANGEETHA Administration Sodium Chloride 10 ml 11/26/20 23:00 12/11/20 09:15 Sodium Chloride 0.9% 10 Ml Flush Syringe IV 10 ml BID SANGEETHA Administration Sodium Chloride 10 ml 11/26/20 22:20 Sodium Chloride 0.9% 10 Ml Flush Syringe IV PRN PRN LINE FLUSH Sucralfate 1 gm 12/02/20 10:00 12/11/20 15:02 Sucralfate 1 Gm Tab PO 1 gm Q8HR SANGEETHA Administration Nutrition/Malnutrition Assess - Dietary Evaluation Nutrition/Malnutrition Findings: Nutrition Notes Start: 12/03/20 12:47 Freq: Status: Active Protocol: Document 12/10/20 12:45 (Rec: 12/10/20 12:48 [id number]) Nutrition Notes Initial or Follow up Reassessment Current Diagnosis Respiratory Failure, Hyperlipidemia Other Pertinent Diagnosis COVID-19, pneu Current Diet renal, consistent CHO Labs/Tests K 5.9 BUN 47 BG 155 Pertinent Medications Insulin Solu Medrol Height 5 ft 11 in Weight 109.5 kg Howe Body Weight (kg) 78.18 BMI 33.6 Weight Status Obese Subjective/Other Information RN reports not eating breakfast due to being on bipap at night and AM. She states if bipap is of during lunch/dinner he will eat some of the meal, <25%. Burn Absent Trauma Absent GI Symptoms None Current % PO Negligible Minimum of two criteria No Energy Intake (severe) < or equal to 50% Estimated Energy Requirement > or equal to 5 days #1 Nutrition Diagnosis Inadequate oral intake Diagnosis Progress(for reassessment Continues documentation) Is patient on ventilator? No Is Patient Ambulatory and/or Out of Bed No REE-([facility]-confined to bed) 2440.980 Kcal/Kg value to use for calculation 16 Approximate Energy Requirements Using 1752 kcal/Kg Calculation Used for Recommendations Kcal/kg Additional Notes Protein: (0.8-1g/kg AdjBW: 94kg) 75-94g Fluid: 1 ml/kcal or per MD Nutrition Intervention Change Diet Order: continue Goal #1 Meet at least 75% of protein and kcal needs via PO intakes Anticipated Discharge Needs: regular Follow-Up By: 12/14/20 Additional Comments F/u: intakes, food prefrences
[2020-12-12] MEDS: ONDANSETRON 4 MG/2 ML INJ IV PRN (00:15)
[2020-12-12] MEDS ORDERED: METOCLOPRAMIDE 10 MG/2 ML INJ IV ONE (01:41)
[2020-12-12] MEDS: methylPREDNISolone Sod Succinate 125 MG/2 ML INJ IV SCH (05:34)
[2020-12-12] MEDS: hydrALAZINE 25 MG TAB PO SCH (05:37)
[2020-12-12] MEDS: SUCRALFATE 1 GM TAB PO SCH (05:38)
[2020-12-12 05:40] LABS: BUN/Creatinine Ratio 45; Blood Urea Nitrogen 49 mg/dL (9-20); Calcium 8.2 mg/dL (8.4-10.2); Hemolysis Index 27
[2020-12-12] MEDS ORDERED: LORazepam 2 MG/ML VIAL IV ONE (05:46)
[2020-12-12 08:24] LABS: BUN/Creatinine Ratio 43; Blood Urea Nitrogen 52 mg/dL (9-20); Calcium 8.2 mg/dL (8.4-10.2); Hemolysis Index 13
[2020-12-12 08:46] VITALS: BP 110/86
--- NOTE | 2020-12-12 08:54 | Progress Note ---
Assessment and Plan - Patient Problems (1) Bradycardia Current Visit: Yes Status: Acute Subjective Date of service: 12/12/20 Principal diagnosis: Covid pneumonia Interval history: NO EXAM 2ND TO COVID Objective Vital Signs Temp Pulse Pulse Resp BP Pulse Ox 12/12/20 08:30 88 12/12/20 08:00 97.7 F 115 H 115 H 33 H 110/86 88 12/12/20 07:00 112 H 30 H 101/77 90 12/12/20 06:00 108 H 24 119/79 93 12/12/20 05:37 106 H 113/75 12/12/20 05:00 113/75 93 12/12/20 04:00 97.3 F L 114 H 116 H 33 H 107/73 91 12/12/20 03:19 92 12/12/20 03:01 115 H 34 H 117/72 91 12/12/20 02:01 109 H 34 H 89 12/12/20 01:56 88 12/12/20 01:00 104 H 25 H 117/72 86 12/12/20 00:00 97.9 F 106 H 103 H 24 118/74 98 12/11/20 23:00 102 H 21 124/70 97 12/11/20 22:00 104 H 29 H 128/95 96 12/11/20 21:50 103 H 119/95 12/11/20 21:18 97 H 21 110/73 97 12/11/20 21:00 98 H 22 110/73 97 12/11/20 20:01 124/93 85 12/11/20 20:00 98.3 F 98 H 98 H 19 98 12/11/20 19:01 124/93 97 12/11/20 18:01 96 H 25 H 112/85 92 12/11/20 17:00 97 H 20 119/87 96 12/11/20 16:00 90 90 21 114/79 96 12/11/20 15:25 97 H 26 H 135/76 95 12/11/20 15:01 101 H 24 135/76 97 12/11/20 14:00 96 H 20 121/88 95 12/11/20 13:00 93 H 18 123/92 96 12/11/20 12:00 98 F 94 H 93 H 19 126/89 97 12/11/20 11:51 96 H 23 121/77 95 12/11/20 11:00 100 H 22 121/77 94 12/11/20 10:00 97 H 18 113/85 95 12/11/20 09:00 90 13 111/78 96 - Physical Examination General: No Apparent Distress (on high flow oxygen,,,NO EXAM) - Labs and Meds Comprehensive Metabolic Panel 12/11/20 12/12/20 12/12/20 Range/Units 09:58 04:38 06:47 Sodium 125 L D 127 L 128 L (137-145) mmol/L Potassium 4.8 4.7 4.7 (3.6-5.0) mmol/L Chloride 87.3 L 87.3 L 88.0 L (98-107) mmol/L Carbon Dioxide 28 24 23 (22-30) mmol/L BUN 40 H 49 H 52 H (9-20) mg/dL Creatinine 0.8 1.1 1.2 (0.8-1.3) mg/dL Glucose 175 H 194 H 181 H (75-100) mg/dL Calcium 8.1 L 8.2 L 8.2 L (8.4-10.2) mg/dL
--- NOTE | 2020-12-12 09:26 | Procedure Note ---
Date of procedure: 12/12/20 Pre-op diagnosis: Cardiopulmonary arrest Post-op diagnosis: same Procedure: Endotracheal intubation in the setting of cardiopulmonary arrest Used glidescope, visualized the vocal chords Intubated with size 8 tube, chest rise with color change. Anesthesia: none Surgeon: REBECCA SALINAS Pathology: none Condition: critical Disposition: ICU
--- NOTE | 2020-12-12 09:27 | Progress Note ---
Assessment and Plan Assessment and plan: 40-year-old -[place] male with no significant past medical history unvaccinated with Covid comes in for increasing shortness of breath and cough for 2-week escalating for 1 week. Symptoms worse with exertion and talking. Positive chest pain. Episode associated with cough. Intermittent nausea vomiting as well as emesis after coughing. Fever and low oxygen levels noted upon arrival. Sats in the mid 85. No loss of taste or smell. Feels weak. No known Covid exposure. Patient now willing to take vaccine after he gets better. --Acute hypoxic respiratory failure Secondary to COVID-19 pneumonia Patient prefers continuous BiPAP /nonrebreather refuses high flow nasal cannula oxygen IV Decadron dose increased by pulmonary due to worsening hypoxia Currently Solu-Medrol at 80 mg every 8 hours Actemra if available --Hyperkalemia; resolved Monitor electrolytes --COVID-19 pneumonia Completed remdesivir Continue Solu-Medrol IV antibiotics discontinued as procalcitonin is normal Prognosis guarded due to severe hypoxia Inflammatory markers reviewed LFTs mildly increased --Elevated D-dimer increased to 10,000 from 2154 on 11/27 Empiric therapeutic Lovenox every 12 hours subcu Transition to Eliquis when patient is more stable CTA chest negative for PE Lower extremity venous Doppler negative for DVT --Left upper extremity swelling; IV stopped, left upper extremity Doppler Negative for DVT, supportive care, elevate the limb Pain medications --Hyponatremia: Improved --Obesity; BMI 33.7 advised dietary modification, exercise as tolerated and weight reduction when medically stable --Hyperglycemia Mild , secondary to steroids Patient denies history of diabetes Start on Accu-Cheks with insulin sliding scale coverage --Gastroenteritis with nausea vomiting/resolved --DVT prophylaxis Full dose anticoagulation; Patient is critically ill continues to be on high flow oxygen/BiPAP Poor prognosis, family aware We will closely monitor the patient and adjust management as needed Plan of care reviewed with the patient and his nurse 40-year-old -[place] male with no significant past medical history unvaccinated with Covid comes in for increasing shortness of breath and cough for 2-week escalating for 1 week. Symptoms worse with exertion and talking. Positive chest pain. Episode associated with cough. Intermittent nausea vomiting as well as emesis after coughing. Fever and low oxygen levels noted upon arrival. Sats in the mid 85. No loss of taste or smell. Feels weak. No known Covid exposure. Patient now willing to take vaccine after he gets better. 11/27; Patient was on 4 L of oxygen. Covid test is pending. Procalcitonin level pending. ID is following. Patient is on Decadron and will add remdesivir if Covid test is positive 11/28 ;-Covid test was positive. Patient started on Decadron and remdesivir. ID consult appreciated. Patient's oxygen requirement was 30 L yesterday and CRP was 7.5 and ID recommend Actemra based on his availability. Pulmonary consulted. 11/29 patient is awake and alert and he is on 100% FiO2 via nonrebreather mask. Complains of cough with mucoid sputum and states chest hurts when he is coughing. He denies any fever or chills. Denies nausea or abdominal pain. Lab results reviewed. ID and pulmonary notes reviewed and appreciated 11/30 NAD, complains of occasional cough with mucoid sputum and feels mildly short of breath, he denies any fever or chills. lab results reviewed pulmonary note reviewed 12/01: Patient remains on high flow and nonrebreather to maintain a decent saturation. Continue steroids as prescribed by supervisor shipfitters on high dose. Mild hyperkalemia we will give a dose of Kayexalate and repeat studies in a.m. Lasix per pulm. Monitor renal function 12/02: Patient seen and examined anxious this morning. Complained of discomfort with swallowing burning sensation. Discussed with cardiac team echocardiogram pending. Continue conservative management otherwise patient is on full dose enoxaparin and also high-dose steroids. Encourage prone positioning. Prognosis is guarded. Plan discussed with the patient. Although 12 point system reviewed and otherwise negative except as mentioned in the note 12/03: Continue high dose steroids, continue supportive care, proned. Unfortu nately not improving. Will continue to monitor. 12/04: Patient unfortunately not showing any clinical improvement continues on nonrebreather on high flow. Lasix held today due to marginal blood pressure. Will transfer to [facility] for closer monitoring although he may not be able to go due to staffing shortage which is a national crisis at this time.. Plan discussed with the patient. 12/05: Patient seen and examined, Continue supportive care, wean as tolerated, still poor prognosis due to no significant improvement despite treatment. Encouraged to prone through out the day. 12/06: Patient seen and examined remains significantly hypoxic. Encourage prone positioning. We will trial a dose of Lasix today. We will taper steroids slightly due to markedly inflammation noted leukocytosis. Will check renal function test in a.m. Guarded prognosis discussed with the patient still awaiting IMCU bed 12/07: Continue supportive care continue BiPAP encourage prone position continue steroids. I did speak with the father his phone number is [phone]/ cELL [phone] his name is Chan Grimaldo and updated him on the clinical condition. He verbalized understanding. Recommend that we give him updates periodically. Pulmonary input is appreciated. Continue to wean oxygen as tolerated. Continue Lovenox at this time. Case discussed with supervisor shipfitters 12/08/2020; continues to be high flow nasal cannula oxygen intermittent BiPAP Wean as tolerated, on therapeutic anticoagulation due to elevated D-dimers CTA chest, lower extremity Doppler negative 12/09/2020; patient continues to be on high flow nasal cannula oxygen 40 L with intermittent BiPAP Patient prefers BiPAP all the time , wean as tolerated patient with multiple risk factors critically ill Poor prognosis 12/10/2020; patient continues to be on high flow nasal cannula oxygen 40 L/100% nonrebreather/BiPAP. Encouraged proning, home O2 evaluation prior to discharge Consultants recommendations noted and appreciated 12/11/2020; patient on continuous BiPAP; nonrebreather Wean as tolerated, patient has multiple medical problems Critically ill poor prognosis Child Life Assistant recommendations noted and appreciated 12/12: Arrived to the bedside as patient was being CODED, ROSC achieved, patient now intubated and transferred to ICU. Patients Father notified, he stats that the son text him complaining of pain, the father wanted to know if the patient had taken off his oxygen? father his phone number is [phone]/ CELL [phone] . Upper ext left noted to be dusky, and cool to the touch with some blisters, Ultrasound Doppler ordered for both upper and lower ext. Unfortunately patient coded multiple times and . CCT 35mins History Interval history: Patient seen and examined, was unresponsive, code blue was ongoing Hospitalist Physical - Physical exam Narrative exam: General appearance: Present: unresponsive - EENT Eyes: pupple dilated ENT: unable to assess - Neck Neck: supple, normal ROM - Respiratory Respiratory effort: diminished Respiratory:vent - Cardiovascular Rhythm: asystoly Extremities: edema bilateral upper ext with echymosis - Gastrointestinal General gastrointestinal: Present: soft, non-tender Rectal Exam: deferred - Genitourinary Male genitourinary: deferred - Integumentary Integumentary: clear - Musculoskeletal Musculoskeletal: unable to assess - Neurologic Neurologic: no focal deficits - Psychiatric Psychiatric: unable to assess - Constitutional Vitals: Temp Pulse Resp BP Pulse Ox 97.7 F 115 H 32 H 110/86 88 12/12/20 08:00 12/12/20 08:00 12/12/20 08:00 12/12/20 08:00 12/12/20 08:30 General appearance: Present: mild distress, well-nourished, obese, other (On continuous BiPAP) HEART Score - HEART Score Troponin: Troponin T 0.076 ng/mL (0.00-0.029) H 11/30/20 23:03 Results - Labs CBC & Chem 7: 12/07/20 05:30 12/12/20 06:47 Labs: Laboratory Last Values WBC 23.5 K/mm3 (4.5-11.0) H 12/07/20 05:30 RBC 4.20 M/mm3 (3.65-5.03) 12/07/20 05:30 Hgb 12.2 gm/dl (11.8-15.2) D 12/07/20 05:30 Hct 38.3 % (35.5-45.6) D 12/07/20 05:30 MCV 91 fl (84-94) 12/07/20 05:30 MCH 29 pg (28-32) 12/07/20 05:30 MCHC 32 % (32-34) 12/07/20 05:30 RDW 14.9 % (13.2-15.2) 12/07/20 05:30 Plt Count 255 K/mm3 (140-440) 12/07/20 05:30 Lymph % (Auto) 25.7 % (13.4-35.0) 11/27/20 05:15 Wetzel % (Auto) 4.5 % (0.0-7.3) 11/27/20 05:15 Eos % (Auto) 0.0 % (0.0-4.3) 11/27/20 05:15 Baso % (Auto) 0.2 % (0.0-1.8) 11/27/20 05:15 Lymph # (Auto) 1.5 K/mm3 (1.2-5.4) 11/27/20 05:15 Wetzel # (Auto) 0.3 K/mm3 (0.0-0.8) 11/27/20 05:15 Eos # (Auto) 0.0 K/mm3 (0.0-0.4) 11/27/20 05:15 Baso # (Auto) 0.0 K/mm3 (0.0-0.1) 11/27/20 05:15 Seg Neutrophils % 69.6 % (40.0-70.0) 11/27/20 05:15 Seg Neutrophils # 4.0 K/mm3 (1.8-7.7) 11/27/20 05:15 D-Dimer > 47029 ng/mlDDU (0-234) H 12/11/20 04:19 ABG pH 7.430 (7.320-7.450) 12/12/20 01:46 POC ABG pCO2 36.3 mmHg (32.0-48.0) 12/12/20 01:46 POC ABG pO2 53.2 mmHg (83-108) L 12/12/20 01:46 POC ABG HCO3 23.6 12/12/20 01:46 ABG O2 Saturation 86.6 (0-100) 12/12/20 01:46 POC ABG Base Excess -0.3 12/12/20 01:46 ABG Hemoglobin 15.1 (12.0-17.5) 12/12/20 01:46 ABG Oxyhemoglobin 85.8 (94-98) L 12/12/20 01:46 ABG Methemoglobin 0.3 (0.0-1.5) 12/12/20 01:46 ABG Sodium 124.8 mmol/L (136.0-145.0) L 12/12/20 01:46 ABG Potassium 4.6 mmol/L (3.40-4.50) H 12/12/20 01:46 ABG Chloride 88.0 mmol/L (98-107) L 12/12/20 01:46 ABG Glucose 211 mg/dL (65-95) H 12/12/20 01:46 Carboxyhemoglobin 0.6 (0.5-1.5) 12/12/20 01:46 FiO2 % 100.0 12/12/20 01:46 Sodium 128 mmol/L (137-145) L 12/12/20 06:47 Potassium 4.7 mmol/L (3.6-5.0) 12/12/20 06:47 Chloride 88.0 mmol/L (98-107) L 12/12/20 06:47 Carbon Dioxide 23 mmol/L (22-30) 12/12/20 06:47 Anion Gap 22 mmol/L 12/12/20 06:47 BUN 52 mg/dL (9-20) H 12/12/20 06:47 Creatinine 1.2 mg/dL (0.8-1.3) 12/12/20 06:47 Estimated GFR > 60 ml/min 12/12/20 06:47 BUN/Creatinine Ratio 43 % 12/12/20 06:47 Glucose 181 mg/dL (75-100) H 12/12/20 06:47 POC Glucose 256 mg/dL (70-105) H 12/12/20 09:05 Lactic Acid 1.20 mmol/L (0.7-2.0) 11/26/20 23:28 Calcium 8.2 mg/dL (8.4-10.2) L 12/12/20 06:47 Ferritin 2328.0 ng/mL (30.0-300.0) H 12/11/20 04:19 Total Bilirubin 0.20 mg/dL (0.1-1.2) 12/07/20 05:30 AST 29 units/L (5-40) 12/07/20 05:30 ALT 27 units/L (7-56) 12/07/20 05:30 Alkaline Phosphatase 103 units/L (35-129) 12/07/20 05:30 Lactate Dehydrogenase 1303 units/L (91-180) H 12/11/20 04:19 Troponin T 0.076 ng/mL (0.00-0.029) H 11/30/20 23:03 C-Reactive Protein 0.10 mg/dL (0.00-1.30) 12/11/20 04:19 NT-Pro-B Natriuret Pep 18.20 pg/mL (0-450) 11/26/20 11:17 Total Protein 5.4 g/dL (6.3-8.2) L D 12/07/20 05:30 Albumin 2.7 g/dL (3.9-5) L 12/07/20 05:30 Albumin/Globulin Ratio 1.0 % 12/07/20 05:30 Triglycerides 228 mg/dL (2-149) H 11/30/20 18:10 Cholesterol 287 mg/dL (50-199) H 11/30/20 18:10 LDL Cholesterol Direct 210 mg/dL (50-130) H 11/30/20 18:10 HDL Cholesterol 38 mg/dL (40-59) L 11/30/20 18:10 Cholesterol/HDL Ratio 7.55 % 11/30/20 18:10 Procalcitonin 0.23 ng/mL (<0.15) 11/26/20 11:17 Arterial Blood Glucose 211 mg/dL (65-95) H 12/12/20 01:46 Arterial Blood Ionized Calcium 4.2 mg/dL (4.6-5.3) L 12/12/20 01:46 Coronavirus (PCR) Positive (Negative) A 11/27/20 Unknown Smith/IV: Voiding Method Urinal Active Medications - Current Medications Current Medications: Generic Name Dose Route Start Last Admin Trade Name Freq PRN Reason Stop Dose Admin Acetaminophen 650 mg 11/26/20 22:20 Acetaminophen 325 Mg Tab PO Q4H PRN Pain MILD(1-3)/Fever >100.5/DALY Aspirin 81 mg 12/02/20 10:00 12/11/20 09:12 Aspirin 81 Mg Tab Chew PO 81 mg QDAY SANGEETHA Administration Atorvastatin Calcium 40 mg 12/01/20 22:00 12/11/20 21:52 Atorvastatin 40 Mg Tab PO 40 mg QHS SANGEETHA Administration Enoxaparin Sodium 110 mg 12/02/20 22:00 12/11/20 21:48 Enoxaparin 120 Mg/0.8 Ml Inj SUB-Q 110 mg Q12HR SANGEETHA Administration Hydralazine HCl 50 mg 12/05/20 16:00 12/12/20 05:37 Hydralazine 25 Mg Tab PO 50 mg Q8HR SANGEETHA Administration Hydromorphone HCl 0.5 mg 11/26/20 22:20 12/11/20 12:08 Hydromorphone 1 Mg/1 Ml Inj IV 0.5 mg Q3H PRN Administration Pain , Severe (7-10) Insulin Human Lispro 0 unit 11/30/20 11:30 12/11/20 21:47 Insulin Lispro 100 Unit/Ml SUB-Q 2 unit ACHS SANGEETHA Administration Protocol Methylprednisolone Sodium Succinate 80 mg 12/06/20 14:00 12/12/20 05:34 Methylprednisolone Sod Succinate 125 Mg/2 Ml Inj IV 80 mg Q8HR SANGEETHA Administration Ondansetron HCl 4 mg 11/26/20 22:20 12/12/20 00:15 Ondansetron 4 Mg/2 Ml Inj IV 4 mg Q8H PRN Administration Nausea And Vomiting Oxycodone/Acetaminophen 1 tab 11/26/20 22:20 12/11/20 16:23 Oxycodone /Acetaminophen 5-325mg Tab PO 1 tab Q6H PRN Administration Pain, Moderate (4-6) Pantoprazole Sodium 40 mg 12/04/20 07:30 12/11/20 09:12 Pantoprazole 40 Mg Tab PO 40 mg QDAC SANGEETHA Administration Quetiapine Fumarate 50 mg 12/11/20 10:00 12/11/20 21:51 Quetiapine 25 Mg Tab PO 50 mg BID SANGEETHA Administration Sodium Chloride 10 ml 11/26/20 23:00 12/11/20 21:53 Sodium Chloride 0.9% 10 Ml Flush Syringe IV 10 ml BID SANGEETHA Administration Sodium Chloride 10 ml 11/26/20 22:20 Sodium Chloride 0.9% 10 Ml Flush Syringe IV PRN PRN LINE FLUSH Sucralfate 1 gm 12/02/20 10:00 12/12/20 05:38 Sucralfate 1 Gm Tab PO 1 gm Q8HR SANGEETHA Administration Nutrition/Malnutrition Assess - Dietary Evaluation Nutrition/Malnutrition Findings: Nutrition Notes Start: 12/03/20 12:47 Freq: Status: Active Protocol: Document 12/10/20 12:45 MK (Rec: 12/10/20 12:48 KALYN [id number]) Nutrition Notes Initial or Follow up Reassessment Current Diagnosis Respiratory Failure, Hyperlipidemia Other Pertinent Diagnosis COVID-19, pneu Current Diet renal, consistent CHO Labs/Tests K 5.9 BUN 47 BG 155 Pertinent Medications Insulin Solu Medrol Height 5 ft 11 in Weight 109.5 kg [place] Body Weight (kg) 78.18 BMI 33.6 Weight Status Obese Subjective/Other Information RN reports not eating breakfast due to being on bipap at night and AM. She states if bipap is of during lunch/dinner he will eat some of the meal, <25%. Burn Absent Trauma Absent GI Symptoms None Current % PO Negligible Minimum of two criteria No Energy Intake (severe) < or equal to 50% Estimated Energy Requirement > or equal to 5 days #1 Nutrition Diagnosis Inadequate oral intake Diagnosis Progress(for reassessment Continues documentation) Is patient on ventilator? No Is Patient Ambulatory and/or Out of Bed No REE-([facility]-confined to bed) 2440.980 Kcal/Kg value to use for calculation 16 Approximate Energy Requirements Using 1752 kcal/Kg Calculation Used for Recommendations Kcal/kg Additional Notes Protein: (0.8-1g/kg AdjBW: 94kg) 75-94g Fluid: 1 ml/kcal or per MD Nutrition Intervention Change Diet Order: continue Goal #1 Meet at least 75% of protein and kcal needs via PO intakes Anticipated Discharge Needs: regular Follow-Up By: 12/14/20 Additional Comments F/u: intakes, food prefrences
--- NOTE | 2020-12-12 09:31 | Event Note ---
Date: 12/12/20 Responded to lenin cancino. Called by RN at 902am On arrival patient was unresponsive. PEA arrest Ran the code based on ACLS guidelines with ROSC at 911am Patient intubated using glidescope at 910am See code blue documentation for details. Family notified by primary service Primary line mechanic notified by RN Vent settings given to RT rate 30 Tv 400/FIO2 100% and Peep 10 ABG in 1 hour Hypotensive post arrest, Norepinephrine ordered. OGT to LIS Follow CXR post intubation ordered Will need Smith catheter, arterial line and CVL Critical care time 75 minutes
[2020-12-12] MEDS ORDERED: VASOPRESSIN 20 UNIT in SODIUM CHLORIDE 0.9% 100 ML IV SCH (10:00)
[2020-12-12] MEDS ORDERED: CALCIUM CHLORIDE 1,000 MG/10 ML SYRINGE IV ONE (10:14)
[2020-12-12] MEDS ORDERED: EPINEPHrine 1 MG/10 ML SYRINGE ONE (10:14)
[2020-12-12] MEDS ORDERED: SODIUM BICARB 8.4% 50 MEQ/50 ML SYRINGE IV ONE (10:14)
[2020-12-12] MEDS ORDERED: AMIODARONE 150 MG/3 ML INJ IV ONE (10:14)
[2020-12-12 10:37] LABS: C-Reactive Protein 0.1 mg/dL (0.00-1.30)
--- NOTE | 2020-12-12 10:40 | Event Note ---
Date: 12/12/20 Walked in this am to patient coding for second time. He coded earlier this morning, was intubated and then lost pulse again. CPR was in progress. Patient received several rounds of EPI (see code sheet for exact numbers), bicarb and calicum. ROSC achieved after prolonged downtime. Central line was attempted to be placed as peripheral IV infiltrated. While attempting to place central line pulse lost again and CPR started, line aborted. Medications now given down the endotracheal tube. After several rounds again, unable achieve ROSC. Patient pronouced. Asystole on monitor.
--- NOTE | 2020-12-12 10:50 | Death Summary ---
Summary - Providers Date of service: 12/12/20 Consults: 11/27/20 06:51 Consult to Physician [CONS] Routine Comment: Consulting Provider: DONAVAN MCKEON Physician Instructions: Reason For Exam: Bilateral pneumonia 11/28/20 07:59 Consult to Physician [CONS] Routine Comment: Consulting Provider: CODY SUBRAMANIAN Physician Instructions: Reason For Exam: Covid, hypoxia on high flow oxygen 11/30/20 09:54 Occupational Therapy Evaluate and Treat [CONS] Stat Comment: Reason For Exam: eval and treat Physical Therapy Evaluation and Treat [CONS] Stat Comment: Reason For Exam: eval and treat 12/06/20 09:22 Consult to Physician [CONS] Routine Comment: Consulting Provider: MIKE ANDERSON Physician Instructions: Reason For Exam: CARDIAC PAUSE 12/09/20 14:32 Consult to PICC Line RN [CONS] Routine Reason For Exam: Insert IV not midline Type Line:: Midline 12/12/20 09:20 Consult to Physician [CONS] Routine Comment: Consulting Provider: PAULINO DEAL Physician Instructions: Reason For Exam: left upper ext arterial disease Attending: ALFRED CISNEROS MD - summary Date of admission: 11/26/20 12:30 Date of : 12/12/20 Reason for admission: SHORTNESS OF BREATH Significant findings: 40-year-old -[place] male with no significant past medical history unvaccinated with Covid comes in for increasing shortness of breath and cough for 2-week escalating for 1 week. Symptoms worse with exertion and talking. Positive chest pain. Episode associated with cough. Intermittent nausea vomiting as well as emesis after coughing. Fever and low oxygen levels noted upon arrival. Sats in the mid 85. No loss of taste or smell. Feels weak. No known Covid exposure. Patient now willing to take vaccine after he gets better. 11/27; Patient was on 4 L of oxygen. Covid test is pending. Procalcitonin level pending. ID is following. Patient is on Decadron and will add remdesivir if Covid test is positive 11/28 ;-Covid test was positive. Patient started on Decadron and remdesivir. ID consult appreciated. Patient's oxygen requirement was 30 L yesterday and CRP was 7.5 and ID recommend Actemra based on his availability. Pulmonary consulted. 11/29 patient is awake and alert and he is on 100% FiO2 via nonrebreather mask. Complains of cough with mucoid sputum and states chest hurts when he is coughing. He denies any fever or chills. Denies nausea or abdominal pain. Lab results reviewed. ID and pulmonary notes reviewed and appreciated 11/30 NAD, complains of occasional cough with mucoid sputum and feels mildly short of breath, he denies any fever or chills. lab results reviewed pulmonary note reviewed 12/01: Patient remains on high flow and nonrebreather to maintain a decent saturation. Continue steroids as prescribed by starch and prosize mixer on high dose. Mild hyperkalemia we will give a dose of Kayexalate and repeat studies in a.m. Lasix per pulm. Monitor renal function 12/02: Patient seen and examined anxious this morning. Complained of discomfort with swallowing burning sensation. Discussed with cardiac team echocardiogram pending. Continue conservative management otherwise patient is on full dose enoxaparin and also high-dose steroids. Encourage prone positioning. Prognosis is guarded. Plan discussed with the patient. Although 12 point system reviewed and otherwise negative except as mentioned in the note 12/03: Continue high dose steroids, continue supportive care, proned. Unfortunately not improving. Will continue to monitor. 12/04: Patient unfortunately not showing any clinical improvement continues on nonrebreather on high flow. Lasix held today due to marginal blood pressure. Will transfer to [facility] for closer monitoring although he may not be able to go due to staffing shortage which is a national crisis at this time.. Plan discussed with the patient. 12/05: Patient seen and examined, Continue supportive care, wean as tolerated, st ill poor prognosis due to no significant improvement despite treatment. Encouraged to prone through out the day. 12/06: Patient seen and examined remains significantly hypoxic. Encourage prone positioning. We will trial a dose of Lasix today. We will taper steroids slightly due to markedly inflammation noted leukocytosis. Will check renal function test in a.m. Guarded prognosis discussed with the patient still awaiting IMCU bed 12/07: Continue supportive care continue BiPAP encourage prone position continue steroids. I did speak with the father his phone number is [phone]/ cELL [phone] his name is Chan Grimaldo and updated him on the clinical condition. He verbalized understanding. Recommend that we give him updates periodically. Pulmonary input is appreciated. Continue to wean oxygen as tolerated. Continue Lovenox at this time. Case discussed with starch and prosize mixer 12/08/2020; continues to be high flow nasal cannula oxygen intermittent BiPAP Wean as tolerated, on therapeutic anticoagulation due to elevated D-dimers CTA chest, lower extremity Doppler negative 12/09/2020; patient continues to be on high flow nasal cannula oxygen 40 L with intermittent BiPAP Patient prefers BiPAP all the time , wean as tolerated patient with multiple risk factors critically ill Poor prognosis 12/10/2020; patient continues to be on high flow nasal cannula oxygen 40 L/100% nonrebreather/BiPAP. Encouraged proning, home O2 evaluation prior to discharge Consultants recommendations noted and appreciated 12/11/2020; patient on continuous BiPAP; nonrebreather Wean as tolerated, patient has multiple medical problems Critically ill poor prognosis Mobility Manager recommendations noted and appreciated 12/12: Arrived to the bedside as patient was being CODED, ROSC achieved, patient now intubated and transferred to ICU. Patients Father notified, he stats that the son text him complaining of pain, the father wanted to know if the patient had taken off his oxygen? father his phone number is [phone]/ CELL [phone] . Upper ext left noted to be dusky, and cool to the touch with some blisters, Ultrasound Doppler ordered for both upper and lower ext. Unfortunately patient coded multiple times and . See Code documentation FATHER NOTIFIED. --Acute hypoxic respiratory failure --Cardiac Arrest --Hyperkalemia --COVID-19 pneumonia --Elevated D-dimer increased to 10,000 from 4 --Left upper extremity swelling --Hyponatremia --Obesity; BMI 33.7 --Hyperglycemia --Gastroenteritis
[2020-12-12] MEDS ORDERED: EPINEPHrine 1 MG/1 ML 16 MG in SODIUM CHLORIDE 0.9% 250ML 234 ML IV SCH (11:00)
[2020-12-12] MEDS ORDERED: EPINEPHrine 1 MG/1 ML 8 MG in SODIUM CHLORIDE 0.9% 250ML 242 ML IV SCH (11:00)
--- NOTE | 2020-12-12 12:44 | XRay Report ---
CHEST 1 VIEW INDICATION / CLINICAL INFORMATION: ETT placement. COMPARISON: 11/26/2020 FINDINGS: SUPPORT DEVICES: ET tube is present. The tip is at the nadege. You may wish to pull back 2.5 cm. HEART / MEDIASTINUM: No significant abnormality. LUNGS / PLEURA: Interstitial pulmonary opacities are present throughout the right lung, slightly wors e compared to prior exam.. There are subtle pulmonary opacities within the left lung although overall , the left lung shows improvement compared with 11/26/2020 radiograph. No pneumothorax. ADDITIONAL FINDINGS: There is prominent gaseous distention of the stomach. IMPRESSION: 1. Tip of the ET tube is at the nadege. You may wish to pull back 2.5 cm. 2. Slight interval worsening of pulmonary opacities within the right lung. 3. Overall improvement in the appearance of the left lung. 4. Prominent gaseous distention of the stomach. Signer Name: Sherry Rai MD Signed: 12/12/2020 12:40 PM Workstation Name: [id number]
== END 2020-12-12 10:18 | DRG 208 ==
LOC: ED 09:21 → 3A 12:30 → IMCU 12-06 21:58
PROVIDERS: ADMIT Internal Medicine; ATTEND Internal Medicine
PROC: XW033E5 Introduction of Remdesivir Anti-infective into Peripheral Vein, Percutaneous Approach, New Technology Group 5 (ICD-10-PCS; 2020-11-27)
PROC: XW033H5 Introduction of Tocilizumab into Peripheral Vein, Percutaneous Approach, New Technology Group 5 (ICD-10-PCS; 2020-12-01)
PROC: 4A033R1 Measurement of Arterial Saturation, Peripheral, Percutaneous Approach (ICD-10-PCS; 2020-12-07)
PROC: 5A09457 Assistance with Respiratory Ventilation, 24-96 Consecutive Hours, Continuous Positive Airway Pressure (ICD-10-PCS; 2020-12-07)
PROC: 5A1935Z Respiratory Ventilation, Less than 24 Consecutive Hours (ICD-10-PCS; principal; 2020-12-12)
PROC: 0BH17EZ Insertion of Endotracheal Airway into Trachea, Via Natural or Artificial Opening (ICD-10-PCS; 2020-12-12)
PROC: 5A12012 Performance of Cardiac Output, Single, Manual (ICD-10-PCS; 2020-12-12)
DX: U07.1 COVID-19 (principal); J96.01 Acute respiratory failure with hypoxia; J12.82 Pneumonia due to coronavirus disease 2019; E87.1 Hypo-osmolality and hyponatremia; Z68.33 Body mass index [BMI] 33.0-33.9, adult; R73.9 Hyperglycemia, unspecified; E87.5 Hyperkalemia; K52.9 Noninfective gastroenteritis and colitis, unspecified; E66.01 Morbid (severe) obesity due to excess calories; E78.5 Hyperlipidemia, unspecified; R00.1 Bradycardia, unspecified; I46.9 Cardiac arrest, cause unspecified
CPT/HCPCS: 36415; 36600; 71045; 71046; 71275; 80048; 80053; 80061; 82140; 82728; 82805; 82947; 82962; 83520; 83615; 83735; 83880; 84100; 84145; 84484; 85025; 85027; 85379; 86140; 87040; 93005; 93308; 93321; 93325; 93970; 94002; 94003; 94660; 94760; G0378; A9270-GY; C9113; J0171; J0282; J0456; J0610; J0696; J1100; J1170; J1650; J1815; J1940; J2060; J2405; J2765; J2930; J3262; J7030; J7050; Q9967; U0003